=== PATIENT | female | born 1970 | race Caucasian/White ===

== ENCOUNTER → 2016-12-24 | Outpatient (CLI) | payer BC | END | disposition home or self-care (01) | LOC: LABWHC1 08:02 | PROVIDERS: ATTEND Psychiatry & Neurology Neurology | DX: G40.209 Localization-related (focal) (partial) symptomatic epilepsy and epileptic syndromes with complex partial seizures, not intractable, without status epilepticus (principal) | CPT/HCPCS: 36415; 80156 ==

== ENCOUNTER → 2017-05-25 | Outpatient (CLI) | payer BC ==
--- NOTE | 2017-05-25 15:28 | US ---
EXAMINATION TYPE: US pelvis complete transvag DATE OF EXAM: 05/25/2017 COMPARISON: CLINICAL HISTORY: R10.813 Abd Tenderness. Ablation x 5+ years ago, tubal ligation TECHNIQUE: Transvaginal (TV) and Transabdominal (TA) Date of LMP: 2011, EXAM MEASUREMENTS: Uterus: 7.7 x 5.3 x 4.4 cm Endometrial Stripe: 0.4 cm Right Ovary: 3.0 x 1.8 x 1.6 cm Left Ovary: 2.6 x 1.5 x 1.4 cm 1. Uterus: Anteverted Heterogeneous. Hypoechoic lesion in mid/left fundal region = 0.9 x 0.8 x 0. 8 cm 2. Endometrium: wnl 3. Right Ovary: hypoechoic lesion seen with peripheral vascularity - 1.6 x 1.0 x 1.2 cm 4. Left Ovary: wnl Color doppler imaging shows good vascular flow within the ovaries; 5. Bilateral Adnexa: wnl 6. Posterior cul-de-sac: free fluid cervix- multiple nabothian cysts Endometrium does not appear suspiciously thickened. Tiny amount of free fluid is seen in pelvic cul-d e-sac. Technologist diana nonspecific 8 mm hypoechoic area centrally near endometrium, differential i ncludes small subcentimeter submucosal fibroid. Both ovaries are seen and felt within normal limits in appearance. IMPRESSION: No suspicious finding is seen to account for patient's symptoms of tenderness.
== END | disposition home or self-care (01) ==
LOC: RADUSWWP 13:36
PROVIDERS: ATTEND Internal Medicine
DX: R10.813 Right lower quadrant abdominal tenderness (principal)
CPT/HCPCS: 76830; 76856

== ENCOUNTER → 2017-05-27 | Outpatient (CLI) | payer BC ==
--- NOTE | 2017-05-27 09:25 | MR ---
EXAMINATION TYPE: MR lumbar spine wo con DATE OF EXAM: 05/27/2017 8:53 AM COMPARISON: NONE HISTORY: Unspecified thoracic, thoracolumbar and lumbosacral disorder, pain Multiplanar, MultiSpin echo imaging of the lumbar spine was performed. L1-L2: Normal disc appearance without desiccation. No herniation, protrusion or disc bulging. No ca nal stenosis is present. Foramina are patent bilaterally. L2-L3: Normal disc appearance without desiccation. No herniation, protrusion or disc bulging. No ca nal stenosis is present. Foramina are patent bilaterally. L3-L4: Normal disc appearance without desiccation. No herniation, protrusion or disc bulging. No ca nal stenosis is present. Foramina are patent bilaterally. L4-L5: Severe degenerative disc disease with disc desiccation noted. Extruded right paracentral disc herniation resulting in right lateral recess stenosis and right foraminal encroachment. No evidence f or central stenosis. Mild facet joint arthropathy. L5-S1: Severe disc desiccation. Right paracentral disc herniation with a partial encapsulating spur. Right lateral recess stenosis and right foraminal encroachment. Mild edema of the exiting nerve root. Degenerative endplate marrow change and spondylosis. Facet joint arthropathy detected. Lumbar segments are intact. No paraspinal masses are identified. Conus medullaris has a normal appe arance. IMPRESSION: 1. Generative disc disease as discussed. 2. Disc herniations paracentrally and to the right at L4-5 and L5-S1 as discussed above. Right latera l recess stenosis and foraminal encroachment at each level.
== END | disposition home or self-care (01) ==
LOC: RADMRIMAIN 08:12
PROVIDERS: ATTEND Internal Medicine
DX: M51.36 Other intervertebral disc degeneration, lumbar region (principal); M51.27 Other intervertebral disc displacement, lumbosacral region
CPT/HCPCS: 72148

== ENCOUNTER → 2017-09-04 | Outpatient (CLI) | payer BC | END | disposition home or self-care (01) | LOC: LABWHC1 10:01 | PROVIDERS: ATTEND Psychiatry & Neurology Neurology | DX: G40.209 Localization-related (focal) (partial) symptomatic epilepsy and epileptic syndromes with complex partial seizures, not intractable, without status epilepticus (principal) | CPT/HCPCS: 36415; 80156 ==

== ENCOUNTER → 2017-09-08 | Outpatient (CLI) | payer BC ==
--- NOTE | 2017-09-09 09:02 | MM ---
Reason for exam: screening (asymptomatic). Last mammogram was performed 1 year and 2 months ago. History: Patient has history of other cancer at age 39. Family history of breast cancer in mother at age 71. Took hormonal contraceptives for 7 years. Physical Findings: A clinical breast exam by your physician is recommended on an annual basis and results should be correlated with mammographic findings. MG 3D Screening Mammo W/Cad Bilateral CC and MLO view(s) were taken. Prior study comparison: June 24, 2016, bilateral MG 3d screening mammo w/cad. June 05, 2015, bilateral MG 3d screening mammo w/cad. The breast tissue is heterogeneously dense. This may lower the sensitivity of mammography. Stable benign calcifications. There is no discrete abnormality. No significant changes when compared with prior studies. ASSESSMENT: Benign, BI-RAD 2 RECOMMENDATION: Routine screening mammogram of both breasts in 1 year.
== END | disposition home or self-care (01) ==
LOC: RADMAMWWP 06:49
PROVIDERS: ATTEND Obstetrics & Gynecology
DX: Z12.31 Encounter for screening mammogram for malignant neoplasm of breast (principal); Z80.3 Family history of malignant neoplasm of breast
CPT/HCPCS: 77063; 77067

== ENCOUNTER → 2018-04-12 | Outpatient (CLI) | payer BC | END | disposition home or self-care (01) | LOC: LABWHC1 16:50 | PROVIDERS: ATTEND Psychiatry & Neurology Neurology | DX: G40.209 Localization-related (focal) (partial) symptomatic epilepsy and epileptic syndromes with complex partial seizures, not intractable, without status epilepticus (principal) | CPT/HCPCS: 36415; 80156 ==

== ENCOUNTER → 2018-09-26 | Outpatient (CLI) | payer BC ==
--- NOTE | 2018-09-27 10:42 | MM ---
Reason for exam: screening (asymptomatic). Last mammogram was performed 1 year and 1 month ago. History: Patient has history of other cancer at age 39. Family history of breast cancer in mother at age 71. Took hormonal contraceptives for 7 years. Physical Findings: A clinical breast exam by your physician is recommended on an annual basis and results should be correlated with mammographic findings. MG 3D Screening Mammo W/Cad Bilateral CC and MLO view(s) were taken. Prior study comparison: September 08, 2017, bilateral MG 3d screening mammo w/cad. June 24, 2016, bilateral MG 3d screening mammo w/cad. The breast tissue is heterogeneously dense. This may lower the sensitivity of mammography. Benign appearing bilateral calcifications. Stable left upper outer quadrant focal asymmetry. No significant changes when compared with prior studies. ASSESSMENT: Benign, BI-RAD 2 RECOMMENDATION: Routine screening mammogram of both breasts in 1 year.
== END | disposition home or self-care (01) ==
LOC: RADMAMWWP 08:58
PROVIDERS: ATTEND Obstetrics & Gynecology
DX: Z12.31 Encounter for screening mammogram for malignant neoplasm of breast (principal); Z80.3 Family history of malignant neoplasm of breast
CPT/HCPCS: 77063; 77067

== ENCOUNTER → 2018-11-30 | Outpatient (CLI) | payer BC ==
[2018-11-30 19:33] LABS: Hepatitis B Surface AB- Quant 3.5 mIU/mL; Hepatitis C IgG Antibody Non-Reactive (Non-Reactive)
== END | disposition home or self-care (01) ==
LOC: LABWHC1 09:40
PROVIDERS: ATTEND Internal Medicine
DX: Z20.5 Contact with and (suspected) exposure to viral hepatitis (principal)
CPT/HCPCS: 36415; 86706; 86803; 87350

== ENCOUNTER → 2018-12-29 | Outpatient (CLI) | payer BC | END | disposition home or self-care (01) | LOC: LABWHC1 09:50 | PROVIDERS: ATTEND Psychiatry & Neurology Neurology | DX: G40.209 Localization-related (focal) (partial) symptomatic epilepsy and epileptic syndromes with complex partial seizures, not intractable, without status epilepticus (principal) | CPT/HCPCS: 36415; 80156 ==

== ENCOUNTER → 2019-03-01 | Outpatient (CLI) | payer BC ==
[2019-03-01 07:36] LABS: Basophils % (A) 0 %; Eosinophils # (A) 0.1 k/uL (0-0.7); Eosinophils % (A) 1 %; HCT 37.7 % (34.0-46.0); HGB 13.6 gm/dL (11.4-16.0); Lymphocytes # (A) 2.3 k/uL (1.0-4.8); Lymphocytes % (A) 23 %; MCHC 36.1 g/dL (31.0-37.0); MCV 85.8 fL (80.0-100.0); Monocytes # (A) 0.4 k/uL (0-1.0); Monocytes % (A) 4 %; Neutrophils % (A) 71 %; Platelet Count 291 k/uL (150-450); RBC 4.39 m/uL (3.80-5.40); RDW 14.5 % (11.5-15.5); WBC 9.9 k/uL (3.8-10.6)
== END | disposition home or self-care (01) ==
LOC: LABWHC1 07:05
PROVIDERS: ATTEND Obstetrics & Gynecology
DX: Z01.812 Encounter for preprocedural laboratory examination (principal)
CPT/HCPCS: 36415; 85025

== ENCOUNTER 2019-03-09 05:59 | Day surgery (SDC) | payer BC ==
[2019-03-02 14:38] VITALS: BMI 29.7
--- NOTE | 2019-03-08 07:31 | P.HPOB ---
History of Present Illness H&P Date: 03/08/19 Chief Complaint: High-grade endocervical dysplasia This patient is a pleasant 48-year-old 2 para 2 female who had a Pap smear which showed low-grade changes. Patient subsequently had a colposcopy which showed a negative biopsy but her ECC showed possible moderate dy splasia/high-grade. Patient now presents for LEEP excision and colposcopy this area for further evaluation and treatment. Review of Systems All systems: negative Past Medical History Past Medical History: Cancer, Diabetes Mellitus, Seizure Disorder Additional Past Medical History / Comment(s): diet controlled diabetes (has been on Rx's on the past). LAST SEIZURE approximately 2003. HYPOTENSION. "after my cardiac cath my heart stopped-possible vasovagal per old medical record. UTIs. IBS or food allergies causing problems, skin cancer basal cell History of Any Multi-Drug Resistant Organisms: None Reported Past Surgical History: Cholecystectomy, Heart Catheterization, Tubal Ligation, Uterine Ablation Additional Past Surgical History / Comment(s): labial growth removed, skin cancer removals. Past Anesthesia/Blood Transfusion Reactions: Family History of Problems w/ Anesthesia Additional Past Anesthesia/Blood Transfusion Reaction / Comment(s): PT STATED "MY HEART STOPPED AFTER MY HEARTCATH" -possible vasovagal per old record, has had a CHOLECYSTECTOMY AFTER HEARTCATH AND DIDN'T HAVE ANY PROBLEMS" Smoking Status: Never smoker - Past Family History Father Additional Family Medical History / Comment(s): Father at age 75 of heart problems. Mother Family Medical History: Cancer Additional Family Medical History / Comment(s): Severe arthritis, bowel and stage IV breast cancer. Brother(s) Family Medical History: CVA/TIA, Diabetes Mellitus Additional Family Medical History / Comment(s): Medications and Allergies Home Medications Medication Instructions Recorded Confirmed Type carBAMazepine [Carbatrol] 200 mg PO BID 02/13/14 03/02/19 History diphenhydrAMINE [Benadryl] 25 - 50 mg PO DAILY PRN 12/17/15 03/02/19 History Cholecalciferol [Vitamin D3 (25 2,000 unit PO Q48H 03/02/19 03/02/19 History Mcg = 1000 Iu)] Allergies Allergy/AdvReac Type Severity Reaction Status Date / Time amoxicillin Allergy nausea,diarrhea, Verified 08/22/19 14:26 light headedness apricot [Apricot] Allergy PER ALG Verified 03/02/19 14:26 TESTING Beef Containing Products Allergy PER ALG Verified 03/02/19 14:26 TESTING carbamazepine Allergy heart Verified 03/02/19 14:26 racing,panic attacks, skin crawling cinnamon [Cinnamon] Allergy Swelling Verified 03/02/19 14:26 codeine Allergy Hallucinati Verified 03/02/19 14:26 ons cyclobenzaprine HCl Allergy Swelling Verified 03/02/19 14:26 [From Amrix] dexamethasone Allergy Unknown Verified 03/02/19 14:26 egg Allergy PER ALG Verified 03/02/19 14:26 TESTING meloxicam [From Mobic] Allergy Swelling Verified 03/02/19 14:26 Milk Containing Products Allergy PER ALG Verified 03/02/19 14:26 [Dairy] TESTING oats Allergy PER ALG Verified 03/02/19 14:26 TESTING onion Allergy PER ALG Verified 03/02/19 14:26 TESTING saxagliptin HCl Allergy Rash/Hives Verified 03/02/19 14:26 [From Onglyza] soy Allergy PER ALG Verified 03/02/19 14:26 TESTING tree nut [Tree Nut] Allergy PER ALG Verified 03/02/19 14:26 TESTING Exam - OBG Physical Exam Abdomen: bowel sounds normal, no diffuse tenderness, no bruit present, no guarding noted, no hepatomegaly, no splenomegaly, no mass Vulva: both: normal Vagina: normal moisture, no discharge Cervix: no lesion, no discharge Results Pathology shows endocervical curettings with possible HARI-2/high-grade. Assessment and Plan Assessment: This is a pleasant 48-year-old 2 para 2 female with moderate cervical dysplasia/high-grade of the endocervix. Plan is colposcopy with LEEP excision of this area. Patient understands this surgery and risks including risks of infection, bleeding. All the patient's questions are answered written consent is obtained. (1) Moderate cervical dysplasia Status: Acute Code(s): N87.1 - MODERATE CERVICAL DYSPLASIA SNOMED Code(s): 257346796
[~2019-03-09 05:59] MED LIST: HYDROmorphone 0.5 MG/0.5 ML SYRINGE IVP PRN; LACTATED RINGERS 1,000 ML IV SCH; LIDOCAINE 1% 20 ML VIAL (10MG/ML) FOR IV START INTRADERMA PRN; ONDANSETRON 4 MG/2 ML VIAL IVP ONE; Pre Op ABX Message 1 EACH MISC MISCELLANE ONE
[2019-03-09 06:31] VITALS: TEMP 98.1
[2019-03-09] MEDS ORDERED: LACTATED RINGERS 1,000 ML IV ONE (06:33)
[2019-03-09] MEDS ORDERED: ONDANSETRON 4 MG/2 ML VIAL IVP ONE (06:33)
[2019-03-09] MEDS ORDERED: LIDOCAINE 1% 20 ML VIAL (10MG/ML) FOR IV START INTRADERMA ONE (06:33)
[2019-03-09] MEDS ORDERED: SCOPOLAMINE 1.5MG/72HR PATCH TRANSDERM ONE (06:50)
[2019-03-09] MEDS ORDERED: MIDAZOLAM 2 MG/2 ML VIAL ONE (06:57)
[2019-03-09] MEDS ORDERED: KETOROLAC 30 MG/ML 1 ML VIAL ONE (06:57)
[2019-03-09] MEDS ORDERED: fentaNYL (PF) 50 MCG/ML 2 ML AMP ONE (06:57)
[2019-03-09] MEDS ORDERED: LIDOCAINE 1% INJ 10MG/ML (20 ML MDV) ONE (06:57)
[2019-03-09] MEDS ORDERED: PROPOFOL 10 MG/ML 20 ML VIAL IV ONE (06:57)
[2019-03-09 07:01] LABS: Glucose,Whole Blood 239 mg/dL (75-99)
[2019-03-09] MEDS ORDERED: FERRIC SUBSULFATE (MONSELS) JAR TOPICAL ONE (07:18)
[2019-03-09] MEDS ORDERED: IODINE/POTASS IOD (LUGOLS) 8 ML BTL TOPICAL ONE (07:19)
--- NOTE | 2019-03-09 07:37 | P.OP ---
Date of Procedure: 03/09/19 Preoperative Diagnosis: Possible high-grade endocervical dysplasia Postoperative Diagnosis: Same Procedure(s) Performed: LEEP excision of the endometrium and endocervix Anesthesia: MAC Surgeon: Josh Mukherjee Estimated Blood Loss (ml): 10 Urine output (ml): 15 Pathology: other (Ectocervix and endocervix) Condition: stable Disposition: PACU Indications for Procedure: Please see dictated H&P for intimate details of this patient's admission. Brief summary she is pleasant 48-year-old female who had a low-grade Pap smear however colposcopy showed possible high-grade endocervical dysplasia. Patient now presents for further evaluation by LEEP excision of this area. I did discuss this in detail with the patient including risks of infection and bleeding. All the patient's questions are answered and a written consent is obtained. Operative Findings: Patient had normal appearing ectocervix. Description of Procedure: This patient is taken to the operating room where she is laid in the supine posi tion. She subsequently undergoes general mask anesthesia without incident. With an adequate level of anesthesia placed in dorsal lithotomy position. She has a vaginal perineal prep and drape. Laser speculum was placed into the vagina and the cervix is visualized. Lugol's is applied to the cervix and no ectocervical lesions are noted. Large LEEP loop was then used to excise the entire dose cervix. Using the small LEEP loop I then make several passes of the endocervix for complete removal of this area and adequate sampling. Bovie tip was then used to cauterize the ectocervix endocervical bed. Excellent hemostasis is noted. Added hemostasis is assured with Monsel solution. After prolonged observation good hemostasis is assured the procedure is ended. I did drain her bladder for 15 mL of urine. The speculum is removed and all counts are correct 3. There are no complications. Patient awakened from anesthesia and taken recovery room in satisfactory condition.
[2019-03-09 08:13] VITALS: RESP 17
[2019-03-09 08:21] VITALS: BP 127/82; PULSE 77
== END 2019-03-09 09:03 | disposition home or self-care (01) ==
LOC: OR 05:59
PROVIDERS: ATTEND Obstetrics & Gynecology
DX: N87.0 Mild cervical dysplasia (principal); B97.7 Papillomavirus as the cause of diseases classified elsewhere; E11.9 Type 2 diabetes mellitus without complications; G40.909 Epilepsy, unspecified, not intractable, without status epilepticus; K21.9 Gastro-esophageal reflux disease without esophagitis; K58.9 Irritable bowel syndrome, unspecified; I95.9 Hypotension, unspecified; Z85.828 Personal history of other malignant neoplasm of skin; Z87.440 Personal history of urinary (tract) infections; Z79.899 Other long term (current) drug therapy; Z88.0 Allergy status to penicillin; Z88.8 Allergy status to other drugs, medicaments and biological substances; Z88.5 Allergy status to narcotic agent; Z88.6 Allergy status to analgesic agent; Z91.011 Allergy to milk products; Z91.012 Allergy to eggs; Z91.018 Allergy to other foods; Z91.09 Other allergy status, other than to drugs and biological substances; Z98.51 Tubal ligation status; Z90.49 Acquired absence of other specified parts of digestive tract; Z98.890 Other specified postprocedural states; Z82.49 Family history of ischemic heart disease and other diseases of the circulatory system; Z80.3 Family history of malignant neoplasm of breast; Z82.61 Family history of arthritis; Z83.79 Family history of other diseases of the digestive system; Z83.3 Family history of diabetes mellitus; Z82.3 Family history of stroke
CPT/HCPCS: 57522; 81025; 88307; J2250; J2405; J2001; J3010; J1885; J2704; 88305

== ENCOUNTER → 2019-12-29 | Outpatient (CLI) | payer BC ==
--- NOTE | 2020-01-02 08:03 | MM ---
Reason for exam: screening (asymptomatic). Last mammogram was performed 1 year and 3 months ago. History: Patient has history of other cancer at age 39. Family history of breast cancer in mother at age 71. Took hormonal contraceptives for 7 years. Physical Findings: A clinical breast exam by your physician is recommended on an annual basis and results should be correlated with mammographic findings. MG 3D Screening Mammo W/Cad Bilateral CC and MLO view(s) were taken. Prior study comparison: September 26, 2018, bilateral MG 3d screening mammo w/cad. September 08, 2017, bilateral MG 3d screening mammo w/cad. The breast tissue is heterogeneously dense. This may lower the sensitivity of mammography. Finding: There are typically benign round, diffuse/scattered calcifications in both breasts. Asymmetric breast tissue greaster in the left breast. There may ne a new group of calcifications in the right lower outer quadrant, 6cm from the nipple. New finding since September 26, 2018 and September 08, 2017. ASSESSMENT: Incomplete: need additional imaging evaluation, BI-RAD 0 RECOMMENDATION: Special view mammogram of the right breast. If lesion persists on supplemental views, image directed ultrasound is recommended. [facility] will attempt to contact patient to return for supplemental views and ultrasound if indicated.
== END | disposition home or self-care (01) ==
LOC: RADMAMWWP 07:08
PROVIDERS: ATTEND Obstetrics & Gynecology
DX: Z12.31 Encounter for screening mammogram for malignant neoplasm of breast (principal)
CPT/HCPCS: 77063; 77067

== ENCOUNTER → 2019-12-29 | Outpatient (CLI) | payer BC | END | disposition home or self-care (01) | LOC: LABWHC1 07:26 | PROVIDERS: ATTEND Psychiatry & Neurology Neurology | DX: G40.209 Localization-related (focal) (partial) symptomatic epilepsy and epileptic syndromes with complex partial seizures, not intractable, without status epilepticus (principal) | CPT/HCPCS: 36415; 80156 ==

== ENCOUNTER → 2020-01-11 | Outpatient (CLI) | payer BC ==
--- NOTE | 2020-01-11 11:52 | MM ---
Reason for exam: additional evaluation requested from abnormal screening. Last mammogram was performed less than 1 month ago. History: Patient has history of other cancer at age 39. Family history of breast cancer in mother at age 71. Took hormonal contraceptives for 7 years beginning at age 17. Physical Findings: Nurse did not find any significant physical abnormalities on exam. MG 3D Work Up W/Cad RT Spot compression CC, spot compression MLO, and ML view(s) were taken of the right breast. Prior study comparison: December 29, 2019, bilateral MG 3d screening mammo w/cad. September 26, 2018, bilateral MG 3d screening mammo w/cad. The breast tissue is heterogeneously dense. This may lower the sensitivity of mammography. Scattered punctate calcifications demonstrated. No suspicious cluster is seen at this time. No significant new findings when compared with previous films. These results were verbally communicated with the patient and result sheet given to the patient on 01/11/20. ASSESSMENT: Benign, BI-RAD 2 RECOMMENDATION: Return to routine screening mammogram schedule for both breasts.
== END | disposition home or self-care (01) ==
LOC: RADMAMWWP 10:13
PROVIDERS: ATTEND Obstetrics & Gynecology
DX: R92.8 Other abnormal and inconclusive findings on diagnostic imaging of breast (principal)
CPT/HCPCS: 77061; 77065

== ENCOUNTER → 2020-05-16 | Day surgery (SDC) | payer BC ==
[2020-05-14 17:37] VITALS: BMI 29.4
[~2020-05-16] MED LIST changes: -HYDROmorphone 0.5 MG/0.5 ML SYRINGE IVP PRN; +LIDOCAINE 1% (10MG/ML) FOR IV START INTRADERMA PRN; -LIDOCAINE 1% 20 ML VIAL (10MG/ML) FOR IV START INTRADERMA PRN; -ONDANSETRON 4 MG/2 ML VIAL IVP ONE; +PROPOFOL 10 MG/ML 20 ML VIAL IV ONE; -Pre Op ABX Message 1 EACH MISC MISCELLANE ONE
[2020-05-16 10:09] VITALS: RESP 16; TEMP 98.2
[2020-05-16 10:21] LABS: Glucose,Whole Blood 162 mg/dL (75-99)
--- NOTE | 2020-05-16 10:48 | P.PCN ---
Date of Procedure: 05/16/20 Procedure(s) Performed: BRIEF HISTORY: Patient is a 49-year-old pleasant female scheduled for an elective colonoscopy as a part of screening for colorectal neoplasia and family history of colon cancer diagnosed in her mother at age 60. PROCEDURE PERFORMED: Colonoscopy with snare polypectomy. PREOPERATIVE DIAGNOSIS: Screening for colon cancer/family history of colon cancer. IV sedation per Anesthesia. PROCEDURE: After informed consent was obtained, the patient, was brought into the endoscopy unit. IV sedation was administered by Anesthesia under continuous monitoring. Digital rectal examination was normal. Initially the Olympus CF-160 flexible video colonoscope was then inserted in the rectum, gradually advanced into the cecum without any difficulty. Careful examination was performed as the scope was gradually being withdrawn. Ileocecal valve and the appendiceal orifice were visualized and appeared normal. Prep was excellent. Mucosa of the cecum, ascending colon, appeared normal. In the proximal transverse colon there was a 5 mm sessile polyp that was removed by snare polypectomy. Rest of the transverse colon, descending colon, sigmoid colon, and rectum appeared normal. Retroflexion was performed in the rectum and no lesions were seen. The patient tolerated the procedure well. IMPRESSION: 5 mm transverse colon polyp status post snare polypectomy Rest of the colon appeared RECOMMENDATIONS: Findings of this examination were discussed with the patient as well as a family. She was advised to follow with the biopsy results. If the biopsy shows an adenoma she can have a repeat colonoscopy in 5 years.
[2020-05-16 10:52] VITALS: PULSE 89
[2020-05-16 11:14] VITALS: BP 124/75
== END ==
LOC: ORWHC2ENDO 09:32
PROVIDERS: ATTEND Internal Medicine Gastroenterology
DX: Z12.11 Encounter for screening for malignant neoplasm of colon (principal); D12.3 Benign neoplasm of transverse colon; Z80.0 Family history of malignant neoplasm of digestive organs; E11.9 Type 2 diabetes mellitus without complications; R56.9 Unspecified convulsions; Z90.49 Acquired absence of other specified parts of digestive tract; Z98.51 Tubal ligation status; Z98.890 Other specified postprocedural states; Z79.1 Long term (current) use of non-steroidal anti-inflammatories (NSAID); Z79.899 Other long term (current) drug therapy; Z88.6 Allergy status to analgesic agent; Z88.5 Allergy status to narcotic agent; Z88.0 Allergy status to penicillin; Z88.8 Allergy status to other drugs, medicaments and biological substances
CPT/HCPCS: 81025; 88305; 45385; J2704

== ENCOUNTER → 2020-08-19 | Outpatient (CLI) | payer BC | END | disposition home or self-care (01) | LOC: LABWHC1 08:33 | PROVIDERS: ATTEND Psychiatry & Neurology Neurology | DX: G40.209 Localization-related (focal) (partial) symptomatic epilepsy and epileptic syndromes with complex partial seizures, not intractable, without status epilepticus (principal) | CPT/HCPCS: 36415; 80156 ==

== ENCOUNTER → 2021-01-03 | Outpatient (CLI) | payer BC ==
--- NOTE | 2021-01-07 10:23 | MM ---
Reason for exam: screening (asymptomatic). Last mammogram was performed 1 year ago. History: Patient has history of other cancer at age 39. Family history of breast cancer in mother at age 71. Took hormonal contraceptives for 7 years beginning at age 17. Physical Findings: A clinical breast exam by your physician is recommended on an annual basis and results should be correlated with mammographic findings. MG 3D Screening Mammo W/Cad Bilateral CC and MLO view(s) were taken. Prior study comparison: December 29, 2019, bilateral MG 3d screening mammo w/cad. September 26, 2018, bilateral MG 3d screening mammo w/cad. The breast tissue is heterogeneously dense. This may lower the sensitivity of mammography. Diffuse and regional punctate calcifications are unchanged. Upper outer quadrant global asymmetry is unchanged. No significant changes when compared with prior studies. ASSESSMENT: Benign, BI-RAD 2 RECOMMENDATION: Routine screening mammogram of both breasts in 1 year. Patient should continue monthly self breast exams. A negative report should not preclude additional follow up of suspicious palpable abnormalities.
== END | disposition home or self-care (01) ==
LOC: RADMAMWWP 07:00
PROVIDERS: ATTEND Obstetrics & Gynecology
DX: Z12.31 Encounter for screening mammogram for malignant neoplasm of breast (principal); Z80.3 Family history of malignant neoplasm of breast
CPT/HCPCS: 77063; 77067

== ENCOUNTER → 2021-01-03 | Outpatient (CLI) | payer BC ==
--- NOTE | 2021-01-08 14:44 | BD ---
EXAMINATION TYPE: Axial Bone Density DATE OF EXAM: 01/03/2021 COMPARISON: NONE CLINICAL HISTORY: Postmenopausal Height: 66 IN Weight: 189 LBS RISK FACTORS HISTORY OF: Active: YES Postmenopausal woman: AGE 44 MEDICATIONS: Additional Medications: VIT D, CARBATROL, EXAM MEASUREMENTS: Bone mineral densitometry was performed using the [employer] System. Bone mineral density as measured about the Lumbar spine is: ----- L1-L4(G/cm2): 1.695 T Score Values are as follows: ----- L2: 4.2 ----- L3: 4.6 ----- L4: 4.2 ----- L1-L4: 4.3 Bone mineral density BASELINE Bone mineral density about the R hip (g/cm2): 1.183 Bone mineral density about the L hip (g/cm2): 1.254 T Score values are as follows: -----R Neck: 1.0 -----L Neck: 1.6 -----R Total: 1.3 -----L Total: 2.2 Bone mineral density BASELINE IMPRESSION: Normal (Values between +1 and -1 indicate normal bone mass). Consider repeating this study in 5 year s or sooner if there is some new clinical indication. NOTE: T-SCORE=SD OF THE YOUNG ADULT MEAN.
== END | disposition home or self-care (01) ==
LOC: RADBDWWP 12:42
PROVIDERS: ATTEND Obstetrics & Gynecology
DX: Z13.820 Encounter for screening for osteoporosis (principal); Z78.0 Asymptomatic menopausal state
CPT/HCPCS: 77080

== ENCOUNTER → 2021-02-19 | Outpatient (CLI) | payer BC ==
[2021-02-19 10:31] LABS: Appearance,Urine Clear (Clear); Bilirubin,Urine Negative (Negative); Blood,Urine Negative (Negative); Color,Urine Yellow; Glucose,Urine (UA) 4+ (Negative); Ketones,Urine 1+ (Negative); Leukocyte Esterase,Urine Negative (Negative); Nitrite,Urine Negative (Negative); PH, Urine 5.5 (5.0-8.0); Protein,Urine Negative (Negative); Specific Gravity,Urine 1.029 (1.001-1.035); Urobilinogen,Urine <2.0 mg/dL (<2.0)
[2021-02-19 14:54] LABS: Basophils # (A) 0.03 X 10*3/uL (0.00-0.10); Basophils % (A) 0.3 %; Eosinophils # (A) 0.06 X 10*3/uL (0.04-0.35); Eosinophils % (A) 0.6 %; HCT 39.8 % (37.2-46.3); HGB 12.9 g/dL (12.0-15.0); Lymphocytes # (A) 2.63 X 10*3/uL (0.90-5.00); Lymphocytes % (A) 27.5 %; MCH 28.4 pg (27.0-32.0); MCHC 32.4 g/dL (32.0-37.0); MCV 87.5 fL (80.0-97.0); Mean Platelet Volume 10.5 fL (9.5-12.2); Monocytes % (A) 4.2 %; Neutrophils # (A) 6.41 X 10*3/uL (1.80-7.70); Neutrophils % (A) 66.9 %; Platelet Count 280 X 10*3/uL (140-440); RBC 4.55 X 10*6/uL (4.10-5.20); RDW 12.3 % (11.5-14.5); WBC 9.58 X 10*3/uL (4.50-10.00)
[2021-02-19 18:53] LABS: Hemoglobin A1C 9.3 % (4.0-6.0)
[2021-02-19 23:06] LABS: Carbamazepine (Tegretol) 6.2 ug/mL (4.0-12.0)
[2021-02-20 05:18] LABS: African American GFR (CKD) 122.3 (60.0-200.0); Anion Gap 10.8 mmol/L (4.00-12.00); BUN/Creat Ratio 18.33 Ratio (12.00-20.00); Calcium 9.3 mg/dL (8.7-10.3); Carbon Dioxide 27.2 mmol/L (21.6-31.8); Chol/HDL Ratio 5.07; LDL Cholesterol,Calculated 110.2 mg/dL (0.0-131.0); Non-African American GFR(CKD) 105.5 (60.0-200.0); Potassium 4.5 mmol/L (3.5-5.5); VLDL Calculation 72.8 mg/dL (5.00-40.00)
[2021-02-20 15:20] LABS: Urine Creatinine 114.3 mg/dL
== END | disposition home or self-care (01) ==
LOC: LABWHC1 09:08
PROVIDERS: ATTEND Psychiatry & Neurology Neurology
DX: E78.5 Hyperlipidemia, unspecified (principal); E66.3 Overweight; G40.209 Localization-related (focal) (partial) symptomatic epilepsy and epileptic syndromes with complex partial seizures, not intractable, without status epilepticus; E11.65 Type 2 diabetes mellitus with hyperglycemia
CPT/HCPCS: 36415; 80048; 80061; 80156; 81003; 82043; 82570; 83036; 84443; 84450; 84460; 85025

== ENCOUNTER 2021-03-08 14:45 | Emergency (ER) | payer BC ==
[2021-03-08] MEDS: ACETAMINOPHEN TAB 325 MG TAB PO STA (15:33)
--- NOTE | 2021-03-08 16:09 | XR ---
EXAMINATION TYPE: XR chest 2V DATE OF EXAM: 03/08/2021 COMPARISON: 11/04/2015 HISTORY: Cough and fever TECHNIQUE: 2 views FINDINGS: There is some linear density left lung base. Heart and mediastinum are normal. There are no hilar masses. The bony thorax is intact. Is some linear density in the lingula left upper lobe. IMPRESSION: There is some subsegmental atelectasis left lung base which appears new compared to old e xam. There is some lingula linear density consistent with scarring and atelectasis without change. No rmal heart.
[2021-03-08 17:35] LABS: Appearance,Urine Clear (Clear); Bilirubin,Urine Negative (Negative); Blood,Urine Negative (Negative); Color,Urine Yellow; Glucose,Urine (UA) Negative (Negative); Ketones,Urine 4+ (Negative); Leukocyte Esterase,Urine Negative (Negative); Nitrite,Urine Negative (Negative); Protein,Urine Trace (Negative); Specific Gravity,Urine 1.022 (1.001-1.035); Urobilinogen,Urine <2.0 mg/dL (<2.0)
[2021-03-08 17:39] VITALS: BP 151/80; PULSE 99; RESP 16; TEMP 99.9
[2021-03-08 17:49] LABS: Basophils % (A) 0 %; Eosinophils # (A) 0.1 k/uL (0-0.7); Eosinophils % (A) 1 %; HCT 36.5 % (34.0-46.0); HGB 12.5 gm/dL (11.4-16.0); Lymphocytes # (A) 0.4 k/uL (1.0-4.8); Lymphocytes % (A) 6 %; MCH 29.8 pg (25.0-35.0); MCHC 34.3 g/dL (31.0-37.0); MCV 86.9 fL (80.0-100.0); Mean Platelet Volume 7.5; Monocytes # (A) 0.2 k/uL (0-1.0); Monocytes % (A) 3 %; Neutrophils # (A) 5.5 k/uL (1.3-7.7); Neutrophils % (A) 89 %; Platelet Count 204 k/uL (150-450); Poikilocytosis Slight; RDW 14.5 % (11.5-15.5); WBC 6.2 k/uL (3.8-10.6)
--- NOTE | 2021-03-08 17:55 | ED ---
Fever HPI - General Chief Complaint: Fever Stated Complaint: Fever,Headache Time Seen by Provider: 03/08/21 15:15 Source: patient, RN notes reviewed Mode of arrival: ambulatory Limitations: no limitations - History of Present Illness Initial Comments: Patient is a 50-year-old female that presents to the emergency department complaining of a fever since last night. She notes that she is fully vaccinated but wanted to come to ER to make sure she did not have Covid. She was otherwise a well-appearing 50-year-old female in no apparent distress or pain. She noted that she felt fine for fever and some body chills. She denied any chest pain shortness of breath headache nausea vomiting diarrhea constipation fatigue. - Related Data Home Medications Medication Instructions Recorded Confirmed carBAMazepine [Carbatrol] 200 mg PO BID 02/13/14 03/08/21 diphenhydrAMINE [Benadryl] 25 - 50 mg PO DAILY PRN 12/17/15 03/08/21 Cholecalciferol [Vitamin D3 (25 50 mcg PO DAILY 03/08/21 03/08/21 Mcg = 1000 Iu)] Ibuprofen [Motrin Ib] 200 - 800 mg PO Q8H PRN 03/08/21 03/08/21 Allergies Allergy/AdvReac Type Severity Reaction Status Date / Time amoxicillin Allergy nausea,diarrhea, Verified 03/08/21 16:26 light headedness apricot [Apricot] Allergy PER ALG Verified 03/08/21 16:26 TESTING Beef Containing Products Allergy PER ALG Verified 03/08/21 16:26 TESTING carbamazepine Allergy heart Verified 03/08/21 16:26 racing,panic attacks, skin crawling cinnamon [Cinnamon] Allergy Swelling Verified 03/08/21 16:26 codeine Allergy Hallucinati Verified 03/08/21 16:26 ons cyclobenzaprine HCl Allergy Swelling Verified 03/08/21 16:26 [From Amrix] dexamethasone Allergy Unknown Verified 03/08/21 16:26 egg Allergy PER ALG Verified 03/08/21 16:26 TESTING meloxicam [From Mobic] Allergy Swelling Verified 03/08/21 16:26 Milk Containing Products Allergy PER ALG Verified 03/08/21 16:26 [Dairy] TESTING oats Allergy PER ALG Verified 03/08/21 16:26 TESTING onion Allergy PER ALG Verified 03/08/21 16:26 TESTING saxagliptin HCl Allergy Rash/Hives Verified 03/08/21 16:26 [From Onglyza] soy Allergy PER ALG Verified 03/08/21 16:26 TESTING tree nut [Tree Nut] Allergy PER ALG Verified 03/08/21 16:26 TESTING Review of Systems ROS Statement: Those systems with pertinent positive or pertinent negative responses have been documented in the HPI. ROS Other: All systems not noted in ROS Statement are negative. Past Medical History Past Medical History: Cancer, Diabetes Mellitus, Seizure Disorder Additional Past Medical History / Comment(s): Currently diet controlled diabetes (has been on Rx's on the past). LAST SEIZURE approximately 2003. HYPOTENSION. "after my cardiac cath my heart stopped-possible vasovagal per old medical record. UTIs. IBS or food allergies causing problems, SKIN CANCER History of Any Multi-Drug Resistant Organisms: None Reported Past Surgical History: Cholecystectomy, Heart Catheterization, Tubal Ligation, Uterine Ablation Additional Past Surgical History / Comment(s): labrial growth removed, skin cancer removals. COLONOSCOPY Past Anesthesia/Blood Transfusion Reactions: No Reported Reaction Additional Past Anesthesia/Blood Transfusion Reaction / Comment(s): PT STATED "MY HEART STOPPED AFTER MY HEART CATH" -possible vasovagal per old record, has had a CHOLECYSTECTOMY AFTER HEARTCATH AND DIDN'T HAVE ANY PROBLEMS" Past Psychological History: No Psychological Hx Reported Smoking Status: Never smoker Past Alcohol Use History: None Reported Past Drug Use History: None Reported - Past Family History Father Additional Family Medical History / Comment(s): Father at age 75 of heart problems. Mother Family Medical History: Cancer Additional Family Medical History / Comment(s): Severe arthritis, bowel and stage IV breast cancer. Brother(s) Family Medical History: CVA/TIA, Diabetes Mellitus Additional Family Medical History / Comment(s): General Exam Limitations: no limitations General appearance: alert, in no apparent distress, obese Head exam: Present: atraumatic, normocephalic, normal inspection Eye exam: Present: normal appearance, PERRL, EOMI. Absent: scleral icterus, conjunctival injection, periorbital swelling Neck exam: Present: normal inspection Respiratory exam: Present: normal lung sounds bilaterally. Absent: respiratory distress, wheezes, rales, rhonchi, stridor Cardiovascular Exam: Present: regular rate, normal rhythm, normal heart sounds. Absent: systolic murmur, diastolic murmur, rubs, gallop, clicks GI/Abdominal exam: Present: soft, normal bowel sounds. Absent: distended, tenderness, guarding, rebound, rigid Extremities exam: Present: normal inspection, full ROM, normal capillary refill. Absent: tenderness, pedal edema, joint swelling, calf tenderness Neurological exam: Present: alert, oriented X3 Psychiatric exam: Present: normal affect, normal mood Skin exam: Present: warm, dry, intact, normal color. Absent: rash Course Vital Signs 03/08/21 03/08/21 03/08/21 15:09 16:31 17:37 Temperature 102.5 F H 102.3 F H 99.9 F H Pulse Rate 114 H 105 H 99 Respiratory 8 L 18 16 Rate Blood Pressure 151/79 132/81 151/80 O2 Sat by Pulse 98 95 96 Oximetry Medical Decision Making - Medical Decision Making 50-year-old female with fever and chills times one. Covid test, x-ray ordered. Covid test negative. X-ray negative, some mild patchy atelectasis. CBC CMP and urinalysis ordered. Labs unremarkable. 650 mg of Tylenol ordered for a fever of 102.5. Upon recheck patient's temperature is 99.9. Case discussed with Dr. Diehl, patient can discharge home. - Lab Data Result diagrams: 03/08/21 17:23 03/08/21 17:23 Lab Results 03/08/21 03/08/21 03/08/21 Range/Units 15:34 17:23 17:23 WBC 6.2 (3.8-10.6) k/uL RBC 4.20 (3.80-5.40) m/uL Hgb 12.5 (11.4-16.0) gm/dL Hct 36.5 (34.0-46.0) % MCV 86.9 (80.0-100.0) fL MCH 29.8 (25.0-35.0) pg MCHC 34.3 (31.0-37.0) g/dL RDW 14.5 (11.5-15.5) % Plt Count 204 (150-450) k/uL MPV 7.5 Neutrophils % 89 % Lymphocytes % 6 % Monocytes % 3 % Eosinophils % 1 % Basophils % 0 % Neutrophils # 5.5 (1.3-7.7) k/uL Lymphocytes # 0.4 L (1.0-4.8) k/uL Monocytes # 0.2 (0-1.0) k/uL Eosinophils # 0.1 (0-0.7) k/uL Basophils # 0.0 (0-0.2) k/uL Poikilocytosis Slight Sodium (137-145) mmol/L Potassium (3.5-5.1) mmol/L Chloride (98-107) mmol/L Carbon Dioxide (22-30) mmol/L Anion Gap mmol/L BUN (7-17) mg/dL Creatinine (0.52-1.04) mg/dL Est GFR (CKD-EPI)AfAm (>60 ml/min/1.73 sqM) Est GFR (CKD-EPI)NonAf (>60 ml/min/1.73 sqM) Glucose (74-99) mg/dL Calcium (8.4-10.2) mg/dL Total Bilirubin (0.2-1.3) mg/dL AST (14-36) U/L ALT (4-34) U/L Alkaline Phosphatase (38-126) U/L Total Protein (6.3-8.2) g/dL Albumin (3.5-5.0) g/dL Urine Color Yellow Urine Appearance Clear (Clear) Urine pH 6.0 (5.0-8.0) Ur Specific [place] 1.022 (1.001-1.035) Urine Protein Trace H (Negative) Urine Glucose (UA) Negative (Negative) Urine Ketones 4+ H (Negative) Urine Blood Negative (Negative) Urine Nitrite Negative (Negative) Urine Bilirubin Negative (Negative) Urine Urobilinogen <2.0 (<2.0) mg/dL Ur Leukocyte Esterase Negative (Negative) Coronavirus (PCR) Not Detected (Not Detectd) 03/08/21 Range/Units 17:23 WBC (3.8-10.6) k/uL RBC (3.80-5.40) m/uL Hgb (11.4-16.0) gm/dL Hct (34.0-46.0) % MCV (80.0-100.0) fL MCH (25.0-35.0) pg MCHC (31.0-37.0) g/dL RDW (11.5-15.5) % Plt Count (150-450) k/uL MPV Neutrophils % % Lymphocytes % % Monocytes % % Eosinophils % % Basophils % % Neutrophils # (1.3-7.7) k/uL Lymphocytes # (1.0-4.8) k/uL Monocytes # (0-1.0) k/uL Eosinophils # (0-0.7) k/uL Basophils # (0-0.2) k/uL Poikilocytosis Sodium 135 L (137-145) mmol/L Potassium 3.3 L (3.5-5.1) mmol/L Chloride 102 (98-107) mmol/L Carbon Dioxide 22 (22-30) mmol/L Anion Gap 11 mmol/L BUN 8 (7-17) mg/dL Creatinine 0.52 (0.52-1.04) mg/dL Est GFR (CKD-EPI)AfAm >90 (>60 ml/min/1.73 sqM) Est GFR (CKD-EPI)NonAf >90 (>60 ml/min/1.73 sqM) Glucose 128 H (74-99) mg/dL Calcium 9.6 (8.4-10.2) mg/dL Total Bilirubin 0.7 (0.2-1.3) mg/dL AST 39 H (14-36) U/L ALT 25 (4-34) U/L Alkaline Phosphatase 97 (38-126) U/L Total Protein 7.3 (6.3-8.2) g/dL Albumin 4.4 (3.5-5.0) g/dL Urine Color Urine Appearance (Clear) Urine pH (5.0-8.0) Ur Specific [place] (1.001-1.035) Urine Protein (Negative) Urine Glucose (UA) (Negative) Urine Ketones (Negative) Urine Blood (Negative) Urine Nitrite (Negative) Urine Bilirubin (Negative) Urine Urobilinogen (<2.0) mg/dL Ur Leukocyte Esterase (Negative) Coronavirus (PCR) (Not Detectd) - Radiology Data Radiology results: report reviewed, image reviewed Rest x-ray: There is some subsegmental atelectasis left lung base which appears new compared to old exam. There is some lingula linear density consistent with scarring and atelectasis without change. Normal heart. Disposition Clinical Impression: Upper respiratory tract infection Disposition: HOME SELF-CARE Condition: Stable Instructions (If sedation given, give patient instructions): Fever in Adults (ED) Additional Instructions: Please return to the Emergency Department if symptoms worsen or any other concerns. Follow-up with primary care in 1-2 days. Alternate Tylenol and Advil around the clock for fever. Increase fluids. Get plenty rest. Is patient prescribed a controlled substance at d/c from ED?: No Referrals: Deni Aguiar DO [Primary Care Provider] - 1-2 days Time of Disposition: 18:03
[2021-03-08 18:01] LABS: ALT 25 U/L (4-34); AST 39 U/L (14-36); African American GFR (CKD) >90 (>60 ml/min/1.73 sqM); Albumin 4.4 g/dL (3.5-5.0); Alkaline Phosphatase 97 U/L (38-126); Anion Gap 11 mmol/L; Blood Urea Nitrogen 8 mg/dL (7-17); Calcium 9.6 mg/dL (8.4-10.2); Carbon Dioxide 22 mmol/L (22-30); Chloride 102 mmol/L (98-107); Glucose 128 mg/dL (74-99); Non-African American GFR(CKD) >90 (>60 ml/min/1.73 sqM); Potassium 3.3 mmol/L (3.5-5.1); Sodium 135 mmol/L (137-145); Total Bilirubin 0.7 mg/dL (0.2-1.3); Total Protein 7.3 g/dL (6.3-8.2)
[2021-03-08] MEDS: POTASSIUM CHLORIDE ER 20 MEQ TAB.ER PO STA (18:23)
== END 2021-03-08 18:30 | disposition home or self-care (01) ==
LOC: EC 14:45
DX: J06.9 Acute upper respiratory infection, unspecified (principal); E11.9 Type 2 diabetes mellitus without complications; G40.909 Epilepsy, unspecified, not intractable, without status epilepticus; Z20.822 Contact with and (suspected) exposure to COVID-19; Z87.440 Personal history of urinary (tract) infections; Z85.828 Personal history of other malignant neoplasm of skin; Z79.1 Long term (current) use of non-steroidal anti-inflammatories (NSAID); Z90.49 Acquired absence of other specified parts of digestive tract
CPT/HCPCS: 36415; 71046; 80053; 81003; 85025; 87635; 99284

== ENCOUNTER 2021-03-09 18:24 | Inpatient (IN) | payer BC ==
[2021-03-09] MEDS ORDERED: SODIUM CHLORIDE 0.9% 1,000 ML IV STA ×2 (18:39→20:44)
[2021-03-09 19:16] LABS: Basophils % (A) 0 %; Eosinophils # (A) 0.2 k/uL (0-0.7); Eosinophils % (A) 2 %; HCT 35.7 % (34.0-46.0); HGB 12.3 gm/dL (11.4-16.0); Lymphocytes # (A) 0.2 k/uL (1.0-4.8); Lymphocytes % (A) 2 %; MCH 29.9 pg (25.0-35.0); MCHC 34.5 g/dL (31.0-37.0); MCV 86.9 fL (80.0-100.0); Mean Platelet Volume 7.7; Monocytes # (A) 0.2 k/uL (0-1.0); Monocytes % (A) 2 %; Neutrophils # (A) 9.7 k/uL (1.3-7.7); Neutrophils % (A) 93 %; Platelet Count 151 k/uL (150-450); Poikilocytosis Slight; RBC 4.11 m/uL (3.80-5.40); RDW 14.4 % (11.5-15.5); WBC 10.3 k/uL (3.8-10.6)
[2021-03-09] MEDS ORDERED: ACETAMINOPHEN TAB 325 MG TAB PO STA (19:23)
[2021-03-09 19:25] LABS: ALT 85 U/L (4-34); AST 141 U/L (14-36); African American GFR (CKD) >90 (>60 ml/min/1.73 sqM); Albumin 3.8 g/dL (3.5-5.0); Alkaline Phosphatase 123 U/L (38-126); Anion Gap 10 mmol/L; Blood Urea Nitrogen 10 mg/dL (7-17); Calcium 8.7 mg/dL (8.4-10.2); Carbon Dioxide 24 mmol/L (22-30); Chloride 99 mmol/L (98-107); Glucose 165 mg/dL (74-99); Magnesium 1.8 mg/dL (1.6-2.3); Non-African American GFR(CKD) >90 (>60 ml/min/1.73 sqM); Potassium 3.2 mmol/L (3.5-5.1); Sodium 133 mmol/L (137-145); Total Protein 6.5 g/dL (6.3-8.2)
[2021-03-09 19:30] LABS: INR 1.2 (<1.2)
[2021-03-09 19:31] LABS: Partial Thromboplastin Time 24.4 sec (22.0-30.0)
[2021-03-09 19:40] LABS: Appearance,Urine Cloudy (Clear); Bacteria,Urine Many /hpf; Bilirubin,Urine Negative (Negative); Blood,Urine Negative (Negative); Color,Urine Yellow; Glucose,Urine (UA) 3+ (Negative); Leukocyte Esterase,Urine Large (Negative); Mucus,Urine Rare /hpf; Nitrite,Urine Negative (Negative); Protein,Urine Trace (Negative); RBC,Urine 7 /hpf (0-5); Specific Gravity,Urine 1.013 (1.001-1.035); Squamous Epithelial Cell,Urine 5 /hpf (0-4); Urobilinogen,Urine <2.0 mg/dL (<2.0); WBC,Urine 43 /hpf (0-5)
[2021-03-09 19:55] LABS: Ketones,Urine 2+ (Negative)
--- NOTE | 2021-03-09 19:57 | CT ---
EXAMINATION TYPE: CT brain wo con DATE OF EXAM: 03/09/2021 COMPARISON: 04/09/2010 HISTORY: Headache, fever. CT DLP: 1123.4 mGycm Automated exposure control for dose reduction was used. Ventricles have normal size. There is no mass effect nor midline shift. There is no sign of intracran ial hemorrhage. Calvarium is intact. Skull base is intact. There is normal aeration of the mastoid si nuses. IMPRESSION: Negative CT scan of the brain. No change compared to old exam.
--- NOTE | 2021-03-09 19:58 | XR ---
EXAMINATION TYPE: XR chest 2V DATE OF EXAM: 03/09/2021 COMPARISON: 03/08/2021 HISTORY: Syncope TECHNIQUE: 2 views FINDINGS: There is some linear density at the left lung base. Heart size is normal. There are no pan r masses. There are chest leads. Bony thorax is intact. No heart failure seen. IMPRESSION: There is increased atelectasis left lung base compared to yesterday. No heart failure. No rmal heart.
[2021-03-09] MEDS ORDERED: POTASSIUM CHLORIDE ER 20 MEQ TAB.ER PO STA (20:05)
--- NOTE | 2021-03-09 20:13 | ED ---
Dizziness HPI - General Chief Complaint: Syncope Stated Complaint: Seizure Time Seen by Provider: 03/09/21 18:34 Source: patient, EMS, RN notes reviewed Mode of arrival: EMS Limitations: no limitations - History of Present Illness Initial Comments: Patient is a 50-year-old female that presents to the emergency department complaining of a syncopal episode at home. She no she got up from a chair felt lightheaded made her way to a recliner and then next thing she knew she was being woken up by her . notes that she might of had a seizure as she does have a history of seizures. Patient denied any postictal confusion so she thinks it's more of a syncopal episode. Patient was recently seen yesterday with normal labs normal chest x-ray and negative Covid test. Patient notes that she's been taking Tylenol for her mild fever around the clock. Patient says that she is feeling well while sitting in bed. Patient did report to the nurse that she did pop a boil in her groin that she forgot to mention yesterday which might be a possible site of infection. Patient was otherwise well-appearing while lying in bed during the exam interview. She denied any chest pain shortness of breath headache nausea vomiting diarrhea constipation fever fatigue chills. - Related Data Home Medications Medication Instructions Recorded Confirmed carBAMazepine [Carbatrol] 200 mg PO BID 02/13/14 03/09/21 diphenhydrAMINE [Benadryl] 25 - 50 mg PO DAILY PRN 12/17/15 03/09/21 Cholecalciferol [Vitamin D3 (25 50 mcg PO DAILY 03/08/21 03/09/21 Mcg = 1000 Iu)] Ibuprofen [Motrin Ib] 200 - 800 mg PO Q8H PRN 03/08/21 03/09/21 Allergies Allergy/AdvReac Type Severity Reaction Status Date / Time amoxicillin Allergy nausea,diarrhea, Verified 03/09/21 19:06 light headedness apricot [Apricot] Allergy PER ALG Verified 03/09/21 19:06 TESTING Beef Containing Products Allergy PER ALG Verified 03/09/21 19:06 TESTING carbamazepine Allergy heart Verified 03/09/21 19:06 racing,panic attacks, skin crawling cinnamon [Cinnamon] Allergy Swelling Verified 03/09/21 19:06 codeine Allergy Hallucinati Verified 03/09/21 19:06 ons cyclobenzaprine HCl Allergy Swelling Verified 03/09/21 19:06 [From Amrix] dexamethasone Allergy Unknown Verified 03/09/21 19:06 egg Allergy PER ALG Verified 03/09/21 19:06 TESTING meloxicam [From Mobic] Allergy Swelling Verified 03/09/21 19:06 Milk Containing Products Allergy PER ALG Verified 03/09/21 19:06 [Dairy] TESTING oats Allergy PER ALG Verified 03/09/21 19:06 TESTING onion Allergy PER ALG Verified 03/09/21 19:06 TESTING saxagliptin HCl Allergy Rash/Hives Verified 03/09/21 19:06 [From Onglyza] soy Allergy PER ALG Verified 03/09/21 19:06 TESTING tree nut [Tree Nut] Allergy PER ALG Verified 03/09/21 19:06 TESTING Review of Systems ROS Statement: Those systems with pertinent positive or pertinent negative responses have been documented in the HPI. ROS Other: All systems not noted in ROS Statement are negative. Past Medical History Past Medical History: Cancer, Diabetes Mellitus, Seizure Disorder Additional Past Medical History / Comment(s): Currently diet controlled diabetes (has been on Rx's on the past). LAST SEIZURE approximately 2003. HYPOTENSION. "after my cardiac cath my heart stopped-possible vasovagal per old medical record. UTIs. IBS or food allergies causing problems, SKIN CANCER History of Any Multi-Drug Resistant Organisms: None Reported Past Surgical History: Cholecystectomy, Heart Catheterization, Tubal Ligation, Uterine Ablation Additional Past Surgical History / Comment(s): labrial growth removed, skin cancer removals. COLONOSCOPY Past Anesthesia/Blood Transfusion Reactions: No Reported Reaction Additional Past Anesthesia/Blood Transfusion Reaction / Comment(s): PT STATED "MY HEART STOPPED AFTER MY HEART CATH" -possible vasovagal per old record, has had a CHOLECYSTECTOMY AFTER HEARTCATH AND DIDN'T HAVE ANY PROBLEMS" Past Psychological History: No Psychological Hx Reported Smoking Status: Never smoker Past Alcohol Use History: None Reported Past Drug Use History: None Reported - Past Family History Father Additional Family Medical History / Comment(s): Father at age 75 of heart problems. Mother Family Medical History: Cancer Additional Family Medical History / Comment(s): Severe arthritis, bowel and stage IV breast cancer. Brother(s) Family Medical History: CVA/TIA, Diabetes Mellitus Additional Family Medical History / Comment(s): General Exam Limitations: no limitations General appearance: alert, in no apparent distress Head exam: Present: atraumatic, normocephalic, normal inspection Eye exam: Present: normal appearance, PERRL, EOMI. Absent: scleral icterus, conjunctival injection, periorbital swelling Neck exam: Present: normal inspection Respiratory exam: Present: normal lung sounds bilaterally. Absent: respiratory distress, wheezes, rales, rhonchi, stridor Cardiovascular Exam: Present: regular rate, normal rhythm, normal heart sounds. Absent: systolic murmur, diastolic murmur, rubs, gallop, clicks GI/Abdominal exam: Present: soft, normal bowel sounds. Absent: distended, ten derness, guarding, rebound, rigid Extremities exam: Present: normal inspection, full ROM, normal capillary refill. Absent: tenderness, pedal edema, joint swelling, calf tenderness Neurological exam: Present: alert, oriented X3 Psychiatric exam: Present: normal affect, normal mood Skin exam: Present: warm, dry, intact, normal color. Absent: rash Course Vital Signs 03/09/21 03/09/21 03/09/21 18:25 19:17 20:27 Temperature 98.9 F 102.4 F H 102.7 F H Pulse Rate 107 H 123 H 125 H Respiratory 18 18 18 Rate Blood Pressure 120/63 136/62 136/62 O2 Sat by Pulse 99 99 99 Oximetry EKG Findings - EKG Comments: EKG Findings:: Ventricular rate of 111 bpm, [place] interval 134 ms, QRS duration 86 ms, QTC 443 ms, PRT axes 51/68/47. Sinus tachycardia otherwise normal ECG. Medical Decision Making - Medical Decision Making 50-year-old female brought in by EMS for a syncopal episode. Labs, CT of the brain, chest x-ray, EKG, medication aid, 1 L normal saline ordered. Labs: White blood cells up 4 points, today to 10.3, yesterday 6.2, neutrophils elevated at 9.7 from 5.5 liver enzymes elevated urine shows 43 white blood cells. 1 g of Rocephin given for UTI. Blood cultures ordered. Patient's fever is still 102.7 102.9 even with Tylenol. Patient reports that she is able to take Motrin, 600 mg of Motrin ordered. Case discussed with Dr. Gutierrez, patient admitted for observation. Dr. Huddleston was consulted and will accept the admit - Lab Data Result diagrams: 03/09/21 19:00 03/09/21 19:00 Lab Results 03/09/21 03/09/21 03/09/21 Range/Units 19:00 19:00 19:00 WBC 10.3 (3.8-10.6) k/uL RBC 4.11 (3.80-5.40) m/uL Hgb 12.3 (11.4-16.0) gm/dL Hct 35.7 (34.0-46.0) % MCV 86.9 (80.0-100.0) fL MCH 29.9 (25.0-35.0) pg MCHC 34.5 (31.0-37.0) g/dL RDW 14.4 (11.5-15.5) % Plt Count 151 (150-450) k/uL MPV 7.7 Neutrophils % 93 % Lymphocytes % 2 % Monocytes % 2 % Eosinophils % 2 % Basophils % 0 % Neutrophils # 9.7 H (1.3-7.7) k/uL Lymphocytes # 0.2 L (1.0-4.8) k/uL Monocytes # 0.2 (0-1.0) k/uL Eosinophils # 0.2 (0-0.7) k/uL Basophils # 0.0 (0-0.2) k/uL Poikilocytosis Slight PT 12.0 (9.0-12.0) sec INR 1.2 H (<1.2) APTT 24.4 (22.0-30.0) sec Sodium (137-145) mmol/L Potassium (3.5-5.1) mmol/L Chloride (98-107) mmol/L Carbon Dioxide (22-30) mmol/L Anion Gap mmol/L BUN (7-17) mg/dL Creatinine (0.52-1.04) mg/dL Est GFR (CKD-EPI)AfAm (>60 ml/min/1.73 sqM) Est GFR (CKD-EPI)NonAf (>60 ml/min/1.73 sqM) Glucose (74-99) mg/dL Calcium (8.4-10.2) mg/dL Magnesium (1.6-2.3) mg/dL Total Bilirubin (0.2-1.3) mg/dL AST (14-36) U/L ALT (4-34) U/L Alkaline Phosphatase (38-126) U/L Troponin I (0.000-0.034) ng/mL Total Protein (6.3-8.2) g/dL Albumin (3.5-5.0) g/dL Urine Color Yellow Urine Appearance Cloudy H (Clear) Urine pH 6.0 (5.0-8.0) Ur Specific [place] 1.013 (1.001-1.035) Urine Protein Trace H (Negative) Urine Glucose (UA) 3+ H (Negative) Urine Ketones 2+ H (Negative) Urine Blood Negative (Negative) Urine Nitrite Negative (Negative) Urine Bilirubin Negative (Negative) Urine Urobilinogen <2.0 (<2.0) mg/dL Ur Leukocyte Esterase Large H (Negative) Urine RBC 7 H (0-5) /hpf Urine WBC 43 H (0-5) /hpf Ur Squamous Epith Cells 5 H (0-4) /hpf Urine Bacteria Many H (None) /hpf Urine Mucus Rare H (None) /hpf Coronavirus (PCR) (Not Detectd) 03/09/21 03/09/21 03/09/21 Range/Units 19:00 19:00 20:55 WBC (3.8-10.6) k/uL RBC (3.80-5.40) m/uL Hgb (11.4-16.0) gm/dL Hct (34.0-46.0) % MCV (80.0-100.0) fL MCH (25.0-35.0) pg MCHC (31.0-37.0) g/dL RDW (11.5-15.5) % Plt Count (150-450) k/uL MPV Neutrophils % % Lymphocytes % % Monocytes % % Eosinophils % % Basophils % % Neutrophils # (1.3-7.7) k/uL Lymphocytes # (1.0-4.8) k/uL Monocytes # (0-1.0) k/uL Eosinophils # (0-0.7) k/uL Basophils # (0-0.2) k/uL Poikilocytosis PT (9.0-12.0) sec INR (<1.2) APTT (22.0-30.0) sec Sodium 133 L (137-145) mmol/L Potassium 3.2 L (3.5-5.1) mmol/L Chloride 99 (98-107) mmol/L Carbon Dioxide 24 (22-30) mmol/L Anion Gap 10 mmol/L BUN 10 (7-17) mg/dL Creatinine 0.65 (0.52-1.04) mg/dL Est GFR (CKD-EPI)AfAm >90 (>60 ml/min/1.73 sqM) Est GFR (CKD-EPI)NonAf >90 (>60 ml/min/1.73 sqM) Glucose 165 H (74-99) mg/dL Calcium 8.7 (8.4-10.2) mg/dL Magnesium 1.8 (1.6-2.3) mg/dL Total Bilirubin 1.0 (0.2-1.3) mg/dL AST 141 H (14-36) U/L ALT 85 H (4-34) U/L Alkaline Phosphatase 123 (38-126) U/L Troponin I <0.012 (0.000-0.034) ng/mL Total Protein 6.5 (6.3-8.2) g/dL Albumin 3.8 (3.5-5.0) g/dL Urine Color Urine Appearance (Clear) Urine pH (5.0-8.0) Ur Specific [place] (1.001-1.035) Urine Protein (Negative) Urine Glucose (UA) (Negative) Urine Ketones (Negative) Urine Blood (Negative) Urine Nitrite (Negative) Urine Bilirubin (Negative) Urine Urobilinogen (<2.0) mg/dL Ur Leukocyte Esterase (Negative) Urine RBC (0-5) /hpf Urine WBC (0-5) /hpf Ur Squamous Epith Cells (0-4) /hpf Urine Bacteria (None) /hpf Urine Mucus (None) /hpf Coronavirus (PCR) Not Detected (Not Detectd) - EKG Data EKG shows normal: sinus rhythm Rate: tachycardia EKG Comments: Ventricular rate of 111 bpm, [place] interval 134 ms, QRS duration 86 ms, QTC 443 ms, PRT axes 51/68/47. Sinus tachycardia otherwise normal ECG. - Radiology Data Radiology results: report reviewed, image reviewed Chest x-ray: There is increased atelectasis left lung base compared to yesterday. No heart failure. Normal heart CT of the brain: Negative computed tomography scan of the brain. No change compared to old exam. Disposition Clinical Impression: Fever, Tachycardia, Upper respiratory tract infection, Urinary tract infection Disposition: ADMITTED IP TO THIS HOSP Condition: Stable Is patient prescribed a controlled substance at d/c from ED?: No Referrals: Deni Aguiar DO [Primary Care Provider] - 1-2 days Time of Disposition: 22:24
[2021-03-09] MEDS ORDERED: cefTRIAXone IN SWFI 1,000 MG/10 ML SYRINGE IVP STA (20:14)
[2021-03-09] MEDS ORDERED: IBUPROFEN 600 MG TAB PO STA (21:57)
[2021-03-09] MEDS ORDERED: NALOXONE 0.4 MG/ML 1 ML VIAL IV PRN (22:24)
[2021-03-09] MEDS: ACETAMINOPHEN TAB 325 MG TAB PO PRN (22:52)
[2021-03-09] MEDS: SODIUM CHLORIDE 0.9% 1,000 ML IV SCH (23:59)
[2021-03-10] MEDS: SODIUM CHLORIDE 0.9% 1,000 ML IV SCH ×4 (04:11→17:27)
[2021-03-10 07:11] LABS: Glucose,Whole Blood 118 mg/dL (75-99)
[2021-03-10] MEDS ORDERED: HEPARIN SODIUM,PORCINE/PF 5,000 UNIT/0.5 ML SYRINGE SQ SCH (09:00)
[2021-03-10] MEDS ORDERED: ENOXAPARIN 40 MG/0.4 ML SYRINGE SQ SCH (09:45)
[2021-03-10] MEDS ORDERED: diphenhydrAMINE 25 MG CAP PO PRN (09:56)
[2021-03-10 11:44] LABS: Glucose,Whole Blood 192 mg/dL (75-99)
[2021-03-10] MEDS: ACETAMINOPHEN TAB 325 MG TAB PO PRN (12:07)
[2021-03-10] MEDS: CARBATROL 200 MG PO SCH ×2 (12:10→20:25)
[2021-03-10] MEDS: INSULIN ASPART (NovoLOG) 100 UNIT/ML VIAL SQ SCH ×3 (12:14→20:24)
[2021-03-10 15:10] VITALS: BMI 29.2
[2021-03-10] MEDS: IBUPROFEN 400 MG TAB PO PRN (16:12)
[2021-03-10 16:27] LABS: African American GFR (CKD) 122.3 (60.0-200.0); Anion Gap 11.6 mmol/L (4.00-12.00); BUN/Creat Ratio 13.33 Ratio (12.00-20.00); Calcium 8.3 mg/dL (8.7-10.3); Carbon Dioxide 19.4 mmol/L (21.6-31.8); Non-African American GFR(CKD) 105.5 (60.0-200.0); Potassium 3.5 mmol/L (3.5-5.5)
[2021-03-10 17:29] LABS: Glucose,Whole Blood 191 mg/dL (75-99)
--- NOTE | 2021-03-10 19:35 | P.HPIM ---
History of Present Illness H&P Date: 03/10/21 Chief Complaint: Fever or chills History of presenting complaint: This is a pleasant 50-year-old patient who follows with Dr. Aguiar. Chronic stable medical conditions include, diet controlled diabetes, seizure disorder, ALLERGIES for which she takes Benadryl when necessary. Patient is being tighter control her diabetes with diet for quite some time. During pandemic control and has not been easy for her. Just a few weeks ago she checked HbA1c and it came back as 9.3. Patient also got chronic lower lumbar pain. Wednesday evening patient is having a dull headache. Went to bed and was feeling freezing cold. And then became soaking wet. Again was sitting she started freezing. Took her temperature is 101.8. [place] weak. And for a short time passed out. She thinks her told her that maybe that was legs stiffening slight bubbles at the mouth. Not sure. Patient been having urinary frequency. Was found over infected appearing urine in the ER. Started IV ceftriaxone. Patient is not keen to start on oral hypoglycemic because of side effects she's had before with Januvia and metformin. This morning she did vomit once. Has been drinking quite a bit of water. Review of systems: GEN.: Febrile, tired EYES: None HEENT: None NECK: None RESPIRATORY: None CARDIOVASCULAR: None GASTROINTESTINAL: Vomited Once, no abdominal pain GENITOURINARY: Urinary frequency MUSCULOSKELETAL: Lower lumbar chronic pain LYMPHATICS: None HEMATOLOGICAL: None PSYCHIATRY: None NEUROLOGICAL: None Past medical history to include: Diet controlled diabetes, seizure disorder, lower lumbar pain, last seizure in 2003 skin cancer. Social history: . No smoking or alcohol. Family history: Father of 75 with heart problems. Cancer. Physical examination: VITAL SIGNS: 102.4, 123, 18, 1 36 x 62, 99% room air GENERAL: [BMI 29.2, sitting up in chair, tired. EYES: Pupils equal. Conjunctiva normal. HEENT: External appearance of nose and ears normal, oral cavity grossly normal. NECK: JVD not raised; masses not palpable. HEART: First and second heart sounds are normal; no edema. LUNGS: Respiratory rate normal; clear to auscultation. ABDOMEN: Soft, nontender, liver spleen not palpable, no masses palpable. PSYCH: Alert and oriented x3; mood and affect normal. NEUROLOGICAL: Cranial nerves grossly intact; no facial asymmetry, power and sensation grossly intact. LYMPHATICS: No lymph nodes palpable in the axilla and neck INVESTIGATIONS, reviewed in the clinical context: WBC 10.3 hemoglobin 12.3 platelets 151 potassium 3.2 creatinine 0.65 AST 141 ALT 85 UA positive for leukoesterase, WBC, bacteria Coronavirus [PCR] not detected Lactic acid 0.9 EKG tracing personally reviewed by me-sinus rhythm, 111 rate Chest x-ray film personally reviewed by me-possible atelectasis Assessment and plan: -Syncope likely vasovagal from a lying sepsis -Acute UTI with cystitis causing sepsis IV ceftriaxone. IV fluids -Diabetes mellitus type 2, uncontrolled with hyperglycemia Patient does not want to take oral hypoglycemic at this point and was to follow- up with her PCP Dr. Aguiar. Follow Accu-Cheks and sliding scale insulin. Dietitian consult. Diabetic diet -Epilepsy disorder but the last episode being 2003 Continue Tegretol -Chronic lumbar arthritis Tylenol when necessary Patient started on ceftriaxone 1 g every 12. Home medications resumed. IV fluids. Blood cultures pending. Care was discussed length with the patient. Questions answered. Given the complexity and severity of patient's including sepsis condition expect the patient to be in the hospital at least for 2 overnights Past Medical History Past Medical History: Cancer, Diabetes Mellitus, Seizure Disorder Additional Past Medical History / Comment(s): Currently diet controlled diabetes (has been on Rx's on the past). LAST SEIZURE approximately 2003. HYPOTENSION. "after my cardiac cath my heart stopped-possible vasovagal per old medical record. UTIs. IBS or food allergies causing problems, SKIN CANCER History of Any Multi-Drug Resistant Organisms: None Reported Past Surgical History: Cholecystectomy, Heart Catheterization, Tubal Ligation, Uterine Ablation Additional Past Surgical History / Comment(s): labrial growth removed, skin cancer removals. COLONOSCOPY Past Anesthesia/Blood Transfusion Reactions: No Reported Reaction Additional Past Anesthesia/Blood Transfusion Reaction / Comment(s): PT STATED "MY HEART STOPPED AFTER MY HEART CATH" -possible vasovagal per old record, has had a CHOLECYSTECTOMY AFTER HEARTCATH AND DIDN'T HAVE ANY PROBLEMS" Past Psychological History: No Psychological Hx Reported Additional Psychological History / Comment(s): Pt resides with her spouse. She is independent. She drives. Smoking Status: Never smoker Past Alcohol Use History: None Reported Past Drug Use History: None Reported - Past Family History Father Additional Family Medical History / Comment(s): Father at age 75 of heart problems. Mother Family Medical History: Cancer Additional Family Medical History / Comment(s): Severe arthritis, bowel and stage IV breast cancer. Brother(s) Family Medical History: CVA/TIA, Diabetes Mellitus Additional Family Medical History / Comment(s): Medications and Allergies Home Medications Medication Instructions Recorded Confirmed Type carBAMazepine [Carbatrol] 200 mg PO BID 02/13/14 03/09/21 History diphenhydrAMINE [Benadryl] 25 - 50 mg PO DAILY PRN 12/17/15 03/09/21 History Cholecalciferol [Vitamin D3 (25 50 mcg PO DAILY 03/08/21 03/09/21 History Mcg = 1000 Iu)] Ibuprofen [Motrin Ib] 200 - 800 mg PO Q8H PRN 03/08/21 03/09/21 History Allergies Allergy/AdvReac Type Severity Reaction Status Date / Time amoxicillin Allergy nausea,diarrhea, Verified 03/09/21 19:06 light headedness apricot [Apricot] Allergy PER ALG Verified 03/09/21 19:06 TESTING Beef Containing Products Allergy PER ALG Verified 03/09/21 19:06 TESTING carbamazepine Allergy heart Verified 03/09/21 19:06 racing,panic attacks, skin crawling cinnamon [Cinnamon] Allergy Swelling Verified 03/09/21 19:06 codeine Allergy Hallucinati Verified 03/09/21 19:06 ons cyclobenzaprine HCl Allergy Swelling Verified 03/09/21 19:06 [From Amrix] dexamethasone Allergy Unknown Verified 03/09/21 19:06 egg Allergy PER ALG Verified 03/09/21 19:06 TESTING meloxicam [From Mobic] Allergy Swelling Verified 03/09/21 19:06 Milk Containing Products Allergy PER ALG Verified 03/09/21 19:06 [Dairy] TESTING oats Allergy PER ALG Verified 03/09/21 19:06 TESTING onion Allergy PER ALG Verified 03/09/21 19:06 TESTING saxagliptin HCl Allergy Rash/Hives Verified 03/09/21 19:06 [From Onglyza] soy Allergy PER ALG Verified 03/09/21 19:06 TESTING tree nut [Tree Nut] Allergy PER ALG Verified 03/09/21 19:06 TESTING Physical Exam Vitals: Vital Signs Temp Pulse Pulse Resp BP BP Pulse Ox 03/10/21 07:00 99.3 F 63 18 115/72 98 03/10/21 04:01 101/64 03/10/21 01:47 98.2 F 101 H 18 89/56 93 L 03/09/21 23:30 99.8 F H 110 H 18 103/67 95 03/09/21 22:47 102.1 F H 115 H 18 109/60 95 03/09/21 21:00 120 H 03/09/21 20:27 102.7 F H 125 H 18 136/62 99 03/09/21 19:17 102.4 F H 123 H 18 136/62 99 03/09/21 18:25 98.9 F 107 H 18 120/63 99 Intake and Output 03/09/21 03/10/21 03/10/21 22:59 06:59 14:59 Output Total 100 Balance -100 Output: Emesis 100 Other: # Voids 1 Weight 82.1 kg 82.1 kg Results CBC & Chem 7: 03/09/21 19:00 03/10/21 05:11 Labs: Abnormal Lab Results - Last 24 Hours (Table) 03/09/21 03/09/21 03/09/21 Range/Units 19:00 19:00 19:00 Neutrophils # 9.7 H (1.3-7.7) k/uL Lymphocytes # 0.2 L (1.0-4.8) k/uL INR 1.2 H (<1.2) Sodium (137-145) mmol/L Potassium (3.5-5.1) mmol/L Glucose (74-99) mg/dL POC Glucose (mg/dL) (75-99) mg/dL AST (14-36) U/L ALT (4-34) U/L Urine Appearance Cloudy H (Clear) Urine Protein Trace H (Negative) Urine Glucose (UA) 3+ H (Negative) Urine Ketones 2+ H (Negative) Ur Leukocyte Esterase Large H (Negative) Urine RBC 7 H (0-5) /hpf Urine WBC 43 H (0-5) /hpf Ur Squamous Epith Cells 5 H (0-4) /hpf Urine Bacteria Many H (None) /hpf Urine Mucus Rare H (None) /hpf 03/09/21 03/10/21 Range/Units 19:00 07:10 Neutrophils # (1.3-7.7) k/uL Lymphocytes # (1.0-4.8) k/uL INR (<1.2) Sodium 133 L (137-145) mmol/L Potassium 3.2 L (3.5-5.1) mmol/L Glucose 165 H (74-99) mg/dL POC Glucose (mg/dL) 118 H (75-99) mg/dL AST 141 H (14-36) U/L ALT 85 H (4-34) U/L Urine Appearance (Clear) Urine Protein (Negative) Urine Glucose (UA) (Negative) Urine Ketones (Negative) Ur Leukocyte Esterase (Negative) Urine RBC (0-5) /hpf Urine WBC (0-5) /hpf Ur Squamous Epith Cells (0-4) /hpf Urine Bacteria (None) /hpf Urine Mucus (None) /hpf
[2021-03-10 19:36] LABS: Hepatitis A Antibody IgM Non-Reactive (Non-Reactive); Hepatitis B Core IgM Non-Reactive (Non-Reactive); Hepatitis B Surface Antigen Non-Reactive (Non-Reactive); Hepatitis C IgG Antibody Non-Reactive (Non-Reactive)
[2021-03-10] MEDS: ENOXAPARIN 40 MG/0.4 ML SYRINGE SQ SCH (20:23)
[2021-03-10 20:47] LABS: Glucose,Whole Blood 172 mg/dL (75-99)
[2021-03-10] MEDS: diphenhydrAMINE 25 MG CAP PO PRN (22:27)
[2021-03-11] MEDS: ACETAMINOPHEN TAB 325 MG TAB PO PRN ×2 (02:06→17:19)
[2021-03-11] MEDS: SODIUM CHLORIDE 0.9% 1,000 ML IV SCH ×4 (03:01→17:34)
[2021-03-11] MEDS: IBUPROFEN 400 MG TAB PO PRN ×2 (03:02→20:40)
[2021-03-11 04:02] LABS: ALT 563 U/L (4-34); African American GFR (CKD) 74 (>60 ml/min/1.73 sqM); Albumin 3.1 g/dL (3.5-5.0); Albumin/Globulin Ratio 1.2; Alkaline Phosphatase 140 U/L (38-126); Anion Gap 12 mmol/L; Blood Urea Nitrogen 17 mg/dL (7-17); Calcium 8.2 mg/dL (8.4-10.2); Carbon Dioxide 17 mmol/L (22-30); Chloride 106 mmol/L (98-107); Globulin 2.6 g/dL; Glucose 173 mg/dL (74-99); Non-African American GFR(CKD) 64 (>60 ml/min/1.73 sqM); Potassium 3.4 mmol/L (3.5-5.1); Sodium 135 mmol/L (137-145); Total Bilirubin 1.4 mg/dL (0.2-1.3); Total Protein 5.7 g/dL (6.3-8.2)
[2021-03-11 04:11] LABS: HCT 32.1 % (34.0-46.0); HGB 11.1 gm/dL (11.4-16.0); MCH 30.5 pg (25.0-35.0); MCHC 34.4 g/dL (31.0-37.0); MCV 88.5 fL (80.0-100.0); Mean Platelet Volume 9.3; RBC 3.63 m/uL (3.80-5.40); RDW 13.4 % (11.5-15.5); WBC 4.7 k/uL (3.8-10.6)
[2021-03-11 04:13] LABS: Platelet Count 63 k/uL (150-450)
[2021-03-11 04:37] LABS: Band Neutrophils % 15 %; Eosinophils # (M) 0.09 k/uL (0-0.7); Lymphocytes # (M) 0.14 k/uL (1.0-4.8); Monocytes # (M) 0.19 k/uL (0-1.0); Neutrophils % (M) 76 %; Nucleated Red Blood Cells 0 /100 WBC (0-0); Total Cells Counted 100; Toxic Vacuolation Present
[2021-03-11 04:41] LABS: AST 1381 U/L (14-36)
[2021-03-11] MEDS ORDERED: Potassium Replacement Protocol 1 EACH MISC MISCELLANE PRN (05:20)
[2021-03-11] MEDS: POTASSIUM CHLORIDE ER 20 MEQ TAB.ER PO SCH ×2 (05:28→07:44)
[2021-03-11 07:32] LABS: Glucose,Whole Blood 158 mg/dL (75-99)
[2021-03-11] MEDS ORDERED: VANCOMYCIN IV PER PHARMACY 1 EACH MISC MISCELLANE PRN (07:38)
[2021-03-11] MEDS: ENOXAPARIN 40 MG/0.4 ML SYRINGE SQ SCH (07:44)
[2021-03-11] MEDS: INSULIN ASPART (NovoLOG) 100 UNIT/ML VIAL SQ SCH ×4 (07:45→20:41)
[2021-03-11] MEDS: CARBATROL 200 MG PO SCH ×2 (07:45→20:41)
--- NOTE | 2021-03-11 08:23 | XR ---
EXAMINATION TYPE: XR chest 2V DATE OF EXAM: 03/11/2021 COMPARISON: Chest x-ray 03/09/2021 HISTORY: Difficulty breathing TECHNIQUE: Frontal and lateral views of the chest are obtained. FINDINGS: Patchy basilar density is present. Interstitium is increased. Heart is obscured partially. No evident pneumothorax. Difficult to exclude small effusions. IMPRESSION: Correlate for possible interstitial edema and congestive heart failure, pleural effusion s, pneumonia not excluded.
[2021-03-11] MEDS ORDERED: VANCOMYCIN 1,500 MG in SODIUM CHLORIDE 0.9% 250 ML IVPB ONE (08:30)
[2021-03-11] MEDS ORDERED: CEFEPIME 1 GM in SODIUM CHLORIDE 0.9% 50 ML IVPB SCH (09:00)
[2021-03-11] MEDS: CEFEPIME 2 GM in SODIUM CHLORIDE 0.9% 100 ML IVPB SCH ×2 (11:20→20:26)
[2021-03-11] MEDS: IOPAMIDOL CONTRAST (ORAL USE) VIAL PO PRN ×2 (11:31→12:23)
[2021-03-11 12:12] LABS: Glucose,Whole Blood 126 mg/dL (75-99)
--- NOTE | 2021-03-11 13:37 | CT ---
EXAMINATION TYPE: CT abdomen pelvis w con DATE OF EXAM: 03/11/2021 COMPARISON: 06/19/2010 HISTORY: abdominal pain, fever, elevated LFT CT DLP: 1572.9 mGycm CONTRAST: CT scan of the abdomen and pelvis is performed with Oral Contrast and with IV Contrast, patient injec irene with 100 mL of Isovue 300. FINDINGS: LUNG BASES-: Basilar small pleural effusions as well as atelectasis and/or infiltrates. LIVER/GB: The gallbladder surgically absent. Mild hepatic steatosis and mild hepatomegaly. No space o ccupying hepatic lesion. Biliary tree is of normal caliber. PANCREAS: No inflammation. No distinct mass. SPLEEN: No splenic enlargement. No lesion seen. ADRENALS: No nodule. No thickening. KIDNEYS/BLADDER: No hydronephrosis. No nephrolithiasis. No distinct renal mass. Urinary bladder g rossly unremarkable. BOWEL: Normal appendix. Normal bowel caliber. No inflammation. GENITAL ORGANS: Trace amount of fluid within the cul-de-sac. No uterine or ovarian mass. LYMPH NODES: No greater than 1cm abdominal or pelvic lymph nodes are appreciated. AORTA: No significant abnormality. OSSEOUS STRUCTURES: No significant abnormality is seen. OTHER: No significant additional abnormality is seen. IMPRESSION: 1. Basilar small pleural effusions as well as atelectasis and/or infiltrates. 2. Trace free fluid within the cul-de-sac. 3.Mild hepatic steatosis and mild hepatomegaly.
[2021-03-11] MEDS ORDERED: CEFEPIME 2 GM in SODIUM CHLORIDE 0.9% 50 ML IVPB SCH (16:00)
[2021-03-11 16:48] LABS: Glucose,Whole Blood 105 mg/dL (75-99)
[2021-03-11] MEDS: VANCOMYCIN 1,500 MG in SODIUM CHLORIDE 0.9% 250 ML IVPB SCH (17:32)
--- NOTE | 2021-03-11 18:02 | P.PN ---
Progress Note - Text Progress Note Date: 03/11/21 Chief Complaint: Hypoxemia History of presenting complaint: This is a pleasant 50-year-old patient who follows with Dr. Aguiar. Chronic stable medical conditions include, diet controlled diabetes, seizure disorder, ALLERGIES for which she takes Benadryl when necessary. Patient is being tighter control her diabetes with diet for quite some time. During pandemic control and has not been easy for her. Just a few weeks ago she checked HbA1c and it came back as 9.3. Patient also got chronic lower lumbar pain. Wednesday evening patient is having a dull headache. Went to bed and was feeling freezing cold. And then became soaking wet. Again was sitting she started freezing. Took her temperature is 101.8. [place] weak. And for a short time passed out. She thinks her told her that maybe that was legs stiffening slight bubbles at the mouth. Not sure. Patient been having urinary frequency. Was found over infected appearing urine in the ER. Started IV ceftriaxone. Patient is not keen to start on oral hypoglycemic because of side effects she's had before with Januvia and metformin. This morning she did vomit once. Has been drinking quite a bit of water. Critical care note: 03/11/2021: I was called earlier today. Patient has spiked fever again. Had become hypoxic. Blood pressure is running of the lower side. IV fluids was increased. Patient was a bit more short of breath. Ordered two-view chest x- ray. IV ceftriaxone was discontinued. Change to IV cefepime 1 g every 12 and IV vancomycin. Order was placed to move to patient to telemetry floor. Patient is a more of a cough today. More short of breath. Tired Review of systems: Was done for constitutional, cardiovascular, GI, pulmonary. relevant finding as above Active Medications Acetaminophen (Acetaminophen Tab 325 Mg Tab) 650 mg PO Q6HR PRN PRN Reason: Mild Pain or Fever > 100.5 Last Admin: 03/11/21 17:19 Dose: 650 mg Documented by: Diphenhydramine HCl (Diphenhydramine 25 Mg Cap) 25 mg PO DAILY PRN PRN Reason: Mild Allergy Symptoms Diphenhydramine HCl (Diphenhydramine 25 Mg Cap) 50 mg PO DAILY PRN PRN Reason: Severe Allergy Symptoms Last Admin: 03/10/21 22:27 Dose: 50 mg Documented by: Enoxaparin Sodium (Enoxaparin 40 Mg/0.4 Ml Syringe) 40 mg SQ DAILY [facility] Last Admin: 03/11/21 07:44 Dose: 40 mg Documented by: Sodium Chloride (Saline 0.9%) 1,000 mls @ 150 mls/hr IV .Q6H40M [facility] Last Admin: 03/11/21 17:34 Dose: 150 mls/hr Documented by: Vancomycin HCl 1,500 mg/ (Sodium Chloride) 250 mls @ 125 mls/hr IVPB Q12H [facility] Last Admin: 03/11/21 17:32 Dose: 125 mls/hr Documented by: Cefepime HCl 2 gm/ Sodium (Chloride) 100 mls @ 25 mls/hr IVPB Q8H [facility] Last Admin: 03/11/21 11:20 Dose: 25 mls/hr Documented by: Ibuprofen (Ibuprofen 400 Mg Tab) 400 mg PO Q6HR PRN PRN Reason: Mild Pain or Fever > 100.5 Last Admin: 03/11/21 03:02 Dose: 400 mg Documented by: Insulin Aspart (Insulin Aspart (Novolog) 100 Unit/Ml Vial) 0 unit SQ [facility]; Protocol Last Admin: 03/11/21 17:07 Dose: Not Given Documented by: Miscellaneous Information (Potassium Replacement Protocol 1 Each Misc) 1 each MISCELLANE DAILY PRN; Protocol PRN Reason: Per Protocol Naloxone HCl (Naloxone 0.4 Mg/Ml 1 Ml Vial) 0.2 mg IV Q2M PRN PRN Reason: Opioid Reversal Carbatrol Er 200 Mg 1 each PO BID [facility] Last Admin: 03/11/21 07:45 Dose: 1 each Documented by: Past medical history to include: Diet controlled diabetes, seizure disorder, lower lumbar pain, last seizure in 2003 skin cancer. Social history: . No smoking or alcohol. Family history: Father of 75 with heart problems. Cancer. Physical examination: VITAL SIGNS: T-max 103.1, 1:15, 20, 94/57, 87% on room air GENERAL: The reclining in bed, tired, short of breath, nasal cannula EYES: Pupils equal. Conjunctiva normal. HEENT: External appearance of nose and ears normal, oral cavity grossly normal. NECK: JVD not raised; masses not palpable. HEART: First and second heart sounds are normal; no edema. LUNGS: Respiratory rate increased; some basal crackles. ABDOMEN: Soft, nontender, liver spleen not palpable, no masses palpable. PSYCH: Alert and oriented x3; mood and affect tired INVESTIGATIONS, reviewed in the clinical context: March 11: WBC 4.7 hemoglobin 11.1 platelets 63 potassium 3.4 creatinine 1.02 bicarb 17 lactic acid 4.4 AST 1381 ALT 563 Hepatitis acute screen including hepatitis A, hepatitis B, hepatitis C all negative Chest x-ray film personally reviewed by me-[March 11] bibasal infiltrates WBC 10.3 hemoglobin 12.3 platelets 151 potassium 3.2 creatinine 0.65 AST 141 ALT 85 UA positive for leukoesterase, WBC, bacteria Coronavirus [PCR] not detected Lactic acid 0.9 EKG tracing personally reviewed by me-sinus rhythm, 111 rate Chest x-ray film personally reviewed by me-possible atelectasis Assessment and plan: -Acute bilateral basal pneumonia, causing sepsis and acute hypoxic respiratory failure Change antibiotics to IV cefepime 1 g every 12 and IV vancomycin -Acute hypoxic respiratory failure from pneumonia Supplemental oxygen -Severe sepsis from pneumonia, UTI Follow lactic acid and IV fluids -Acute metabolic acidosis from sepsis Sodium bicarbonate drip and check fluids to D5 0.45 -Syncope likely vasovagal from underlying sepsis, on presentation -Acute UTI with cystitis causing sepsis IV meropenem. IV fluids -Diabetes mellitus type 2, uncontrolled with hyperglycemia Patient does not want to take oral hypoglycemic at this point and was to follow- up with her PCP Dr. Aguiar. Follow Accu-Cheks and sliding scale insulin. Dietitian consult. Diabetic diet -Epilepsy disorder : last episode being 2003 Continue Tegretol -Chronic lumbar arthritis Tylenol when necessary Patient's chest x-ray did show bilateral infiltrates/pneumonia. septic. IV fluids was increased. Given IV bicarbonate. Oxygen supplemented. Patient be moved to the cardiology/telemetry floor. Care was discussed with the patient and at the bedside. Also discussed with nurse. ID consulted. Total time spent today for critical care 45 minutes
[2021-03-11] MEDS: DEXTROSE 5%-0.45% NACL 1,000 ML with SODIUM BICARB (1 MEQ/ML) 50 ML IV SCH ×2 (18:39)
[2021-03-11 20:17] LABS: Glucose,Whole Blood 127 mg/dL (75-99)
[2021-03-11] MEDS: diphenhydrAMINE 25 MG CAP PO PRN (20:42)
--- NOTE | 2021-03-11 21:39 | P.CONS ---
History of Present Illness - Reason for Consult Consult date: 03/11/21 Fever Requesting physician: Quintin Harper - Chief Complaint fever and passed out x 1 day - History of Present Illness History of present illness : Patient is a 50-year female who presented to [facility] ER 2 days ago for evaluation of a syncopal episode at home apparently the patient was running fever over the weekend in this patient who did have fever with rigors and chills and feeling weak patient was seen in the ER the day before she did have work-up done and was subsequent discharged home with advised to take Motrin and Tylenol alternatively on the day of presentation to the hospital the patient said she went to the kitchen to take her Tylenol she felt dizzy and the next thing she was on the floor with her calling her trying to wake her up there is no clear history of any seizure activity or any confusion the patient denies having any headache no significant URI symptoms but denies any chest pain she did have mild cough not bringing up any sputum patient has been nauseated and did have an episode of vomiting there is no abdominal pain and no diarrhea no burning or frequency of urine with this and that the patient has been evaluated by the ER physician on arrival to the ER the patient had fever of 102 F and did have a fever of 103 this morning patient has been tachycardic mildly hypoxic requiring supplemental oxygen patient did have a normal white count with mild left shift patient did have elevated liver enzymes as well as elevated lactic acid kidney function has been normal in the liver that has progressively got worse since admission to the hospital patient did have mildly positive UA hepatitis panel was negative singh PCR was negative patient did have a chest x-ray increased atelectasis left lung base compared to yesterday repeat chest x-ray possible residual edema and congestive heart failure CT of the brain was negative for any PE patient is currently being treated with cefepime infectious disease was consulted for further management of antibiotic therapy Review of system: CONSTITUTIONAL: Positive for weakness along with the fever. EYES: No complaint. ENT: No complaint. RESPIRATORY: As per history of present illness. CARDIOVASCULAR: No complaint. GENITOURINARY: No complaint. GASTROINTESTINAL: As per history of present illness. MUSCULOSKELETAL: No complaint. INTEGUMENTARY: No complaint. PSYCHOLOGIC: No complaint. ENDOCRINE: No complaint. NEUROLOGIC: No complaint. Past medical history : Reviewed, documented below Past surgical history : Reviewed, documented below Social history: Reviewed, documented below Medications: Reviewed, as documented below GENERAL DESCRIPTION: Middle-aged female lying in bed, no distress. No tachypnea or accessory muscle of respiration use. HEENT: Shows Pallor , no scleral icterus. Oral mucous membrane is dry. NECK: Trachea central, no thyromegaly. LUNGS: Unlabored breathing. Decrease intensity of breath sounds. No wheeze or crackle. HEART: S1, S2, regular rate and rhythm. ABDOMEN: Soft, no tenderness , guarding or rigidity EXTREMITIES: No edema of feet. SKIN: No rash, no masses palpable. NEUROLOGICAL: The patient is awake, alert, oriented x3, mood and affect normal. LABS AND RADIOLOGY: Reviewed results see below Assessment : Patient presented to hospital with fever in this patient who did have a syncopal episode patient did have mild respiratory symptoms but no significant findings on lung auscultation patient did have elevated liver enzymes and did have a history of cholecystectomy with concern for possible cholangitis versus other intra-abdominal pathology Plan: 1-we will obtain a CT abdominal pelvis with contrast in view of the fever and elevated liver enzymes 2-adjust the dose of cefepime 2 g every 8 hour has appeared to have normal kidney function 3-gentle IV fluid 4-we will check inflammatory marker and urine for Legionella antigen We will follow on clinical condition and cultures to further adjust medication if needed Thank you for this consultation we will follow the patient along with you Past Medical History Past Medical History: Cancer, Diabetes Mellitus, Seizure Disorder Additional Past Medical History / Comment(s): Currently diet controlled diabetes (has been on Rx's on the past). LAST SEIZURE approximately 2003. HYPOTENSION. "after my cardiac cath my heart stopped-possible vasovagal per old medical record. UTIs. IBS or food allergies causing problems, SKIN CANCER History of Any Multi-Drug Resistant Organisms: None Reported Past Surgical History: Cholecystectomy, Heart Catheterization, Tubal Ligation, Uterine Ablation Additional Past Surgical History / Comment(s): labrial growth removed, skin cancer removals. COLONOSCOPY Past Anesthesia/Blood Transfusion Reactions: No Reported Reaction Additional Past Anesthesia/Blood Transfusion Reaction / Comm: PT STATED "MY HEART STOPPED AFTER MY HEART CATH" -possible vasovagal per old record, has had a CHOLECYSTECTOMY AFTER HEARTCATH AND DIDN'T HAVE ANY PROBLEMS" Past Psychological History: No Psychological Hx Reported Additional Psychological History / Comment(s): Pt resides with her spouse. She is independent. She drives. Smoking Status: Never smoker Past Alcohol Use History: None Reported Past Drug Use History: None Reported - Past Family History Father Additional Family Medical History / Comment(s): Father at age 75 of heart problems. Mother Family Medical History: Cancer Additional Family Medical History / Comment(s): Severe arthritis, bowel and stage IV breast cancer. Brother(s) Family Medical History: CVA/TIA, Diabetes Mellitus Additional Family Medical History / Comment(s): Medications and Allergies Home Medications Medication Instructions Recorded Confirmed Type carBAMazepine [Carbatrol] 200 mg PO BID 02/13/14 03/09/21 History diphenhydrAMINE [Benadryl] 25 - 50 mg PO DAILY PRN 12/17/15 03/09/21 History Cholecalciferol [Vitamin D3 (25 50 mcg PO DAILY 03/08/21 03/09/21 History Mcg = 1000 Iu)] Ibuprofen [Motrin Ib] 200 - 800 mg PO Q8H PRN 03/08/21 03/09/21 History Allergies Allergy/AdvReac Type Severity Reaction Status Date / Time amoxicillin Allergy nausea,diarrhea, Verified 03/09/21 19:06 light headedness apricot [Apricot] Allergy PER ALG Verified 03/09/21 19:06 TESTING Beef Containing Products Allergy PER ALG Verified 03/09/21 19:06 TESTING carbamazepine Allergy heart Verified 03/09/21 19:06 racing,panic attacks, skin crawling cinnamon [Cinnamon] Allergy Swelling Verified 03/09/21 19:06 codeine Allergy Hallucinati Verified 03/09/21 19:06 ons cyclobenzaprine HCl Allergy Swelling Verified 03/09/21 19:06 [From Amrix] dexamethasone Allergy Unknown Verified 03/09/21 19:06 egg Allergy PER ALG Verified 03/09/21 19:06 TESTING meloxicam [From Mobic] Allergy Swelling Verified 03/09/21 19:06 Milk Containing Products Allergy PER ALG Verified 03/09/21 19:06 [Dairy] TESTING oats Allergy PER ALG Verified 03/09/21 19:06 TESTING onion Allergy PER ALG Verified 03/09/21 19:06 TESTING saxagliptin HCl Allergy Rash/Hives Verified 03/09/21 19:06 [From Onglyza] soy Allergy PER ALG Verified 03/09/21 19:06 TESTING tree nut [Tree Nut] Allergy PER ALG Verified 03/09/21 19:06 TESTING Physical Exam Vitals: Vital Signs Temp Pulse Resp BP BP Pulse Ox 03/11/21 20:00 102.7 F H 125 H 18 118/68 95 03/11/21 17:00 100.4 F H 03/11/21 16:00 99.4 F 118 H 18 132/69 93 L 03/11/21 10:21 97.8 F 116 H 17 106/67 94 L 03/11/21 07:16 14 94 L 03/11/21 07:15 98.3 F 110 H 14 94/57 87 L 03/11/21 03:52 98.7 F 119 H 03/11/21 02:00 103.1 F H 134 H 20 90/45 92 L Intake and Output 03/11/21 03/11/21 03/11/21 06:59 14:59 22:59 Intake Total 120 Balance 120 Intake: Oral 120 Other: # Voids 3 2 1 # Bowel Movements 1 Results CBC & Chem 7: 03/11/21 03:14 03/11/21 03:14 Labs: Abnormal Lab Results - Last 24 Hours (Table) 03/11/21 03/11/21 03/11/21 Range/Units 03:14 03:14 03:14 RBC 3.63 L (3.80-5.40) m/uL Hgb 11.1 L (11.4-16.0) gm/dL Hct 32.1 L (34.0-46.0) % Plt Count 63 L D (150-450) k/uL Lymphocytes # (Manual) 0.14 L (1.0-4.8) k/uL Sodium 135 L (137-145) mmol/L Potassium 3.4 L (3.5-5.1) mmol/L Carbon Dioxide 17 L (22-30) mmol/L Glucose 173 H (74-99) mg/dL POC Glucose (mg/dL) (75-99) mg/dL Plasma Lactic Acid Reginald 4.4 H* (0.7-2.0) mmol/L Calcium 8.2 L (8.4-10.2) mg/dL Total Bilirubin 1.4 H (0.2-1.3) mg/dL AST 1381 H (14-36) U/L ALT 563 H (4-34) U/L Alkaline Phosphatase 140 H (38-126) U/L Total Protein 5.7 L (6.3-8.2) g/dL Albumin 3.1 L (3.5-5.0) g/dL 03/11/21 03/11/21 03/11/21 Range/Units 06:39 07:30 09:42 RBC (3.80-5.40) m/uL Hgb (11.4-16.0) gm/dL Hct (34.0-46.0) % Plt Count (150-450) k/uL Lymphocytes # (Manual) (1.0-4.8) k/uL Sodium (137-145) mmol/L Potassium (3.5-5.1) mmol/L Carbon Dioxide (22-30) mmol/L Glucose (74-99) mg/dL POC Glucose (mg/dL) 158 H (75-99) mg/dL Plasma Lactic Acid Reginald 3.9 H* 5.6 H* (0.7-2.0) mmol/L Calcium (8.4-10.2) mg/dL Total Bilirubin (0.2-1.3) mg/dL AST (14-36) U/L ALT (4-34) U/L Alkaline Phosphatase (38-126) U/L Total Protein (6.3-8.2) g/dL Albumin (3.5-5.0) g/dL 03/11/21 03/11/21 03/11/21 Range/Units 12:10 12:31 15:17 RBC (3.80-5.40) m/uL Hgb (11.4-16.0) gm/dL Hct (34.0-46.0) % Plt Count (150-450) k/uL Lymphocytes # (Manual) (1.0-4.8) k/uL Sodium (137-145) mmol/L Potassium (3.5-5.1) mmol/L Carbon Dioxide (22-30) mmol/L Glucose (74-99) mg/dL POC Glucose (mg/dL) 126 H (75-99) mg/dL Plasma Lactic Acid Reginald 5.4 H* 4.8 H* (0.7-2.0) mmol/L Calcium (8.4-10.2) mg/dL Total Bilirubin (0.2-1.3) mg/dL AST (14-36) U/L ALT (4-34) U/L Alkaline Phosphatase (38-126) U/L Total Protein (6.3-8.2) g/dL Albumin (3.5-5.0) g/dL 03/11/21 03/11/21 03/11/21 Range/Units 16:46 18:15 20:16 RBC (3.80-5.40) m/uL Hgb (11.4-16.0) gm/dL Hct (34.0-46.0) % Plt Count (150-450) k/uL Lymphocytes # (Manual) (1.0-4.8) k/uL Sodium (137-145) mmol/L Potassium (3.5-5.1) mmol/L Carbon Dioxide (22-30) mmol/L Glucose (74-99) mg/dL POC Glucose (mg/dL) 105 H 127 H (75-99) mg/dL Plasma Lactic Acid Reginald 5.1 H* (0.7-2.0) mmol/L Calcium (8.4-10.2) mg/dL Total Bilirubin (0.2-1.3) mg/dL AST (14-36) U/L ALT (4-34) U/L Alkaline Phosphatase (38-126) U/L Total Protein (6.3-8.2) g/dL Albumin (3.5-5.0) g/dL 03/11/21 Range/Units 21:06 RBC (3.80-5.40) m/uL Hgb (11.4-16.0) gm/dL Hct (34.0-46.0) % Plt Count (150-450) k/uL Lymphocytes # (Manual) (1.0-4.8) k/uL Sodium (137-145) mmol/L Potassium (3.5-5.1) mmol/L Carbon Dioxide (22-30) mmol/L Glucose (74-99) mg/dL POC Glucose (mg/dL) (75-99) mg/dL Plasma Lactic Acid Reginald 4.5 H* (0.7-2.0) mmol/L Calcium (8.4-10.2) mg/dL Total Bilirubin (0.2-1.3) mg/dL AST (14-36) U/L ALT (4-34) U/L Alkaline Phosphatase (38-126) U/L Total Protein (6.3-8.2) g/dL Albumin (3.5-5.0) g/dL Microbiology - Last 24 Hours (Table) 03/09/21 19:00 Urine Culture - Final Urine,Voided 03/09/21 20:45 Blood Culture - Preliminary Blood No Growth after 24 hours
[2021-03-11] MEDS ORDERED: LEVOFLOXACIN 750MG-D5W PMX 750 MG in DEXTROSE/WATER 1 150ML.BAG IVPB ONE (21:45)
[2021-03-12] MEDS: DEXTROSE 5%-0.45% NACL 1,000 ML with SODIUM BICARB (1 MEQ/ML) 50 ML IV SCH ×8 (00:56→23:46)
[2021-03-12 04:41] LABS: African American GFR (CKD) >90 (>60 ml/min/1.73 sqM); Albumin 2.9 g/dL (3.5-5.0); Alkaline Phosphatase 205 U/L (38-126); Anion Gap 11 mmol/L; Blood Urea Nitrogen 23 mg/dL (7-17); Calcium 7.5 mg/dL (8.4-10.2); Carbon Dioxide 15 mmol/L (22-30); Chloride 107 mmol/L (98-107); Glucose 132 mg/dL (74-99); Non-African American GFR(CKD) 80 (>60 ml/min/1.73 sqM); Potassium 3.3 mmol/L (3.5-5.1); Sodium 133 mmol/L (137-145); Total Bilirubin 3.6 mg/dL (0.2-1.3); Total Protein 5.6 g/dL (6.3-8.2)
[2021-03-12 05:14] LABS: HCT 32.9 % (34.0-46.0); HGB 11.3 gm/dL (11.4-16.0); MCH 29.9 pg (25.0-35.0); MCHC 34.4 g/dL (31.0-37.0); MCV 87.1 fL (80.0-100.0); Mean Platelet Volume 9.8; RBC 3.78 m/uL (3.80-5.40); RDW 13.4 % (11.5-15.5); WBC 5.4 k/uL (3.8-10.6)
[2021-03-12 05:25] LABS: ALT 917 U/L (4-34); AST 1807 U/L (14-36)
[2021-03-12 05:26] LABS: C Reactive Protein 36.8 mg/dL (<1.0)
[2021-03-12 05:34] LABS: Platelet Count 34 k/uL (150-450)
[2021-03-12 06:03] LABS: Glucose,Whole Blood 100 mg/dL (75-99)
[2021-03-12] MEDS: INSULIN ASPART (NovoLOG) 100 UNIT/ML VIAL SQ SCH ×4 (06:21→20:26)
[2021-03-12 06:37] LABS: Band Neutrophils % 47 %; Lymphocytes # (M) 0.65 k/uL (1.0-4.8); Metamyelocytes # (M) 0.11 k/uL (0); Metamyelocytes % 2 %; Monocytes # (M) 0.05 k/uL (0-1.0); Neutrophils % (M) 39 %; Nucleated Red Blood Cells 0 /100 WBC (0-0); Total Cells Counted 200
[2021-03-12 06:39] LABS: Anisocytosis (M) Present; Poikilocytosis (M) Present
[2021-03-12 06:40] LABS: Crenated RBC Present
[2021-03-12 06:46] LABS: Toxic Vacuolation Present
[2021-03-12] MEDS: VANCOMYCIN 1,500 MG in SODIUM CHLORIDE 0.9% 250 ML IVPB SCH ×2 (06:51→17:17)
[2021-03-12] MEDS: CEFEPIME 2 GM in SODIUM CHLORIDE 0.9% 100 ML IVPB SCH ×3 (06:51→20:25)
[2021-03-12] MEDS: CARBATROL 200 MG PO SCH ×2 (08:33→20:26)
[2021-03-12] MEDS: ENOXAPARIN 40 MG/0.4 ML SYRINGE SQ SCH (08:33)
[2021-03-12] MEDS: POTASSIUM CHLORIDE ER 20 MEQ TAB.ER PO SCH ×2 (10:54→12:30)
[2021-03-12 11:41] LABS: Glucose,Whole Blood 134 mg/dL (75-99)
[2021-03-12] MEDS: LEVOFLOXACIN 750 MG TAB PO SCH (12:29)
[2021-03-12] MEDS: CALCIUM CARBONATE LIQUID 500 MG/5 ML CUP PO SCH ×3 (12:29→20:26)
[2021-03-12 16:27] LABS: Glucose,Whole Blood 138 mg/dL (75-99)
--- NOTE | 2021-03-12 16:53 | P.PN ---
Progress Note - Text Progress Note Date: 03/12/21 Chief Complaint: Hypoxemia History of presenting complaint: This is a pleasant 50-year-old patient who follows with Dr. Aguiar. Chronic stable medical conditions include, diet controlled diabetes, seizure disorder, ALLERGIES for which she takes Benadryl when necessary. Patient is being tighter control her diabetes with diet for quite some time. During pandemic control and has not been easy for her. Just a few weeks ago she checked HbA1c and it came back as 9.3. Patient also got chronic lower lumbar pain. Wednesday evening patient is having a dull headache. Went to bed and was feeling freezing cold. And then became soaking wet. Again was sitting she started freezing. Took her temperature is 101.8. Daggett weak. And for a short time passed out. She thinks her told her that maybe that was legs stiffening slight bubbles at the mouth. Not sure. Patient been having urinary frequency. Was found over infected appearing urine in the ER. Started IV ceftriaxone. Patient is not keen to start on oral hypoglycemic because of side effects she's had before with Januvia and metformin. This morning she did vomit once. Has been drinking quite a bit of water. Critical care note: 03/11/2021: I was called earlier today. Patient has spiked fever again. Had become hypoxic. Blood pressure is running of the lower side. IV fluids was increased. Patient was a bit more short of breath. Ordered two-view chest x- ray. IV ceftriaxone was discontinued. Change to IV cefepime 1 g every 12 and IV vancomycin. Order was placed to move to patient to telemetry floor. Patient is a more of a cough today. More short of breath. Tired 03/12/2021: Sitting up in a chair. A bit less tired. Slightly short of breath. Did eat some. Cough with green sputum. No fever since last night. On IV cefepime, IV vancomycin, Levaquin IV fluids Review of systems: Was done for constitutional, cardiovascular, GI, pulmonary. relevant finding as above Active Medications Calcium Carbonate/Glycine (Calcium Carbonate Liquid 500 Mg/5 Ml Cup) 500 mg PO ACHS YAJAIRA Last Admin: 03/12/21 12:29 Dose: 500 mg Documented by: Diphenhydramine HCl (Diphenhydramine 25 Mg Cap) 25 mg PO DAILY PRN PRN Reason: Mild Allergy Symptoms Diphenhydramine HCl (Diphenhydramine 25 Mg Cap) 50 mg PO DAILY PRN PRN Reason: Severe Allergy Symptoms Last Admin: 03/11/21 20:42 Dose: 50 mg Documented by: Vancomycin HCl 1,500 mg/ (Sodium Chloride) 250 mls @ 125 mls/hr IVPB Q12H [facility] Last Admin: 03/12/21 06:51 Dose: 125 mls/hr Documented by: Cefepime HCl 2 gm/ Sodium (Chloride) 100 mls @ 25 mls/hr IVPB Q8H [facility] Last Admin: 03/12/21 10:54 Dose: 25 mls/hr Documented by: Sodium Bicarbonate 50 ml/ (Dextrose/Sodium Chloride) 1,050 mls @ 130 mls/hr IV .Q8H5M [facility] Last Admin: 03/12/21 15:18 Dose: Not Given Documented by: Insulin Aspart (Insulin Aspart (Novolog) 100 Unit/Ml Vial) 0 unit SQ ACHS [facility]; Protocol Last Admin: 03/12/21 11:58 Dose: Not Given Documented by: Levofloxacin (Levofloxacin 750 Mg Tab) 750 mg PO Q24H [facility] Last Admin: 03/12/21 12:29 Dose: 750 mg Documented by: Miscellaneous Information (Potassium Replacement Protocol 1 Each Misc) 1 each MISCELLANE DAILY PRN; Protocol PRN Reason: Per Protocol Miscellaneous Information (Vancomycin Trough Due 1 Each Misc) 1 each MISCELLANE ONCE ONE Stop: 03/13/21 05:01 Naloxone HCl (Naloxone 0.4 Mg/Ml 1 Ml Vial) 0.2 mg IV Q2M PRN PRN Reason: Opioid Reversal Carbatrol Er 200 Mg 1 each PO BID [facility] Last Admin: 03/12/21 08:33 Dose: 1 each Documented by: Past medical history to include: Diet controlled diabetes, seizure disorder, lower lumbar pain, last seizure in 2003 skin cancer. Social history: . No smoking or alcohol. Family history: Father of 75 with heart problems. Cancer. Physical examination: VITAL SIGNS: T-max 102.7 last night, afebrile this morning, 105, 18, 97/51, 97% on 3 L GENERAL: Sitting up in a recliner tired, short of breath, nasal cannula EYES: Pupils equal. Conjunctiva normal. HEENT: External appearance of nose and ears normal, oral cavity grossly normal. NECK: JVD not raised; masses not palpable. HEART: First and second heart sounds are normal; no edema. LUNGS: Respiratory rate increased; basal crackles. ABDOMEN: Soft, nontender, liver spleen not palpable, no masses palpable. PSYCH: Alert and oriented x3; mood and affect tired INVESTIGATIONS, reviewed in the clinical context: March 12: WBC 5.4 hemoglobin 11.3 platelets 34 sodium 133 potassium 3.3 creatinine 0.85 AST 07/19/2006 ALT 917 Acetaminophen less than 10 March 11: WBC 4.7 hemoglobin 11.1 platelets 63 potassium 3.4 creatinine 1.02 bi carb 17 lactic acid 4.4 AST 1381 ALT 563 Hepatitis acute screen including hepatitis A, hepatitis B, hepatitis C all negative Chest x-ray film personally reviewed by me-[March 11] bibasal infiltrates WBC 10.3 hemoglobin 12.3 platelets 151 potassium 3.2 creatinine 0.65 AST 141 ALT 85 UA positive for leukoesterase, WBC, bacteria Coronavirus [PCR] not detected Lactic acid 0.9 EKG tracing personally reviewed by me-sinus rhythm, 111 rate Chest x-ray film personally reviewed by me-possible atelectasis Assessment and plan: -Acute bilateral basal pneumonia, causing sepsis and acute hypoxic respiratory failure: Slow to respond IV cefepime 2 g every 8 and IV vancomycin, Levaquin -Acute hypoxic respiratory failure from pneumonia: Slow to respond Supplemental oxygen, 3 L -Severe sepsis from pneumonia, UTI Follow lactic acid and IV fluids -Acute metabolic acidosis from sepsis: Slow to respond Sodium bicarbonate drip and D5 0.45 -Syncope likely vasovagal from underlying sepsis, on presentation -Acute UTI with cystitis causing sepsis IV meropenem. IV fluids -Acute ischemic hepatitis. From low blood pressure. Sepsis: Slow to respond Acute hepatitis panel was negative. IV fluids. DC Tylenol. Repeat CMP -Diabetes mellitus type 2, uncontrolled with hyperglycemia Patient does not want to take oral hypoglycemic at this point and was to follow- up with her PCP Dr. Aguiar. Follow Accu-Cheks and sliding scale insulin. Dietitian consult. Diabetic diet -Epilepsy disorder : last episode being 2003 Continue Tegretol -Chronic lumbar arthritis Tylenol when necessary -Acute thrombocytopenia Likely from sepsis. Rule out H IT. Send off H IT antibodies. DC Lovenox. Consult hematology Care was discussed with the patient. Continue with IV vancomycin, Levaquin, IV cefepime. IV fluids at 1 30 mL an hour. Care was discussed with the patient. Follow with RAVINDRA. FIDENCIO Zendejas. Check H IT antibodies. Consult hematology.
--- NOTE | 2021-03-12 17:32 | P.CONS ---
History of Present Illness - Reason for Consult Consult date: 03/12/21 low plt Requesting physician: Quintin Harper - Chief Complaint fever, syncopy - History of Present Illness Mrs. Gonzalez is a very pleasant 50-year-old female who is currently hospitalized with fever, syncopal episode. Since admit her platelet count has been significantly decreasing. Platelet count is 34,000 today, normal on admit. She's been dealing with fevers for a little over a week. She said this was of rather sudden onset, feeling just fine up until last week. She was at home and experienced sudden onset of weakness, thought was a seizure, patient khows she feels post-ictal and she did not have any of those symptoms so she feels she just passed out. She was brought to the emergency room, checked for Covid, which was negative, and was sent home with instructions to manage her temperature with Tylenol and Motrin and use supportive care measures. Patient did the same but, her fever continued to increase despite use of antipyretics. She came back to the emergency room, was checked for Covid again-neg, she had fever after administration of Tylenol. When seen She is on 3 L of O2, dry, nagging cough, she has some broken blood vessels in the eye because of the cough, she denies eye pain or vision loss, she vomited once but, relates this to his excessive secretions-as she has experienced this before, no hemoptysis, abdominal pain, cramping, dysuria, hematuria, diarrhea, constipation, hematochezia, melena, petechiae, swelling or rashes. She has not been hospitalized in the last 6 months. She received a dose of heparin but then was transitioned to Lovenox during this admission. She denies any history of low platelets or blood problems. She has had skin cancers but never required any treatment other than removal. Review of Systems 10 point review of systems is negative except as stated in HPI Past Medical History Past Medical History: Cancer, Diabetes Mellitus, Seizure Disorder Additional Past Medical History / Comment(s): Currently diet controlled diabetes (has been on Rx's on the past). LAST SEIZURE approximately 2003. HYPOTENSION. "after my cardiac cath my heart stopped-possible vasovagal per old medical record. UTIs. IBS or food allergies causing problems, SKIN CANCER History of Any Multi-Drug Resistant Organisms: None Reported Past Surgical History: Cholecystectomy, Heart Catheterization, Tubal Ligation, Uterine Ablation Additional Past Surgical History / Comment(s): labrial growth removed, skin cancer removals. COLONOSCOPY Past Anesthesia/Blood Transfusion Reactions: No Reported Reaction Additional Past Anesthesia/Blood Transfusion Reaction / Comm: PT STATED "MY HEART STOPPED AFTER MY HEART CATH" -possible vasovagal per old record, has had a CHOLECYSTECTOMY AFTER HEARTCATH AND DIDN'T HAVE ANY PROBLEMS" Past Psychological History: No Psychological Hx Reported Additional Psychological History / Comment(s): Pt resides with her spouse. She is independent. She drives. Smoking Status: Never smoker Past Alcohol Use History: None Reported Past Drug Use History: None Reported - Past Family History Father Additional Family Medical History / Comment(s): Father at age 75 of heart problems. Mother Family Medical History: Cancer Additional Family Medical History / Comment(s): Severe arthritis, bowel and stage IV breast cancer. Brother(s) Family Medical History: CVA/TIA, Diabetes Mellitus Additional Family Medical History / Comment(s): Medications and Allergies Home Medications Medication Instructions Recorded Confirmed Type carBAMazepine [Carbatrol] 200 mg PO BID 02/13/14 03/09/21 History diphenhydrAMINE [Benadryl] 25 - 50 mg PO DAILY PRN 12/17/15 03/09/21 History Cholecalciferol [Vitamin D3 (25 50 mcg PO DAILY 03/08/21 03/09/21 History Mcg = 1000 Iu)] Ibuprofen [Motrin Ib] 200 - 800 mg PO Q8H PRN 03/08/21 03/09/21 History Allergies Allergy/AdvReac Type Severity Reaction Status Date / Time amoxicillin Allergy nausea,diarrhea, Verified 03/09/21 19:06 light headedness apricot [Apricot] Allergy PER ALG Verified 03/09/21 19:06 TESTING Beef Containing Products Allergy PER ALG Verified 03/09/21 19:06 TESTING carbamazepine Allergy heart Verified 03/09/21 19:06 racing,panic attacks, skin crawling cinnamon [Cinnamon] Allergy Swelling Verified 03/09/21 19:06 codeine Allergy Hallucinati Verified 03/09/21 19:06 ons cyclobenzaprine HCl Allergy Swelling Verified 03/09/21 19:06 [From Amrix] dexamethasone Allergy Unknown Verified 03/09/21 19:06 egg Allergy PER ALG Verified 03/09/21 19:06 TESTING meloxicam [From Mobic] Allergy Swelling Verified 03/09/21 19:06 Milk Containing Products Allergy PER ALG Verified 03/09/21 19:06 [Dairy] TESTING oats Allergy PER ALG Verified 03/09/21 19:06 TESTING onion Allergy PER ALG Verified 03/09/21 19:06 TESTING saxagliptin HCl Allergy Rash/Hives Verified 03/09/21 19:06 [From Onglyza] soy Allergy PER ALG Verified 03/09/21 19:06 TESTING tree nut [Tree Nut] Allergy PER ALG Verified 03/09/21 19:06 TESTING Physical Exam Vitals: Vital Signs Temp Pulse Resp BP BP Pulse Ox 03/12/21 14:33 97.5 F L 100 16 98/64 03/12/21 11:04 105 H 18 03/12/21 11:02 97.1 F L 105 H 18 97/51 97 03/12/21 07:37 97.9 F 105 H 19 102/55 95 03/12/21 07:24 125 H 20 03/12/21 04:00 125 H 20 110/59 03/12/21 02:00 121 H 20 03/12/21 01:00 99.7 F H 121 H 20 108/57 94 L 03/11/21 23:06 102.7 F H 131 H 18 136/52 97 03/11/21 20:00 102.7 F H 125 H 18 118/68 95 03/11/21 17:00 100.4 F H Intake and Output 03/12/21 03/12/21 03/12/21 06:59 14:59 22:59 Intake Total 200 Balance 200 Intake: Oral 200 Other: # Voids 2 1 # Bowel Movements 1 Weight 89.7 kg - Constitutional General appearance: average body habitus, cooperative, no acute distress - EENT left eye has medial scleral hemorrhage, right eye has lateral scleral hemorrhage, patient states her coughing so hard. Oral mucosa is free of thrush, without wet purpura Eyes: anicteric sclerae, EOMI ENT: hearing grossly normal, normal oropharynx - Neck Neck: no lymphadenopathy - Respiratory Respirations are shallow, cough induced when asked to deep breathe Respiratory: right: diminished (Based), bilateral: other (Harsh breath sounds in the middle of the back bilaterally) - Cardiovascular Rhythm: regular Heart sounds: normal: S1, S2 Abnormal Heart Sounds: no systolic murmur, no diastolic murmur, no rub, no S3 Gallop, no S4 Gallop, no click, no other leg Peripheral Edema: bilateral: None - Gastrointestinal General gastrointestinal: no absent bowel sounds, no decreased bowel sounds, no distended, no hepatomegaly, no hyperactive bowel sounds, normal bowel sounds, no organomegaly, no rigid, no scaphoid, soft, no splenomegaly, no tenderness, no umbilical hernia, no ventral hernia - Neurologic Neurologic: CNII-XII intact - Musculoskeletal Musculoskeletal: strength equal bilaterally - Psychiatric Psychiatric: A&O x's 3, appropriate affect, intact judgment & insight Results CBC & Chem 7: 03/12/21 04:11 03/12/21 04:11 Labs: Abnormal Lab Results - Last 24 Hours (Table) 03/11/21 03/11/21 03/11/21 Range/Units 16:46 18:15 20:16 RBC (3.80-5.40) m/uL Hgb (11.4-16.0) gm/dL Hct (34.0-46.0) % Plt Count (150-450) k/uL Lymphocytes # (Manual) (1.0-4.8) k/uL Metamyelocytes # (Man) (0) k/uL Sodium (137-145) mmol/L Potassium (3.5-5.1) mmol/L Carbon Dioxide (22-30) mmol/L BUN (7-17) mg/dL Glucose (74-99) mg/dL POC Glucose (mg/dL) 105 H 127 H (75-99) mg/dL Plasma Lactic Acid Reginald 5.1 H* (0.7-2.0) mmol/L Calcium (8.4-10.2) mg/dL Total Bilirubin (0.2-1.3) mg/dL AST (14-36) U/L ALT (4-34) U/L Alkaline Phosphatase (38-126) U/L C-Reactive Protein (<1.0) mg/dL Total Protein (6.3-8.2) g/dL Albumin (3.5-5.0) g/dL 03/11/21 03/12/21 03/12/21 Range/Units 21:06 00:48 04:11 RBC 3.78 L (3.80-5.40) m/uL Hgb 11.3 L (11.4-16.0) gm/dL Hct 32.9 L (34.0-46.0) % Plt Count 34 L (150-450) k/uL Lymphocytes # (Manual) 0.65 L (1.0-4.8) k/uL Metamyelocytes # (Man) 0.11 H (0) k/uL Sodium (137-145) mmol/L Potassium (3.5-5.1) mmol/L Carbon Dioxide (22-30) mmol/L BUN (7-17) mg/dL Glucose (74-99) mg/dL POC Glucose (mg/dL) (75-99) mg/dL Plasma Lactic Acid Reginald 4.5 H* 3.8 H* (0.7-2.0) mmol/L Calcium (8.4-10.2) mg/dL Total Bilirubin (0.2-1.3) mg/dL AST (14-36) U/L ALT (4-34) U/L Alkaline Phosphatase (38-126) U/L C-Reactive Protein (<1.0) mg/dL Total Protein (6.3-8.2) g/dL Albumin (3.5-5.0) g/dL 03/12/21 03/12/21 03/12/21 Range/Units 04:11 04:11 06:01 RBC (3.80-5.40) m/uL Hgb (11.4-16.0) gm/dL Hct (34.0-46.0) % Plt Count (150-450) k/uL Lymphocytes # (Manual) (1.0-4.8) k/uL Metamyelocytes # (Man) (0) k/uL Sodium 133 L (137-145) mmol/L Potassium 3.3 L (3.5-5.1) mmol/L Carbon Dioxide 15 L (22-30) mmol/L BUN 23 H (7-17) mg/dL Glucose 132 H (74-99) mg/dL POC Glucose (mg/dL) 100 H (75-99) mg/dL Plasma Lactic Acid Reginald 3.8 H* (0.7-2.0) mmol/L Calcium 7.5 L (8.4-10.2) mg/dL Total Bilirubin 3.6 H (0.2-1.3) mg/dL AST 1807 H (14-36) U/L ALT 917 H (4-34) U/L Alkaline Phosphatase 205 H (38-126) U/L C-Reactive Protein 36.8 H (<1.0) mg/dL Total Protein 5.6 L (6.3-8.2) g/dL Albumin 2.9 L (3.5-5.0) g/dL 03/12/21 03/12/21 Range/Units 07:14 11:33 RBC (3.80-5.40) m/uL Hgb (11.4-16.0) gm/dL Hct (34.0-46.0) % Plt Count (150-450) k/uL Lymphocytes # (Manual) (1.0-4.8) k/uL Metamyelocytes # (Man) (0) k/uL Sodium (137-145) mmol/L Potassium (3.5-5.1) mmol/L Carbon Dioxide (22-30) mmol/L BUN (7-17) mg/dL Glucose (74-99) mg/dL POC Glucose (mg/dL) 134 H (75-99) mg/dL Plasma Lactic Acid Reginald 3.4 H* (0.7-2.0) mmol/L Calcium (8.4-10.2) mg/dL Total Bilirubin (0.2-1.3) mg/dL AST (14-36) U/L ALT (4-34) U/L Alkaline Phosphatase (38-126) U/L C-Reactive Protein (<1.0) mg/dL Total Protein (6.3-8.2) g/dL Albumin (3.5-5.0) g/dL Microbiology - Last 24 Hours (Table) 03/12/21 11:00 Sputum Culture - Preliminary Sputum 03/09/21 20:45 Blood Culture - Preliminary Blood No Growth after 48 hours Chest x-ray: report reviewed CT scan - abdomen: report reviewed CT Scan - head: report reviewed CT scan - pelvis: report reviewed Assessment and Plan (1) Thrombocytopenia Narrative/Plan: Labs ordered to rule out DIC. Hit antibody ordered. No aspirin, NSAIDs, anticoagulation. Immunoglobulins ordered, low lymphocyte count Labs daily. Transfuse platelets to keep platelet count greater than 20,000 when acutely ill. Transfuse if signs or symptoms of bleeding Current Visit: Yes Status: Acute Priority: High Code(s): D69.6 - THRO MBOCYTOPENIA, UNSPECIFIED SNOMED Code(s): 950465267 (2) Fever Narrative/Plan: Management Internal Medicine. Patient is on antibiotics. Wesley cultures pending. Current Visit: Yes Status: Acute Priority: High Code(s): R50.9 - FEVER, UNSPECIFIED SNOMED Code(s): 735706530
[2021-03-12 17:50] LABS: INR 1.3 (<1.2); Partial Thromboplastin Time 35.3 sec (22.0-30.0); Prothrombin Time 13.3 sec (9.0-12.0)
[2021-03-12 19:44] LABS: Glucose,Whole Blood 161 mg/dL (75-99)
--- NOTE | 2021-03-12 23:10 | PN ---
PROGRESS NOTE DATE OF SERVICE: 03/12/2021 REASON FOR FOLLOWUP: Fever, possible pneumonia. INTERVAL HISTORY: The patient is afebrile. The patient mentioned she is feeling slightly better today, breathing comfortably. Denies having any chest pain. She did have a cough with occasional sputum production. No nausea, no vomiting. No abdominal pain or diarrhea. PHYSICAL EXAMINATION: Blood pressure is 98/64 with a pulse of 100, temperature 97.5. She is 97% on 3 L nasal cannula. GENERAL DESCRIPTION: General description is a middle-aged female lying in bed in no distress. RESPIRATORY SYSTEM: Unlabored breathing. Decreased intensity of breath sounds. No wheeze. HEART: S1, S2. Regular rate and rhythm. ABDOMEN: Soft. No tenderness. EXTREMITIES: No edema of the feet. LABS: Hemoglobin is 11.3, white count of 5.4. BUN of 23, creatinine 0.85. Liver enzymes remain elevated. DIAGNOSTIC IMPRESSION AND PLAN: Patient with sepsis with initial concern for possible hepatobiliary source. Did have elevated liver enzymes. A CT of abdomen and pelvis came back negative. With predominantly respiratory symptoms, possible pneumonia, responding to the current broad- spectrum antibiotics of cefepime, vancomycin and Levaquin; to continue while waiting for the culture to finalize. Monitor clinical course closely. MMODL / IJN: [id number] /
[2021-03-12] MEDS: diphenhydrAMINE 25 MG CAP PO PRN (23:42)
[2021-03-13] MEDS: CEFEPIME 2 GM in SODIUM CHLORIDE 0.9% 100 ML IVPB SCH ×3 (04:06→19:55)
[2021-03-13 05:50] LABS: Glucose,Whole Blood 182 mg/dL (75-99)
[2021-03-13] MEDS: CALCIUM CARBONATE LIQUID 500 MG/5 ML CUP PO SCH ×4 (06:41→19:55)
[2021-03-13] MEDS: INSULIN ASPART (NovoLOG) 100 UNIT/ML VIAL SQ SCH ×4 (06:41→20:36)
[2021-03-13] MEDS ORDERED: VANCOMYCIN TROUGH DUE 1 EACH MISC MISCELLANE ONE (07:00)
[2021-03-13] MEDS ORDERED: VANCOMYCIN 1,500 MG in SODIUM CHLORIDE 0.9% 250 ML IVPB SCH (08:00)
[2021-03-13 08:01] LABS: Basophils % (A) 0 %; Eosinophils # (A) 0.1 k/uL (0-0.7); Eosinophils % (A) 1 %; HCT 32.1 % (34.0-46.0); HGB 11.4 gm/dL (11.4-16.0); Lymphocytes # (A) 0.4 k/uL (1.0-4.8); Lymphocytes % (A) 5 %; MCHC 35.5 g/dL (31.0-37.0); MCV 84.4 fL (80.0-100.0); Mean Platelet Volume 9.9; Monocytes # (A) 0.1 k/uL (0-1.0); Monocytes % (A) 2 %; Neutrophils # (A) 6.1 k/uL (1.3-7.7); Neutrophils % (A) 90 %; RDW 13.5 % (11.5-15.5); WBC 6.7 k/uL (3.8-10.6)
[2021-03-13 08:11] LABS: ALT 615 U/L (4-34); AST 672 U/L (14-36); African American GFR (CKD) >90 (>60 ml/min/1.73 sqM); Albumin 2.7 g/dL (3.5-5.0); Alkaline Phosphatase 253 U/L (38-126); Anion Gap 10 mmol/L; Blood Urea Nitrogen 18 mg/dL (7-17); Calcium 8.3 mg/dL (8.4-10.2); Carbon Dioxide 20 mmol/L (22-30); Chloride 105 mmol/L (98-107); Glucose 196 mg/dL (74-99); Non-African American GFR(CKD) >90 (>60 ml/min/1.73 sqM); Sodium 135 mmol/L (137-145); Total Protein 5.4 g/dL (6.3-8.2)
[2021-03-13 08:15] LABS: Platelet Count 33 k/uL (150-450)
--- NOTE | 2021-03-13 08:33 | XR ---
EXAMINATION TYPE: XR chest 2V DATE OF EXAM: 03/13/2021 COMPARISON: 2 view chest x-ray 03/11/2021 HISTORY: Pneumonia TECHNIQUE: Frontal and lateral views of the chest are obtained. FINDINGS: Volumes are low and the patient is rotated. Heart is likely stable but partially obscured. Bibasilar density persists. There is no evident pneumothorax. Patchy density present within the lung s. IMPRESSION: Findings are similar to prior exam. Correlate for interstitial edema, pneumonia with bas ilar effusions and associated atelectasis
[2021-03-13] MEDS: CARBATROL 200 MG PO SCH ×2 (08:49→19:56)
[2021-03-13] MEDS: DEXTROSE 5%-0.45% NACL 1,000 ML with SODIUM BICARB (1 MEQ/ML) 50 ML IV SCH ×4 (08:50→15:46)
[2021-03-13 11:48] LABS: Glucose,Whole Blood 179 mg/dL (75-99)
[2021-03-13] MEDS: LEVOFLOXACIN 750 MG TAB PO SCH (12:16)
[2021-03-13] MEDS: POTASSIUM CHLORIDE ER 20 MEQ TAB.ER PO SCH ×2 (12:47→13:24)
[2021-03-13] MEDS ORDERED: IBUPROFEN 200 MG TAB PO PRN (13:39)
--- NOTE | 2021-03-13 15:26 | P.PN ---
Subjective Progress Note Date: 03/13/21 Principal diagnosis: thrombocytopenia In f/u pt feels more tired today, nausea, had 100.9F temp this AM, she is on O2 at 3L-stable, she is not having chest pain, she is SOB on exertion. No bleeding to report, scleral hemorrhage is a little worse, no vision changes or eye pain Objective - Vital Signs Vital signs: Vital Signs Temp 101.7 F H 03/13/21 13:31 Pulse 114 H 03/13/21 13:31 Resp 26 H 03/13/21 13:31 BP 138/73 03/13/21 13:31 Pulse Ox 96 03/13/21 08:00 Intake & Output 03/12/21 03/13/21 03/13/21 18:59 06:59 18:59 Intake Total 720 Balance 720 Weight 91.3 kg Intake: Oral 720 Other: # Voids 1 2 2 # Bowel Movements 1 - Constitutional General appearance: Present: average body habitus, cooperative, no acute distress - EENT EENT Comment(s): sclera or hemorrhaged Eyes: Present: EOMI ENT: Present: hearing grossly normal, normal oropharynx - Respiratory Respiratory: bilateral: diminished, rales (few scattered) - Cardiovascular Rhythm: regular Heart sounds: normal: S1, S2 Abnormal Heart Sounds: Absent: systolic murmur, diastolic murmur, rub, S3 Gallop, S4 Gallop, click, other - Peripheral edema leg Peripheral Edema: bilateral: None - Gastrointestinal General gastrointestinal: Present: normal bowel sounds, soft - Integumentary Integumentary Comment(s): no rash, petechiae or purpura - Neurologic Neurologic: Present: CNII-XII intact - Musculoskeletal Musculoskeletal: Present: strength equal bilaterally - Psychiatric Psychiatric: Present: A&O x's 3, appropriate affect, intact judgment & insight - Labs CBC & Chem 7: 03/13/21 07:30 03/13/21 07:30 Labs: Abnormal Lab Results - Last 24 Hours (Table) 03/12/21 03/12/21 03/12/21 Range/Units 04:11 16:25 16:58 Hct (34.0-46.0) % Plt Count (150-450) k/uL Lymphocytes # (1.0-4.8) k/uL PT 13.3 H (9.0-12.0) sec INR 1.3 H (<1.2) APTT 35.3 H (22.0-30.0) sec Sodium (137-145) mmol/L Potassium (3.5-5.1) mmol/L Carbon Dioxide (22-30) mmol/L BUN (7-17) mg/dL Glucose (74-99) mg/dL POC Glucose (mg/dL) 138 H (75-99) mg/dL Calcium (8.4-10.2) mg/dL Total Bilirubin (0.2-1.3) mg/dL AST (14-36) U/L ALT (4-34) U/L Alkaline Phosphatase (38-126) U/L Total Protein (6.3-8.2) g/dL Albumin (3.5-5.0) g/dL Procalcitonin 7.14 H (0.02-0.09) ng/mL 03/12/21 03/13/21 03/13/21 Range/Units 19:42 05:48 07:30 Hct 32.1 L (34.0-46.0) % Plt Count 33 L (150-450) k/uL Lymphocytes # 0.4 L (1.0-4.8) k/uL PT (9.0-12.0) sec INR (<1.2) APTT (22.0-30.0) sec Sodium (137-145) mmol/L Potassium (3.5-5.1) mmol/L Carbon Dioxide (22-30) mmol/L BUN (7-17) mg/dL Glucose (74-99) mg/dL POC Glucose (mg/dL) 161 H 182 H (75-99) mg/dL Calcium (8.4-10.2) mg/dL Total Bilirubin (0.2-1.3) mg/dL AST (14-36) U/L ALT (4-34) U/L Alkaline Phosphatase (38-126) U/L Total Protein (6.3-8.2) g/dL Albumin (3.5-5.0) g/dL Procalcitonin (0.02-0.09) ng/mL 03/13/21 03/13/21 Range/Units 07:30 11:46 Hct (34.0-46.0) % Plt Count (150-450) k/uL Lymphocytes # (1.0-4.8) k/uL PT (9.0-12.0) sec INR (<1.2) APTT (22.0-30.0) sec Sodium 135 L (137-145) mmol/L Potassium 3.0 L (3.5-5.1) mmol/L Carbon Dioxide 20 L (22-30) mmol/L BUN 18 H (7-17) mg/dL Glucose 196 H (74-99) mg/dL POC Glucose (mg/dL) 179 H (75-99) mg/dL Calcium 8.3 L (8.4-10.2) mg/dL Total Bilirubin 7.0 H (0.2-1.3) mg/dL AST 672 H (14-36) U/L ALT 615 H (4-34) U/L Alkaline Phosphatase 253 H (38-126) U/L Total Protein 5.4 L (6.3-8.2) g/dL Albumin 2.7 L (3.5-5.0) g/dL Procalcitonin (0.02-0.09) ng/mL Microbiology - Last 24 Hours (Table) 03/12/21 11:00 Gram Stain - Preliminary Sputum Sputum Culture - Preliminary 03/09/21 20:45 Blood Culture - Preliminary Blood No Growth after 72 hours - Imaging and Cardiology Chest x-ray: report reviewed (no notable changes) Assessment and Plan (1) Thrombocytopenia Narrative/Plan: Labs ordered to rule out DIC-coags slightly increased, fibrinogen WNL, plt stable today Paraproteinemia, autoimmune work up ordered Hit antibody ordered, still pending No aspirin, NSAIDs, anticoagulation for platelets <50,000 Immunoglobulins ordered, low lymphocyte count Labs daily. Transfuse platelets to keep platelet count greater than 20,000 when acutely ill. Transfuse if signs or symptoms of bleeding Current Visit: Yes Status: Acute Priority: High Code(s): D69.6 - THROMBOCYTOPENIA, UNSPECIFIED SNOMED Code(s): 749619869 (2) Fever Narrative/Plan: Management Internal Medicine, ID consulted. Patient is on antibiotics. Wesley cultures pending, viral work up ordered. Current Visit: Yes Status: Acute Priority: High Code(s): R50.9 - FEVER, UNSPECIFIED SNOMED Code(s): 511409440 Plan: Doctor attests: I performed a history and physical examination of this patient, developed impression and plan of care. Discussed with dictator. I agree with dictators note, documented as a scribe.
[2021-03-13 16:45] LABS: Glucose,Whole Blood 173 mg/dL (75-99)
--- NOTE | 2021-03-13 16:54 | PN ---
PROGRESS NOTE DATE OF SERVICE: 03/13/2021 REASON FOR FOLLOWUP: Fever, possible CMV versus EBV. INTERVAL HISTORY: The patient did spike another fever this evening. The patient is feeling better, though, breathing comfortably. Did have a congested cough but not bringing up any sputum. No vomiting. No abdominal pain or diarrhea. PHYSICAL EXAMINATION: Her blood pressure is 132/76, pulse of 140, temperature 101.7. She is 94% on 3 L nasal cannula. GENERAL DESCRIPTION: General description is a middle-aged female up in the bed in no distress. RESPIRATORY SYSTEM: Unlabored breathing. Decreased intensity of breath sounds. No wheeze. HEART: S1, S2. Regular rate and rhythm. ABDOMEN: Soft. No tenderness. LABS: Hemoglobin is 11.2, white count 6.9. Liver enzymes elevated though trending down, except the bilirubin. Vancomycin was low at 9.6. DIAGNOSTIC IMPRESSION AND PLAN: Patient with a fever, elevated liver enzymes; initial concern for possible cholangitis. CT of abdomen and pelvis was negative. The patient has been cefepime, vancomycin and Levaquin. Still running a fever; possible viral syndrome. EBV and CMV serology has been requested and will be followed. Continue supportive treatment. MMODL / IJN: [id number] /
--- NOTE | 2021-03-13 17:27 | P.PN ---
Progress Note - Text Progress Note Date: 03/13/21 Chief Complaint: Hypoxemia History of presenting complaint: This is a pleasant 50-year-old patient who follows with Dr. Aguiar. Chronic stable medical conditions include, diet controlled diabetes, seizure disorder, ALLERGIES for which she takes Benadryl when necessary. Patient is being tighter control her diabetes with diet for quite some time. During pandemic control and has not been easy for her. Just a few weeks ago she checked HbA1c and it came back as 9.3. Patient also got chronic lower lumbar pain. Wednesday evening patient is having a dull headache. Went to bed and was feeling freezing cold. And then became soaking wet. Again was sitting she started freezing. Took her temperature is 101.8. [place] weak. And for a short time passed out. She thinks her told her that maybe that was legs stiffening slight bubbles at the mouth. Not sure. Patient been having urinary frequency. Was found over infected appearing urine in the ER. Started IV ceftriaxone. Patient is not keen to start on oral hypoglycemic because of side effects she's had before with Januvia and metformin. This morning she did vomit once. Has been drinking quite a bit of water. Critical care note: 03/11/2021: I was called earlier today. Patient has spiked fever again. Had become hypoxic. Blood pressure is running of the lower side. IV fluids was increased. Patient was a bit more short of breath. Ordered two-view chest x- ray. IV ceftriaxone was discontinued. Change to IV cefepime 1 g every 12 and IV vancomycin. Order was placed to move to patient to telemetry floor. Patient is a more of a cough today. More short of breath. Tired 03/12/2021: Sitting up in a chair. A bit less tired. Slightly short of breath. Did eat some. Cough with green sputum. No fever since last night. On IV cefepime, IV vancomycin, Levaquin IV fluids. Subconjunctival hemorrhage. 03/13/2021: Sitting up in a recliner. Some decrease in shortness of breath. Using some thick sputum. Decreased appetite but eating some. On humidified oxygen. On 3 L. Spiking fever. Discussed with Dr. Siegel from ID. Serology for EBV and CMV has been sent off. LFTs are coming down. Discussed with the patient. Pulmonary consultation. Review of systems: Was done for constitutional, cardiovascular, GI, pulmonary. relevant finding as above Active Medications Calcium Carbonate/Glycine (Calcium Carbonate Liquid 500 Mg/5 Ml Cup) 500 mg PO [facility] Last Admin: 03/13/21 17:13 Dose: 500 mg Documented by: Diphenhydramine HCl (Diphenhydramine 25 Mg Cap) 50 mg PO DAILY PRN PRN Reason: Severe Allergy Symptoms Last Admin: 03/11/21 20:42 Dose: 50 mg Documented by: Diphenhydramine HCl (Diphenhydramine 25 Mg Cap) 25 mg PO QID PRN PRN Reason: Allergy Symptoms Last Admin: 03/12/21 23:42 Dose: 25 mg Documented by: Cefepime HCl 2 gm/ Sodium (Chloride) 100 mls @ 25 mls/hr IVPB Q8H [facility] Last Admin: 03/13/21 12:13 Dose: 25 mls/hr Documented by: Sodium Bicarbonate 50 ml/ (Dextrose/Sodium Chloride) 1,050 mls @ 150 mls/hr IV .Q7H [facility] Last Admin: 03/13/21 15:46 Dose: 150 mls/hr Documented by: Vancomycin HCl 1,750 mg/ (Sodium Chloride) 500 mls @ 167 mls/hr IVPB Q12HR [facility] Insulin Aspart (Insulin Aspart (Novolog) 100 Unit/Ml Vial) 0 unit SQ [facility]; Protocol Last Admin: 03/13/21 17:13 Dose: 2 unit Documented by: Levofloxacin (Levofloxacin 750 Mg Tab) 750 mg PO Q24H [facility] Last Admin: 03/13/21 12:16 Dose: 750 mg Documented by: Miscellaneous Information (Potassium Replacement Protocol 1 Each Misc) 1 each MISCELLANE DAILY PRN; Protocol PRN Reason: Per Protocol Naloxone HCl (Naloxone 0.4 Mg/Ml 1 Ml Vial) 0.2 mg IV Q2M PRN PRN Reason: Opioid Reversal Carbatrol Er 200 Mg 1 each PO BID [facility] Last Admin: 03/13/21 08:49 Dose: 1 each Documented by: Past medical history to include: Diet controlled diabetes, seizure disorder, lower lumbar pain, last seizure in 2003 skin cancer. Social history: . No smoking or alcohol. Family history: Father of 75 with heart problems. Cancer. Physical examination: VITAL SIGNS: T-max 102.7 last night, afebrile this morning, 105, 18, 97/51, 97% on 3 L GENERAL: Sitting up in a recliner tired, short of breath, nasal cannula EYES: Pupils equal. Subconjunctival hemorrhage from yesterday. Bilateral HEENT: External appearance of nose and ears normal, oral cavity grossly normal. NECK: JVD not raised; masses not palpable. HEART: First and second heart sounds are normal; no edema. LUNGS: Respiratory rate increased; basal crackles. ABDOMEN: Soft, nontender, liver spleen not palpable, no masses palpable. PSYCH: Alert and oriented x3; mood and affect tired INVESTIGATIONS, reviewed in the clinical context: March 13: WBC 6.7 hemoglobin 11.4 platelets 33 potassium 3 creatinine 0.68. Total bilirubin 7 AST 672 ALT 615. Pro-calcitonin 2.87 Urine Legionella antigen: Negative March 12: WBC 5.4 hemoglobin 11.3 platelets 34 sodium 133 potassium 3.3 creatinine 0.85 AST 07/19/2006 ALT 917 Acetaminophen less than 10 March 11: WBC 4.7 hemoglobin 11.1 platelets 63 potassium 3.4 creatinine 1.02 bicarb 17 lactic acid 4.4 AST 1381 ALT 563 Hepatitis acute screen including hepatitis A, hepatitis B, hepatitis C all negative Chest x-ray film personally reviewed by me-[March 11] bibasal infiltrates WBC 10.3 hemoglobin 12.3 platelets 151 potassium 3.2 creatinine 0.65 AST 141 ALT 85 UA positive for leukoesterase, WBC, bacteria Coronavirus [PCR] not detected Lactic acid 0.9 EKG tracing personally reviewed by me-sinus rhythm, 111 rate Chest x-ray film personally reviewed by me-possible atelectasis Assessment and plan: -Acute bilateral basal pneumonia, causing sepsis and acute hypoxic respiratory failure: Slow to respond IV cefepime 2 g every 8 and IV vancomycin, Levaquin. Urine Legionella antigen: Negative Will check nasal MRSA. Will DC vancomycin if negative. Discussed with Dr. Siegel. Pulmonary consulted. EBV, CMV serology ordered -Acute hypoxic respiratory failure from pneumonia: Slow to respond Supplemental oxygen, FiO2 decreased to 2 L -Severe sepsis from pneumonia, UTI Follow lactic acid and IV fluids -Acute metabolic acidosis from sepsis: Improving Sodium bicarbonate drip and D5 0.45 -Syncope likely vasovagal from underlying sepsis, on presentation -Acute UTI with cystitis causing sepsis IV meropenem. IV fluids -Acute ischemic hepatitis. From low blood pressure. Sepsis: Some improvement Acute hepatitis panel was negative. IV fluids. DC Tylenol. Repeat CMP. EBV, CMV serology ordered -Diabetes mellitus type 2, uncontrolled with hyperglycemia Patient does not want to take oral hypoglycemic at this point and was to follow- up with her PCP Dr. Aguiar. Follow Accu-Cheks and sliding scale insulin. Dietitian consult. Diabetic diet -Epilepsy disorder : last episode being 2003 Continue Tegretol -Chronic lumbar arthritis Tylenol when necessary -Acute thrombocytopenia Likely from sepsis. Rule out H IT. Send off H IT antibodies. DC Lovenox. Consult hematology Follow with ID, pulmonary, hematology. Pending H IT antibodies. Continue with IV cefepime, vancomycin. Levaquin. Nasal MRSA ordered. EBV, CMV serology ordered. Decrease FiO2 to 2 L. Continue supportive care.
[2021-03-13] MEDS ORDERED: SALINE NASAL GEL 14.1 GM TUBE NASAL PRN (18:41)
[2021-03-13 19:59] LABS: EBV-EA (IgG) 0.6 AI; EBV-EBNA(IgG) >8.0 AI; EBV-VCA (IgG) >8.0 AI; EBV-VCA (IgM) 0.3 AI
[2021-03-13 20:11] LABS: Glucose,Whole Blood 176 mg/dL (75-99)
[2021-03-13] MEDS: VANCOMYCIN 1,750 MG in SODIUM CHLORIDE 0.9% 500 ML 500 ML IVPB SCH (20:35)
[2021-03-14] MEDS: DEXTROSE 5%-0.45% NACL 1,000 ML with SODIUM BICARB (1 MEQ/ML) 50 ML IV SCH ×8 (01:43→21:29)
[2021-03-14] MEDS: CEFEPIME 2 GM in SODIUM CHLORIDE 0.9% 100 ML IVPB SCH ×3 (04:42→20:09)
[2021-03-14 06:38] LABS: Glucose,Whole Blood 220 mg/dL (75-99)
[2021-03-14 06:44] LABS: Basophils % (A) 0 %; Eosinophils % (A) 0 %; HCT 36.8 % (34.0-46.0); HGB 12.3 gm/dL (11.4-16.0); Hypochromasia Slight; Lymphocytes # (A) 0.3 k/uL (1.0-4.8); Lymphocytes % (A) 3 %; MCH 29.6 pg (25.0-35.0); MCHC 33.5 g/dL (31.0-37.0); MCV 88.4 fL (80.0-100.0); Mean Platelet Volume 10.7; Monocytes # (A) 0.2 k/uL (0-1.0); Monocytes % (A) 2 %; Neutrophils # (A) 9.5 k/uL (1.3-7.7); Neutrophils % (A) 94 %; Poikilocytosis Slight; RBC 4.16 m/uL (3.80-5.40); RDW 14.2 % (11.5-15.5); WBC 10.2 k/uL (3.8-10.6)
[2021-03-14] MEDS: INSULIN ASPART (NovoLOG) 100 UNIT/ML VIAL SQ SCH ×4 (06:47→20:10)
[2021-03-14 06:48] LABS: Platelet Count 47 k/uL (150-450)
[2021-03-14 07:10] LABS: ALT 382 U/L (4-34); AST 181 U/L (14-36); African American GFR (CKD) >90 (>60 ml/min/1.73 sqM); Albumin 2.5 g/dL (3.5-5.0); Alkaline Phosphatase 241 U/L (38-126); Anion Gap 9 mmol/L; Blood Urea Nitrogen 16 mg/dL (7-17); Calcium 8.3 mg/dL (8.4-10.2); Carbon Dioxide 24 mmol/L (22-30); Chloride 102 mmol/L (98-107); Glucose 220 mg/dL (74-99); Non-African American GFR(CKD) >90 (>60 ml/min/1.73 sqM); Sodium 135 mmol/L (137-145); Total Bilirubin 6.2 mg/dL (0.2-1.3); Total Protein 5.2 g/dL (6.3-8.2)
[2021-03-14 07:16] LABS: Potassium 2.7 mmol/L (3.5-5.1)
[2021-03-14] MEDS: CALCIUM CARBONATE LIQUID 500 MG/5 ML CUP PO SCH ×4 (09:09→20:09)
[2021-03-14] MEDS: POTASSIUM CHLORIDE ER 20 MEQ TAB.ER PO SCH ×2 (09:09→10:52)
[2021-03-14] MEDS: CARBATROL 200 MG PO SCH ×2 (09:10→20:10)
[2021-03-14] MEDS: VANCOMYCIN 1,750 MG in SODIUM CHLORIDE 0.9% 500 ML 500 ML IVPB SCH (09:10)
[2021-03-14] MEDS ORDERED: RX INFO: IV CONTRAST WAS GIVEN 1 EACH MISC MISCELLANE PRN (10:02)
--- NOTE | 2021-03-14 11:09 | CT ---
EXAMINATION TYPE: CT chest w con DATE OF EXAM: 03/14/2021 COMPARISON: 12/27/2015 HISTORY: Fever, cough, hypoxemia CT DLP: 444.3 mGycm Automated exposure control for dose reduction was used. CONTRAST: CT scan of the chest is performed with IV Contrast, patient injected with 100 mL of Isovue 300. FINDINGS: LUNGS: There are groundglass infiltrates noted in the upper and midlung zones. There is more dense co nsolidation at the lung bases which may reflect atelectasis or additional infiltrate. Small bilateral pleural effusions noted measuring 2.7 cm AP dimension on the left and 1.7 cm on the right. MEDIASTINUM: There are no greater than 1 cm hilar or mediastinal lymph nodes. No pericardial effusi on is seen. Thoracic aorta is of normal caliber. The heart is not enlarged. 1 cm pericardial effusio n noted. UPPER ABDOMEN: Hepatic steatosis with hepatomegaly. The gallbladder is surgically absent. OTHER: No additional significant abnormality is seen. IMPRESSION: 1. Correlate for pneumonia. 2. Pericardial effusion measuring maximal thickness of 1 cm.
[2021-03-14 11:40] LABS: Glucose,Whole Blood 192 mg/dL (75-99)
[2021-03-14] MEDS: LEVOFLOXACIN 750 MG TAB PO SCH (11:58)
[2021-03-14] MEDS ORDERED: IPRATROPIUM-ALBUTEROL 3 ML NEB INHALATION PRN (12:27)
--- NOTE | 2021-03-14 12:27 | P.CNPUL ---
History of Present Illness Consult date: 03/14/21 Requesting physician: Quintin Harper Reason for consult: dyspnea, cough Chief complaint: Shortness of breath, fever History of present illness: 50-year-old white female patient with past medical history of diabetes mellitus, seizure disorder, chronic lower back pain, who came into the emergency department on 03/09/2021 complaining of a syncopal episode at home. Patient's thought she may have had a seizure in called EMS. At a negative COVID- 19 PCR. She also reports mild fevers [id number]. She initially was not complaining of any pulmonary symptoms, shortness of breath, no nausea vomiting, no cough or congestion. Chest x-ray initially in the emergency department on 03/09/2021 showed increased atelectasis at the left lung base. Brain CT showed no acute intracranial abnormality. Urinalysis showed a large amount of leuks, 43 WBCs, many bacteria, and this of acute urinary tract infection, patient was started on Levaquin, cefepime and vancomycin. Infectious disease service is following. Yesterday patient reported some increased shortness of breath, cough with production of green sputum. He was placed on humidified oxygen. She is spiking fevers. Follow-up chest x-ray yesterday showed interstitial edema, and pneumonia with basilar pleural effusions and associated atelectasis. CT chest with contrast was obtained showing groundglass infiltrates in the upper and midlung zones. There were more dense consolidation at the lung bases that could reflect atelectasis or additional of the chest. There were small bilateral pleural effusions. Today's labs show white blood cell count of 10.2, hemoglobin is 12.3, platelet count is down to 47, sodium is 135, potassium is 2.7, the rest of electrolytes and renal profile are within normal limits. Her pro-calcitonin level was elevated at 7.14 couple days ago, and improving yesterday. And down to 2.87. She reports cough, with phlegm production, but no hemoptysis. Her liver enzymes were significantly elevated a few days ago and there are improving on today's labs. She also developed diarrhea. Legionella urine antigen was negative. She remains on a combination of cefepime, Levaquin and vancomycin, T-max in the last 24 hours was 102F. So far her urine blood and sputum cultures have shown no growth. Review of Systems All systems: negative Constitutional: Denies chills, Denies fever Eyes: denies blurred vision, denies pain Ears, nose, mouth and throat: Denies headache, Denies sore throat Cardiovascular: Denies chest pain, Denies shortness of breath Respiratory: Reports cough with sputum, Reports dyspnea, Denies cough Gastrointestinal: Denies abdominal pain, Denies diarrhea, Denies nausea, Denies vomiting Genitourinary: Denies dysuria, Denies hematuria Musculoskeletal: Denies myalgias Integumentary: Denies pruritus, Denies rash Neurological: Denies numbness, Denies weakness Psychiatric: Denies anxiety, Denies depression Endocrine: Denies fatigue, Denies weight change Past Medical History Past Medical History: Cancer, Diabetes Mellitus, Seizure Disorder Additional Past Medical History / Comment(s): Currently diet controlled diabetes (has been on Rx's on the past). LAST SEIZURE approximately 2003. HYPOTENSION. "after my cardiac cath my heart stopped-possible vasovagal per old medical record. UTIs. IBS or food allergies causing problems, SKIN CANCER History of Any Multi-Drug Resistant Organisms: None Reported Past Surgical History: Cholecystectomy, Heart Catheterization, Tubal Ligation, Uterine Ablation Additional Past Surgical History / Comment(s): labrial growth removed, skin cancer removals. COLONOSCOPY Past Anesthesia/Blood Transfusion Reactions: No Reported Reaction Additional Past Anesthesia/Blood Transfusion Reaction / Comment(s): PT STATED "MY HEART STOPPED AFTER MY HEART CATH" -possible vasovagal per old record, has had a CHOLECYSTECTOMY AFTER HEARTCATH AND DIDN'T HAVE ANY PROBLEMS" Past Psychological History: No Psychological Hx Reported Additional Psychological History / Comment(s): Pt resides with her spouse. She is independent. She drives. Smoking Status: Never smoker Past Alcohol Use History: None Reported Past Drug Use History: None Reported - Past Family History Father Additional Family Medical History / Comment(s): Father at age 75 of heart problems. Mother Family Medical History: Cancer Additional Family Medical History / Comment(s): Severe arthritis, bowel and stage IV breast cancer. Brother(s) Family Medical History: CVA/TIA, Diabetes Mellitus Additional Family Medical History / Comment(s): Medications and Allergies Home Medications Medication Instructions Recorded Confirmed Type carBAMazepine [Carbatrol] 200 mg PO BID 02/13/14 03/09/21 History diphenhydrAMINE [Benadryl] 25 - 50 mg PO DAILY PRN 12/17/15 03/09/21 History Cholecalciferol [Vitamin D3 (25 50 mcg PO DAILY 03/08/21 03/09/21 History Mcg = 1000 Iu)] Ibuprofen [Motrin Ib] 200 - 800 mg PO Q8H PRN 03/08/21 03/09/21 History Allergies Allergy/AdvReac Type Severity Reaction Status Date / Time amoxicillin Allergy nausea,diarrhea, Verified 03/09/21 19:06 light headedness apricot [Apricot] Allergy PER ALG Verified 03/09/21 19:06 TESTING Beef Containing Products Allergy PER ALG Verified 03/09/21 19:06 TESTING carbamazepine Allergy heart Verified 03/09/21 19:06 racing,panic attacks, skin crawling cinnamon [Cinnamon] Allergy Swelling Verified 03/09/21 19:06 codeine Allergy Hallucinati Verified 03/09/21 19:06 ons cyclobenzaprine HCl Allergy Swelling Verified 03/09/21 19:06 [From Amrix] dexamethasone Allergy Unknown Verified 03/09/21 19:06 egg Allergy PER ALG Verified 03/09/21 19:06 TESTING meloxicam [From Mobic] Allergy Swelling Verified 03/09/21 19:06 Milk Containing Products Allergy PER ALG Verified 03/09/21 19:06 [Dairy] TESTING oats Allergy PER ALG Verified 03/09/21 19:06 TESTING onion Allergy PER ALG Verified 03/09/21 19:06 TESTING saxagliptin HCl Allergy Rash/Hives Verified 03/09/21 19:06 [From Onglyza] soy Allergy PER ALG Verified 03/09/21 19:06 TESTING tree nut [Tree Nut] Allergy PER ALG Verified 03/09/21 19:06 TESTING Physical Exam Vitals: Vital Signs Temp Pulse Resp BP BP Pulse Ox 03/14/21 08:00 100.5 F H 111 H 20 139/83 96 03/14/21 04:40 102 F H 107 H 19 132/66 96 03/13/21 22:50 100.9 F H 115 H 20 147/70 95 03/13/21 19:55 99.9 F H 103 H 18 127/64 96 03/13/21 15:52 102 F H 105 H 22 119/65 95 03/13/21 13:31 101.7 F H 114 H 26 H 138/73 03/13/21 12:49 112 H 30 H Intake and Output 03/13/21 03/14/21 03/14/21 22:59 06:59 14:59 Intake Total 520 520 Balance 520 520 Intake: Oral 520 520 Other: Voiding Method Toilet # Voids 1 1 1 # Bowel Movements 1 Weight 93.3 kg GENERAL EXAM: Alert, active, pleasant, 50-year-old white female, on 2 L of oxygen pulse ox is 96% comfortable in no apparent distress. HEAD: Normocephalic/atraumatic. EYES: Normal reaction of pupils, equal size. Conjunctiva pink, sclera white. NOSE: Clear with pink turbinates. THROAT: No erythema or exudates. NECK: No masses, no JVD, no thyroid enlargement, no adenopathy. CHEST: No chest wall deformity. Symmetrical expansion. LUNGS: Equal air entry with diffuse crackles CVS: Regular rate and rhythm, normal S1 and S2, no gallops, no murmurs, no rubs ABDOMEN: Soft, nontender. No hepatosplenomegaly, normal bowel sounds, no guarding or rigidity. EXTREMITIES: No clubbing, no edema, no cyanosis, 2+ pulses and upper and lower extremities. MUSCULOSKELETAL: Muscle strength and tone normal. SPINE: No scoliosis or deformity SKIN: No rashes CENTRAL NERVOUS SYSTEM: Alert and oriented -3. No focal deficits, tone is normal in all 4 extremities. PSYCHIATRIC: Alert and oriented -3. Appropriate affect. Intact judgment and insight. Results - Laboratory Findings CBC and BMP: 03/14/21 06:03 03/14/21 06:03 PT/INR, D-dimer PT 13.3 sec (9.0-12.0) H 03/12/21 16:58 INR 1.3 (<1.2) H 03/12/21 16:58 Abnormal lab findings: Abnormal Labs 03/09/21 03/09/21 03/09/21 19:00 19:00 19:00 RBC Hgb Hct Plt Count Neutrophils # 9.7 H Lymphocytes # 0.2 L Lymphocytes # (Manual) Metamyelocytes # (Man) PT INR 1.2 H APTT Sodium Potassium Chloride Carbon Dioxide BUN Glucose POC Glucose (mg/dL) Plasma Lactic Acid Reginald Calcium Total Bilirubin AST ALT Alkaline Phosphatase C-Reactive Protein Total Protein Albumin Procalcitonin Urine Appearance Cloudy H Urine Protein Trace H Urine Glucose (UA) 3+ H Urine Ketones 2+ H Ur Leukocyte Esterase Large H Urine RBC 7 H Urine WBC 43 H Ur Squamous Epith Cells 5 H Urine Bacteria Many H Urine Mucus Rare H Rheumatoid Factor EBV Capsid Ag IgG Intrp EBV Nuc Ag IgG Interp 03/09/21 03/10/21 03/10/21 19:00 05:11 07:10 RBC Hgb Hct Plt Count Neutrophils # Lymphocytes # Lymphocytes # (Manual) Metamyelocytes # (Man) PT INR APTT Sodium 133 L Potassium 3.2 L Chloride 110 H Carbon Dioxide 19.4 L BUN 8.0 L Glucose 165 H 131 H POC Glucose (mg/dL) 118 H Plasma Lactic Acid Reginald Calcium 8.3 L Total Bilirubin AST 141 H ALT 85 H Alkaline Phosphatase C-Reactive Protein Total Protein Albumin Procalcitonin Urine Appearance Urine Protein Urine Glucose (UA) Urine Ketones Ur Leukocyte Esterase Urine RBC Urine WBC Ur Squamous Epith Cells Urine Bacteria Urine Mucus Rheumatoid Factor EBV Capsid Ag IgG Intrp EBV Nuc Ag IgG Interp 03/10/21 03/10/21 03/10/21 11:41 17:27 20:46 RBC Hgb Hct Plt Count Neutrophils # Lymphocytes # Lymphocytes # (Manual) Metamyelocytes # (Man) PT INR APTT Sodium Potassium Chloride Carbon Dioxide BUN Glucose POC Glucose (mg/dL) 192 H 191 H 172 H Plasma Lactic Acid Reginald Calcium Total Bilirubin AST ALT Alkaline Phosphatase C-Reactive Protein Total Protein Albumin Procalcitonin Urine Appearance Urine Protein Urine Glucose (UA) Urine Ketones Ur Leukocyte Esterase Urine RBC Urine WBC Ur Squamous Epith Cells Urine Bacteria Urine Mucus Rheumatoid Factor EBV Capsid Ag IgG Intrp EBV Nuc Ag IgG Interp 03/11/21 03/11/21 03/11/21 03:14 03:14 03:14 RBC 3.63 L Hgb 11.1 L Hct 32.1 L Plt Count 63 L D Neutrophils # Lymphocytes # Lymphocytes # (Manual) 0.14 L Metamyelocytes # (Man) PT INR APTT Sodium 135 L Potassium 3.4 L Chloride Carbon Dioxide 17 L BUN Glucose 173 H POC Glucose (mg/dL) Plasma Lactic Acid Reginald 4.4 H* Calcium 8.2 L Total Bilirubin 1.4 H AST 1381 H ALT 563 H Alkaline Phosphatase 140 H C-Reactive Protein Total Protein 5.7 L Albumin 3.1 L Procalcitonin Urine Appearance Urine Protein Urine Glucose (UA) Urine Ketones Ur Leukocyte Esterase Urine RBC Urine WBC Ur Squamous Epith Cells Urine Bacteria Urine Mucus Rheumatoid Factor EBV Capsid Ag IgG Intrp EBV Nuc Ag IgG Interp 03/11/21 03/11/21 03/11/21 06:39 07:30 09:42 RBC Hgb Hct Plt Count Neutrophils # Lymphocytes # Lymphocytes # (Manual) Metamyelocytes # (Man) PT INR APTT Sodium Potassium Chloride Carbon Dioxide BUN Glucose POC Glucose (mg/dL) 158 H Plasma Lactic Acid Reginald 3.9 H* 5.6 H* Calcium Total Bilirubin AST ALT Alkaline Phosphatase C-Reactive Protein Total Protein Albumin Procalcitonin Urine Appearance Urine Protein Urine Glucose (UA) Urine Ketones Ur Leukocyte Esterase Urine RBC Urine WBC Ur Squamous Epith Cells Urine Bacteria Urine Mucus Rheumatoid Factor EBV Capsid Ag IgG Intrp EBV Nuc Ag IgG Interp 03/11/21 03/11/21 03/11/21 12:10 12:31 15:17 RBC Hgb Hct Plt Count Neutrophils # Lymphocytes # Lymphocytes # (Manual) Metamyelocytes # (Man) PT INR APTT Sodium Potassium Chloride Carbon Dioxide BUN Glucose POC Glucose (mg/dL) 126 H Plasma Lactic Acid Reginald 5.4 H* 4.8 H* Calcium Total Bilirubin AST ALT Alkaline Phosphatase C-Reactive Protein Total Protein Albumin Procalcitonin Urine Appearance Urine Protein Urine Glucose (UA) Urine Ketones Ur Leukocyte Esterase Urine RBC Urine WBC Ur Squamous Epith Cells Urine Bacteria Urine Mucus Rheumatoid Factor EBV Capsid Ag IgG Intrp EBV Nuc Ag IgG Interp 03/11/21 03/11/21 03/11/21 16:46 18:15 20:16 RBC Hgb Hct Plt Count Neutrophils # Lymphocytes # Lymphocytes # (Manual) Metamyelocytes # (Man) PT INR APTT Sodium Potassium Chloride Carbon Dioxide BUN Glucose POC Glucose (mg/dL) 105 H 127 H Plasma Lactic Acid Reginald 5.1 H* Calcium Total Bilirubin AST ALT Alkaline Phosphatase C-Reactive Protein Total Protein Albumin Procalcitonin Urine Appearance Urine Protein Urine Glucose (UA) Urine Ketones Ur Leukocyte Esterase Urine RBC Urine WBC Ur Squamous Epith Cells Urine Bacteria Urine Mucus Rheumatoid Factor EBV Capsid Ag IgG Intrp EBV Nuc Ag IgG Interp 03/11/21 03/12/21 03/12/21 21:06 00:48 04:11 RBC Hgb Hct Plt Count Neutrophils # Lymphocytes # Lymphocytes # (Manual) Metamyelocytes # (Man) PT INR APTT Sodium Potassium Chloride Carbon Dioxide BUN Glucose POC Glucose (mg/dL) Plasma Lactic Acid Reginald 4.5 H* 3.8 H* Calcium Total Bilirubin AST ALT Alkaline Phosphatase C-Reactive Protein Total Protein Albumin Procalcitonin 7.14 H Urine Appearance Urine Protein Urine Glucose (UA) Urine Ketones Ur Leukocyte Esterase Urine RBC Urine WBC Ur Squamous Epith Cells Urine Bacteria Urine Mucus Rheumatoid Factor EBV Capsid Ag IgG Intrp EBV Nuc Ag IgG Interp 03/12/21 03/12/21 03/12/21 04:11 04:11 04:11 RBC 3.78 L Hgb 11.3 L Hct 32.9 L Plt Count 34 L Neutrophils # Lymphocytes # Lymphocytes # (Manual) 0.65 L Metamyelocytes # (Man) 0.11 H PT INR APTT Sodium 133 L Potassium 3.3 L Chloride Carbon Dioxide 15 L BUN 23 H Glucose 132 H POC Glucose (mg/dL) Plasma Lactic Acid Reginald 3.8 H* Calcium 7.5 L Total Bilirubin 3.6 H AST 1807 H ALT 917 H Alkaline Phosphatase 205 H C-Reactive Protein 36.8 H Total Protein 5.6 L Albumin 2.9 L Procalcitonin Urine Appearance Urine Protein Urine Glucose (UA) Urine Ketones Ur Leukocyte Esterase Urine RBC Urine WBC Ur Squamous Epith Cells Urine Bacteria Urine Mucus Rheumatoid Factor EBV Capsid Ag IgG Intrp EBV Nuc Ag IgG Interp 03/12/21 03/12/21 03/12/21 04:11 06:01 07:14 RBC Hgb Hct Plt Count Neutrophils # Lymphocytes # Lymphocytes # (Manual) Metamyelocytes # (Man) PT INR APTT Sodium Potassium Chloride Carbon Dioxide BUN Glucose POC Glucose (mg/dL) 100 H Plasma Lactic Acid Reginald 3.4 H* Calcium Total Bilirubin AST ALT Alkaline Phosphatase C-Reactive Protein Total Protein Albumin Procalcitonin Urine Appearance Urine Protein Urine Glucose (UA) Urine Ketones Ur Leukocyte Esterase Urine RBC Urine WBC Ur Squamous Epith Cells Urine Bacteria Urine Mucus Rheumatoid Factor 18 H EBV Capsid Ag IgG Intrp EBV Nuc Ag IgG Interp 03/12/21 03/12/21 03/12/21 11:33 16:25 16:58 RBC Hgb Hct Plt Count Neutrophils # Lymphocytes # Lymphocytes # (Manual) Metamyelocytes # (Man) PT 13.3 H INR 1.3 H APTT 35.3 H Sodium Potassium Chloride Carbon Dioxide BUN Glucose POC Glucose (mg/dL) 134 H 138 H Plasma Lactic Acid Reginald Calcium Total Bilirubin AST ALT Alkaline Phosphatase C-Reactive Protein Total Protein Albumin Procalcitonin Urine Appearance Urine Protein Urine Glucose (UA) Urine Ketones Ur Leukocyte Esterase Urine RBC Urine WBC Ur Squamous Epith Cells Urine Bacteria Urine Mucus Rheumatoid Factor EBV Capsid Ag IgG Intrp EBV Nuc Ag IgG Interp 03/12/21 03/13/21 03/13/21 19:42 05:48 07:30 RBC Hgb Hct Plt Count Neutrophils # Lymphocytes # Lymphocytes # (Manual) Metamyelocytes # (Man) PT INR APTT Sodium Potassium Chloride Carbon Dioxide BUN Glucose POC Glucose (mg/dL) 161 H 182 H Plasma Lactic Acid Reginald Calcium Total Bilirubin AST ALT Alkaline Phosphatase C-Reactive Protein Total Protein Albumin Procalcitonin 2.87 H Urine Appearance Urine Protein Urine Glucose (UA) Urine Ketones Ur Leukocyte Esterase Urine RBC Urine WBC Ur Squamous Epith Cells Urine Bacteria Urine Mucus Rheumatoid Factor EBV Capsid Ag IgG Intrp EBV Nuc Ag IgG Interp 03/13/21 03/13/21 03/13/21 07:30 07:30 07:30 RBC Hgb Hct 32.1 L Plt Count 33 L Neutrophils # Lymphocytes # 0.4 L Lymphocytes # (Manual) Metamyelocytes # (Man) PT INR APTT Sodium 135 L Potassium 3.0 L Chloride Carbon Dioxide 20 L BUN 18 H Glucose 196 H POC Glucose (mg/dL) Plasma Lactic Acid Reginald Calcium 8.3 L Total Bilirubin 7.0 H AST 672 H ALT 615 H Alkaline Phosphatase 253 H C-Reactive Protein Total Protein 5.4 L Albumin 2.7 L Procalcitonin Urine Appearance Urine Protein Urine Glucose (UA) Urine Ketones Ur Leukocyte Esterase Urine RBC Urine WBC Ur Squamous Epith Cells Urine Bacteria Urine Mucus Rheumatoid Factor EBV Capsid Ag IgG Intrp POSITIVE A EBV Nuc Ag IgG Interp POSITIVE A 03/13/21 03/13/21 03/13/21 11:46 16:44 20:10 RBC Hgb Hct Plt Count Neutrophils # Lymphocytes # Lymphocytes # (Manual) Metamyelocytes # (Man) PT INR APTT Sodium Potassium Chloride Carbon Dioxide BUN Glucose POC Glucose (mg/dL) 179 H 173 H 176 H Plasma Lactic Acid Reginald Calcium Total Bilirubin AST ALT Alkaline Phosphatase C-Reactive Protein Total Protein Albumin Procalcitonin Urine Appearance Urine Protein Urine Glucose (UA) Urine Ketones Ur Leukocyte Esterase Urine RBC Urine WBC Ur Squamous Epith Cells Urine Bacteria Urine Mucus Rheumatoid Factor EBV Capsid Ag IgG Intrp EBV Nuc Ag IgG Interp 03/14/21 03/14/21 03/14/21 06:03 06:03 06:36 RBC Hgb Hct Plt Count 47 L Neutrophils # 9.5 H Lymphocytes # 0.3 L Lymphocytes # (Manual) Metamyelocytes # (Man) PT INR APTT Sodium 135 L Potassium 2.7 L* Chloride Carbon Dioxide BUN Glucose 220 H POC Glucose (mg/dL) 220 H Plasma Lactic Acid Reginald Calcium 8.3 L Total Bilirubin 6.2 H AST 181 H ALT 382 H Alkaline Phosphatase 241 H C-Reactive Protein Total Protein 5.2 L Albumin 2.5 L Procalcitonin Urine Appearance Urine Protein Urine Glucose (UA) Urine Ketones Ur Leukocyte Esterase Urine RBC Urine WBC Ur Squamous Epith Cells Urine Bacteria Urine Mucus Rheumatoid Factor EBV Capsid Ag IgG Intrp EBV Nuc Ag IgG Interp 03/14/21 11:38 RBC Hgb Hct Plt Count Neutrophils # Lymphocytes # Lymphocytes # (Manual) Metamyelocytes # (Man) PT INR APTT Sodium Potassium Chloride Carbon Dioxide BUN Glucose POC Glucose (mg/dL) 192 H Plasma Lactic Acid Reginald Calcium Total Bilirubin AST ALT Alkaline Phosphatase C-Reactive Protein Total Protein Albumin Procalcitonin Urine Appearance Urine Protein Urine Glucose (UA) Urine Ketones Ur Leukocyte Esterase Urine RBC Urine WBC Ur Squamous Epith Cells Urine Bacteria Urine Mucus Rheumatoid Factor EBV Capsid Ag IgG Intrp EBV Nuc Ag IgG Interp - Diagnostic Findings Chest x-ray: report reviewed, image reviewed CT scan - chest: report reviewed, image reviewed Assessment and Plan Plan: Assessment: #1. Acute hypoxic respiratory failure related to pneumonia, rule out possibility of aspiration related pneumonia or aspiration related pneumonitis. CT of the abdomen and pelvis showed basilar small pleural effusions as well as atelectasis and/or infiltrates. CT chest revealed groundglass infiltrates in the upper and midlung zones and small bilateral pleural effusions, patient is on combination cefepime, Levaquin, and vancomycin. Legionella urine antigen was negative. COVID-19 PCR was negative #2. Acute urinary tract infection #3. Diarrhea, rule out C. diff #4. Hypokalemia #5. Transaminitis, improving. Hepatitis panel was negative #6. Diabetes mellitus type 2 #7. Seizure disorder #8. Hx has skin cancer with surgical resection Plan: Continue current antibiotics Send blood cultures Sputum culture We'll add breathing treatments We'll continue to follow I performed a history & physical examination of the patient and discussed their management with my nurse practitioner, Feli Llanes. I reviewed the nurse otilio lawton's note and agree with the documented findings and plan of care. Lung sounds are positive for diminished breath sounds throughout the lung [place]. The findings and the impression was discussed with the patient. I attest to the documentation by the nurse practitioner. Time with Patient: Greater than 30
[2021-03-14] MEDS: IBUPROFEN 200 MG TAB PO PRN (13:44)
[2021-03-14] MEDS ORDERED: POTASSIUM CHLORIDE ER 20 MEQ TAB.ER PO STA ×2 (15:11→15:58)
[2021-03-14] MEDS: IPRATROPIUM-ALBUTEROL 3 ML NEB INHALATION SCH ×2 (15:20→19:38)
--- NOTE | 2021-03-14 16:06 | P.PN ---
Progress Note - Text Progress Note Date: 03/14/21 Chief Complaint: Hypoxemia History of presenting complaint: This is a pleasant 50-year-old patient who follows with Dr. Aguiar. Chronic stable medical conditions include, diet controlled diabetes, seizure disorder, ALLERGIES for which she takes Benadryl when necessary. Patient is being tighter control her diabetes with diet for quite some time. During pandemic control and has not been easy for her. Just a few weeks ago she checked HbA1c and it came back as 9.3. Patient also got chronic lower lumbar pain. Wednesday evening patient is having a dull headache. Went to bed and was feeling freezing cold. And then became soaking wet. Again was sitting she started freezing. Took her temperature is 101.8. [place] weak. And for a short time passed out. She thinks her told her that maybe that was legs stiffening slight bubbles at the mouth. Not sure. Patient been having urinary frequency. Was found over infected appearing urine in the ER. Started IV ceftriaxone. Patient is not keen to start on oral hypoglycemic because of side effects she's had before with Januvia and metformin. This morning she did vomit once. Has been drinking quite a bit of water. Critical care note: 03/11/2021: I was called earlier today. Patient has spiked fever again. Had become hypoxic. Blood pressure is running of the lower side. IV fluids was increased. Patient was a bit more short of breath. Ordered two-view chest x- ray. IV ceftriaxone was discontinued. Change to IV cefepime 1 g every 12 and IV vancomycin. Order was placed to move to patient to telemetry floor. Patient is a more of a cough today. More short of breath. Tired 03/12/2021: Sitting up in a chair. A bit less tired. Slightly short of breath. Did eat some. Cough with green sputum. No fever since last night. On IV cefepime, IV vancomycin, Levaquin IV fluids. Subconjunctival hemorrhage. 03/13/2021: Sitting up in a recliner. Some decrease in shortness of breath. Using some thick sputum. Decreased appetite but eating some. On humidified oxygen. On 3 L. Spiking fever. Discussed with Dr. Siegel from ID. Serology for EBV and CMV has been sent off. LFTs are coming down. Discussed with the patient. Pulmonary consultation. 03/14/2021: Sitting up in a recliner. Spiking fevers. On IV cefepime and Levaquin. Vancomycin discontinued. Subconjunctival hemorrhage. LFTs are coming down. EBV IgG positive. IgM negative. Patient is having some bouts of coughing. She is producing sputum. Eating about 25-50%. Discussed with Dr. Siegel from ID. Vancomycin to be discontinued. Patient seen by pulmonary Dr. Bruno today. He added bronchodilators. Review of systems: Was done for constitutional, cardiovascular, GI, pulmonary. relevant finding as above Active Medications Albuterol/Ipratropium (Ipratropium-Albuterol 3 Ml Neb) 3 ml INHALATION RT-QID REPLACED BY [facility] Last Admin: 03/14/21 15:20 Dose: 3 ml Documented by: Albuterol/Ipratropium (Ipratropium-Albuterol 3 Ml Neb) 3 ml INHALATION RT-Q2H PRN PRN Reason: Shortness Of Breath Or Wheezing Calcium Carbonate/Glycine (Calcium Carbonate Liquid 500 Mg/5 Ml Cup) 500 mg PO [facility] REPLACED BY [facility] Last Admin: 03/14/21 12:01 Dose: Not Given Documented by: Diphenhydramine HCl (Diphenhydramine 25 Mg Cap) 50 mg PO DAILY PRN PRN Reason: Severe Allergy Symptoms Last Admin: 03/11/21 20:42 Dose: 50 mg Documented by: Diphenhydramine HCl (Diphenhydramine 25 Mg Cap) 25 mg PO QID PRN PRN Reason: Allergy Symptoms Last Admin: 03/12/21 23:42 Dose: 25 mg Documented by: Cefepime HCl 2 gm/ Sodium (Chloride) 100 mls @ 25 mls/hr IVPB Q8H REPLACED BY [facility] Last Admin: 03/14/21 11:59 Dose: 25 mls/hr Documented by: Sodium Bicarbonate 50 ml/ (Dextrose/Sodium Chloride) 1,050 mls @ 150 mls/hr IV .Q7H REPLACED BY [facility] Last Admin: 03/14/21 12:02 Dose: Not Given Documented by: Ibuprofen (Ibuprofen 200 Mg Tab) 200 mg PO Q4HR PRN PRN Reason: Pain Last Admin: 03/14/21 13:44 Dose: 200 mg Documented by: Insulin Aspart (Insulin Aspart (Novolog) 100 Unit/Ml Vial) 0 unit SQ [facility]; Protocol Last Admin: 03/14/21 12:00 Dose: 3 unit Documented by: Levofloxacin (Levofloxacin 750 Mg Tab) 750 mg PO Q24H REPLACED BY [facility] Last Admin: 03/14/21 11:58 Dose: 750 mg Documented by: Miscellaneous Information (Potassium Replacement Protocol 1 Each Misc) 1 each MISCELLANE DAILY PRN; Protocol PRN Reason: Per Protocol Miscellaneous Information (Rx Info: Iv Contrast Was Given 1 Each Misc) 1 each MISCELLANE DAILY PRN PRN Reason: Per Protocol Stop: 03/16/21 10:03 Naloxone HCl (Naloxone 0.4 Mg/Ml 1 Ml Vial) 0.2 mg IV Q2M PRN PRN Reason: Opioid Reversal Carbatrol Er 200 Mg 1 each PO BID REPLACED BY [facility] Last Admin: 03/14/21 09:10 Dose: 1 each Documented by: Sodium Chloride (Saline Nasal Gel 14.1 Gm Tube) 1 applic NASAL Q4HR PRN PRN Reason: Dry Nasal Passages Past medical history to include: controlled diabetes, seizure disorder, lower lumbar pain, last seizure in 2003 skin cancer. Social history: . No smoking or alcohol. Family history: Father of 75 with heart problems. Cancer. Physical examination: VITAL SIGNS: 102.5, 112, 20, 134/78, 93% on room air GENERAL: Sitting up in a recliner tired, short of breath, nasal cannula EYES: Pupils equal. Bilateral Subconjunctival hemorrhage HEENT: External appearance of nose and ears normal, oral cavity grossly normal. NECK: JVD not raised; masses not palpable. HEART: First and second heart sounds are normal; no edema. LUNGS: Respiratory rate increased; basal crackles. ABDOMEN: Soft, nontender, liver spleen not palpable, no masses palpable. PSYCH: Alert and oriented x3; mood and affect tired INVESTIGATIONS, reviewed in the clinical context: March 14: WBC 10.2 hemoglobin 12.3 platelets 47 potassium 2.7. Total bilirubin 6.2 AST 181 ALT 382 EBV IgG positive, IgM negative Heparin induced platelet antibody: 0.15 to March 13: WBC 6.7 hemoglobin 11.4 platelets 33 potassium 3 creatinine 0.68. Total bilirubin 7 AST 672 ALT 615. Pro-calcitonin 2.87 Urine Legionella antigen: Negative March 12: WBC 5.4 hemoglobin 11.3 platelets 34 sodium 133 potassium 3.3 creatinine 0.85 AST 07/19/2006 ALT 917 Acetaminophen less than 10 March 11: WBC 4.7 hemoglobin 11.1 platelets 63 potassium 3.4 creatinine 1.02 bicarb 17 lactic acid 4.4 AST 1381 ALT 563 Hepatitis acute screen including hepatitis A, hepatitis B, hepatitis C all negative Chest x-ray film personally reviewed by me-[March 11] bibasal infiltrates WBC 10.3 hemoglobin 12.3 platelets 151 potassium 3.2 creatinine 0.65 AST 141 ALT 85 UA positive for leukoesterase, WBC, bacteria Coronavirus [PCR] not detected Lactic acid 0.9 EKG tracing personally reviewed by me-sinus rhythm, 111 rate Chest x-ray film personally reviewed by me-possible atelectasis Assessment and plan: -Acute bilateral basal pneumonia, causing sepsis and acute hypoxic respiratory failure: [Could be a viral pneumonia] Slow to respond IV cefepime 2 g every 8 and Levaquin. IV vancomycin, [discontinued]. Urine Legionella antigen: Negative Will check nasal MRSA. EBV IgG positive. IgM negative -Acute hypoxic respiratory failure from pneumonia: Slow to respond Supplemental oxygen, FiO2 decreased to 2 L -Severe sepsis from pneumonia, Follow lactic acid and IV fluids -Acute metabolic acidosis from sepsis: Improving Sodium bicarbonate drip and D5 0.45 -Syncope likely vasovagal from underlying sepsis, on presentation -Acute ischemic hepatitis. From low blood pressure. Sepsis: Some improvement Acute hepatitis panel was negative. IV fluids. DC Tylenol. Repeat CMP. -Diabetes mellitus type 2, uncontrolled with hyperglycemia Patient does not want to take oral hypoglycemic at this point and was to follow- up with her PCP Dr. Aguiar. Follow Accu-Cheks and sliding scale insulin. Dietitian consult. Diabetic diet. Start Levemir 10 units at night -Epilepsy disorder : last episode being 2003 Continue Tegretol -Chronic lumbar arthritis Tylenol when necessary -Acute thrombocytopenia Likely from sepsis. HIT unlikely given the low antibodies. Follow with hematology Continue IV cefepime and Levaquin. Vancomycin discontinued. Start Levemir 10 units at night. Care was discussed length with the patient. This could be a viral picture. Procalcitonin is elevated. Continue with antibiotic treatment. Discussed with Dr. Siegel from ID
--- NOTE | 2021-03-14 16:08 | P.PN ---
Subjective Progress Note Date: 03/14/21 Principal diagnosis: Thrombocytopenia, liver failure, fever Febrile 102.5 today. Platelets are mildlyimproved, LFTs remain high Continues with diarrhea Objective - Vital Signs Vital signs: Vital Signs Temp 102.5 F H 03/14/21 12:00 Pulse 108 H 03/14/21 15:35 Resp 20 03/14/21 14:00 BP 134/78 03/14/21 12:00 Pulse Ox 93 L 03/14/21 12:00 Intake & Output 03/13/21 03/14/21 03/14/21 18:59 06:59 18:59 Intake Total 520 700 Balance 520 700 Weight 93.3 kg Intake: Oral 520 700 Other: Voiding Method Toilet # Voids 2 1 1 # Bowel Movements 1 - Exam - Constitutional General appearance: Present: average body habitus, cooperative, no acute distress - EENT EENT Comment(s): sclera or hemorrhaged Eyes: Present: EOMI ENT: Present: hearing grossly normal, normal oropharynx - Respiratory Respiratory: bilateral: diminished, rales (few scattered) - Cardiovascular Rhythm: regular Heart sounds: normal: S1, S2 Abnormal Heart Sounds: Absent: systolic murmur, diastolic murmur, rub, S3 Gallop, S4 Gallop, click, other - Peripheral edema leg Peripheral Edema: bilateral: None - Gastrointestinal General gastrointestinal: Present: normal bowel sounds, soft - Integumentary Integumentary Comment(s): no rash, petechiae or purpura - Neurologic Neurologic: Present: CNII-XII intact - Musculoskeletal Musculoskeletal: Present: strength equal bilaterally - Psychiatric Psychiatric: Present: A&O x's 3, appropriate affect, intact judgment & insight - Labs CBC & Chem 7: 03/14/21 06:03 03/14/21 14:12 Labs: Abnormal Lab Results - Last 24 Hours (Table) 03/12/21 03/13/21 03/13/21 Range/Units 04:11 07:30 07:30 Plt Count (150-450) k/uL Neutrophils # (1.3-7.7) k/uL Lymphocytes # (1.0-4.8) k/uL Sodium (137-145) mmol/L Potassium (3.5-5.1) mmol/L Glucose (74-99) mg/dL POC Glucose (mg/dL) (75-99) mg/dL Calcium (8.4-10.2) mg/dL Total Bilirubin (0.2-1.3) mg/dL AST (14-36) U/L ALT (4-34) U/L Alkaline Phosphatase (38-126) U/L Total Protein (6.3-8.2) g/dL Albumin (3.5-5.0) g/dL Procalcitonin 2.87 H (0.02-0.09) ng/mL Rheumatoid Factor 18 H (0-15) IU/mL EBV Capsid Ag IgG Intrp POSITIVE A (NEGATIVE) EBV Nuc Ag IgG Interp POSITIVE A (NEGATIVE) 03/13/21 03/13/21 03/14/21 Range/Units 16:44 20:10 06:03 Plt Count 47 L (150-450) k/uL Neutrophils # 9.5 H (1.3-7.7) k/uL Lymphocytes # 0.3 L (1.0-4.8) k/uL Sodium (137-145) mmol/L Potassium (3.5-5.1) mmol/L Glucose (74-99) mg/dL POC Glucose (mg/dL) 173 H 176 H (75-99) mg/dL Calcium (8.4-10.2) mg/dL Total Bilirubin (0.2-1.3) mg/dL AST (14-36) U/L ALT (4-34) U/L Alkaline Phosphatase (38-126) U/L Total Protein (6.3-8.2) g/dL Albumin (3.5-5.0) g/dL Procalcitonin (0.02-0.09) ng/mL Rheumatoid Factor (0-15) IU/mL EBV Capsid Ag IgG Intrp (NEGATIVE) EBV Nuc Ag IgG Interp (NEGATIVE) 03/14/21 03/14/21 03/14/21 Range/Units 06:03 06:36 11:38 Plt Count (150-450) k/uL Neutrophils # (1.3-7.7) k/uL Lymphocytes # (1.0-4.8) k/uL Sodium 135 L (137-145) mmol/L Potassium 2.7 L* (3.5-5.1) mmol/L Glucose 220 H (74-99) mg/dL POC Glucose (mg/dL) 220 H 192 H (75-99) mg/dL Calcium 8.3 L (8.4-10.2) mg/dL Total Bilirubin 6.2 H (0.2-1.3) mg/dL AST 181 H (14-36) U/L ALT 382 H (4-34) U/L Alkaline Phosphatase 241 H (38-126) U/L Total Protein 5.2 L (6.3-8.2) g/dL Albumin 2.5 L (3.5-5.0) g/dL Procalcitonin (0.02-0.09) ng/mL Rheumatoid Factor (0-15) IU/mL EBV Capsid Ag IgG Intrp (NEGATIVE) EBV Nuc Ag IgG Interp (NEGATIVE) 03/14/21 Range/Units 14:12 Plt Count (150-450) k/uL Neutrophils # (1.3-7.7) k/uL Lymphocytes # (1.0-4.8) k/uL Sodium (137-145) mmol/L Potassium 3.0 L (3.5-5.1) mmol/L Glucose (74-99) mg/dL POC Glucose (mg/dL) (75-99) mg/dL Calcium (8.4-10.2) mg/dL Total Bilirubin (0.2-1.3) mg/dL AST (14-36) U/L ALT (4-34) U/L Alkaline Phosphatase (38-126) U/L Total Protein (6.3-8.2) g/dL Albumin (3.5-5.0) g/dL Procalcitonin (0.02-0.09) ng/mL Rheumatoid Factor (0-15) IU/mL EBV Capsid Ag IgG Intrp (NEGATIVE) EBV Nuc Ag IgG Interp (NEGATIVE) Microbiology - Last 24 Hours (Table) 03/12/21 11:00 Gram Stain - Final Sputum Sputum Culture - Final 03/09/21 20:45 Blood Culture - Preliminary Blood No Growth after 96 hours 03/13/21 14:00 Nasal Screen MRSA/MSSA - Preliminary Nasal Swab Assessment and Plan Plan: - Imaging and Cardiology Chest x-ray: report reviewed (no notable changes) Thrombocytopenia: Current Visit: Yes Status: Acute Priority: High Code(s): D69.6 - THROMB OCYTOPENIA, UNSPECIFIED SNOMED Code(s): 033951732 - Likely related to acute inflammatory reaction, liver disease, fever Acute hypoxic respiratory failure: - Likely related to pneumonia, rule out possibility of aspiration related pneumonia or aspiration related pneumonitis. - CT of the abdomen and pelvis showed basilar small pleural effusions as well as atelectasis and/or infiltrates. - CT chest revealed groundglass infiltrates in the upper and midlung zones and small bilateral pleural effusions. - Pulmonary is following and managing - CTA reviewed today Fever of unknown etiology: - Infectious Disease is following - Continue on broad spectrum antibiotics cefepime, Levaquin, and vancomycin. - Legionella urine antigen was negative. - COVID-19 PCR was negative - Urinalysis positive - Blood Cultures Pending - Sputum Cultures Diarrhea: - Obtain Stool Studies - These have been ordered, not collected Liver Transiminitis: - likely secondary to fever, diarrhea - Monitor Daily Hypokalemia: - Secondary to Diarrhea - Supp PRN - Monitor Magnesium to ensure absorption Plan: - Continue Supportive Care Hit antibody ordered, still pending No aspirin, NSAIDs, anticoagulation for platelets <50,000 Immunoglobulins ordered, low lymphocyte count (2) Fever Narrative/Plan: Management Internal Medicine, ID consulted. Patient is on antibiotics. Wesley cultures pending, viral work up ordered. Current Visit: Yes Status: Acute Priority: High Code(s): R50.9 - FEVER, UNSPECIFIED SNOMED Code(s): 595061557
[2021-03-14 16:51] LABS: Glucose,Whole Blood 178 mg/dL (75-99)
[2021-03-14 17:01] LABS: Magnesium 1.8 mg/dL (1.6-2.3); Phosphorus 2.1 mg/dL (2.5-4.5)
[2021-03-14 17:52] LABS: Basophils % (A) 0 %; Eosinophils % (A) 0 %; HCT 31.8 % (34.0-46.0); Lymphocytes # (A) 0.3 k/uL (1.0-4.8); Lymphocytes % (A) 4 %; MCH 29.9 pg (25.0-35.0); MCHC 34.7 g/dL (31.0-37.0); MCV 86.2 fL (80.0-100.0); Mean Platelet Volume 11.8; Monocytes # (A) 0.1 k/uL (0-1.0); Monocytes % (A) 1 %; Neutrophils # (A) 8.9 k/uL (1.3-7.7); Neutrophils % (A) 94 %; RBC 3.69 m/uL (3.80-5.40); RDW 13.8 % (11.5-15.5); WBC 9.5 k/uL (3.8-10.6)
--- NOTE | 2021-03-14 17:55 | PN ---
PROGRESS NOTE DATE OF SERVICE: 03/14/2021 REASON FOR FOLLOWUP: Fever. INTERVAL HISTORY: Patient is still running a fever with spike of 102 Fahrenheit today. The patient denies having any chest pain. No shortness of breath. Very minimal cough, not bringing up any sputum. Some nausea but no vomiting. No abdominal pain or diarrhea. PHYSICAL EXAMINATION: Blood pressure 134/78 with a pulse of 112, temperature 102.5, 93% on room air. General description is a middle-aged female up in the bed in no distress. Respiratory system: Unlabored breathing, decreased breath sounds in the bases. No wheeze. Heart S1, S2. Regular rate and rhythm. Abdomen soft, no tenderness. LAB: Hemoglobin is 12.1, white count 10.2, BUN of 16, creatinine 0.62. Liver enzymes are trending down. The patient did have a CT of the chest with evidence of ground-glass infiltrate concerning for pneumonia and pericardial effusion. DIAGNOSTIC IMPRESSION AND PLAN: Patient admitted to the hospital with fever in this patient who did have a normal white count. No lymphopenia. Did have extensive workup in view of the elevated liver enzymes. CT of abdomen and pelvis was negative. CT chest showing bilateral interstitial infiltrate and effusion still concerning for a viral syndrome. EBV serology was negative, virus is pending. Urine for was negative. Sputum has been negative for resistant pathogen. We will discontinue the vancomycin to decrease risk of nephrotoxicity. Obtain echocardiogram and WBC scan. Continue supportive care. MMODL / IJN: [id number] /
[2021-03-14 18:32] LABS: Platelet Count 45 k/uL (150-450)
[2021-03-14 19:46] LABS: Glucose,Whole Blood 222 mg/dL (75-99)
[2021-03-14] MEDS: INSULIN DETEMIR (LEVEMIR) 100 UNIT/ML SYR SQ SCH (20:25)
[2021-03-14] MEDS: diphenhydrAMINE 25 MG CAP PO PRN (22:45)
[2021-03-15] MEDS: DEXTROSE 5%-0.45% NACL 1,000 ML with SODIUM BICARB (1 MEQ/ML) 50 ML IV SCH ×4 (04:59→13:13)
[2021-03-15] MEDS: CEFEPIME 2 GM in SODIUM CHLORIDE 0.9% 100 ML IVPB SCH ×3 (05:00→19:53)
[2021-03-15 06:19] LABS: Glucose,Whole Blood 180 mg/dL (75-99)
[2021-03-15] MEDS: INSULIN ASPART (NovoLOG) 100 UNIT/ML VIAL SQ SCH ×4 (06:38→20:39)
[2021-03-15] MEDS: CALCIUM CARBONATE LIQUID 500 MG/5 ML CUP PO SCH ×4 (06:39→20:39)
[2021-03-15] MEDS: IPRATROPIUM-ALBUTEROL 3 ML NEB INHALATION SCH ×4 (07:56→20:06)
[2021-03-15 09:55] LABS: Basophils % (A) 0 %; Eosinophils % (A) 0 %; HCT 32.7 % (34.0-46.0); HGB 11.4 gm/dL (11.4-16.0); Lymphocytes # (A) 0.4 k/uL (1.0-4.8); Lymphocytes % (A) 3 %; MCHC 34.9 g/dL (31.0-37.0); MCV 86.1 fL (80.0-100.0); Mean Platelet Volume 12.3; Monocytes # (A) 0.1 k/uL (0-1.0); Monocytes % (A) 1 %; Neutrophils # (A) 11.2 k/uL (1.3-7.7); Neutrophils % (A) 95 %; WBC 11.8 k/uL (3.8-10.6)
[2021-03-15 10:06] LABS: Platelet Count 50 k/uL (150-450)
[2021-03-15 10:08] LABS: ALT 203 U/L (4-34); AST 55 U/L (14-36); African American GFR (CKD) >90 (>60 ml/min/1.73 sqM); Albumin 2.3 g/dL (3.5-5.0); Alkaline Phosphatase 216 U/L (38-126); Anion Gap 7 mmol/L; Blood Urea Nitrogen 17 mg/dL (7-17); Calcium 7.7 mg/dL (8.4-10.2); Carbon Dioxide 28 mmol/L (22-30); Chloride 97 mmol/L (98-107); Glucose 181 mg/dL (74-99); Magnesium 1.8 mg/dL (1.6-2.3); Non-African American GFR(CKD) >90 (>60 ml/min/1.73 sqM); Sodium 132 mmol/L (137-145); Total Bilirubin 3.7 mg/dL (0.2-1.3)
[2021-03-15] MEDS: CARBATROL 200 MG PO SCH ×2 (10:17→19:55)
[2021-03-15] MEDS: IBUPROFEN 200 MG TAB PO PRN ×2 (10:17→18:48)
[2021-03-15 10:21] LABS: INR 1.1 (<1.2); Partial Thromboplastin Time 27.9 sec (22.0-30.0); Prothrombin Time 11.7 sec (9.0-12.0)
[2021-03-15 10:48] LABS: Potassium 2.6 mmol/L (3.5-5.1)
[2021-03-15] MEDS ORDERED: Potassium Replacement Protocol 1 EACH MISC MISCELLANE PRN (10:50)
--- NOTE | 2021-03-15 10:57 | ECHOF ---
Referral Reason:fever , pericardial effusion MEASUREMENTS -------- HEIGHT: 165.1 cm WEIGHT: 95.7 kg BP: RVIDd: 2.7 cm (< 3.3) IVSd: 1.2 cm (0.6 - 1.1) LVIDd: 4.4 cm (3.9 - 5.3) LVPWd: 0.4 cm (0.6 - 1.1) IVSs: 1.4 cm LVIDs: 2.2 cm LVPWs: 0.9 cm LAESV Index (A-L): 30.65 ml/m Ao Diam: 2.5 cm (2.0 - 3.7) AV Cusp: 1.9 cm (1.5 - 2.6) LA Diam: 3.4 cm (2.7 - 3.8) MV EXCURSION: 22.213 mm (> 18.000) MV EF SLOPE: 95 mm/s (70 - 150) EPSS: 0.3 cm MV E Gael: 0.85 m/s MV DecT: 143 ms MV A Gael: 0.93 m/s MV E/A Ratio: 0.91 AV maxP.70 mmHg AV meanP.44 mmHg RAP: 5.00 mmHg RVSP: 21.42 mmHg FINDINGS -------- Resting tachycardia (HR>100bpm). This was a technically good study. The left ventricular size is normal. Left ventricular wall thickness is normal. Overall left vent ricular systolic function is low-normal with, an EF between 50 - 55 %. The right ventricle is normal in size. LA is midly dilated 29-33ml/m2. The right atrial size is normal. There is mild aortic stenosis present. Peak/mean gradient across the Aortic Valve is 18.70mmHg / 9. 44mmHg. Mild mitral regurgitation is present. Mild tricuspid regurgitation present. Right ventricular systolic pressure is normal at < 35 mmHg. There is no pulmonic regurgitation present. The aortic root size is normal. There is a small, generalized pericardial effusion present. CONCLUSIONS -------- 1. The left ventricular size is normal. 2. Left ventricular wall thickness is normal. 3. Overall left ventricular systolic function is low-normal with, an EF between 50 - 55 %. 4. The right ventricle is normal in size. 5. LA is midly dilated 29-33ml/m2. 6. The right atrial size is normal. 7. There is mild aortic stenosis present. 8. Peak/mean gradient across the Aortic Valve is 18.70mmHg / 9.44mmHg. 9. Mild mitral regurgitation is present. 10. Mild tricuspid regurgitation present. 11. The aortic root size is normal. 12. There is a small, generalized pericardial effusion present. BLACKJACK SUPERVISOR: Vivi Oliveira RDCS
[2021-03-15] MEDS: POTASSIUM CHLORIDE ER 20 MEQ TAB.ER PO SCH ×3 (11:52→15:44)
[2021-03-15] MEDS: LEVOFLOXACIN 750 MG TAB PO SCH (11:52)
[2021-03-15 12:04] LABS: Glucose,Whole Blood 206 mg/dL (75-99)
--- NOTE | 2021-03-15 13:40 | P.PN ---
Subjective Progress Note Date: 03/15/21 Principal diagnosis: Pneumonia. 50-year-old white female patient with past medical history of diabetes mellitus, seizure disorder, chronic lower back pain, who came into the emergency department on 03/09/2021 complaining of a syncopal episode at home. Patient's thought she may have had a seizure in called EMS. At a negative COVID- 19 PCR. She also reports mild fevers [id number]. She initially was not complaining of any pulmonary symptoms, shortness of breath, no nausea vomiting, no cough or congestion. Chest x-ray initially in the emergency department on 03/09/2021 showed increased atelectasis at the left lung base. Brain CT showed no acute intracranial abnormality. Urinalysis showed a large amount of leuks, 43 WBCs, many bacteria, and this of acute urinary tract infection, patient was started on Levaquin, cefepime and vancomycin. Infectious disease service is following. Yesterday patient reported some increased shortness of breath, cough with production of green sputum. He was placed on humidified oxygen. She is spiking fevers. Follow-up chest x-ray yesterday showed interstitial edema, and pneumonia with basilar pleural effusions and associated atelectasis. CT chest with contrast was obtained showing groundglass infiltrates in the upper and midlung zones. There were more dense consolidation at the lung bases that could reflect atelectasis or additional of the chest. There were small bilateral pleural effusions. Today's labs show white blood cell count of 10.2, hemoglobin is 12.3, platelet count is down to 47, sodium is 135, potassium is 2.7, the rest of electrolytes and renal profile are within normal limits. Her pro-calcitonin level was elevated at 7.14 couple days ago, and improving yesterday. And down to 2.87. She reports cough, with phlegm production, but no hemoptysis. Her liver enzymes were significantly elevated a few days ago and there are improving on today's labs. She also developed diarrhea. Legionella urine antigen was negative. She remains on a combination of cefepime, Levaquin and vancomycin, T- max in the last 24 hours was 102F. So far her urine blood and sputum cultures have shown no growth. Progress note dated 03/15/2019. 50-year-old female that we saw yesterday in consultation for pneumonia. The patient was seen twice in the emergency room, and admitted on the second time. She did test negative 2 for coronavirus infection. She was admitted with a diagnosis of fever, urinary tract infection, and probable pneumonia. Patient does have a history of chronic low back pain, seizure disorder, and diabetes mellitus. Clinically, she's feeling much better today. She is on room air. Her breathing is improved. She's afebrile today. White count 11.8, hemoglobin 11.4, hematocrit 32.7, platelet count is 50,000. D-dimer is 9.70. PT INR and PTT are all normal. Sodium 132, potassium 2.6, chlorides 97, CO2 28, anion gap 7, BUN 17, creatinine 0.74. Cortisol level was 35. Chest CT that we did yesterday was consistent with groundglass infiltrates in the upper and midlung zones. Most likely consistent with pneumonia. Per infectious diseases, she remains on cefepime and Levaquin. Objective - Vital Signs Vital signs: Vital Signs Temp 98.8 F 03/15/21 08:00 Pulse 102 H 03/15/21 11:47 Resp 19 03/15/21 08:00 BP 130/80 03/15/21 08:00 Pulse Ox 97 03/15/21 08:00 Intake & Output 03/14/21 03/15/21 03/15/21 18:59 06:59 18:59 Intake Total 3277 0 Balance 3277 0 Weight 96.1 kg Intake: Intake, IV Titration 1800 Amount Cefepime 2 gm In Sodium 100 Chloride 0.9% 100 ml @ 25 mls/hr IVPB Q8H [facility]IRA Rx#: [id number] Dextrose 5%-0.45% NaCl 1, 1200 000 ml @ 150 mls/hr IV . Q7H YAJAIRA with Sodium Bicarb (1 Meq/ml) 50 ml Rx#:[id number] Vancomycin 1,750 mg In 500 Sodium Chloride 0.9% 500 ml 500 ml @ 167 mls/hr IVPB Q12HR [facility] Rx#: [id number] Oral 1477 0 Other: Voiding Method Toilet Toilet # Voids 2 1 # Bowel Movements 1 - Exam No acute distress, oriented 3. 2 L saturation is 97%. There is no conversational dyspnea or use of accessory muscles. HEENT examination is grossly unremarkable. Bilateral subconjunctival hemorrhages noted. Neck supple. Full range of motion. No adenopathy thyromegaly or neck vein distention. Cardiovascular examination reveals regular rhythm rate. S1-S2 normal. No S3 or S4. No discernible murmur noted. Heart rate is 102 bpm. Lungs reveal coarse bilateral rhonchi and scattered bilateral crackles. There are no wheezes. Breath sounds are equal bilaterally. She does cough with deep inspiration. Abdomen soft bowel sounds are heard. No masses or tenderness. Extremities are intact. No cyanosis clubbing or edema. Skin is without rash or lesion. Neurologic examination is brief but nonfocal. - Labs CBC & Chem 7: 03/15/21 09:13 03/15/21 09:13 Labs: Abnormal Lab Results - Last 24 Hours (Table) 03/13/21 03/14/21 03/14/21 Range/Units 07:30 14:12 16:05 WBC (3.8-10.6) k/uL RBC 3.69 L (3.80-5.40) m/uL Hgb 11.0 L (11.4-16.0) gm/dL Hct 31.8 L (34.0-46.0) % Plt Count 45 L (150-450) k/uL Neutrophils # 8.9 H (1.3-7.7) k/uL Lymphocytes # 0.3 L (1.0-4.8) k/uL D-Dimer (<0.60) mg/L FEU Sodium (137-145) mmol/L Potassium 3.0 L (3.5-5.1) mmol/L Chloride (98-107) mmol/L Glucose (74-99) mg/dL POC Glucose (mg/dL) (75-99) mg/dL Calcium (8.4-10.2) mg/dL Phosphorus (2.5-4.5) mg/dL Total Bilirubin (0.2-1.3) mg/dL AST (14-36) U/L ALT (4-34) U/L Alkaline Phosphatase (38-126) U/L Total Protein (6.3-8.2) g/dL Albumin (3.5-5.0) g/dL CMV IgG Ab Reactive A (Non-Reactive) 03/14/21 03/14/21 03/14/21 Range/Units 16:05 16:49 19:41 WBC (3.8-10.6) k/uL RBC (3.80-5.40) m/uL Hgb (11.4-16.0) gm/dL Hct (34.0-46.0) % Plt Count (150-450) k/uL Neutrophils # (1.3-7.7) k/uL Lymphocytes # (1.0-4.8) k/uL D-Dimer (<0.60) mg/L FEU Sodium (137-145) mmol/L Potassium (3.5-5.1) mmol/L Chloride (98-107) mmol/L Glucose (74-99) mg/dL POC Glucose (mg/dL) 178 H 222 H (75-99) mg/dL Calcium (8.4-10.2) mg/dL Phosphorus 2.1 L (2.5-4.5) mg/dL Total Bilirubin (0.2-1.3) mg/dL AST (14-36) U/L ALT (4-34) U/L Alkaline Phosphatase (38-126) U/L Total Protein (6.3-8.2) g/dL Albumin (3.5-5.0) g/dL CMV IgG Ab (Non-Reactive) 03/15/21 03/15/21 03/15/21 Range/Units 06:10 09:13 09:13 WBC 11.8 H (3.8-10.6) k/uL RBC (3.80-5.40) m/uL Hgb (11.4-16.0) gm/dL Hct 32.7 L (34.0-46.0) % Plt Count 50 L (150-450) k/uL Neutrophils # 11.2 H (1.3-7.7) k/uL Lymphocytes # 0.4 L (1.0-4.8) k/uL D-Dimer (<0.60) mg/L FEU Sodium 132 L (137-145) mmol/L Potassium 2.6 L* (3.5-5.1) mmol/L Chloride 97 L (98-107) mmol/L Glucose 181 H (74-99) mg/dL POC Glucose (mg/dL) 180 H (75-99) mg/dL Calcium 7.7 L (8.4-10.2) mg/dL Phosphorus (2.5-4.5) mg/dL Total Bilirubin 3.7 H (0.2-1.3) mg/dL AST 55 H (14-36) U/L ALT 203 H (4-34) U/L Alkaline Phosphatase 216 H (38-126) U/L Total Protein 5.0 L (6.3-8.2) g/dL Albumin 2.3 L (3.5-5.0) g/dL CMV IgG Ab (Non-Reactive) 03/15/21 03/15/21 Range/Units 09:13 11:44 WBC (3.8-10.6) k/uL RBC (3.80-5.40) m/uL Hgb (11.4-16.0) gm/dL Hct (34.0-46.0) % Plt Count (150-450) k/uL Neutrophils # (1.3-7.7) k/uL Lymphocytes # (1.0-4.8) k/uL D-Dimer 9.70 H (<0.60) mg/L FEU Sodium (137-145) mmol/L Potassium (3.5-5.1) mmol/L Chloride (98-107) mmol/L Glucose (74-99) mg/dL POC Glucose (mg/dL) 206 H (75-99) mg/dL Calcium (8.4-10.2) mg/dL Phosphorus (2.5-4.5) mg/dL Total Bilirubin (0.2-1.3) mg/dL AST (14-36) U/L ALT (4-34) U/L Alkaline Phosphatase (38-126) U/L Total Protein (6.3-8.2) g/dL Albumin (3.5-5.0) g/dL CMV IgG Ab (Non-Reactive) Microbiology - Last 24 Hours (Table) 03/14/21 18:07 Gram Stain - Preliminary Sputum Sputum Culture - Preliminary 03/14/21 18:07 Stool Culture - Preliminary Stool 03/09/21 20:45 Blood Culture - Preliminary Blood No Growth after 120 hours 03/12/21 11:00 Gram Stain - Final Sputum Sputum Culture - Final Assessment and Plan Assessment: #1. Acute hypoxic respiratory failure related to pneumonia, rule out possibi lity of aspiration related pneumonia or aspiration related pneumonitis. CT of the abdomen and pelvis showed basilar small pleural effusions as well as atelectasis and/or infiltrates. CT chest revealed groundglass infiltrates in the upper and midlung zones and small bilateral pleural effusions, patient is on combination cefepime, Levaquin, and vancomycin. Legionella urine antigen was negative. COVID-19 PCR was negative. #2. Acute urinary tract infection. #3. Diarrhea, rule out C. diff. #4. Hypokalemia. #5. Transaminitis, improving. Hepatitis panel was negative. #6. Diabetes mellitus type 2. #7. Seizure disorder. #8. Hx has skin cancer with surgical resection. Plan: Plan dated 03/15/2021. The patient remains on Levaquin and cefepime. Vancomycin was discontinued. CAT scan of the chest consistent with upper lobe and mid lung zone pneumonia, was related to prior aspiration. The patient does feel clinically improved today. No additional recommendations are made. We will continue to follow. Prognosis is guarded. Time with Patient: Less than 30
[2021-03-15 16:54] LABS: Glucose,Whole Blood 133 mg/dL (75-99)
--- NOTE | 2021-03-15 17:03 | P.PN ---
Subjective Progress Note Date: 03/15/21 Principal diagnosis: Acute hypoxic respiratory failure secondary to pneumonia Acute urinary tract infection This is a pleasant 50-year-old patient who follows with Dr. Aguiar. Chronic stable medical conditions include, diet controlled diabetes, seizure disorder, ALLERGIES for which she takes Benadryl when necessary. Patient is being tighter control her diabetes with diet for quite some time. During pandemic control and has not been easy for her. Just a few weeks ago she checked HbA1c and it came back as 9.3. Patient also got chronic lower lumbar pain. Wednesday evening patient is having a dull headache. Went to bed and was feeling freezing cold. And then became soaking wet. Again was sitting she started freezing. Took her temperature is 101.8. [place] weak. And for a short time passed out. She thinks her told her that maybe that was legs stiffening slight bubbles at the mouth. Not sure. Patient been having urinary frequency. Was found over infected appearing urine in the ER. Started IV ceftriaxone. 03/11/2021: I was called earlier today. Patient has spiked fever again. Had become hypoxic. Blood pressure is running of the lower side. IV fluids was increased. Patient was a bit more short of breath. Ordered two-view chest x- ray. IV ceftriaxone was discontinued. Change to IV cefepime 1 g every 12 and IV vancomycin. Order was placed to move to patient to telemetry floor. Patient is a more of a cough today. More short of breath. Tired 03/12/2021: Sitting up in a chair. A bit less tired. Slightly short of breath. Did eat some. Cough with green sputum. No fever since last night. On IV cefepime, IV vancomycin, Levaquin IV fluids. Subconjunctival hemorrhage. 03/13/2021: Sitting up in a recliner. Some decrease in shortness of breath. Using some thick sputum. Decreased appetite but eating some. On humidified oxygen. On 3 L. Spiking fever. Discussed with Dr. Siegel from ID. Serology for EBV and CMV has been sent off. LFTs are coming down. Discussed with the patient. Pulmonary consultation. 03/14/2021: Sitting up in a recliner. Spiking fevers. On IV cefepime and Levaquin. Vancomycin discontinued. Subconjunctival hemorrhage. LFTs are coming down. EBV IgG positive. IgM negative. Patient is having some bouts of coughing. She is producing sputum. Eating about 25-50%. Discussed with Dr. Siegel from ID. Vancomycin to be discontinued. Patient seen by pulmonary Dr. Bruno today. He added bronchodilators. 03/15/2021 Patient is being treated for pneumonia. Possible aspiration. COVID-19 PCR ne gative 2. Patient is currently sitting on the sofa. Complains of exertional short of breath and also increased bilateral lower swelling. On oxygen at 3 L via nasal cannula. Patient has been afebrile. Currently being continued on antibiotics in the form of Levaquin and cefepime. Laboratory data showed WBC 11.8 hemoglobin 11.4 and platelets 50. Sodium 132 potassium 2.6 and chloride 97. Bicarb is 28. Bicarb drip has been discontinued and replaced potassium. D-dimer is 9.7. CT chest done on 03/14/2021 showed correlate for pneumonia. Pericardial effusion measuring maximal thickness of 1 cm. Patient had 2-D echocardiogram showed ejection fraction 55-50%. The LAD is mildly dilated. There is small generalized pericardial effusion present. Total bilirubin 3.7 AST 55 ALT 203 alk phos 216 Patient was complaining of diarrhea. C. diff is negative. Stool lactoferrin positive. Active Medications Generic Name Dose Route Start Last Admin Trade Name Freq PRN Reason Stop Dose Admin Albuterol/Ipratropium 3 ml 03/14/21 16:00 03/15/21 16:57 Ipratropium-Albuterol 3 Ml Neb INHALATION 3 ml RT-QID YAJAIRA Administration Albuterol/Ipratropium 3 ml 03/14/21 12:27 Ipratropium-Albuterol 3 Ml Neb INHALATION RT-Q2H PRN Shortness Of Breath Or Wheezing Calcium Carbonate/Glycine 500 mg 03/12/21 12:30 03/15/21 13:13 Calcium Carbonate Liquid 500 Mg/5 Ml Cup PO Not Given ACHS YAJAIRA Diphenhydramine HCl 50 mg 03/10/21 09:59 03/14/21 22:45 Diphenhydramine 25 Mg Cap PO 50 mg DAILY PRN Administration Severe Allergy Symptoms Diphenhydramine HCl 25 mg 03/12/21 17:23 03/12/21 23:42 Diphenhydramine 25 Mg Cap PO 25 mg QID PRN Administration Allergy Symptoms Cefepime HCl 2 gm/ Sodium 100 mls @ 25 mls/hr 03/11/21 12:00 03/15/21 11:52 Chloride IVPB 25 mls/hr Q8H [facility]A Administration Ibuprofen 200 mg 03/14/21 12:06 03/15/21 10:17 Ibuprofen 200 Mg Tab PO 200 mg Q4HR PRN Administration Pain Insulin Aspart 0 unit 03/10/21 12:30 03/15/21 13:19 Insulin Aspart (Novolog) 100 Unit/Ml Vial SQ 4 unit ACHS YAJAIRA Administration Protocol Insulin Detemir 10 unit 03/14/21 21:00 03/14/21 20:25 Insulin Detemir (Levemir) 100 Unit/Ml Syr SQ 10 unit HS YAJAIRA Administration Levofloxacin 750 mg 03/12/21 12:00 03/15/21 11:52 Levofloxacin 750 Mg Tab PO 750 mg Q24H Y[facility]A Administration Miscellaneous Information 1 each 03/11/21 05:20 Potassium Replacement Protocol 1 Each Misc MISCELLANE DAILY PRN Per Protocol Protocol Miscellaneous Information 1 each 03/14/21 10:02 Rx Info: Iv Contrast Was Given 1 Each Misc MISCELLANE 03/16/21 10:03 DAILY PRN Per Protocol Miscellaneous Information 1 each 03/15/21 10:50 Potassium Replacement Protocol 1 Each Misc MISCELLANE DAILY PRN Per Protocol Protocol Naloxone HCl 0.2 mg 03/09/21 22:24 Naloxone 0.4 Mg/Ml 1 Ml Vial IV Q2M PRN Opioid Reversal Carbatrol Er 200 Mg 1 each 03/10/21 12:00 03/15/21 10:17 PO 1 each BID YAJAIRA Administration Sodium Chloride 1 applic 03/13/21 18:41 Saline Nasal Gel 14.1 Gm Tube NASAL Q4HR PRN Dry Nasal Passages Objective - Vital Signs Vital signs: Vital Signs Temp 98.8 F 03/15/21 08:00 Pulse 102 H 03/15/21 11:47 Resp 19 03/15/21 08:00 BP 130/80 03/15/21 08:00 Pulse Ox 97 03/15/21 08:00 Intake & Output 03/14/21 03/15/21 03/15/21 18:59 06:59 18:59 Intake Total 3277 0 Balance 3277 0 Weight 96.1 kg Intake: Intake, IV Titration 1800 Amount Cefepime 2 gm In Sodium 100 Chloride 0.9% 100 ml @ 25 mls/hr IVPB Q8H [facility] Rx#: [id number] Dextrose 5%-0.45% NaCl 1, 1200 000 ml @ 150 mls/hr IV . Q7H [facility] with Sodium Bicarb (1 Meq/ml) 50 ml Rx#:[id number] Vancomycin 1,750 mg In 500 Sodium Chloride 0.9% 500 ml 500 ml @ 167 mls/hr IVPB Q12HR [facility] Rx#: [id number] Oral 1477 0 Other: Voiding Method Toilet Toilet # Voids 2 1 # Bowel Movements 1 - Exam PHYSICAL EXAMINATION: Patient is lying in the bed comfortably, no acute distress, awake alert and oriented.. HEENT: Normocephalic. Neck is supple. Pupils reactive. Conjunctival injection. Nostrils clear. Oral cavity is moist. Neck reveals no JVD, carotid bruits, or thyromegaly. CHEST EXAMINATION: Trachea is central. Symmetrical expansion. Bibasilar diminished sounds, minimal crackles, no wheezing. Nonlabored breathing.. CARDIAC: Normal S1, S2 with no gallops. No murmurs ABDOMEN: Soft. Bowel sounds normal. No organomegaly. No abdominal bruits. Extremities: 2+ pedal. No clubbing or cyanosis Neurologically awake, alert, oriented x3 with well-coordinated movements. No focal deficits noted Skin: No rash or skin lesions. Psychiatric: Coperative. Nonsuicidal Musculoskeletal: No joint swelling or deformity. Normal range of motion. - Labs CBC & Chem 7: 03/15/21 09:13 03/15/21 09:13 Labs: Abnormal Lab Results - Last 24 Hours (Table) 03/13/21 03/14/21 03/14/21 Range/Units 07:30 16:05 16:05 WBC (3.8-10.6) k/uL RBC 3.69 L (3.80-5.40) m/uL Hgb 11.0 L (11.4-16.0) gm/dL Hct 31.8 L (34.0-46.0) % Plt Count 45 L (150-450) k/uL Neutrophils # 8.9 H (1.3-7.7) k/uL Lymphocytes # 0.3 L (1.0-4.8) k/uL D-Dimer (<0.60) mg/L FEU Sodium (137-145) mmol/L Potassium (3.5-5.1) mmol/L Chloride (98-107) mmol/L Glucose (74-99) mg/dL POC Glucose (mg/dL) (75-99) mg/dL Calcium (8.4-10.2) mg/dL Phosphorus 2.1 L (2.5-4.5) mg/dL Total Bilirubin (0.2-1.3) mg/dL AST (14-36) U/L ALT (4-34) U/L Alkaline Phosphatase (38-126) U/L Total Protein (6.3-8.2) g/dL Albumin (3.5-5.0) g/dL Stool Lactoferrin (NEGATIVE) CMV IgG Ab Reactive A (Non-Reactive) 03/14/21 03/14/21 03/14/21 Range/Units 16:49 18:07 19:41 WBC (3.8-10.6) k/uL RBC (3.80-5.40) m/uL Hgb (11.4-16.0) gm/dL Hct (34.0-46.0) % Plt Count (150-450) k/uL Neutrophils # (1.3-7.7) k/uL Lymphocytes # (1.0-4.8) k/uL D-Dimer (<0.60) mg/L FEU Sodium (137-145) mmol/L Potassium (3.5-5.1) mmol/L Chloride (98-107) mmol/L Glucose (74-99) mg/dL POC Glucose (mg/dL) 178 H 222 H (75-99) mg/dL Calcium (8.4-10.2) mg/dL Phosphorus (2.5-4.5) mg/dL Total Bilirubin (0.2-1.3) mg/dL AST (14-36) U/L ALT (4-34) U/L Alkaline Phosphatase (38-126) U/L Total Protein (6.3-8.2) g/dL Albumin (3.5-5.0) g/dL Stool Lactoferrin POSITIVE A (NEGATIVE) CMV IgG Ab (Non-Reactive) 03/15/21 03/15/21 03/15/21 Range/Units 06:10 09:13 09:13 WBC 11.8 H (3.8-10.6) k/uL RBC (3.80-5.40) m/uL Hgb (11.4-16.0) gm/dL Hct 32.7 L (34.0-46.0) % Plt Count 50 L (150-450) k/uL Neutrophils # 11.2 H (1.3-7.7) k/uL Lymphocytes # 0.4 L (1.0-4.8) k/uL D-Dimer (<0.60) mg/L FEU Sodium 132 L (137-145) mmol/L Potassium 2.6 L* (3.5-5.1) mmol/L Chloride 97 L (98-107) mmol/L Glucose 181 H (74-99) mg/dL POC Glucose (mg/dL) 180 H (75-99) mg/dL Calcium 7.7 L (8.4-10.2) mg/dL Phosphorus (2.5-4.5) mg/dL Total Bilirubin 3.7 H (0.2-1.3) mg/dL AST 55 H (14-36) U/L ALT 203 H (4-34) U/L Alkaline Phosphatase 216 H (38-126) U/L Total Protein 5.0 L (6.3-8.2) g/dL Albumin 2.3 L (3.5-5.0) g/dL Stool Lactoferrin (NEGATIVE) CMV IgG Ab (Non-Reactive) 03/15/21 03/15/21 Range/Units 09:13 11:44 WBC (3.8-10.6) k/uL RBC (3.80-5.40) m/uL Hgb (11.4-16.0) gm/dL Hct (34.0-46.0) % Plt Count (150-450) k/uL Neutrophils # (1.3-7.7) k/uL Lymphocytes # (1.0-4.8) k/uL D-Dimer 9.70 H (<0.60) mg/L FEU Sodium (137-145) mmol/L Potassium (3.5-5.1) mmol/L Chloride (98-107) mmol/L Glucose (74-99) mg/dL POC Glucose (mg/dL) 206 H (75-99) mg/dL Calcium (8.4-10.2) mg/dL Phosphorus (2.5-4.5) mg/dL Total Bilirubin (0.2-1.3) mg/dL AST (14-36) U/L ALT (4-34) U/L Alkaline Phosphatase (38-126) U/L Total Protein (6.3-8.2) g/dL Albumin (3.5-5.0) g/dL Stool Lactoferrin (NEGATIVE) CMV IgG Ab (Non-Reactive) Microbiology - Last 24 Hours (Table) 03/14/21 12:37 Blood Culture - Preliminary Blood No Growth after 24 hours 03/14/21 18:07 Gram Stain - Preliminary Sputum Sputum Culture - Preliminary 03/14/21 18:07 Stool Culture - Preliminary Stool 03/09/21 20:45 Blood Culture - Preliminary Blood No Growth after 120 hours Assessment and Plan Assessment: -Acute bilateral basal pneumonia, possible aspiration. causing sepsis and acute hypoxic respiratory failure: [Could be a viral pneumonia] Slow to respond Procrastinator level was 2.87 on admission. COVID-19 PCR 2 negative. IV cefepime 2 g every 8 and Levaquin. IV vancomycin, [discontinued]. Urine Legionella antigen: Negative EBV IgG positive. IgM negative -Acute hypoxic respiratory failure from pneumonia: Slow to respond Supplemental oxygen, FiO2 decreased to 3 L -Severe sepsis from pneumonia. -Acute urinary tract infection. Urine culture showed normal denise. Lactic acid level improved with IV hydration. -Acute metabolic acidosis from sepsis: Improved. Bicarb 28 today. Sodium bicarbonate has been discontinued. -Syncope likely vasovagal from underlying sepsis, on presentation. -Acute ischemic hepatitis. From low blood pressure. Sepsis: Some improvement Acute hepatitis panel was negative. IV fluids. DC Tylenol. Repeat CMP. -Diabetes mellitus type 2, uncontrolled with hyperglycemia Patient does not want to take oral hypoglycemic at this point and was to follow- up with her PCP Dr. Aguiar. Follow Accu-Cheks and sliding scale insulin. Dietitian consult. Diabetic diet. Started on Levemir 10 units at night A1c level 9.3 on 02/19/2021 -Epilepsy disorder : last episode being 2003 Continue Tegretol -Chronic lumbar arthritis Tylenol when necessary -Acute thrombocytopenia Likely from sepsis. HIT unlikely given the low antibodies. Hematology is following. Plan: Continue IV cefepime and Levaquin. Vancomycin discontinued. Continue on Levemir 10 units at night. Insulin sliding scale. Care was discussed length with the patient. Continue with antibiotic treatment. Encourage oral intake and incentive spirometry. IV fluids on hold. Replace potassium. Continue to follow closely. ID, pulmonary and hematology is on board. Time with Patient: Greater than 30
[2021-03-15] MEDS ORDERED: VANCOMYCIN TROUGH DUE 1 EACH MISC MISCELLANE ONE (20:00)
--- NOTE | 2021-03-15 20:31 | PN ---
PROGRESS NOTE DATE OF SERVICE: 03/15/2021 REASON FOR FOLLOWUP: Fever, possible viral syndrome. INTERVAL HISTORY: The patient is afebrile. No fever has been recorded in the last 24 hours. She is breathing comfortably. Denies having any chest pain. Occasional cough with minimal sputum production. No nausea, vomiting. No abdominal pain, no diarrhea. PHYSICAL EXAMINATION: Blood pressure 130/80 with a pulse of 111, temperature 98.8. She is 97% on 2 L nasal cannula. General description is a middle-aged female lying in bed in no distress. Respiratory system: Unlabored breathing, clear to auscultation anteriorly. Heart S1, S2. Regular rate and rhythm. Abdomen soft, no tenderness. LAB: Hemoglobin 11.1, white count 11.8, BUN of 17, creatinine 0.74. DIAGNOSTIC IMPRESSION AND PLAN: Patient with fever and did have extensive workup with no obvious focus with concern for viral syndrome. Hepatitis serology has been negative for any acute infection. Patient is slowly clinically improving. To continue cefepime and monitor clinical course closely. Continue supportive care. MMODL / IJN: [id number] /
[2021-03-15 20:36] LABS: Glucose,Whole Blood 162 mg/dL (75-99)
[2021-03-15] MEDS: INSULIN DETEMIR (LEVEMIR) 100 UNIT/ML SYR SQ SCH (20:39)
[2021-03-16] MEDS: CEFEPIME 2 GM in SODIUM CHLORIDE 0.9% 100 ML IVPB SCH ×3 (03:49→21:18)
[2021-03-16 06:07] LABS: Glucose,Whole Blood 71 mg/dL (75-99)
[2021-03-16] MEDS: INSULIN ASPART (NovoLOG) 100 UNIT/ML VIAL SQ SCH ×4 (06:13→21:20)
[2021-03-16] MEDS: CALCIUM CARBONATE LIQUID 500 MG/5 ML CUP PO SCH ×4 (06:19→21:19)
[2021-03-16] MEDS: IBUPROFEN 200 MG TAB PO PRN (08:14)
[2021-03-16] MEDS: CARBATROL 200 MG PO SCH ×2 (08:14→21:21)
[2021-03-16] MEDS: IPRATROPIUM-ALBUTEROL 3 ML NEB INHALATION SCH ×4 (08:30→20:17)
[2021-03-16 09:00] LABS: HCT 33.9 % (34.0-46.0); HGB 11.5 gm/dL (11.4-16.0); MCH 29.3 pg (25.0-35.0); MCV 86.2 fL (80.0-100.0); Mean Platelet Volume 12.6; RBC 3.93 m/uL (3.80-5.40); WBC 24.1 k/uL (3.8-10.6)
[2021-03-16 09:10] LABS: ALT 144 U/L (4-34); AST 54 U/L (14-36); African American GFR (CKD) >90 (>60 ml/min/1.73 sqM); Albumin 2.3 g/dL (3.5-5.0); Alkaline Phosphatase 268 U/L (38-126); Anion Gap 8 mmol/L; Blood Urea Nitrogen 19 mg/dL (7-17); Calcium 8.2 mg/dL (8.4-10.2); Carbon Dioxide 29 mmol/L (22-30); Chloride 96 mmol/L (98-107); Glucose 75 mg/dL (74-99); Non-African American GFR(CKD) 86 (>60 ml/min/1.73 sqM); Potassium 3.1 mmol/L (3.5-5.1); Sodium 133 mmol/L (137-145); Total Bilirubin 4.1 mg/dL (0.2-1.3); Total Protein 5.2 g/dL (6.3-8.2)
[2021-03-16 09:21] LABS: Platelet Count 68 k/uL (150-450)
[2021-03-16] MEDS ORDERED: Potassium Replacement Protocol 1 EACH MISC MISCELLANE PRN (09:52)
[2021-03-16] MEDS ORDERED: FUROSEMIDE 10 MG/ML 4 ML VIAL IV STA (10:27)
[2021-03-16] MEDS ORDERED: POTASSIUM CHLORIDE ER 20 MEQ TAB.ER PO STA (11:26)
[2021-03-16] MEDS: PANTOPRAZOLE 40 MG/10 ML VIAL IVP SCH ×2 (11:56→21:19)
[2021-03-16 12:00] LABS: Glucose,Whole Blood 126 mg/dL (75-99)
[2021-03-16] MEDS: LEVOFLOXACIN 750 MG TAB PO SCH (12:04)
--- NOTE | 2021-03-16 12:18 | P.PN ---
Subjective Progress Note Date: 03/16/21 Principal diagnosis: Pneumonia. 50-year-old white female patient with past medical history of diabetes mellitus, seizure disorder, chronic lower back pain, who came into the emergency department on 03/09/2021 complaining of a syncopal episode at home. Patient's thought she may have had a seizure in called EMS. At a negative COVID- 19 PCR. She also reports mild fevers [id number]. She initially was not complaining of any pulmonary symptoms, shortness of breath, no nausea vomiting, no cough or congestion. Chest x-ray initially in the emergency department on 03/09/2021 showed increased atelectasis at the left lung base. Brain CT showed no acute intracranial abnormality. Urinalysis showed a large amount of leuks, 43 WBCs, many bacteria, and this of acute urinary tract infection, patient was started on Levaquin, cefepime and vancomycin. Infectious disease service is following. Yesterday patient reported some increased shortness of breath, cough with production of green sputum. He was placed on humidified oxygen. She is spiking fevers. Follow-up chest x-ray yesterday showed interstitial edema, and pneumonia with basilar pleural effusions and associated atelectasis. CT chest with contrast was obtained showing groundglass infiltrates in the upper and midlung zones. There were more dense consolidation at the lung bases that could reflect atelectasis or additional of the chest. There were small bilateral pleural effusions. Today's labs show white blood cell count of 10.2, hemoglobin is 12.3, platelet count is down to 47, sodium is 135, potassium is 2.7, the rest of electrolytes and renal profile are within normal limits. Her pro-calcitonin level was elevated at 7.14 couple days ago, and improving yesterday. And down to 2.87. She reports cough, with phlegm production, but no hemoptysis. Her liver enzymes were significantly elevated a few days ago and there are improving on today's labs. She also developed diarrhea. Legionella urine antigen was negative. She remains on a combination of cefepime, Levaquin and vancomycin, T- max in the last 24 hours was 102F. So far her urine blood and sputum cultures have shown no growth. Progress note dated 03/15/2019. 50-year-old female that we saw yesterday in consultation for pneumonia. The patient was seen twice in the emergency room, and admitted on the second time. She did test negative 2 for coronavirus infection. She was admitted with a diagnosis of fever, urinary tract infection, and probable pneumonia. Patient does have a history of chronic low back pain, seizure disorder, and diabetes mellitus. Clinically, she's feeling much better today. She is on room air. Her breathing is improved. She's afebrile today. White count 11.8, hemoglobin 11.4, hematocrit 32.7, platelet count is 50,000. D-dimer is 9.70. PT INR and PTT are all normal. Sodium 132, potassium 2.6, chlorides 97, CO2 28, anion gap 7, BUN 17, creatinine 0.74. Cortisol level was 35. Chest CT that we did yesterday was consistent with groundglass infiltrates in the upper and midlung zones. Most likely consistent with pneumonia. Per infectious diseases, she remains on cefepime and Levaquin. Progress note dated 03/16/2021. 50-year-old female who was seen in consultation at couple days ago. The patient was admitted with a diagnosis of fever. She was tested for coronavirus, but tested negative 2. She was found to have a urinary tract infection, and probable pneumonia, may be secondary to aspiration. The patient's temperature is elevated again today. She is scheduled for a tagged white blood cell study on Wednesday. She is having some issues with acid reflux disease today. She remains on good antibiotics in the form of cefepime and Levaquin. Infectious diseases is following this patient. White count was 24.1, hemoglobin 11.5, hematocrit 33.9, and platelet count 68,000. Sodium 133, potassium 3.1, chlorides 96, CO2 29, anion gap is 8, BUN 19, with a creatinine 0.8. AST is 54. ALT 144. Albumin 2.3. All her culture data thus far is negative. Chest CT from March 14 is reviewed. Objective - Vital Signs Vital signs: Vital Signs Temp 100.2 F H 03/16/21 08:56 Pulse 100 03/16/21 12:07 Resp 19 03/16/21 07:50 BP 162/77 03/16/21 07:50 Pulse Ox 93 L 03/16/21 07:50 Intake & Output 0903/16/21 03/16/21 18:59 06:59 18:59 Intake Total 758 118 Output Total 400 400 Balance 468 400 -233 Weight 96.8 kg Intake: Intake, IV Titration 400 Amount Cefepime 2 gm In Sodium 100 Chloride 0.9% 100 ml @ 25 mls/hr IVPB Q8H YAJAIRA Rx#: [id number] Dextrose 5%-0.45% NaCl 1, 300 000 ml @ 150 mls/hr IV . Q7H YAJAIRA with Sodium Bicarb (1 Meq/ml) 50 ml Rx#:[id number] Oral 358 118 Output: Urine 400 400 Other: Voiding Method Toilet Toilet # Voids 1 2 # Bowel Movements 2 - Exam No acute distress, oriented 3. 3 L saturation is 97%. There is no conversational dyspnea or use of accessory muscles. HEENT examination is grossly unremarkable. Bilateral subconjunctival hemorrhages noted. Neck supple. Full range of motion. No adenopathy thyromegaly or neck vein distention. Cardiovascular examination reveals regular rhythm rate. S1-S2 normal. No S3 or S4. No discernible murmur noted. Heart rate is 100 bpm. Lungs reveal coarse bilateral rhonchi and scattered bilateral crackles. There are no wheezes. Breath sounds are equal bilaterally. She does cough with deep inspiration. Abdomen soft bowel sounds are heard. No masses or tenderness. Extremities are intact. No cyanosis clubbing or edema. Skin is without rash or lesion. Neurologic examination is brief but nonfocal. - Labs CBC & Chem 7: 03/16/21 07:49 03/16/21 07:49 Labs: Abnormal Lab Results - Last 24 Hours (Table) 03/14/21 03/15/21 03/15/21 Range/Units 18:07 16:46 20:34 WBC (3.8-10.6) k/uL Hct (34.0-46.0) % Plt Count (150-450) k/uL Sodium (137-145) mmol/L Potassium (3.5-5.1) mmol/L Chloride (98-107) mmol/L BUN (7-17) mg/dL POC Glucose (mg/dL) 133 H 162 H (75-99) mg/dL Calcium (8.4-10.2) mg/dL Total Bilirubin (0.2-1.3) mg/dL AST (14-36) U/L ALT (4-34) U/L Alkaline Phosphatase (38-126) U/L Total Protein (6.3-8.2) g/dL Albumin (3.5-5.0) g/dL Stool Lactoferrin POSITIVE A (NEGATIVE) 03/16/21 03/16/21 03/16/21 Range/Units 06:05 07:49 07:49 WBC 24.1 H (3.8-10.6) k/uL Hct 33.9 L (34.0-46.0) % Plt Count 68 L (150-450) k/uL Sodium 133 L (137-145) mmol/L Potassium 3.1 L (3.5-5.1) mmol/L Chloride 96 L (98-107) mmol/L BUN 19 H (7-17) mg/dL POC Glucose (mg/dL) 71 L (75-99) mg/dL Calcium 8.2 L (8.4-10.2) mg/dL Total Bilirubin 4.1 H (0.2-1.3) mg/dL AST 54 H (14-36) U/L ALT 144 H (4-34) U/L Alkaline Phosphatase 268 H (38-126) U/L Total Protein 5.2 L (6.3-8.2) g/dL Albumin 2.3 L (3.5-5.0) g/dL Stool Lactoferrin (NEGATIVE) 03/16/21 Range/Units 11:46 WBC (3.8-10.6) k/uL Hct (34.0-46.0) % Plt Count (150-450) k/uL Sodium (137-145) mmol/L Potassium (3.5-5.1) mmol/L Chloride (98-107) mmol/L BUN (7-17) mg/dL POC Glucose (mg/dL) 126 H (75-99) mg/dL Calcium (8.4-10.2) mg/dL Total Bilirubin (0.2-1.3) mg/dL AST (14-36) U/L ALT (4-34) U/L Alkaline Phosphatase (38-126) U/L Total Protein (6.3-8.2) g/dL Albumin (3.5-5.0) g/dL Stool Lactoferrin (NEGATIVE) Microbiology - Last 24 Hours (Table) 03/14/21 18:07 Gram Stain - Final Sputum Sputum Culture - Final 03/13/21 14:00 Nasal Screen MRSA/MSSA - Final Nasal Swab 03/09/21 20:45 Blood Culture - Final Blood No Growth after 144 hours 03/14/21 12:37 Blood Culture - Preliminary Blood No Growth after 24 hours Assessment and Plan Assessment: #1. Acute hypoxic respiratory failure related to pneumonia, rule out possibility of aspiration related pneumonia or aspiration related pneumonitis. CT of the abdomen and pelvis showed basilar small pleural effusions as well as atelectasis and/or infiltrates. CT chest revealed groundglass infiltrates in the upper and midlung zones and small bilateral pleural effusions, patient is on combination cefepime, and Levaquin. Legionella urine antigen was negative. COVID-19 PCR was negative. #2. Acute urinary tract infection. #3. Diarrhea, rule out C. diff. #4. Hypokalemia. #5. Transaminitis, improving. Hepatitis panel was negative. #6. Diabetes mellitus type 2. #7. Seizure disorder. #8. Hx has skin cancer with surgical resection. Plan: Plan dated 03/15/2021. The patient remains on Levaquin and cefepime. Vancomycin was discontinued. CAT scan of the chest consistent with upper lobe and mid lung zone pneumonia, was related to prior aspiration. The patient does feel clinically improved today. No additional recommendations are made. We will continue to follow. Prognosis is guarded. Plan dated 03/16/2021. The patient remains on good antibiotics. All her culture data thus far is negative. She appears to have at least a urinary tract infection and a episode of pneumonia. The pneumonia may relate to aspiration as she did have a syncopal episode. In addition, I will order an VASYL, sedimentation rate, rheumatoid factor, and C-reactive protein. Additional recommendations and suggestions are forthcoming. Gnosis is guarded. A tagged white blood cell study scheduled for Wednesday. Time with Patient: Less than 30
[2021-03-16 12:35] LABS: Band Neutrophils % 4 %; Eosinophils # (M) 0.24 k/uL (0-0.7); Lymphocytes # (M) 0.48 k/uL (1.0-4.8); Metamyelocytes # (M) 0.24 k/uL (0); Metamyelocytes % 1 %; Monocytes # (M) 0.24 k/uL (0-1.0); Myelocytes # (M) 0.24 k/uL (0); Myelocytes % 1 %; Neutrophils % (M) 93 %; Nucleated Red Blood Cells 0 /100 WBC (0-0); Total Cells Counted 200
[2021-03-16 12:36] LABS: Large Platelets Present; Toxic Vacuolation Present
[2021-03-16 12:58] LABS: C Reactive Protein 24.4 mg/dL (<1.0)
[2021-03-16 17:03] LABS: Glucose,Whole Blood 177 mg/dL (75-99)
[2021-03-16] MEDS: POTASSIUM CHLORIDE ER 20 MEQ TAB.ER PO SCH ×2 (17:38→21:17)
[2021-03-16 21:09] LABS: Glucose,Whole Blood 172 mg/dL (75-99)
[2021-03-16] MEDS: INSULIN DETEMIR (LEVEMIR) 100 UNIT/ML SYR SQ SCH (21:19)
[2021-03-16] MEDS: diphenhydrAMINE 25 MG CAP PO PRN (23:30)
[2021-03-16] MEDS: metroNIDAZOLE 500 MG TAB PO SCH (23:30)
--- NOTE | 2021-03-16 23:41 | PN ---
PROGRESS NOTE DATE OF SERVICE: 03/16/2021 REASON FOR FOLLOWUP: Fever and leukocytosis. INTERVAL HISTORY: The patient is afebrile. The patient is breathing slightly comfortably. The patient denies having any chest pain. She did have a cough with occasional sputum. No nausea, no vomiting. No abdominal pain or any worsening diarrhea. PHYSICAL EXAMINATION: Her blood pressure is 125/73 with a pulse of 111, temperature 98.9. She is 97% on 3 L nasal cannula. General description is a middle-aged female lying in bed in no distress. Respiratory system: Unlabored breathing with decreased intensity of breath sounds. Heart S1, S2. Regular rate and rhythm. Abdomen soft, no tenderness. Extremities: 1+ edema of the feet. LABS: The patient did have jump in white count to 24,000. DIAGNOSTIC IMPRESSION AND PLAN: Patient with fever and this patient did have extensive workup and no clear focus. We are waiting for the WBC scan. The patient has slight jump in the white count that will be monitored closely. We will repeat inflammatory markers and adjust antibiotics to Rocephin and Flagyl and continue supportive care. MMODL / IJN: [id number] /
--- NOTE | 2021-03-17 00:04 | P.PN ---
Subjective Progress Note Date: 03/16/21 Principal diagnosis: Acute hypoxic respiratory failure secondary to pneumonia Acute urinary tract infection This is a pleasant 50-year-old patient who follows with Dr. Aguiar. Chronic stable medical conditions include, diet controlled diabetes, seizure disorder, ALLERGIES for which she takes Benadryl when necessary. Patient is being tighter control her diabetes with diet for quite some time. During pandemic control and has not been easy for her. Just a few weeks ago she checked HbA1c and it came back as 9.3. Patient also got chronic lower lumbar pain. Wednesday evening patient is having a dull headache. Went to bed and was feeling freezing cold. And then became soaking wet. Again was sitting she started freezing. Took her temperature is 101.8. [place] weak. And for a short time passed out. She thinks her told her that maybe that was legs stiffening slight bubbles at the mouth. Not sure. Patient been having urinary frequency. Was found over infected appearing urine in the ER. Started IV ceftriaxone. 03/11/2021: I was called earlier today. Patient has spiked fever again. Had become hypoxic. Blood pressure is running of the lower side. IV fluids was increased. Patient was a bit more short of breath. Ordered two-view chest x- ray. IV ceftriaxone was discontinued. Change to IV cefepime 1 g every 12 and IV vancomycin. Order was placed to move to patient to telemetry floor. Patient is a more of a cough today. More short of breath. Tired 03/12/2021: Sitting up in a chair. A bit less tired. Slightly short of breath. Did eat some. Cough with green sputum. No fever since last night. On IV cefepime, IV vancomycin, Levaquin IV fluids. Subconjunctival hemorrhage. 03/13/2021: Sitting up in a recliner. Some decrease in shortness of breath. Using some thick sputum. Decreased appetite but eating some. On humidified oxygen. On 3 L. Spiking fever. Discussed with Dr. Siegel from ID. Serology for EBV and CMV has been sent off. LFTs are coming down. Discussed with the patient. Pulmonary consultation. 03/14/2021: Sitting up in a recliner. Spiking fevers. On IV cefepime and Levaquin. Vancomycin discontinued. Subconjunctival hemorrhage. LFTs are coming down. EBV IgG positive. IgM negative. Patient is having some bouts of coughing. She is producing sputum. Eating about 25-50%. Discussed with Dr. Siegel from ID. Vancomycin to be discontinued. Patient seen by pulmonary Dr. Bruno today. He added bronchodilators. 03/15/2021 Patient is being treated for pneumonia. Possible aspiration. COVID-19 PCR ne gative 2. Patient is currently sitting on the sofa. Complains of exertional short of breath and also increased bilateral lower swelling. On oxygen at 3 L via nasal cannula. Patient has been afebrile. Currently being continued on antibiotics in the form of Levaquin and cefepime. Laboratory data showed WBC 11.8 hemoglobin 11.4 and platelets 50. Sodium 132 potassium 2.6 and chloride 97. Bicarb is 28. Bicarb drip has been discontinued and replaced potassium. D-dimer is 9.7. CT chest done on 03/14/2021 showed correlate for pneumonia. Pericardial effusion measuring maximal thickness of 1 cm. Patient had 2-D echocardiogram showed ejection fraction 55-50%. The LAD is mildly dilated. There is small generalized pericardial effusion present. Total bilirubin 3.7 AST 55 ALT 203 alk phos 216 Patient was complaining of diarrhea. C. diff is negative. Stool lactoferrin positive. 03/16/2021 Patient is currently sitting in a chair. Patient states that her breathing status starts getting better today. IV fluids/bicarb drip has been discontinued today and patient was given a dose of IV Lasix today. No complaints of chest pain. Patient did have a bowel night. Able to tolerate oral diet. No headache or dizziness or lightheadedness. Otherwise patient had temp 100.2 and tachycardia this morning. Patient was ambulated with incentive spirometry. Continued on antibiotics involve cefepime and Levaquin. Cultures have been negative so far. Pulmonary and cardiology is on board. Laboratory data showed WBC 24.1 hemoglobin 11.5 and platelets 68 Sodium 133 potassium 3.1 chloride 96 BUN 19 and creatinine 0.88 AST 34 ALT 144 alk phos 268 and CRP 24.4 Rheumatoid factor 55. Normal range 0 -15 ID and pulmonary is on board. Active Medications Generic Name Dose Route Start Last Admin Trade Name Freq PRN Reason Stop Dose Admin Albuterol/Ipratropium 3 ml 03/14/21 16:00 03/15/21 16:57 Ipratropium-Albuterol 3 Ml Neb INHALATION 3 ml RT-QID YAJAIRA Administration Albuterol/Ipratropium 3 ml 03/14/21 12:27 Ipratropium-Albuterol 3 Ml Neb INHALATION RT-Q2H PRN Shortness Of Breath Or Wheezing Calcium Carbonate/Glycine 500 mg 03/12/21 12:30 03/15/21 13:13 Calcium Carbonate Liquid 500 Mg/5 Ml Cup PO Not Given ACHS YAJAIRA Diphenhydramine HCl 50 mg 03/10/21 09:59 03/14/21 22:45 Diphenhydramine 25 Mg Cap PO 50 mg DAILY PRN Administration Severe Allergy Symptoms Diphenhydramine HCl 25 mg 03/12/21 17:23 03/12/21 23:42 Diphenhydramine 25 Mg Cap PO 25 mg QID PRN Administration Allergy Symptoms Cefepime HCl 2 gm/ Sodium 100 mls @ 25 mls/hr 03/11/21 12:00 03/15/21 11:52 Chloride IVPB 25 mls/hr Q8H YAJAIRA Administration Ibuprofen 200 mg 03/14/21 12:06 03/15/21 10:17 Ibuprofen 200 Mg Tab PO 200 mg Q4HR PRN Administration Pain Insulin Aspart 0 unit 03/10/21 12:30 03/15/21 13:19 Insulin Aspart (Novolog) 100 Unit/Ml Vial SQ 4 unit ACHS YAJAIRA Administration Protocol Insulin Detemir 10 unit 03/14/21 21:00 03/14/21 20:25 Insulin Detemir (Levemir) 100 Unit/Ml Syr SQ 10 unit HS YAJAIRA Administration Levofloxacin 750 mg 03/12/21 12:00 03/15/21 11:52 Levofloxacin 750 Mg Tab PO 750 mg Q24H YAJAIRA Administration Miscellaneous Information 1 each 03/11/21 05:20 Potassium Replacement Protocol 1 Each Misc MISCELLANE DAILY PRN Per Protocol Protocol Miscellaneous Information 1 each 03/14/21 10:02 Rx Info: Iv Contrast Was Given 1 Each Misc MISCELLANE 03/16/21 10:03 DAILY PRN Per Protocol Miscellaneous Information 1 each 03/15/21 10:50 Potassium Replacement Protocol 1 Each Misc MISCELLANE DAILY PRN Per Protocol Protocol Naloxone HCl 0.2 mg 03/09/21 22:24 Naloxone 0.4 Mg/Ml 1 Ml Vial IV Q2M PRN Opioid Reversal Carbatrol Er 200 Mg 1 each 03/10/21 12:00 03/15/21 10:17 PO 1 each BID YAJAIRA Administration Sodium Chloride 1 applic 03/13/21 18:41 Saline Nasal Gel 14.1 Gm Tube NASAL Q4HR PRN Dry Nasal Passages Objective - Vital Signs Vital signs: Vital Signs Temp 100.2 F H 03/16/21 08:56 Pulse 104 H 03/16/21 08:41 Resp 19 03/16/21 07:50 BP 162/77 03/16/21 07:50 Pulse Ox 93 L 03/16/21 07:50 Intake & Output 03/15/21 03/16/21 03/16/21 18:59 06:59 18:59 Intake Total 758 118 Output Total 400 400 Balance 758 400 -282 Weight 96.8 kg Intake: Intake, IV Titration 400 Amount Cefepime 2 gm In Sodium 100 Chloride 0.9% 100 ml @ 25 mls/hr IVPB Q8H YAJAIRA Rx#: [id number] Dextrose 5%-0.45% NaCl 1, 300 000 ml @ 150 mls/hr IV . Q7H YAJAIRA with Sodium Bicarb (1 Meq/ml) 50 ml Rx#:[id number] Oral 358 118 Output: Urine 400 400 Other: Voiding Method Toilet Toilet # Voids 1 2 # Bowel Movements 2 - Exam PHYSICAL EXAMINATION: Patient is lying in the bed comfortably, no acute distress, awake alert and oriented.. HEENT: Normocephalic. Neck is supple. Pupils reactive. Conjunctival injection. Nostrils clear. Oral cavity is moist. Neck reveals no JVD, carotid bruits, or thyromegaly. CHEST EXAMINATION: Trachea is central. Symmetrical expansion. Bibasilar diminished sounds, minimal crackles, no wheezing. Nonlabored breathing.. CARDIAC: Normal S1, S2 with no gallops. No murmurs ABDOMEN: Soft. Bowel sounds normal. No organomegaly. No abdominal bruits. Extremities: 2+ pedal. No clubbing or cyanosis Neurologically awake, alert, oriented x3 with well-coordinated movements. No focal deficits noted Skin: No rash or skin lesions. Psychiatric: Coperative. Nonsuicidal Musculoskeletal: No joint swelling or deformity. Normal range of motion. - Labs CBC & Chem 7: 03/16/21 07:49 03/16/21 07:49 Labs: Abnormal Lab Results - Last 24 Hours (Table) 03/14/21 03/15/21 03/15/21 Range/Units 18:07 11:44 16:46 WBC (3.8-10.6) k/uL Hct (34.0-46.0) % Plt Count (150-450) k/uL Sodium (137-145) mmol/L Potassium (3.5-5.1) mmol/L Chloride (98-107) mmol/L BUN (7-17) mg/dL POC Glucose (mg/dL) 206 H 133 H (75-99) mg/dL Calcium (8.4-10.2) mg/dL Total Bilirubin (0.2-1.3) mg/dL AST (14-36) U/L ALT (4-34) U/L Alkaline Phosphatase (38-126) U/L Total Protein (6.3-8.2) g/dL Albumin (3.5-5.0) g/dL Stool Lactoferrin POSITIVE A (NEGATIVE) 03/15/21 03/16/21 03/16/21 Range/Units 20:34 06:05 07:49 WBC 24.1 H (3.8-10.6) k/uL Hct 33.9 L (34.0-46.0) % Plt Count 68 L (150-450) k/uL Sodium (137-145) mmol/L Potassium (3.5-5.1) mmol/L Chloride (98-107) mmol/L BUN (7-17) mg/dL POC Glucose (mg/dL) 162 H 71 L (75-99) mg/dL Calcium (8.4-10.2) mg/dL Total Bilirubin (0.2-1.3) mg/dL AST (14-36) U/L ALT (4-34) U/L Alkaline Phosphatase (38-126) U/L Total Protein (6.3-8.2) g/dL Albumin (3.5-5.0) g/dL Stool Lactoferrin (NEGATIVE) 03/16/21 Range/Units 07:49 WBC (3.8-10.6) k/uL Hct (34.0-46.0) % Plt Count (150-450) k/uL Sodium 133 L (137-145) mmol/L Potassium 3.1 L (3.5-5.1) mmol/L Chloride 96 L (98-107) mmol/L BUN 19 H (7-17) mg/dL POC Glucose (mg/dL) (75-99) mg/dL Calcium 8.2 L (8.4-10.2) mg/dL Total Bilirubin 4.1 H (0.2-1.3) mg/dL AST 54 H (14-36) U/L ALT 144 H (4-34) U/L Alkaline Phosphatase 268 H (38-126) U/L Total Protein 5.2 L (6.3-8.2) g/dL Albumin 2.3 L (3.5-5.0) g/dL Stool Lactoferrin (NEGATIVE) Microbiology - Last 24 Hours (Table) 03/14/21 18:07 Gram Stain - Final Sputum Sputum Culture - Final 03/13/21 14:00 Nasal Screen MRSA/MSSA - Final Nasal Swab 03/09/21 20:45 Blood Culture - Final Blood No Growth after 144 hours 03/14/21 12:37 Blood Culture - Preliminary Blood No Growth after 24 hours Assessment and Plan Assessment: -Acute bilateral basal pneumonia, possible aspiration. causing sepsis and acute hypoxic respiratory failure: [Could be a viral pneumonia] Slow to respond Procrastinator level was 2.87 on admission. COVID-19 PCR 2 negative. IV cefepime 2 g every 8 and Levaquin. IV vancomycin, [discontinued]. Urine Legionella antigen: Negative EBV IgG positive. IgM negative -Acute hypoxic respiratory failure from pneumonia: Slow to respond Supplemental oxygen, FiO2 decreased to 3 L -Severe sepsis from pneumonia. -Acute urinary tract infection. Urine culture showed normal denise. Lactic acid level improved with IV hydration. -Acute metabolic acidosis from sepsis: Improved. Bicarb 28 today. Sodium bicarbonate has been discontinued. -Syncope likely vasovagal from underlying sepsis, on presentation. -Acute ischemic hepatitis. From low blood pressure. Sepsis: Some improvement Acute hepatitis panel was negative. IV fluids. DC Tylenol. Repeat CMP. -Diabetes mellitus type 2, uncontrolled with hyperglycemia Patient does not want to take oral hypoglycemic at this point and was to follow- up with her PCP Dr. Aguair. Follow Accu-Cheks and sliding scale insulin. Dietitian consult. Diabetic diet. Started on Levemir 10 units at night A1c level 9.3 on 02/19/2021 -Epilepsy disorder : last episode being 2003 Continue Tegretol -Chronic lumbar arthritis Tylenol when necessary -Acute thrombocytopenia Likely from sepsis. HIT unlikely given the low antibodies. Hematology is vasyl painter. Plan: Continue IV cefepime and Levaquin. Vancomycin discontinued. Continue on Levemir 10 units at night. Insulin sliding scale. Care was discussed length with the patient. Continue with antibiotic treatment. Encourage oral intake and incentive spirometry. IV fluids on hold. Replace potassium. Continue to follow closely. ID, pulmonary and hematology is on board. Time with Patient: Greater than 30
[2021-03-17 06:06] LABS: Glucose,Whole Blood 111 mg/dL (75-99)
[2021-03-17] MEDS: CALCIUM CARBONATE LIQUID 500 MG/5 ML CUP PO SCH ×4 (06:21→20:55)
[2021-03-17] MEDS: INSULIN ASPART (NovoLOG) 100 UNIT/ML VIAL SQ SCH ×4 (06:21→21:00)
[2021-03-17 08:01] LABS: Basophils % (A) 0 %; Eosinophils # (A) 0.2 k/uL (0-0.7); Eosinophils % (A) 1 %; HCT 30.5 % (34.0-46.0); HGB 10.3 gm/dL (11.4-16.0); Lymphocytes # (A) 0.5 k/uL (1.0-4.8); Lymphocytes % (A) 2 %; MCHC 33.6 g/dL (31.0-37.0); MCV 86.4 fL (80.0-100.0); Mean Platelet Volume 10.8; Monocytes # (A) 0.2 k/uL (0-1.0); Monocytes % (A) 1 %; Neutrophils # (A) 20.7 k/uL (1.3-7.7); Neutrophils % (A) 96 %; Platelet Count 101 k/uL (150-450); RBC 3.53 m/uL (3.80-5.40); RDW 13.9 % (11.5-15.5); WBC 21.7 k/uL (3.8-10.6)
[2021-03-17] MEDS: IPRATROPIUM-ALBUTEROL 3 ML NEB INHALATION SCH ×4 (08:03→19:39)
[2021-03-17 08:17] LABS: ALT 88 U/L (4-34); AST 40 U/L (14-36); African American GFR (CKD) >90 (>60 ml/min/1.73 sqM); Albumin 2.1 g/dL (3.5-5.0); Alkaline Phosphatase 241 U/L (38-126); Anion Gap 5 mmol/L; Blood Urea Nitrogen 22 mg/dL (7-17); Calcium 7.6 mg/dL (8.4-10.2); Carbon Dioxide 29 mmol/L (22-30); Chloride 96 mmol/L (98-107); Glucose 102 mg/dL (74-99); Non-African American GFR(CKD) >90 (>60 ml/min/1.73 sqM); Potassium 3.3 mmol/L (3.5-5.1); Sodium 130 mmol/L (137-145); Total Bilirubin 2.2 mg/dL (0.2-1.3); Total Protein 5.3 g/dL (6.3-8.2)
[2021-03-17] MEDS: PANTOPRAZOLE 40 MG/10 ML VIAL IVP SCH (09:10)
[2021-03-17] MEDS: metroNIDAZOLE 500 MG TAB PO SCH ×3 (09:10→21:01)
[2021-03-17] MEDS: CARBATROL 200 MG PO SCH ×2 (09:12→20:53)
[2021-03-17] MEDS ORDERED: FUROSEMIDE 10 MG/ML 4 ML VIAL IV STA (10:38)
[2021-03-17] MEDS ORDERED: Potassium Replacement Protocol 1 EACH MISC MISCELLANE PRN (11:20)
[2021-03-17 12:11] LABS: Glucose,Whole Blood 107 mg/dL (75-99)
[2021-03-17] MEDS: POTASSIUM CHLORIDE ER 20 MEQ TAB.ER PO SCH ×4 (12:12→21:01)
--- NOTE | 2021-03-17 13:22 | P.PN ---
Subjective Progress Note Date: 03/17/21 Principal diagnosis: Pneumonia. 50-year-old white female patient with past medical history of diabetes mellitus, seizure disorder, chronic lower back pain, who came into the emergency department on 03/09/2021 complaining of a syncopal episode at home. Patient's thought she may have had a seizure in called EMS. At a negative COVID- 19 PCR. She also reports mild fevers [id number]. She initially was not complaining of any pulmonary symptoms, shortness of breath, no nausea vomiting, no cough or congestion. Chest x-ray initially in the emergency department on 03/09/2021 showed increased atelectasis at the left lung base. Brain CT showed no acute intracranial abnormality. Urinalysis showed a large amount of leuks, 43 WBCs, many bacteria, and this of acute urinary tract infection, patient was started on Levaquin, cefepime and vancomycin. Infectious disease service is following. Yesterday patient reported some increased shortness of breath, cough with production of green sputum. He was placed on humidified oxygen. She is spiking fevers. Follow-up chest x-ray yesterday showed interstitial edema, and pneumonia with basilar pleural effusions and associated atelectasis. CT chest with contrast was obtained showing groundglass infiltrates in the upper and midlung zones. There were more dense consolidation at the lung bases that could reflect atelectasis or additional of the chest. There were small bilateral pleural effusions. Today's labs show white blood cell count of 10.2, hemoglobin is 12.3, platelet count is down to 47, sodium is 135, potassium is 2.7, the rest of electrolytes and renal profile are within normal limits. Her pro-calcitonin level was elevated at 7.14 couple days ago, and improving yesterday. And down to 2.87. She reports cough, with phlegm production, but no hemoptysis. Her liver enzymes were significantly elevated a few days ago and there are improving on today's labs. She also developed diarrhea. Legionella urine antigen was negative. She remains on a combination of cefepime, Levaquin and vancomycin, T- max in the last 24 hours was 102F. So far her urine blood and sputum cultures have shown no growth. Progress note dated 03/15/2019. 50-year-old female that we saw yesterday in consultation for pneumonia. The patient was seen twice in the emergency room, and admitted on the second time. She did test negative 2 for coronavirus infection. She was admitted with a diagnosis of fever, urinary tract infection, and probable pneumonia. Patient does have a history of chronic low back pain, seizure disorder, and diabetes mellitus. Clinically, she's feeling much better today. She is on room air. Her breathing is improved. She's afebrile today. White count 11.8, hemoglobin 11.4, hematocrit 32.7, platelet count is 50,000. D-dimer is 9.70. PT INR and PTT are all normal. Sodium 132, potassium 2.6, chlorides 97, CO2 28, anion gap 7, BUN 17, creatinine 0.74. Cortisol level was 35. Chest CT that we did yesterday was consistent with groundglass infiltrates in the upper and midlung zones. Most likely consistent with pneumonia. Per infectious diseases, she remains on cefepime and Levaquin. Progress note dated 03/16/2021. 50-year-old female who was seen in consultation at couple days ago. The patient was admitted with a diagnosis of fever. She was tested for coronavirus, but tested negative 2. She was found to have a urinary tract infection, and probable pneumonia, may be secondary to aspiration. The patient's temperature is elevated again today. She is scheduled for a tagged white blood cell study on Wednesday. She is having some issues with acid reflux disease today. She remains on good antibiotics in the form of cefepime and Levaquin. Infectious diseases is following this patient. White count was 24.1, hemoglobin 11.5, hematocrit 33.9, and platelet count 68,000. Sodium 133, potassium 3.1, chlorides 96, CO2 29, anion gap is 8, BUN 19, with a creatinine 0.8. AST is 54. ALT 144. Albumin 2.3. All her culture data thus far is negative. Chest CT from March 14 is reviewed. Progress note dated 03/17/2021. 50-year-old female seen in consultation at couple days ago. She was admitted with a diagnosis of fever. She was found to have a urinary tract infection, and also pneumonia, likely secondary to aspiration. She was tested for coronavirus 2, and both times, she was negative. The patient is following starting to feel better today. She remains on antibiotics. The patient was on cefepime and Levaquin, but the infectious disease doctor changed her to Rocephin, and Flagyl. Today's lab data shows a white count of 21.7, hemoglobin 10.3, hematocrit 30.5, and platelet count of 101,000. Sodium is 130, potassium 3.3, chlorides 96, CO2 29, anion gap 5, BUN 22, and creatinine 0.73. The patient C-reactive protein levels 22. Sedimentation rate is 43, and the rheumatoid factor was elevated at 55. Objective - Vital Signs Vital signs: Vital Signs Temp 97.8 F 03/17/21 12:00 Pulse 92 03/17/21 12:00 Resp 16 03/17/21 12:00 BP 128/61 03/17/21 12:00 Pulse Ox 97 03/17/21 12:00 Intake & Output 03/16/21 03/17/21 03/17/21 18:59 06:59 18:59 Intake Total 576 1220 10 Output Total 2800 600 1500 Balance -2224 620 -1490 Weight 96.1 kg Intake: IV 120 10 Cefepime 2 gm In Sodium 100 Chloride 0.9% 100 ml @ 25 mls/hr IVPB Q8H YAJAIRA Rx#: [id number] Invasive Line 3 20 10 Intake, IV Titration 100 Amount Cefepime 2 gm In Sodium 100 Chloride 0.9% 100 ml @ 25 mls/hr IVPB Q8H YAJAIRA Rx#: [id number] Oral 476 1100 0 Output: Urine 2800 600 1500 Other: Voiding Method Toilet Toilet # Voids 3 2 - Exam No acute distress, oriented 3. 3 L saturation is 97%. There is no conversational dyspnea or use of accessory muscles. HEENT examination is grossly unremarkable. Bilateral subconjunctival hemorrhages noted. Neck supple. Full range of motion. No adenopathy thyromegaly or neck vein distention. Cardiovascular examination reveals regular rhythm rate. S1-S2 normal. No S3 or S4. No discernible murmur noted. Heart rate is 104 bpm. Lungs reveal coarse bilateral rhonchi and scattered bilateral crackles. There are no wheezes. Breath sounds are equal bilaterally. She does cough with deep inspiration. Abdomen soft bowel sounds are heard. No masses or tenderness. Extremities are intact. No cyanosis or clubbing. She has significant lower extremity edema, and generalized anasarca. Her weight is up about 30 pounds. Skin is without rash or lesion. Neurologic examination is brief but nonfocal. - Labs CBC & Chem 7: 03/17/21 07:27 03/17/21 07:27 Labs: Abnormal Lab Results - Last 24 Hours (Table) 03/16/21 03/16/21 03/16/21 Range/Units 07:49 07:49 16:45 WBC (3.8-10.6) k/uL RBC (3.80-5.40) m/uL Hgb (11.4-16.0) gm/dL Hct (34.0-46.0) % Plt Count (150-450) k/uL Neutrophils # (1.3-7.7) k/uL Lymphocytes # (1.0-4.8) k/uL ESR 43 H (0-20) mm/hr Sodium (137-145) mmol/L Potassium (3.5-5.1) mmol/L Chloride (98-107) mmol/L BUN (7-17) mg/dL Glucose (74-99) mg/dL POC Glucose (mg/dL) 177 H (75-99) mg/dL Calcium (8.4-10.2) mg/dL Total Bilirubin (0.2-1.3) mg/dL AST (14-36) U/L ALT (4-34) U/L Alkaline Phosphatase (38-126) U/L C-Reactive Protein (<1.0) mg/dL Total Protein (6.3-8.2) g/dL Albumin (3.5-5.0) g/dL Rheumatoid Factor 55 H (0-15) IU/mL 03/16/21 03/17/21 03/17/21 Range/Units 21:07 06:05 07:27 WBC 21.7 H (3.8-10.6) k/uL RBC 3.53 L (3.80-5.40) m/uL Hgb 10.3 L (11.4-16.0) gm/dL Hct 30.5 L (34.0-46.0) % Plt Count 101 L (150-450) k/uL Neutrophils # 20.7 H (1.3-7.7) k/uL Lymphocytes # 0.5 L (1.0-4.8) k/uL ESR (0-20) mm/hr Sodium (137-145) mmol/L Potassium (3.5-5.1) mmol/L Chloride (98-107) mmol/L BUN (7-17) mg/dL Glucose (74-99) mg/dL POC Glucose (mg/dL) 172 H 111 H (75-99) mg/dL Calcium (8.4-10.2) mg/dL Total Bilirubin (0.2-1.3) mg/dL AST (14-36) U/L ALT (4-34) U/L Alkaline Phosphatase (38-126) U/L C-Reactive Protein (<1.0) mg/dL Total Protein (6.3-8.2) g/dL Albumin (3.5-5.0) g/dL Rheumatoid Factor (0-15) IU/mL 03/17/21 03/17/21 Range/Units 07:27 12:02 WBC (3.8-10.6) k/uL RBC (3.80-5.40) m/uL Hgb (11.4-16.0) gm/dL Hct (34.0-46.0) % Plt Count (150-450) k/uL Neutrophils # (1.3-7.7) k/uL Lymphocytes # (1.0-4.8) k/uL ESR (0-20) mm/hr Sodium 130 L (137-145) mmol/L Potassium 3.3 L (3.5-5.1) mmol/L Chloride 96 L (98-107) mmol/L BUN 22 H (7-17) mg/dL Glucose 102 H (74-99) mg/dL POC Glucose (mg/dL) 107 H (75-99) mg/dL Calcium 7.6 L (8.4-10.2) mg/dL Total Bilirubin 2.2 H (0.2-1.3) mg/dL AST 40 H (14-36) U/L ALT 88 H (4-34) U/L Alkaline Phosphatase 241 H (38-126) U/L C-Reactive Protein 22.0 H (<1.0) mg/dL Total Protein 5.3 L (6.3-8.2) g/dL Albumin 2.1 L (3.5-5.0) g/dL Rheumatoid Factor (0-15) IU/mL Microbiology - Last 24 Hours (Table) 03/14/21 18:07 Stool Culture - Preliminary Stool 03/14/21 12:37 Blood Culture - Preliminary Blood No Growth after 48 hours 03/14/21 18:07 Gram Stain - Final Sputum Sputum Culture - Final Assessment and Plan Assessment: Acute hypoxemic respiratory failure, secondary to aspiration pneumonia. Acute urinary tract infection. History of type 2 diabetes mellitus. History of seizure disorder. History of skin cancer. Coronavirus testing negative 2. Plan: Plan dated 03/15/2021. The patient remains on Levaquin and cefepime. Vancomycin was discontinued. CAT scan of the chest consistent with upper lobe and mid lung zone pneumonia, was related to prior aspiration. The patient does feel clinically improved today. No additional recommendations are made. We will continue to follow. Prognosis is guarded. Plan dated 03/16/2021. The patient remains on good antibiotics. All her culture data thus far is negative. She appears to have at least a urinary tract infection and a episode of pneumonia. The pneumonia may relate to aspiration as she did have a syncopal episode. In addition, I will order an VASYL, sedimentation rate, rheumatoid factor, and C-reactive protein. Additional recommendations and suggestions are forthcoming. Gnosis is guarded. A tagged white blood cell study scheduled for Wednesday. Plan dated 03/17/2021. Infectious disease doctor has changed her antibiotics. The patient is feeling a bit better today. She's getting quite a bit of weight since she's been here. We give her another dose of Lasix. She may need some additional potassium replacement. All her culture data including blood and sputum, and urine sampling is negative. Stool cultures also appear to be negative. We will co ntinue to follow. Prognosis is guarded. Clinically she feels a bit better today. She is apparently scheduled for a tagged white blood cell study tomorrow. Time with Patient: Less than 30
[2021-03-17 16:55] LABS: Glucose,Whole Blood 162 mg/dL (75-99)
[2021-03-17 20:16] LABS: Glucose,Whole Blood 157 mg/dL (75-99)
[2021-03-17] MEDS: PANTOPRAZOLE 40 MG TABLET PO SCH (20:54)
[2021-03-17] MEDS: INSULIN DETEMIR (LEVEMIR) 100 UNIT/ML SYR SQ SCH (20:55)
--- NOTE | 2021-03-17 21:14 | PN ---
PROGRESS NOTE DATE OF SERVICE: 03/17/2021 REASON FOR FOLLOWUP: Fever. INTERVAL HISTORY: Patient is currently afebrile. No fever in the 40 24 hours. The patient is breathing slightly comfortably. Still has significant swelling to lower extremity. No chest pain though. Minimal cough. No nausea, no vomiting. No abdominal pain or diarrhea. PHYSICAL EXAMINATION: Blood pressure 130/61, pulse 100. Temperature 98.2. She is 96% on 2 L nasal canula. General description is a middle-aged female up in the bed in no distress. Respiratory system: Unlabored breathing, decreased intensity of breath sounds. No wheeze. Heart S1, S2. Regular rate and rhythm. Abdomen soft, no tenderness. Lower extremities with 2+ edema of feet. LABS: Hemoglobin is 10.1, white count 1.7, BUN of 22, creatinine 0.73, culture remains to be negative. DIAGNOSTIC IMPRESSION AND PLAN: Patient with a fever and elevated white count in this patient who did have extensive workup and no obvious focus. Waiting for the WBC scan, we will also check an echocardiogram as the patient mentioned today she did have about a week before the present symptoms started. Continue Rocephin and Flagyl and monitor clinical course closely. MMODL / IJN: [id number] /
--- NOTE | 2021-03-17 23:46 | P.PN ---
Subjective Progress Note Date: 03/17/21 Principal diagnosis: Acute hypoxic respiratory failure secondary to pneumonia Acute urinary tract infection This is a pleasant 50-year-old patient who follows with Dr. Aguiar. Chronic stable medical conditions include, diet controlled diabetes, seizure disorder, ALLERGIES for which she takes Benadryl when necessary. Patient is being tighter control her diabetes with diet for quite some time. During pandemic control and has not been easy for her. Just a few weeks ago she checked HbA1c and it came back as 9.3. Patient also got chronic lower lumbar pain. Wednesday evening patient is having a dull headache. Went to bed and was feeling freezing cold. And then became soaking wet. Again was sitting she started freezing. Took her temperature is 101.8. [place] weak. And for a short time passed out. She thinks her told her that maybe that was legs stiffening slight bubbles at the mouth. Not sure. Patient been having urinary frequency. Was found over infected appearing urine in the ER. Started IV ceftriaxone. 03/11/2021: I was called earlier today. Patient has spiked fever again. Had become hypoxic. Blood pressure is running of the lower side. IV fluids was increased. Patient was a bit more short of breath. Ordered two-view chest x- ray. IV ceftriaxone was discontinued. Change to IV cefepime 1 g every 12 and IV vancomycin. Order was placed to move to patient to telemetry floor. Patient is a more of a cough today. More short of breath. Tired 03/12/2021: Sitting up in a chair. A bit less tired. Slightly short of breath. Did eat some. Cough with green sputum. No fever since last night. On IV cefepime, IV vancomycin, Levaquin IV fluids. Subconjunctival hemorrhage. 03/13/2021: Sitting up in a recliner. Some decrease in shortness of breath. Using some thick sputum. Decreased appetite but eating some. On humidified oxygen. On 3 L. Spiking fever. Discussed with Dr. Siegel from ID. Serology for EBV and CMV has been sent off. LFTs are coming down. Discussed with the patient. Pulmonary consultation. 03/14/2021: Sitting up in a recliner. Spiking fevers. On IV cefepime and Levaquin. Vancomycin discontinued. Subconjunctival hemorrhage. LFTs are coming down. EBV IgG positive. IgM negative. Patient is having some bouts of coughing. She is producing sputum. Eating about 25-50%. Discussed with Dr. Siegel from ID. Vancomycin to be discontinued. Patient seen by pulmonary Dr. Bruno today. He added bronchodilators. 03/15/2021 Patient is being treated for pneumonia. Possible aspiration. COVID-19 PCR ne gative 2. Patient is currently sitting on the sofa. Complains of exertional short of breath and also increased bilateral lower swelling. On oxygen at 3 L via nasal cannula. Patient has been afebrile. Currently being continued on antibiotics in the form of Levaquin and cefepime. Laboratory data showed WBC 11.8 hemoglobin 11.4 and platelets 50. Sodium 132 potassium 2.6 and chloride 97. Bicarb is 28. Bicarb drip has been discontinued and replaced potassium. D-dimer is 9.7. CT chest done on 03/14/2021 showed correlate for pneumonia. Pericardial effusion measuring maximal thickness of 1 cm. Patient had 2-D echocardiogram showed ejection fraction 55-50%. The LAD is mildly dilated. There is small generalized pericardial effusion present. Total bilirubin 3.7 AST 55 ALT 203 alk phos 216 Patient was complaining of diarrhea. C. diff is negative. Stool lactoferrin positive. 03/16/2021 Patient is currently sitting in a chair. Patient states that her breathing status starts getting better today. IV fluids/bicarb drip has been discontinued today and patient was given a dose of IV Lasix today. No complaints of chest pain. Patient did have a bowel night. Able to tolerate oral diet. No headache or dizziness or lightheadedness. Otherwise patient had temp 100.2 and tachycardia this morning. Patient was ambulated with incentive spirometry. Continued on antibiotics involve cefepime and Levaquin. Cultures have been negative so far. Pulmonary and cardiology is on board. Laboratory data showed WBC 24.1 hemoglobin 11.5 and platelets 68 Sodium 133 potassium 3.1 chloride 96 BUN 19 and creatinine 0.88 AST 34 ALT 144 alk phos 268 and CRP 24.4 Rheumatoid factor 55. Normal range 0 -15 ID and pulmonary is on board. 03/17/2021 Patient is currently sitting in the chair. Shortness of breath is improving. Patient was started on oral diet. Did have a bowel movement. Patient has been afebrile overnight. Continued on antibiotics in the form of Levaquin and ceftriaxone. ID is on board. Laboratory data showed improvement in WBC to 21.7, hemoglobin 10.3 and platelets improved to 101 Sodium 130 potassium 3.3 chloride 96 BUN 2020 creatinine 0.73 AST 40 ALT 88 and alk phos 241 CRP 22.0 Currently antibiotics changed to ceftriaxone and Flagyl. Whole body WBC scan was ordered. Active Medications Generic Name Dose Route Start Last Admin Trade Name Freq PRN Reason Stop Dose Admin Albuterol/Ipratropium 3 ml 03/14/21 16:00 03/17/21 19:39 Ipratropium-Albuterol 3 Ml Neb INHALATION 3 ml RT-QID YAJAIRA Administration Albuterol/Ipratropium 3 ml 03/14/21 12:27 Ipratropium-Albuterol 3 Ml Neb INHALATION RT-Q2H PRN Shortness Of Breath Or Wheezing Calcium Carbonate/Glycine 500 mg 03/12/21 12:30 03/17/21 20:55 Calcium Carbonate Liquid 500 Mg/5 Ml Cup PO 500 mg ACHS YAJAIRA Administration Diphenhydramine HCl 50 mg 03/10/21 09:59 03/14/21 22:45 Diphenhydramine 25 Mg Cap PO 50 mg DAILY PRN Administration Severe Allergy Symptoms Diphenhydramine HCl 25 mg 03/12/21 17:23 03/16/21 23:30 Diphenhydramine 25 Mg Cap PO 25 mg QID PRN Administration Allergy Symptoms Ceftriaxone Sodium 2 gm/ 50 mls @ 100 mls/hr 03/17/21 09:00 03/17/21 09:10 Sodium Chloride IVPB 100 mls/hr Q24HR YAJAIRA Administration Ibuprofen 200 mg 03/14/21 12:06 03/16/21 08:14 Ibuprofen 200 Mg Tab PO 200 mg Q4HR PRN Administration Pain Insulin Aspart 0 unit 03/10/21 12:30 03/17/21 21:00 Insulin Aspart (Novolog) 100 Unit/Ml Vial SQ Not Given [facility] Protocol Insulin Detemir 10 unit 03/14/21 21:00 03/17/21 20:55 Insulin Detemir (Levemir) 100 Unit/Ml Syr SQ 10 unit HS YAJAIRA Administration Metronidazole 500 mg 03/16/21 22:45 03/17/21 21:01 Metronidazole 500 Mg Tab PO 500 mg TID YAJAIRA Administration Miscellaneous Information 1 each 03/11/21 05:20 Potassium Replacement Protocol 1 Each [facility] [place] DAILY PRN Per Protocol Protocol Miscellaneous Information 1 each 03/15/21 10:50 Potassium Replacement Protocol 1 Each [facility] [place] MISCELLANE DAILY PRN Per Protocol Protocol Miscellaneous Information 1 each 03/16/21 09:52 Potassium Replacement Protocol 1 Each [facility] [place] MISCELLANE DAILY PRN Per Protocol Protocol Miscellaneous Information 1 each 03/17/21 11:20 Potassium Replacement Protocol 1 Each [facility] [place] MISCELLANE DAILY PRN Per Protocol Protocol Naloxone HCl 0.2 mg 03/09/21 22:24 Naloxone 0.4 Mg/Ml 1 Ml Vial IV Q2M PRN Opioid Reversal [place] Er 200 Mg 1 each 03/10/21 12:00 03/17/21 20:53 PO 1 each BID YAJAIRA Administration Pantoprazole Sodium 40 mg 03/17/21 21:00 03/17/21 20:54 Pantoprazole 40 Mg Tablet PO 40 mg BID YAJAIRA Administration Potassium Chloride 20 meq 03/18/21 09:00 Potassium Chloride Er 20 Meq Tab.Er PO 03/19/21 09:01 BID YAJAIRA Sodium Chloride 1 applic 03/13/21 18:41 Saline Nasal Gel 14.1 Gm Tube NASAL Q4HR PRN Dry Nasal Passages Objective - Vital Signs Vital signs: Vital Signs Temp 98.2 F 03/17/21 16:00 Pulse 104 H 03/17/21 19:51 Resp 16 03/17/21 16:00 BP 130/61 03/17/21 16:00 Pulse Ox 96 03/17/21 16:00 Intake & Output 03/17/21 03/17/21 03/18/21 06:59 18:59 06:59 Intake Total 1220 500 Output Total 600 2300 Balance 620 -1800 Weight 96.1 kg Intake: IV 120 20 Cefepime 2 gm In Sodium 100 Chloride 0.9% 100 ml @ 25 mls/hr IVPB Q8H YAJAIRA Rx#: [id number] Invasive Line 3 20 20 Oral 1100 480 Output: Urine 600 2300 Other: Voiding Method Toilet # Voids 2 1 - Exam PHYSICAL EXAMINATION: Patient is lying in the bed comfortably, no acute distress, awake alert and oriented.. HEENT: Normocephalic. Neck is supple. Pupils reactive. Conjunctival injection. Nostrils clear. Oral cavity is moist. Neck reveals no JVD, carotid bruits, or thyromegaly. CHEST EXAMINATION: Trachea is central. Symmetrical expansion. Bibasilar diminished sounds, minimal crackles, no wheezing. Nonlabored breathing.. CARDIAC: Normal S1, S2 with no gallops. No murmurs ABDOMEN: Soft. Bowel sounds normal. No organomegaly. No abdominal bruits. Extremities: 2+ pedal. No clubbing or cyanosis Neurologically awake, alert, oriented x3 with well-coordinated movements. No focal deficits noted Skin: No rash or skin lesions. Psychiatric: Coperative. Nonsuicidal Musculoskeletal: No joint swelling or deformity. Normal range of motion. - Labs CBC & Chem 7: 03/17/21 07:27 03/17/21 16:25 Labs: Abnormal Lab Results - Last 24 Hours (Table) 03/17/21 03/17/21 03/17/21 Range/Units 06:05 07:27 07:27 WBC 21.7 H (3.8-10.6) k/uL RBC 3.53 L (3.80-5.40) m/uL Hgb 10.3 L (11.4-16.0) gm/dL Hct 30.5 L (34.0-46.0) % Plt Count 101 L (150-450) k/uL Neutrophils # 20.7 H (1.3-7.7) k/uL Lymphocytes # 0.5 L (1.0-4.8) k/uL Sodium 130 L (137-145) mmol/L Potassium 3.3 L (3.5-5.1) mmol/L Chloride 96 L (98-107) mmol/L BUN 22 H (7-17) mg/dL Glucose 102 H (74-99) mg/dL POC Glucose (mg/dL) 111 H (75-99) mg/dL Calcium 7.6 L (8.4-10.2) mg/dL Total Bilirubin 2.2 H (0.2-1.3) mg/dL AST 40 H (14-36) U/L ALT 88 H (4-34) U/L Alkaline Phosphatase 241 H (38-126) U/L C-Reactive Protein 22.0 H (<1.0) mg/dL Total Protein 5.3 L (6.3-8.2) g/dL Albumin 2.1 L (3.5-5.0) g/dL 03/17/21 03/17/21 03/17/21 Range/Units 12:02 16:25 16:38 WBC (3.8-10.6) k/uL RBC (3.80-5.40) m/uL Hgb (11.4-16.0) gm/dL Hct (34.0-46.0) % Plt Count (150-450) k/uL Neutrophils # (1.3-7.7) k/uL Lymphocytes # (1.0-4.8) k/uL Sodium (137-145) mmol/L Potassium 3.0 L (3.5-5.1) mmol/L Chloride (98-107) mmol/L BUN (7-17) mg/dL Glucose (74-99) mg/dL POC Glucose (mg/dL) 107 H 162 H (75-99) mg/dL Calcium (8.4-10.2) mg/dL Total Bilirubin (0.2-1.3) mg/dL AST (14-36) U/L ALT (4-34) U/L Alkaline Phosphatase (38-126) U/L C-Reactive Protein (<1.0) mg/dL Total Protein (6.3-8.2) g/dL Albumin (3.5-5.0) g/dL 03/17/21 Range/Units 20:15 WBC (3.8-10.6) k/uL RBC (3.80-5.40) m/uL Hgb (11.4-16.0) gm/dL Hct (34.0-46.0) % Plt Count (150-450) k/uL Neutrophils # (1.3-7.7) k/uL Lymphocytes # (1.0-4.8) k/uL Sodium (137-145) mmol/L Potassium (3.5-5.1) mmol/L Chloride (98-107) mmol/L BUN (7-17) mg/dL Glucose (74-99) mg/dL POC Glucose (mg/dL) 157 H (75-99) mg/dL Calcium (8.4-10.2) mg/dL Total Bilirubin (0.2-1.3) mg/dL AST (14-36) U/L ALT (4-34) U/L Alkaline Phosphatase (38-126) U/L C-Reactive Protein (<1.0) mg/dL Total Protein (6.3-8.2) g/dL Albumin (3.5-5.0) g/dL Microbiology - Last 24 Hours (Table) 03/14/21 12:37 Blood Culture - Preliminary Blood No Growth after 72 hours 03/14/21 18:07 Stool Culture - Preliminary Stool Assessment and Plan Assessment: -Acute bilateral basal pneumonia, possible aspiration. causing sepsis and acute hypoxic respiratory failure Procalcitoni level was 2.87 on admission. COVID-19 PCR 2 negative. IV cefepime 2 g every 8 and Levaquin. IV vancomycin, [discontinued]. Urine Legionella antigen: Negative EBV IgG positive. IgM negative Antibiotics changed to ceftriaxone and Flagyl. Whole WBC scan was ordered. ID is on board. -Acute hypoxic respiratory failure from pneumonia: Slow to respond Supplemental oxygen, FiO2 decreased to 3 L -Severe sepsis from pneumonia. -Acute urinary tract infection. Urine culture showed normal denise. Lactic acid level improved with IV hydration. -Acute metabolic acidosis from sepsis: Improved. Bicarb 28. Sodium bicarbonate has been discontinued. -Syncope likely vasovagal from underlying sepsis, on presentation. -Acute ischemic hepatitis. From low blood pressure. Sepsis: Some improvement Acute hepatitis panel was negative. IV fluids. DC Tylenol. Repeat CMP. -Diabetes mellitus type 2, uncontrolled with hyperglycemia Patient does not want to take oral hypoglycemic at this point and was to follow- up with her PCP Dr. Aguiar. Follow Accu-Cheks and sliding scale insulin. Dietitian consult. Diabetic diet. Started on Levemir 10 units at night A1c level 9.3 on 02/19/2021 -Epilepsy disorder : last episode being 2003 Continue Tegretol -Chronic lumbar arthritis Tylenol when necessary -Acute thrombocytopenia Likely from sepsis. HIT unlikely given the low antibodies. Hematology is following. Plan: Continue IV Ceftriaxone and Flagyl.. Continue on Levemir 10 units at night. Insulin sliding scale. Care was discussed length with the patient. Continue with antibiotic treatment. Encourage oral intake and incentive spirometry. IV fluids on hold. Replace potassium. Continue to follow closely. ID, pulmonary and hematology is on board. Time with Patient: Greater than 30
[2021-03-18 06:06] LABS: Glucose,Whole Blood 113 mg/dL (75-99)
[2021-03-18] MEDS: INSULIN ASPART (NovoLOG) 100 UNIT/ML VIAL SQ SCH ×4 (06:07→20:21)
[2021-03-18] MEDS: CALCIUM CARBONATE LIQUID 500 MG/5 ML CUP PO SCH ×4 (06:18→20:21)
[2021-03-18 06:50] LABS: African American GFR (CKD) >90 (>60 ml/min/1.73 sqM); Anion Gap 4 mmol/L; Blood Urea Nitrogen 18 mg/dL (7-17); Calcium 7.2 mg/dL (8.4-10.2); Carbon Dioxide 31 mmol/L (22-30); Chloride 94 mmol/L (98-107); Glucose 118 mg/dL (74-99); Non-African American GFR(CKD) >90 (>60 ml/min/1.73 sqM); Potassium 3.1 mmol/L (3.5-5.1); Sodium 129 mmol/L (137-145)
[2021-03-18] MEDS: IPRATROPIUM-ALBUTEROL 3 ML NEB INHALATION SCH ×4 (07:37→20:21)
[2021-03-18] MEDS: PANTOPRAZOLE 40 MG TABLET PO SCH ×3 (08:06→20:22)
[2021-03-18] MEDS: POTASSIUM CHLORIDE ER 20 MEQ TAB.ER PO SCH ×5 (08:06→20:22)
[2021-03-18] MEDS: metroNIDAZOLE 500 MG TAB PO SCH ×3 (08:06→20:22)
[2021-03-18] MEDS: CARBATROL 200 MG PO SCH ×2 (08:07→20:22)
[2021-03-18 08:53] LABS: Protein, Total 6.1 g/dL (6.2-8.2)
[2021-03-18 09:15] LABS: Albumin 3.19 g/dL (3.80-4.90); Gamma Globulin 0.81 g/dL (0.70-1.50)
[2021-03-18 11:30] LABS: Glucose,Whole Blood 111 mg/dL (75-99)
--- NOTE | 2021-03-18 16:30 | XR ---
EXAMINATION TYPE: XR chest 2V DATE OF EXAM: 03/18/2021 COMPARISON: Chest CT 4 days ago and older studies. HISTORY: Pneumonia progress study. TECHNIQUE: Frontal and lateral views of the chest are obtained. FINDINGS: There is persistent small left pleural effusion and associated left basilar atelectasis an d/or infiltrate. Persistent right basilar acute infiltrate and atelectasis with tiny right pleural e ffusion. Persistent background low lung volumes. The cardiac silhouette size is stable and within nor mal limits. Bilateral multifocal groundglass opacities on CT in the upper to mid lungs are less well seen on plain films. The osseous structures are intact. Cholecystectomy clips redemonstrated. IMPRESSION: As above. No significant change from most recent x-ray. Low lung volumes with small tiny left greater than right pleural effusions. Persistent bibasilar acute infiltrate and/or atelectasis.
--- NOTE | 2021-03-18 17:02 | P.PN ---
Subjective Progress Note Date: 03/18/21 Principal diagnosis: Fever, pneumonia On 03/18/2021 patient seen in follow-up on selective care unit, she is awake and alert, sitting up in the chair, denies any acute distress, currently on 2 L of oxygen pulse ox is 93%, she still has a loose cough, at times she is bringing up some blood-tinged sputum. All cultures have been reviewed including urine, blood, and sputum cultures, and remain negative thus far. Current antibiotics include Rocephin and Flagyl. I'll chest x-ray has been obtained and reviewed showing low lung volumes with small tiny left greater than right pleural effusions. There is persistent basilar infiltrates and/or atelectasis. Today's labs have been reviewed, serum sodium is 129, potassium 3.1, chloride is 94, CO2 31, BUN is 18, creatinine 0.62. Patient received a dose of IV Lasix yesterday. -1.8 L over the last 24 hours. Objective - Vital Signs Vital signs: Vital Signs Temp 98.6 F 03/18/21 15:42 Pulse 105 H 03/18/21 15:55 Resp 16 03/18/21 15:42 BP 131/67 03/18/21 15:42 Pulse Ox 95 03/18/21 15:47 Intake & Output 03/17/21 03/18/21 03/18/21 18:59 06:59 18:59 Intake Total 500 240 Output Total 2300 Balance -1800 240 Weight 94.1 kg Intake: IV 20 Invasive Line 3 20 Oral 480 240 Output: Urine 2300 Other: Voiding Method Toilet Toilet Toilet # Voids 1 2 - Exam GENERAL EXAM: Alert, very pleasant, 50-year-old white female, currently on 2 L of oxygen pulse ox is 93%, sitting up in the chair, occasionally bringing up some blood-tinged sputum, comfortable in no apparent distress. HEAD: Normocephalic/atraumatic. EYES: Normal reaction of pupils, equal size. Conjunctiva pink, sclera white. NOSE: Clear with pink turbinates. THROAT: No erythema or exudates. NECK: No masses, no JVD, no thyroid enlargement, no adenopathy. CHEST: No chest wall deformity. Symmetrical expansion. LUNGS: Equal air entry with diminished breath sounds at the bases, with some mild crackles CVS: Regular rate and rhythm, normal S1 and S2, no gallops, no murmurs, no rubs ABDOMEN: Soft, nontender. No hepatosplenomegaly, normal bowel sounds, no guarding or rigidity. EXTREMITIES: No clubbing, no edema, no cyanosis, 2+ pulses and upper and lower extremities. MUSCULOSKELETAL: Muscle strength and tone normal. SPINE: No scoliosis or deformity SKIN: No rashes CENTRAL NERVOUS SYSTEM: Alert and oriented -3. No focal deficits, tone is normal in all 4 extremities. PSYCHIATRIC: Alert and oriented -3. Appropriate affect. Intact judgment and insight. - Labs CBC & Chem 7: 03/17/21 07:27 03/18/21 06:17 Labs: Abnormal Lab Results - Last 24 Hours (Table) 03/12/21 03/17/21 03/18/21 Range/Units 04:11 20:15 06:04 Sodium (137-145) mmol/L Potassium (3.5-5.1) mmol/L Chloride (98-107) mmol/L Carbon Dioxide (22-30) mmol/L BUN (7-17) mg/dL Glucose (74-99) mg/dL POC Glucose (mg/dL) 157 H 113 H (75-99) mg/dL Calcium (8.4-10.2) mg/dL Total Protein (PEP) 6.1 L (6.2-8.2) g/dL Albumin (PEP) 3.19 L (3.80-4.90) g/dL [id number] 0.63 H (0.10-0.40) g/dL 03/18/21 03/18/21 Range/Units 06:17 11:26 Sodium 129 L (137-145) mmol/L Potassium 3.1 L (3.5-5.1) mmol/L Chloride 94 L (98-107) mmol/L Carbon Dioxide 31 H (22-30) mmol/L BUN 18 H (7-17) mg/dL Glucose 118 H (74-99) mg/dL POC Glucose (mg/dL) 111 H (75-99) mg/dL Calcium 7.2 L (8.4-10.2) mg/dL Total Protein (PEP) (6.2-8.2) g/dL Albumin (PEP) (3.80-4.90) g/dL [id number] (0.10-0.40) g/dL Microbiology - Last 24 Hours (Table) 03/14/21 12:37 Blood Culture - Preliminary Blood No Growth after 96 hours 03/17/21 07:27 Blood Culture - Preliminary Blood No Growth after 24 hours 03/14/21 18:07 Stool Culture - Final Stool Assessment and Plan Plan: Assessment: #1. Acute hypoxic respiratory failure related to possibility of aspiration pneumonia, or aspiration-related pneumonitis. CT of the abdomen and pelvis showed basilar small pleural effusions as well as atelectasis and/or infiltrates. CT chest revealed groundglass infiltrates in the upper and midlung zones and small bilateral pleural effusions, patient is on combination cefepime, Levaquin, and vancomycin. Legionella urine antigen was negative. COVID-19 PCR was negative. Current antibiotic coverage includes Flagyl and Rocephin #2. Acute urinary tract infection, urine culture is negative #3. Diarrhea, ruled out C. diff #4. Hypokalemia #5. Transaminitis, improving. Hepatitis panel was negative #6. Diabetes mellitus type 2 #7. Seizure disorder #8. Hx has skin cancer with surgical resection #9. Hyponatremia, slightly worsened with diuretics Plan: Continue current antibiotics, patient is on correlation of Rocephin and Flagyl Today's chest x-ray has been reviewed Labs have been reviewed, is persistent leukocytosis, ID service following Increase activity as tolerated Cultures are reviewed Continue to follow I performed a history & physical examination of the patient and discussed their management with my nurse practitioner, Feli Llanes. I reviewed the nurse practitioner's note and agree with the documented findings and plan of care. Lung sounds are positive for diminished breath sounds throughout the lung huston. The findings and the impression was discussed with the patient. I attest to the documentation by the nurse practitioner. Time with Patient: Less than 30
[2021-03-18 17:08] LABS: Free Kappa Lt Chain Qnt, Serum 2.05 mg/dL (0.33-1.94)
[2021-03-18 17:47] LABS: Glucose,Whole Blood 187 mg/dL (75-99)
[2021-03-18] MEDS ORDERED: POTASSIUM CHLORIDE ER 20 MEQ TAB.ER PO STA (17:50)
--- NOTE | 2021-03-18 18:01 | P.PN ---
Progress Note - Text Progress Note Date: 03/18/21 Chief Complaint: Hypoxemia History of presenting complaint: This is a pleasant 50-year-old patient who follows with Dr. Aguiar. Chronic stable medical conditions include, diet controlled diabetes, seizure disorder, ALLERGIES for which she takes Benadryl when necessary. Patient is being tighter control her diabetes with diet for quite some time. During pandemic control and has not been easy for her. Just a few weeks ago she checked HbA1c and it came back as 9.3. Patient also got chronic lower lumbar pain. Wednesday evening patient is having a dull headache. Went to bed and was feeling freezing cold. And then became soaking wet. Again was sitting she started freezing. Took her temperature is 101.8. [place] weak. And for a short time passed out. She thinks her told her that maybe that was legs stiffening slight bubbles at the mouth. Not sure. Patient been having urinary frequency. Was found over infected appearing urine in the ER. Started IV ceftriaxone. Patient is not keen to start on oral hypoglycemic because of side effects she's had before with Januvia and metformin. This morning she did vomit once. Has been drinking quite a bit of water. 03/11/2021 [critical care note]: I was called earlier today. Patient has spiked fever again. Had become hypoxic. Blood pressure is running of the lower side. IV fluids was increased. Patient was a bit more short of breath. Ordered two- view chest x-ray. IV ceftriaxone was discontinued. Change to IV cefepime 1 g every 12 and IV vancomycin. Order was placed to move to patient to telemetry floor. Patient is a more of a cough today. More short of breath. Tired 03/12/2021: Sitting up in a chair. A bit less tired. Slightly short of breath. Did eat some. Cough with green sputum. No fever since last night. On IV cefepime, IV vancomycin, Levaquin IV fluids. Subconjunctival hemorrhage. 03/13/2021: Sitting up in a recliner. Some decrease in shortness of breath. Using some thick sputum. Decreased appetite but eating some. On humidified oxygen. On 3 L. Spiking fever. Discussed with Dr. Siegel from ID. Serology for EBV and CMV has been sent off. LFTs are coming down. Discussed with the patient. Pulmonary consultation. 03/14/2021: Sitting up in a recliner. Spiking fevers. On IV cefepime and Levaquin. Vancomycin discontinued. Subconjunctival hemorrhage. LFTs are coming down. EBV IgG positive. IgM negative. Patient is having some bouts of coughing. She is producing sputum. Eating about 25-50%. Discussed with Dr. Siegle from [place]. Vancomycin to be discontinued. Patient seen by pulmonary Dr. Bruno today. He added bronchodilators. 03/18/2021: Patient had no fever last 48 hours. 2-D echocardiogram has been unremarkable. Cultures have been negative. Oral intake improving. Has been getting food from home. Does not like hospital food. Getting a bone scan. Overall feeling better. On IV ceftriaxone and Flagyl Review of systems: Was done for constitutional, cardiovascular, GI, pulmonary. relevant finding as above Active Medications Albuterol/Ipratropium (Ipratropium-Albuterol 3 Ml Neb) 3 ml INHALATION RT-QID [facility] Last Admin: 03/18/21 15:42 Dose: 3 ml Documented by: Albuterol/Ipratropium (Ipratropium-Albuterol 3 Ml Neb) 3 ml INHALATION RT-Q2H PRN PRN Reason: Shortness Of Breath Or Wheezing Calcium Carbonate/Glycine (Calcium Carbonate Liquid 500 Mg/5 Ml Cup) 500 mg PO [facility] Last Admin: 03/18/21 11:32 Dose: Not Given Documented by: Diphenhydramine HCl (Diphenhydramine 25 Mg Cap) 50 mg PO DAILY PRN PRN Reason: Severe Allergy Symptoms Last Admin: 03/14/21 22:45 Dose: 50 mg Documented by: Diphenhydramine HCl (Diphenhydramine 25 Mg Cap) 25 mg PO QID PRN PRN Reason: Allergy Symptoms Last Admin: 03/16/21 23:30 Dose: 25 mg Documented by: Ceftriaxone Sodium 2 gm/ (Sodium Chloride) 50 mls @ 100 mls/hr IVPB Q24HR [facility] Last Admin: 03/18/21 09:17 Dose: 100 mls/hr Documented by: Ibuprofen (Ibuprofen 200 Mg Tab) 200 mg PO Q4HR PRN PRN Reason: Pain Last Admin: 03/16/21 08:14 Dose: 200 mg Documented by: Insulin Aspart (Insulin Aspart (Novolog) 100 Unit/Ml Vial) 0 unit SQ [facility]; Protocol Last Admin: 03/18/21 11:32 Dose: Not Given Documented by: Insulin Detemir (Insulin Detemir (Levemir) 100 Unit/Ml Syr) 10 unit SQ HS [facility] Last Admin: 03/17/21 20:55 Dose: 10 unit Documented by: Metronidazole (Metronidazole 500 Mg Tab) 500 mg PO TID [facility] Last Admin: 03/18/21 08:06 Dose: 500 mg Documented by: Miscellaneous Information (Potassium Replacement Protocol 1 Each Misc) 1 each MISCELLANE DAILY PRN; Protocol PRN Reason: Per Protocol Miscellaneous Information (Potassium Replacement Protocol 1 Each Misc) 1 each MISCELLANE DAILY PRN; Protocol PRN Reason: Per Protocol Miscellaneous Information (Potassium Replacement Protocol 1 Each Misc) 1 each MISCELLANE DAILY PRN; Protocol PRN Reason: Per Protocol Miscellaneous Information (Potassium Replacement Protocol 1 Each Misc) 1 each MISCELLANE DAILY PRN; Protocol PRN Reason: Per Protocol Naloxone HCl (Naloxone 0.4 Mg/Ml 1 Ml Vial) 0.2 mg IV Q2M PRN PRN Reason: Opioid Reversal Carbatrol Er 200 Mg 1 each PO BID [facility] Last Admin: 03/18/21 08:07 Dose: 1 each Documented by: Pantoprazole Sodium (Pantoprazole 40 Mg Tablet) 40 mg PO BID [facility] Last Admin: 03/18/21 08:06 Dose: 40 mg Documented by: Potassium Chloride (Potassium Chloride Er 20 Meq Tab.Er) 20 meq PO BID [facility] Stop: 03/19/21 09:01 Last Admin: 03/18/21 10:04 Dose: 20 meq Documented by: Sodium Chloride (Saline Nasal Gel 14.1 Gm Tube) 1 applic NASAL Q4HR PRN PRN Reason: Dry Nasal Passages Past medical history to include: controlled diabetes, seizure disorder, lower lumbar pain, last seizure in 2003 skin cancer. Social history: . No smoking or alcohol. Family history: Father of 75 with heart problems. Cancer. Physical examination: VITAL SIGNS: 98.6, 99, 16, 130/67, 95% on 2 L GENERAL: Sitting up in a recliner tired, improved breathing, nasal cannula EYES: Pupils equal. Bilateral Subconjunctival hemorrhage: Improved HEENT: External appearance of nose and ears normal, oral cavity grossly normal. NECK: JVD not raised; masses not palpable. HEART: First and second heart sounds are normal; no edema. LUNGS: Respiratory rate increased; decreased basal crackles. ABDOMEN: Soft, nontender, liver spleen not palpable, no masses palpable. PSYCH: Alert and oriented x3; mood and affect tired INVESTIGATIONS, reviewed in the clinical context: March 18: Sodium 129 potassium 3.1 creatinine 0.62. Total bilirubin 2.2 AST 40 ALT 88 alkaline phosphatase 241 CRP 22 2-D echocardiogram: Unremarkable EF 50-55% CT chest [March 14]: Groundglass infiltrates upper and midlung zones. March 14: WBC 10.2 hemoglobin 12.3 platelets 47 potassium 2.7. Total bilirubin 6.2 AST 181 ALT 382 EBV IgG positive, IgM negative Heparin induced platelet antibody: 0.15 to March 13: WBC 6.7 hemoglobin 11.4 platelets 33 potassium 3 creatinine 0.68. Total bilirubin 7 AST 672 ALT 615. Pro-calcitonin 2.87 Urine Legionella antigen: Negative March 12: WBC 5.4 hemoglobin 11.3 platelets 34 sodium 133 potassium 3.3 creatinine 0.85 AST 07/19/2006 ALT 917 Acetaminophen less than 10 March 11: WBC 4.7 hemoglobin 11.1 platelets 63 potassium 3.4 creatinine 1.02 bicarb 17 lactic acid 4.4 AST 1381 ALT 563 Hepatitis acute screen including hepatitis A, hepatitis B, hepatitis C all neg ative Chest x-ray film personally reviewed by me-[March 11] bibasal infiltrates WBC 10.3 hemoglobin 12.3 platelets 151 potassium 3.2 creatinine 0.65 AST 141 ALT 85 UA positive for leukoesterase, WBC, bacteria Coronavirus [PCR] not detected Lactic acid 0.9 EKG tracing personally reviewed by me-sinus rhythm, 111 rate Chest x-ray film personally reviewed by me-possible atelectasis Assessment and plan: -Acute bilateral basal pneumonia, causing sepsis and acute hypoxic respiratory failure: [Could be a viral pneumonia] patient's had no fever for last 48 hours. Feeling better IV cefepime/Levaquin/IV vancomycin : All discontinued. Urine Legionella antigen: Negative nasal MRSA: Negative. EBV IgG positive. IgM negative. 2-D echo negative. Getting a WBC bone scan. Currently on ceftriaxone and Flagyl -Acute hypoxic respiratory failure from pneumonia: Supplemental oxygen, FiO2 decreased to 2 L -Severe sepsis from pneumonia,, clinically better Follow lactic acid and IV fluids -Acute metabolic acidosis from sepsis: Improved Sodium bicarbonate drip and D5 0.45. Discontinued -Syncope likely vasovagal from underlying sepsis, on presentation -Acute ischemic hepatitis. From low blood pressure. Sepsis: Improving Acute hepatitis panel was negative. IV fluids. DC Tylenol. Repeat CMP. -Diabetes mellitus type 2, uncontrolled with hyperglycemia Patient does not want to take oral hypoglycemic at this point and was to follow- up with her PCP Dr. Aguiar. Follow Accu-Cheks and sliding scale insulin. Dietitian consult. Diabetic diet. Start Levemir 10 units at night -Epilepsy disorder : last episode being 2003 Continue Tegretol -Chronic lumbar arthritis Tylenol when necessary -Hypokalemia, from beta agonist Replace potassium. Decrease nebulizers 3 times a day -Acute thrombocytopenia, likely from sepsis. Improving slowly Likely from sepsis. HIT unlikely given the low antibodies. Follow with hematology Patient condition IV ceftriaxone, Flagyl. Getting a WBC scan. Patient clinically looking better. No fever. Oral intake improving. On empirical antibiotic.
--- NOTE | 2021-03-18 19:45 | PN ---
PROGRESS NOTE DATE OF SERVICE: 03/18/2021 REASON FOR FOLLOWUP: Fever. INTERVAL HISTORY: The patient is currently afebrile. The patient is breathing slightly comfortably. The patient denies having any chest pain. Cough has decreased in intensity. No nausea, no vomiting. No abdominal pain or diarrhea. PHYSICAL EXAMINATION: Her blood pressure is 131/67 with a pulse of 99, temperature 98.6. She is 95% on 2 L nasal cannula. GENERAL DESCRIPTION: General description is a middle-aged female up in the bed in no distress. RESPIRATORY SYSTEM: Unlabored breathing. Decreased breath sounds at the bases. No wheeze. HEART: S1, S2. Regular rate and rhythm. ABDOMEN: Soft. No tenderness. EXTREMITIES: Two plus edema of the feet. LABS: No new labs have been obtained today. WBC scan is currently pending. Echo is pending. DIAGNOSTIC IMPRESSION AND PLAN: Patient with a fever in this patient who did have extensive workup without obvious focus. We are waiting for the WBC scan and echocardiogram. Continue with Rocephin and Flagyl. Repeat CBC and inflammatory markers tomorrow. Continue supportive care. MMODL / IJN: [id number] /
[2021-03-18 19:57] LABS: Glucose,Whole Blood 221 mg/dL (75-99)
[2021-03-18] MEDS ORDERED: IPRATROPIUM-ALBUTEROL 3 ML NEB INHALATION SCH (20:00)
[2021-03-18] MEDS: IBUPROFEN 200 MG TAB PO PRN (20:21)
[2021-03-18] MEDS: INSULIN DETEMIR (LEVEMIR) 100 UNIT/ML SYR SQ SCH (20:22)
[2021-03-18] MEDS: diphenhydrAMINE 25 MG CAP PO PRN (22:13)
--- NOTE | 2021-03-18 22:13 | NM ---
EXAMINATION TYPE: NM WBC whole body DATE OF EXAM: 03/18/2021 COMPARISON: NONE HISTORY: Fever of unknown origin TECHNIQUE: Following administration of 14.8 mCi Tc99m Ceretec. Images obtained 4 hours post injecti on. FINDINGS: There is uptake in liver and spleen which appear enlarged. The CT scan of the abdomen pelvis of 2020 shows 27 cm long liver and also splenomegaly which measures 15.5 cm. There is slight increased uptake in the posterior right lower lobe. The tracer distribution in the ab domen is fairly normal. Uptake in the skeleton is within normal limits. IMPRESSION: There is evidence of hepatosplenomegaly. There is increased uptake at the right posterior lung base c onsistent with pyogenic pneumonia.
[2021-03-19 06:19] LABS: Glucose,Whole Blood 92 mg/dL (75-99)
[2021-03-19] MEDS: INSULIN ASPART (NovoLOG) 100 UNIT/ML VIAL SQ SCH ×4 (06:21→21:28)
[2021-03-19] MEDS: IPRATROPIUM-ALBUTEROL 3 ML NEB INHALATION SCH ×3 (07:38→19:15)
[2021-03-19] MEDS: PANTOPRAZOLE 40 MG TABLET PO SCH ×2 (11:01→21:27)
[2021-03-19] MEDS: POTASSIUM CHLORIDE ER 20 MEQ TAB.ER PO SCH (11:01)
[2021-03-19] MEDS: metroNIDAZOLE 500 MG TAB PO SCH ×3 (11:01→21:27)
[2021-03-19] MEDS: CARBATROL 200 MG PO SCH ×2 (11:01→21:51)
[2021-03-19] MEDS: CALCIUM CARBONATE LIQUID 500 MG/5 ML CUP PO SCH ×4 (11:02→21:27)
--- NOTE | 2021-03-19 11:07 | P.PN ---
Subjective Progress Note Date: 03/19/21 Principal diagnosis: Fever, pneumonia On 03/18/2021 patient seen in follow-up on selective care unit, she is awake and alert, sitting up in the chair, denies any acute distress, currently on 2 L of oxygen pulse ox is 93%, she still has a loose cough, at times she is bringing up some blood-tinged sputum. All cultures have been reviewed including urine, blood, and sputum cultures, and remain negative thus far. Current antibiotics include Rocephin and Flagyl. I'll chest x-ray has been obtained and reviewed showing low lung volumes with small tiny left greater than right pleural effusions. There is persistent basilar infiltrates and/or atelectasis. Today's labs have been reviewed, serum sodium is 129, potassium 3.1, chloride is 94, CO2 31, BUN is 18, creatinine 0.62. Patient received a dose of IV Lasix yesterday. -1.8 L over the last 24 hours. On today's evaluation on 03/19/2021 patient seen in follow-up on selective care unit, she is awake and alert, oriented 3, she did have a low-grade fever last night with a temp of 100.5F, lung sounds are positive for coarse rhonchi in the right lower lobe posteriorly, and patient still at times coughs up blood tinged sputum. She was able to get up in the shower today, tolerated activity fairly well, she sits up in a chair most of the day. Tolerates activity well, no chest discomfort, she continues on a combination of Rocephin and Flagyl, ID service is following, she underwent an, showing uptake in the liver and spleen that appear enlarged. There was also increased uptake in the right posterior lung base c onsistent with pneumonia. Today's blood work is still pending for today. No nausea vomiting or diarrhea. All blood cultures sputum cultures and urine cultures have been negative thus far. Objective - Vital Signs Vital signs: Vital Signs Temp 98.1 F 03/19/21 03:20 Pulse 97 03/19/21 07:50 Resp 18 03/19/21 03:20 BP 134/60 03/19/21 03:20 Pulse Ox 98 03/19/21 07:38 Intake & Output 03/18/21 03/19/21 03/19/21 18:59 06:59 18:59 Intake Total 480 240 Balance 480 240 Weight 94.6 kg Intake: Oral 480 240 Other: Voiding Method Toilet Toilet # Voids 2 1 - Exam GENERAL EXAM: Alert, very pleasant, 50-year-old white female, currently on 2 L of oxygen pulse ox is 93%, sitting up in the chair, occasionally bringing up some blood-tinged sputum, comfortable in no apparent distress. HEAD: Normocephalic/atraumatic. EYES: Normal reaction of pupils, equal size. Conjunctiva pink, sclera white. NOSE: Clear with pink turbinates. THROAT: No erythema or exudates. NECK: No masses, no JVD, no thyroid enlargement, no adenopathy. CHEST: No chest wall deformity. Symmetrical expansion. LUNGS: Equal air entry with diminished breath sounds at the bases, with some mild crackles CVS: Regular rate and rhythm, normal S1 and S2, no gallops, no murmurs, no rubs ABDOMEN: Soft, nontender. No hepatosplenomegaly, normal bowel sounds, no guarding or rigidity. EXTREMITIES: No clubbing, 1+ nonpitting edema in kelle. lower extremities, ankles and pedal areas, no cyanosis, 2+ pulses and upper and lower extremities. MUSCULOSKELETAL: Muscle strength and tone normal. SPINE: No scoliosis or deformity SKIN: No rashes. has area of deep tissue injury noted on her coccyx today. CENTRAL NERVOUS SYSTEM: Alert and oriented -3. No focal deficits, tone is normal in all 4 extremities. PSYCHIATRIC: Alert and oriented -3. Appropriate affect. Intact judgment and insight. - Labs CBC & Chem 7: 03/17/21 07:27 03/18/21 06:17 Labs: Abnormal Lab Results - Last 24 Hours (Table) 03/12/21 03/18/21 03/18/21 Range/Units 04:11 11:26 17:46 POC Glucose (mg/dL) 111 H 187 H (75-99) mg/dL Free [place] LC, Quant 2.05 H (0.33-1.94) mg/dL 03/18/21 Range/Units 19:54 POC Glucose (mg/dL) 221 H (75-99) mg/dL Free [place] LC, Quant (0.33-1.94) mg/dL Microbiology - Last 24 Hours (Table) 03/17/21 07:27 Blood Culture - Preliminary Blood No Growth after 48 hours 03/14/21 12:37 Blood Culture - Preliminary Blood No Growth after 96 hours Assessment and Plan Plan: Assessment: #1. Acute hypoxic respiratory failure related to possibility of aspiration pneumonia, or aspiration-related pneumonitis. CT of the abdomen and pelvis showed basilar small pleural effusions as well as atelectasis and/or infiltrates. CT chest revealed groundglass infiltrates in the upper and midlung zones and small bilateral pleural effusions, patient is on combination cefepime, Levaquin, and vancomycin. Legionella urine antigen was negative. COVID-19 PCR was negative. Current antibiotic coverage includes Flagyl and Rocephin #2. Acute urinary tract infection, urine culture is negative #3. Diarrhea, ruled out C. diff #4. Hypokalemia #5. Transaminitis, improving. Hepatitis panel was negative #6. Diabetes mellitus type 2 #7. Seizure disorder #8. Hx has skin cancer with surgical resection #9. Hyponatremia, slightly worsened with diuretics Plan: Continue current antibiotics, patient is on correlation of Rocephin and Flagyl today's labs are pending Follow-up chest x-ray today all cultures have shown no growth 1 low-grade fever last night Still has some blood-tinged sputum WBC scan results have been reviewed Otherwise clinically seems to be improving Wean FiO2, encouraged to breathe and cough We'll consider another dose of Lasix once we review the labs and chest x-ray Continue to follow I performed a history & physical examination of the patient and discussed their management with my nurse practitioner, Feli Llanes. I reviewed the nurse practitioner's note and agree with the documented findings and plan of care. Lung sounds are positive for diminished breath sounds throughout the lung [place]on. The findings and the impression was discussed with the patient. I attest to the documentation by the nurse practitioner. Time with Patient: Less than 30
[2021-03-19 11:56] LABS: Glucose,Whole Blood 190 mg/dL (75-99)
--- NOTE | 2021-03-19 11:57 | XR ---
EXAMINATION TYPE: XR chest 1V portable DATE OF EXAM: 03/19/2021 COMPARISON: 03/18/2021 HISTORY: Cough TECHNIQUE: Single frontal view of the chest is obtained. FINDINGS: Bilateral small pleural effusion and basilar infiltrate stable. Coarsened interstitium can be associated with interstitial pneumonitis. Calcific tendinosis of bilateral shoulder. No pneumotho rax. Heart size within normal limits. Surgical clips upper abdomen and hypertrophic changes of the sp ine. IMPRESSION: 1. Bilateral pneumonia with small pleural effusion correlate for superimposed interstitial pneumoniti s. No significant interval change.
[2021-03-19 12:54] LABS: Basophils % (A) 0 %; Eosinophils # (A) 0.2 k/uL (0-0.7); Eosinophils % (A) 2 %; HCT 31.2 % (34.0-46.0); HGB 10.1 gm/dL (11.4-16.0); Lymphocytes # (A) 0.5 k/uL (1.0-4.8); Lymphocytes % (A) 5 %; MCH 29.3 pg (25.0-35.0); MCHC 32.3 g/dL (31.0-37.0); MCV 90.7 fL (80.0-100.0); Mean Platelet Volume 10.2; Monocytes # (A) 0.2 k/uL (0-1.0); Monocytes % (A) 2 %; Neutrophils # (A) 9.3 k/uL (1.3-7.7); Neutrophils % (A) 91 %; Platelet Count 106 k/uL (150-450); RBC 3.44 m/uL (3.80-5.40); RDW 13.6 % (11.5-15.5); WBC 10.2 k/uL (3.8-10.6)
[2021-03-19 13:06] LABS: ALT 50 U/L (4-34); AST 45 U/L (14-36); African American GFR (CKD) >90 (>60 ml/min/1.73 sqM); Albumin 2.3 g/dL (3.5-5.0); Alkaline Phosphatase 342 U/L (38-126); Anion Gap 6 mmol/L; Blood Urea Nitrogen 13 mg/dL (7-17); Calcium 7.4 mg/dL (8.4-10.2); Carbon Dioxide 31 mmol/L (22-30); Chloride 95 mmol/L (98-107); Glucose 200 mg/dL (74-99); Non-African American GFR(CKD) >90 (>60 ml/min/1.73 sqM); Potassium 3.7 mmol/L (3.5-5.1); Sodium 132 mmol/L (137-145); Total Bilirubin 1.9 mg/dL (0.2-1.3); Total Protein 5.6 g/dL (6.3-8.2)
[2021-03-19 16:38] LABS: Glucose,Whole Blood 124 mg/dL (75-99)
[2021-03-19] MEDS: IBUPROFEN 200 MG TAB PO PRN (18:21)
--- NOTE | 2021-03-19 18:22 | PN ---
PROGRESS NOTE DATE OF SERVICE: 03/19/2021 REASON FOR FOLLOWUP: Fever, likely pneumonia. INTERVAL HISTORY: Patient is afebrile. He did have a low-grade fever of 100.4 last night. The patient is feeling better. She is breathing comfortably. Did have a cough, not bringing up any sputum. No nausea, vomiting. No abdominal pain. No diarrhea. PHYSICAL EXAMINATION: Blood pressure 155/71 with a pulse of 94, temperature 98.8. She is 98% on 2 L nasal cannula. General description is a middle-aged female up in the chair in no distress. Respiratory system: Unlabored breathing. A few crackles at bases. No wheeze. Heart S1, S2. Regular rate and rhythm. Abdomen soft, no tenderness. Extremities: No edema of the feet. Examination of the left gluteal area did have a stage I pressure ulcer. No cellulitis. LABS: Hemoglobin is 10.8, white count 10.2, BUN of 13, creatinine 0.54. Liver enzymes have improved. DIAGNOSTIC IMPRESSION AND PLAN: Patient admitted to the hospital with fever, in this patient who did have extensive workup done, was possible pneumonia, left lower lobe for which the patient is currently covered with Rocephin. White count did respond to the Flagyl. Hence recommend Ceftin and Flagyl for about a week or 10 days and close outpatient followup. at the bedside. Questions and concerns were answered. MMODL / IJN: [id number] /
[2021-03-19 20:30] LABS: Glucose,Whole Blood 228 mg/dL (75-99)
--- NOTE | 2021-03-19 20:30 | P.PN ---
Progress Note - Text Progress Note Date: 03/19/21 Chief Complaint: Hypoxemia History of presenting complaint: This is a pleasant 50-year-old patient who follows with Dr. Aguiar. Chronic stable medical conditions include, diet controlled diabetes, seizure disorder, ALLERGIES for which she takes Benadryl when necessary. Patient is being tighter control her diabetes with diet for quite some time. During pandemic control and has not been easy for her. Just a few weeks ago she checked HbA1c and it came back as 9.3. Patient also got chronic lower lumbar pain. Wednesday evening patient is having a dull headache. Went to bed and was feeling freezing cold. And then became soaking wet. Again was sitting she started freezing. Took her temperature is 101.8. [place] weak. And for a short time passed out. She thinks her told her that maybe that was legs stiffening slight bubbles at the mouth. Not sure. Patient been having urinary frequency. Was found over infected appearing urine in the ER. Started IV ceftriaxone. Patient is not keen to start on oral hypoglycemic because of side effects she's had before with Januvia and metformin. This morning she did vomit once. Has been drinking quite a bit of water. 03/11/2021 [critical care note]: I was called earlier today. Patient has spiked fever again. Had become hypoxic. Blood pressure is running of the lower side. IV fluids was increased. Patient was a bit more short of breath. Ordered two- view chest x-ray. IV ceftriaxone was discontinued. Change to IV cefepime 1 g every 12 and IV vancomycin. Order was placed to move to patient to telemetry floor. Patient is a more of a cough today. More short of breath. Tired 03/12/2021: Sitting up in a chair. A bit less tired. Slightly short of breath. Did eat some. Cough with green sputum. No fever since last night. On IV cefepime, IV vancomycin, Levaquin IV fluids. Subconjunctival hemorrhage. 03/13/2021: Sitting up in a recliner. Some decrease in shortness of breath. Using some thick sputum. Decreased appetite but eating some. On humidified oxygen. On 3 L. Spiking fever. Discussed with Dr. Siegel from ID. Serology for EBV and CMV has been sent off. LFTs are coming down. Discussed with the patient. Pulmonary consultation. 03/14/2021: Sitting up in a recliner. Spiking fevers. On IV cefepime and Levaquin. Vancomycin discontinued. Subconjunctival hemorrhage. LFTs are coming down. EBV IgG positive. IgM negative. Patient is having some bouts of coughing. She is producing sputum. Eating about 25-50%. Discussed with Dr. Siegel from ID. Vancomycin to be discontinued. Patient seen by pulmonary Dr. Bruno today. He added bronchodilators. 03/18/2021: Patient had no fever last 48 hours. 2-D echocardiogram has been unremarkable. Cultures have been negative. Oral intake improving. Has been getting food from home. Does not like hospital food. Getting a bone scan. Overall feeling better. On IV ceftriaxone and Flagyl 03/19/2021: Remains afebrile. Oral intake good. WBC scan showing right lung infiltrate. Discussed with Dr. Ryan from ID. Saray to discharge on Ceftin tomorrow. We do feel this is basically a viral presentation. Also communicated with Dr. Lagunas. Saray to discharge tomorrow. Care was discussed at length with the patient . Questions answered. Review of systems: Was done for constitutional, cardiovascular, GI, pulmonary. relevant finding as above Active Medications Albuterol/Ipratropium (Ipratropium-Albuterol 3 Ml Neb) 3 ml INHALATION RT-Q2H PRN PRN Reason: Shortness Of Breath Or Wheezing Albuterol/Ipratropium (Ipratropium-Albuterol 3 Ml Neb) 3 ml INHALATION RT-TID YAJAIRA Last Admin: 03/19/21 19:15 Dose: 3 ml Documented by: Calcium Carbonate/Glycine (Calcium Carbonate Liquid 500 Mg/5 Ml Cup) 500 mg PO ACHS YAJAIRA Last Admin: 03/19/21 18:21 Dose: 500 mg Documented by: Diphenhydramine HCl (Diphenhydramine 25 Mg Cap) 50 mg PO DAILY PRN PRN Reason: Severe Allergy Symptoms Last Admin: 03/18/21 22:13 Dose: 50 mg Documented by: Diphenhydramine HCl (Diphenhydramine 25 Mg Cap) 25 mg PO QID PRN PRN Reason: Allergy Symptoms Last Admin: 03/16/21 23:30 Dose: 25 mg Documented by: Ceftriaxone Sodium 2 gm/ (Sodium Chloride) 50 mls @ 100 mls/hr IVPB Q24HR [facility] Last Admin: 03/19/21 12:06 Dose: 100 mls/hr Documented by: Ibuprofen (Ibuprofen 200 Mg Tab) 200 mg PO Q4HR PRN PRN Reason: Pain Last Admin: 03/19/21 18:21 Dose: 200 mg Documented by: Insulin Aspart (Insulin Aspart (Novolog) 100 Unit/Ml Vial) 0 unit SQ ACHS [facility]; Protocol Last Admin: 03/19/21 17:38 Dose: Not Given Documented by: Insulin Detemir (Insulin Detemir (Levemir) 100 Unit/Ml Syr) 10 unit SQ HS [facility] Last Admin: 03/18/21 20:22 Dose: 10 unit Documented by: Metronidazole (Metronidazole 500 Mg Tab) 500 mg PO TID [facility] Last Admin: 03/19/21 16:35 Dose: 500 mg Documented by: Miscellaneous Information (Potassium Replacement Protocol 1 Each Misc) 1 each MISCELLANE DAILY PRN; Protocol PRN Reason: Per Protocol Naloxone HCl (Naloxone 0.4 Mg/Ml 1 Ml Vial) 0.2 mg IV Q2M PRN PRN Reason: Opioid Reversal Carbatrol Er 200 Mg 1 each PO BID [facility] Last Admin: 03/19/21 11:01 Dose: 1 each Documented by: Pantoprazole Sodium (Pantoprazole 40 Mg Tablet) 40 mg PO BID [facility] Last Admin: 03/19/21 11:01 Dose: 40 mg Documented by: Sodium Chloride (Saline Nasal Gel 14.1 Gm Tube) 1 applic NASAL Q4HR PRN PRN Reason: Dry Nasal Passages Past medical history to include: controlled diabetes, seizure disorder, lower lumbar pain, last seizure in 2003 skin cancer. Social history: . No smoking or alcohol. Family history: Father of 75 with heart problems. Cancer. Physical examination: VITAL SIGNS: 98.8, 94, 24, 1 55 x 71, 98% on 2 L GENERAL: Sitting up in a recliner tired, improved breathing, nasal cannula EYES: Pupils equal. Bilateral Subconjunctival hemorrhage: Improved HEENT: External appearance of nose and ears normal, oral cavity grossly normal. NECK: JVD not raised; masses not palpable. HEART: First and second heart sounds are normal; no edema. LUNGS: Respiratory rate increased; decreased basal crackles. ABDOMEN: Soft, nontender, liver spleen not palpable, no masses palpable. PSYCH: Alert and oriented x3; mood and affect tired BUTTOCKS: Small area of localized redness on the left buttock cheek on the contiguos part. No skin breakdown INVESTIGATIONS, reviewed in the clinical context: March 19: WBC 10.2 hemoglobin 10.1 platelets 106 potassium 3.7 creatinine 0.5 for bilirubin 1.9 AST 45 ALT 50 March 18: Sodium 129 potassium 3.1 creatinine 0.62. Total bilirubin 2.2 AST 40 ALT 88 alkaline phosphatase 241 CRP 22 2-D echocardiogram: Unremarkable EF 50-55% CT chest [March 14]: Groundglass infiltrates upper and midlung zones. March 14: WBC 10.2 hemoglobin 12.3 platelets 47 potassium 2.7. Total bilirubin 6.2 AST 181 ALT 382 EBV IgG positive, IgM negative Heparin induced platelet antibody: 0.15 to March 13: WBC 6.7 hemoglobin 11.4 platelets 33 potassium 3 creatinine 0.68. Total bilirubin 7 AST 672 ALT 615. Pro-calcitonin 2.87 Urine Legionella antigen: Negative March 12: WBC 5.4 hemoglobin 11.3 platelets 34 sodium 133 potassium 3.3 creatinine 0.85 AST 07/19/2006 ALT 917 Acetaminophen less than 10 March 11: WBC 4.7 hemoglobin 11.1 platelets 63 potassium 3.4 creatinine 1.02 bicarb 17 lactic acid 4.4 AST 1381 ALT 563 Hepatitis acute screen including hepatitis A, hepatitis B, hepatitis C all negative Chest x-ray film personally reviewed by me-[March 11] bibasal infiltrates WBC 10.3 hemoglobin 12.3 platelets 151 potassium 3.2 creatinine 0.65 AST 141 ALT 85 UA positive for leukoesterase, WBC, bacteria Coronavirus [PCR] not detected Lactic acid 0.9 EKG tracing personally reviewed by me-sinus rhythm, 111 rate Chest x-ray film personally reviewed by me-possible atelectasis Assessment and plan: -Acute bilateral basal pneumonia, causing sepsis and acute hypoxic respiratory failure: [Probably viral pneumonia] patient's had no fever for last 72 hours.: Improving IV cefepime/Levaquin/IV vancomycin : All discontinued. Urine Legionella antigen: Negative nasal MRSA: Negative. EBV IgG positive. IgM negative. 2-D echo negative. WBC scan showing right lung infiltrate. Currently on ceftriaxone and Flagyl -Acute hypoxic respiratory failure from pneumonia: Supplemental oxygen, FiO2 decreased to 2 L -Severe sepsis from pneumonia,, clinically better Follow lactic acid and IV fluids -Acute metabolic acidosis from sepsis: Improved Sodium bicarbonate drip and D5 0.45. Discontinued -Syncope likely vasovagal from underlying sepsis, on presentation -Acute ischemic hepatitis. From low blood pressure. Sepsis: Improving Acute hepatitis panel was negative. IV fluids. DC Tylenol. Repeat CMP. -Diabetes mellitus type 2, uncontrolled with hyperglycemia Patient does not want to take oral hypoglycemic at this point and was to follow- up with her PCP Dr. Aguiar. Follow Accu-Cheks and sliding scale insulin. Dietitian consult. Diabetic diet. Start Levemir 10 units at night -Epilepsy disorder : last episode being 2003 Continue Tegretol -Chronic lumbar arthritis Tylenol when necessary -Hypokalemia, from beta agonist Replace potassium. Decrease nebulizers 3 times a day -Acute thrombocytopenia, likely from sepsis. Improving slowly Likely from sepsis. HIT unlikely given the low antibodies. Follow with hematology Discussed with Dr. lin from [place], patient has been. Hopefully discharged tomorrow on Ceftin. We'll check for home oxygen tomorrow. The likely area of redness on the right buttock cheek, is from pressure in the setting of thromb ocytopenia. No breakdown of skin. Total time spent today about 45 minutes with over 25 minutes of discussion
[2021-03-19] MEDS: INSULIN DETEMIR (LEVEMIR) 100 UNIT/ML SYR SQ SCH (21:29)
[2021-03-20] MEDS: INSULIN ASPART (NovoLOG) 100 UNIT/ML VIAL SQ SCH ×4 (06:22→20:47)
[2021-03-20 06:23] LABS: Glucose,Whole Blood 106 mg/dL (75-99)
[2021-03-20] MEDS: CALCIUM CARBONATE LIQUID 500 MG/5 ML CUP PO SCH ×4 (09:15→20:47)
[2021-03-20] MEDS: CARBATROL 200 MG PO SCH ×2 (09:16→20:48)
[2021-03-20] MEDS: PANTOPRAZOLE 40 MG TABLET PO SCH ×2 (09:16→20:47)
[2021-03-20] MEDS: metroNIDAZOLE 500 MG TAB PO SCH ×3 (09:16→20:48)
[2021-03-20] MEDS: IPRATROPIUM-ALBUTEROL 3 ML NEB INHALATION SCH ×3 (09:48→21:33)
[2021-03-20 11:35] LABS: Glucose,Whole Blood 189 mg/dL (75-99)
[2021-03-20] MEDS ORDERED: FUROSEMIDE 10 MG/ML 2 ML VIAL IV ONE (11:37)
[2021-03-20 12:14] LABS: African American GFR (CKD) >90 (>60 ml/min/1.73 sqM); Anion Gap 5 mmol/L; Blood Urea Nitrogen 9 mg/dL (7-17); Calcium 7.3 mg/dL (8.4-10.2); Carbon Dioxide 30 mmol/L (22-30); Chloride 96 mmol/L (98-107); Glucose 212 mg/dL (74-99); Non-African American GFR(CKD) >90 (>60 ml/min/1.73 sqM); Potassium 3.3 mmol/L (3.5-5.1); Sodium 131 mmol/L (137-145)
--- NOTE | 2021-03-20 14:15 | PN ---
PROGRESS NOTE DATE OF SERVICE: 03/20/2021 REASON FOR FOLLOWUP: Fever, possible pneumonia. INTERVAL HISTORY: The patient had a low-grade fever last night of 100.4. The patient has been afebrile since then. She is still complaining of feeling weak and swelling in her lower extremities. No chest pain, though she did have a cough, not bringing up any sputum. No vomiting. No abdominal pain or diarrhea. PHYSICAL EXAMINATION: Blood pressure 158/67, pulse 100, temperature 98.8. She is 96% on 2 L nasal cannula. GENERAL DESCRIPTION: General description is a middle-aged female up in the bed in no distress. RESPIRATORY SYSTEM: Unlabored breathing. Decreased breath sounds at the bases. No wheeze. HEART: S1, S2. Regular rate and rhythm. ABDOMEN: Soft. No tenderness. LABS: BUN of 9, creatinine 0.48. DIAGNOSTIC IMPRESSION AND PLAN: Patient with a fever in this patient who did have extensive workup without any clear focus except left lower lobe pneumonia. Patient is covered with Rocephin and Flagyl; to continue, transitioning to oral Ceftin and Flagyl on discharge and close outpatient followup. MMODL / IJN: [id number] /
[2021-03-20] MEDS: POTASSIUM CHLORIDE ER 20 MEQ TAB.ER PO SCH (15:20)
[2021-03-20 16:48] LABS: Glucose,Whole Blood 92 mg/dL (75-99)
--- NOTE | 2021-03-20 17:13 | P.PN ---
Subjective Progress Note Date: 03/20/21 Principal diagnosis: Fever, pneumonia On 03/18/2021 patient seen in follow-up on selective care unit, she is awake and alert, sitting up in the chair, denies any acute distress, currently on 2 L of oxygen pulse ox is 93%, she still has a loose cough, at times she is bringing up some blood-tinged sputum. All cultures have been reviewed including urine, blood, and sputum cultures, and remain negative thus far. Current antibiotics include Rocephin and Flagyl. I'll chest x-ray has been obtained and reviewed showing low lung volumes with small tiny left greater than right pleural effusions. There is persistent basilar infiltrates and/or atelectasis. Today's labs have been reviewed, serum sodium is 129, potassium 3.1, chloride is 94, CO2 31, BUN is 18, creatinine 0.62. Patient received a dose of IV Lasix yesterday. -1.8 L over the last 24 hours. On today's evaluation on 03/19/2021 patient seen in follow-up on selective care unit, she is awake and alert, oriented 3, she did have a low-grade fever last night with a temp of 100.5F, lung sounds are positive for coarse rhonchi in the right lower lobe posteriorly, and patient still at times coughs up blood tinged sputum. She was able to get up in the shower today, tolerated activity fairly well, she sits up in a chair most of the day. Tolerates activity well, no chest discomfort, she continues on a combination of Rocephin and Flagyl, ID service is following, she underwent an, showing uptake in the liver and spleen that appear enlarged. There was also increased uptake in the right posterior lung base c onsistent with pneumonia. Today's blood work is still pending for today. No nausea vomiting or diarrhea. All blood cultures sputum cultures and urine cultures have been negative thus far. On March 20, 2021 patient was seen in follow-up on selective care unit. She is awake, in no acute distress, she states the hemoptysis has significantly improved, now she is chest bring up some small amount of brownish colored sputum. No fever or chills. Her white cell count is 10.2, hemoglobin is 10.1, sodium is 131, potassium is 3.3, chloride is 96, BUN is 9, creatinine 0.48. Today's chest x-ray is showing bilateral pneumonia with small pleural effusion. No nausea vomiting or diarrhea. Abdomen is soft. Patient is tolerating ambulation, she is complaining of generalized swelling, and she did receive a dose of Lasix today. Her follow-up pro-calcitonin is down to 0.76 on today's labs. All her cultures remain negative to date. Objective - Vital Signs Vital signs: Vital Signs Temp 98.4 F 03/20/21 15:30 Pulse 96 03/20/21 15:30 Resp 18 03/20/21 15:30 BP 125/67 03/20/21 15:30 Pulse Ox 98 03/20/21 15:30 Intake & Output 03/19/21 03/20/21 03/20/21 18:59 06:59 18:59 Intake Total 240 480 Output Total 200 Balance 40 480 Weight 93.3 kg Intake: Oral 240 480 Output: Urine 200 Other: Voiding Method Toilet Toilet # Voids 1 - Exam GENERAL EXAM: Alert, very pleasant, 50-year-old white female, currently on room air with pulse ox of 98%, sitting up in the chair, occasionally bringing up some blood-tinged sputum, comfortable in no apparent distress. HEAD: Normocephalic/atraumatic. EYES: Normal reaction of pupils, equal size. Conjunctiva pink, sclera white. NOSE: Clear with pink turbinates. THROAT: No erythema or exudates. NECK: No masses, no JVD, no thyroid enlargement, no adenopathy. CHEST: No chest wall deformity. Symmetrical expansion. LUNGS: Equal air entry with diminished breath sounds at the bases, with some mild crackles CVS: Regular rate and rhythm, normal S1 and S2, no gallops, no murmurs, no rubs ABDOMEN: Soft, nontender. No hepatosplenomegaly, normal bowel sounds, no guarding or rigidity. EXTREMITIES: No clubbing, 1+ nonpitting edema in kelle. lower extremities, ankles and pedal areas, no cyanosis, 2+ pulses and upper and lower extremities. MUSCULOSKELETAL: Muscle strength and tone normal. SPINE: No scoliosis or deformity SKIN: No rashes. has area of deep tissue injury noted on her coccyx today. CENTRAL NERVOUS SYSTEM: Alert and oriented -3. No focal deficits, tone is normal in all 4 extremities. PSYCHIATRIC: Alert and oriented -3. Appropriate affect. Intact judgment and insight. - Labs CBC & Chem 7: 03/19/21 12:16 03/20/21 11:23 Labs: Abnormal Lab Results - Last 24 Hours (Table) 03/19/21 03/19/21 03/20/21 Range/Units 12:16 20:29 06:20 Sodium (137-145) mmol/L Potassium (3.5-5.1) mmol/L Chloride (98-107) mmol/L Creatinine (0.52-1.04) mg/dL Glucose (74-99) mg/dL POC Glucose (mg/dL) 228 H 106 H (75-99) mg/dL Calcium (8.4-10.2) mg/dL Procalcitonin 0.76 H (0.02-0.09) ng/mL 03/20/21 03/20/21 Range/Units 11:23 11:33 Sodium 131 L (137-145) mmol/L Potassium 3.3 L (3.5-5.1) mmol/L Chloride 96 L (98-107) mmol/L Creatinine 0.48 L (0.52-1.04) mg/dL Glucose 212 H (74-99) mg/dL POC Glucose (mg/dL) 189 H (75-99) mg/dL Calcium 7.3 L (8.4-10.2) mg/dL Procalcitonin (0.02-0.09) ng/mL Microbiology - Last 24 Hours (Table) 03/14/21 12:37 Blood Culture - Final Blood No Growth after 144 hours 03/17/21 07:27 Blood Culture - Preliminary Blood No Growth after 72 hours Assessment and Plan Plan: Assessment: #1. Acute hypoxic respiratory failure related to possibility of aspiration pneumonia, or aspiration-related pneumonitis. CT of the abdomen and pelvis showed basilar small pleural effusions as well as atelectasis and/or infiltrates. CT chest revealed groundglass infiltrates in the upper and midlung zones and small bilateral pleural effusions, patient is on combination cefepime, Levaquin, and vancomycin. Legionella urine antigen was negative. COVID-19 PCR was negative. Current antibiotic coverage includes Flagyl and Rocephin #2. Acute urinary tract infection, urine culture is negative #3. Diarrhea, ruled out C. diff #4. Hypokalemia #5. Transaminitis, improving. Hepatitis panel was negative #6. Diabetes mellitus type 2 #7. Seizure disorder #8. Hx has skin cancer with surgical resection #9. Hyponatremia, slightly worsened with diuretics Plan: Vital signs are stable Afebrile Leukocytosis has resolved CULTURES remain negative Patient is on room air Received 1 dose of Lasix for generalized edema Follow-up chest x-ray tomorrow Pro-calcitonin is improved Clinically improving as well Possible discharge home in the next 24 hours he remains stable I performed a history & physical examination of the patient and discussed their management with my nurse practitioner, Feli Llanes. I reviewed the nurse practitioner's note and agree with the documented findings and plan of care. Lung sounds are positive for diminished breath sounds throughout the lung fie lds. The findings and the impression was discussed with the patient. I attest to the documentation by the nurse practitioner. Time with Patient: Less than 30
[2021-03-20 20:18] LABS: Glucose,Whole Blood 208 mg/dL (75-99)
[2021-03-20] MEDS: INSULIN DETEMIR (LEVEMIR) 100 UNIT/ML SYR SQ SCH (20:48)
[2021-03-20] MEDS: diphenhydrAMINE 25 MG CAP PO PRN (22:04)
--- NOTE | 2021-03-20 23:19 | P.PN ---
Progress Note - Text Progress Note Date: 03/20/21 Chief Complaint: Hypoxemia History of presenting complaint: This is a pleasant 50-year-old patient who follows with Dr. Aguiar. Chronic stable medical conditions include, diet controlled diabetes, seizure disorder, ALLERGIES for which she takes Benadryl when necessary. Patient is being tighter control her diabetes with diet for quite some time. During pandemic control and has not been easy for her. Just a few weeks ago she checked HbA1c and it came back as 9.3. Patient also got chronic lower lumbar pain. Wednesday evening patient is having a dull headache. Went to bed and was feeling freezing cold. And then became soaking wet. Again was sitting she started freezing. Took her temperature is 101.8. Wilmer weak. And for a short time passed out. She thinks her told her that maybe that was legs stiffening slight bubbles at the mouth. Not sure. Patient been having urinary frequency. Was found over infected appearing urine in the ER. Started IV ceftriaxone. Patient is not keen to start on oral hypoglycemic because of side effects she's had before with Januvia and metformin. This morning she did vomit once. Has been drinking quite a bit of water. 03/11/2021 [critical care note]: I was called earlier today. Patient has spiked fever again. Had become hypoxic. Blood pressure is running of the lower side. IV fluids was increased. Patient was a bit more short of breath. Ordered two- view chest x-ray. IV ceftriaxone was discontinued. Change to IV cefepime 1 g every 12 and IV vancomycin. Order was placed to move to patient to telemetry floor. Patient is a more of a cough today. More short of breath. Tired 03/12/2021: Sitting up in a chair. A bit less tired. Slightly short of breath. Did eat some. Cough with green sputum. No fever since last night. On IV cefepime, IV vancomycin, Levaquin IV fluids. Subconjunctival hemorrhage. 03/13/2021: Sitting up in a recliner. Some decrease in shortness of breath. Using some thick sputum. Decreased appetite but eating some. On humidified oxygen. On 3 L. Spiking fever. Discussed with Dr. Siegel from ID. Serology for EBV and CMV has been sent off. LFTs are coming down. Discussed with the patient. Pulmonary consultation. 03/14/2021: Sitting up in a recliner. Spiking fevers. On IV cefepime and Levaquin. Vancomycin discontinued. Subconjunctival hemorrhage. LFTs are coming down. EBV IgG positive. IgM negative. Patient is having some bouts of coughing. She is producing sputum. Eating about 25-50%. Discussed with Dr. Siegel from ID. Vancomycin to be discontinued. Patient seen by pulmonary Dr. Bruno today. He added bronchodilators. 03/18/2021: Patient had no fever last 48 hours. 2-D echocardiogram has been unremarkable. Cultures have been negative. Oral intake improving. Has been getting food from home. Does not like hospital food. Getting a bone scan. Overall feeling better. On IV ceftriaxone and Flagyl 03/19/2021: Remains afebrile. Oral intake good. WBC scan showing right lung infiltrate. Discussed with Dr. Ryan from ID. Okay to discharge on Ceftin tomorrow. We do feel this is basically a viral presentation. Also communicated with Dr. Lagunas. Saray to discharge tomorrow. Care was discussed at length with the patient . Questions answered. 03/20/2021: No fever. Oral intake improving. A bit tired. Edema present. Requesting to be kept in the hospital for 1 more day. I did put her surgeon resection. 1 dose of IV Lasix ordered. Increase activity. Questions answered. Review of systems: Was done for constitutional, cardiovascular, GI, pulmonary. relevant finding as above Active Medications Albuterol/Ipratropium (Ipratropium-Albuterol 3 Ml Neb) 3 ml INHALATION RT-Q2H PRN PRN Reason: Shortness Of Breath Or Wheezing Albuterol/Ipratropium (Ipratropium-Albuterol 3 Ml Neb) 3 ml INHALATION RT-TID YAJAIRA Last Admin: 03/20/21 21:33 Dose: Not Given Documented by: Calcium Carbonate/Glycine (Calcium Carbonate Liquid 500 Mg/5 Ml Cup) 500 mg PO ACHS YAJAIRA Last Admin: 03/20/21 20:47 Dose: 500 mg Documented by: Diphenhydramine HCl (Diphenhydramine 25 Mg Cap) 50 mg PO DAILY PRN PRN Reason: Severe Allergy Symptoms Last Admin: 03/20/21 22:04 Dose: 50 mg Documented by: Diphenhydramine HCl (Diphenhydramine 25 Mg Cap) 25 mg PO QID PRN PRN Reason: Allergy Symptoms Last Admin: 03/16/21 23:30 Dose: 25 mg Documented by: Ceftriaxone Sodium 2 gm/ (Sodium Chloride) 50 mls @ 100 mls/hr IVPB Q24HR [facility] Last Admin: 03/20/21 09:18 Dose: 100 mls/hr Documented by: Ibuprofen (Ibuprofen 200 Mg Tab) 200 mg PO Q4HR PRN PRN Reason: Pain Last Admin: 03/19/21 18:21 Dose: 200 mg Documented by: Insulin Aspart (Insulin Aspart (Novolog) 100 Unit/Ml Vial) 0 unit SQ [facility]; Protocol Last Admin: 03/20/21 20:47 Dose: 4 unit Documented by: Insulin Detemir (Insulin Detemir (Levemir) 100 Unit/Ml Syr) 10 unit SQ [facility] Last Admin: 03/20/21 20:48 Dose: 10 unit Documented by: Metronidazole (Metronidazole 500 Mg Tab) 500 mg PO TID [facility] Last Admin: 03/20/21 20:48 Dose: 500 mg Documented by: Miscellaneous Information (Potassium Replacement Protocol 1 Each Misc) 1 each MISCELLANE DAILY PRN; Protocol PRN Reason: Per Protocol Naloxone HCl (Naloxone 0.4 Mg/Ml 1 Ml Vial) 0.2 mg IV Q2M PRN PRN Reason: Opioid Reversal Carbatrol Er 200 Mg 1 each PO BID [facility] Last Admin: 03/20/21 20:48 Dose: 1 each Documented by: Pantoprazole Sodium (Pantoprazole 40 Mg Tablet) 40 mg PO BID [facility] Last Admin: 03/20/21 20:47 Dose: 40 mg Documented by: Sodium Chloride (Saline Nasal Gel 14.1 Gm Tube) 1 applic NASAL Q4HR PRN PRN Reason: Dry Nasal Passages Past medical history to include: controlled diabetes, seizure disorder, lower lumbar pain, last seizure in 2003 skin cancer. Social history: . No smoking or alcohol. Family history: Father of 75 with heart problems. Cancer. Physical examination: VITAL SIGNS: 98.4, 96, 18, 125-67, 98% on room air GENERAL: Sitting up in a recliner, improved breathing, nasal cannula EYES: Pupils equal. Bilateral Subconjunctival hemorrhage: Improved HEENT: External appearance of nose and ears normal, oral cavity grossly normal. NECK: JVD not raised; masses not palpable. HEART: First and second heart sounds are normal; some edema LUNGS: Respiratory rate increased; decreased basal crackles. ABDOMEN: Soft, nontender, liver spleen not palpable, no masses palpable. PSYCH: Alert and oriented x3; mood and affect tired BUTTOCKS: Small area of localized redness on the left buttock cheek on the contiguos part. No skin breakdown INVESTIGATIONS, reviewed in the clinical context: March 20: Potassium 3.3 creatinine 0.48 pro-calcitonin 0.65 March 19: WBC 10.2 hemoglobin 10.1 platelets 106 potassium 3.7 creatinine 0.5 for bilirubin 1.9 AST 45 ALT 50 March 18: Sodium 129 potassium 3.1 creatinine 0.62. Total bilirubin 2.2 AST 40 ALT 88 alkaline phosphatase 241 CRP 22 2-D echocardiogram: Unremarkable EF 50-55% CT chest [March 14]: Groundglass infiltrates upper and midlung zones. March 14: WBC 10.2 hemoglobin 12.3 platelets 47 potassium 2.7. Total bilirubin 6.2 AST 181 ALT 382 EBV IgG positive, IgM negative Heparin induced platelet antibody: 0.15 to March 13: WBC 6.7 hemoglobin 11.4 platelets 33 potassium 3 creatinine 0.68. Total bilirubin 7 AST 672 ALT 615. Pro-calcitonin 2.87 Urine Legionella antigen: Negative March 12: WBC 5.4 hemoglobin 11.3 platelets 34 sodium 133 potassium 3.3 creatinine 0.85 AST 07/19/2006 ALT 917 Acetaminophen less than 10 March 11: WBC 4.7 hemoglobin 11.1 platelets 63 potassium 3.4 creatinine 1.02 bicarb 17 lactic acid 4.4 AST 1381 ALT 563 Hepatitis acute screen including hepatitis A, hepatitis B, hepatitis C all negative Chest x-ray film personally reviewed by me-[March 11] bibasal infiltrates WBC 10.3 hemoglobin 12.3 platelets 151 potassium 3.2 creatinine 0.65 AST 141 ALT 85 UA positive for leukoesterase, WBC, bacteria Coronavirus [PCR] not detected Lactic acid 0.9 EKG tracing personally reviewed by me-sinus rhythm, 111 rate Chest x-ray film personally reviewed by me-possible atelectasis Assessment and plan: -Acute bilateral basal pneumonia, causing sepsis and acute hypoxic respiratory failure: [Probably viral pneumonia] patient's had no fever for last 72 hours.: Improving IV cefepime/Levaquin/IV vancomycin : All discontinued. Urine Legionella antigen: Negative nasal MRSA: Negative. EBV IgG positive. IgM negative. 2-D echo negative. WBC scan showing right lung infiltrate. Currently on ceftriaxone and Flagyl -Acute hypoxic respiratory failure from pneumonia: Improving Supplemental oxygen, FiO2 decreased to 2 L -Fluid overload Restrict fluid intake. 1 dose of IV Lasix 20 mg -Severe sepsis from pneumonia,, clinically better Follow lactic acid and IV fluids -Acute metabolic acidosis from sepsis: Improved Sodium bicarbonate drip and D5 0.45. Discontinued -Syncope likely vasovagal from underlying sepsis, on presentation -Acute ischemic hepatitis. From low blood pressure. Sepsis: Improving Acute hepatitis panel was negative. IV fluids. DC Tylenol. Repeat CMP. -Diabetes mellitus type 2, uncontrolled with hyperglycemia Patient does not want to take oral hypoglycemic at this point and was to follow- up with her PCP Dr. Aguiar. Follow Accu-Cheks and sliding scale insulin. Dietitian consult. Diabetic diet. Start Levemir 10 units at night -Epilepsy disorder : last episode being 2003 Continue Tegretol -Chronic lumbar arthritis Tylenol when necessary -Hypokalemia, from beta agonist Replace potassium. Decrease nebulizers 3 times a day -Acute thrombocytopenia, likely from sepsis. Improving slowly Likely from sepsis. HIT unlikely given the low antibodies. Follow with hematology Continue current medication. 1 dose of IV Lasix 20 mg. Some restriction. Increase activity. Discussed at length with the patient. Hopefully discharge tomorrow.
[2021-03-21 06:14] LABS: Glucose,Whole Blood 103 mg/dL (75-99)
[2021-03-21] MEDS: INSULIN ASPART (NovoLOG) 100 UNIT/ML VIAL SQ SCH ×2 (06:45→12:12)
[2021-03-21] MEDS: CALCIUM CARBONATE LIQUID 500 MG/5 ML CUP PO SCH ×2 (07:00→12:12)
[2021-03-21] MEDS: IPRATROPIUM-ALBUTEROL 3 ML NEB INHALATION SCH ×2 (07:23→11:28)
--- NOTE | 2021-03-21 08:26 | XR ---
EXAMINATION TYPE: XR chest 1V portable DATE OF EXAM: 03/21/2021 COMPARISON: 03/19/2021 HISTORY: Cough TECHNIQUE: Single frontal view of the chest is obtained. FINDINGS: Bilateral areas of consolidation are noted with small effusions greater on the left. Inter stitial pattern stable. No pneumothorax. Heart size stable. Surgical clips upper abdomen. Correlate f or calcific tendinosis shoulders. IMPRESSION: Stable bilateral infiltrates correlate clinically for pneumonia.
[2021-03-21] MEDS: CARBATROL 200 MG PO SCH (08:29)
[2021-03-21] MEDS: metroNIDAZOLE 500 MG TAB PO SCH ×2 (08:29→15:32)
[2021-03-21] MEDS: PANTOPRAZOLE 40 MG TABLET PO SCH (08:29)
[2021-03-21 08:35] LABS: African American GFR (CKD) >90 (>60 ml/min/1.73 sqM); Anion Gap 5 mmol/L; Blood Urea Nitrogen 7 mg/dL (7-17); Calcium 7.6 mg/dL (8.4-10.2); Carbon Dioxide 32 mmol/L (22-30); Chloride 96 mmol/L (98-107); Glucose 148 mg/dL (74-99); Non-African American GFR(CKD) >90 (>60 ml/min/1.73 sqM); Potassium 3.4 mmol/L (3.5-5.1); Sodium 133 mmol/L (137-145)
[2021-03-21] MEDS: POTASSIUM CHLORIDE ER 20 MEQ TAB.ER PO SCH ×2 (09:25→10:26)
[2021-03-21 11:42] LABS: Glucose,Whole Blood 228 mg/dL (75-99)
[2021-03-21 13:44] VITALS: BP 163/72; RESP 17; TEMP 99.2
--- NOTE | 2021-03-21 13:56 | PN ---
PROGRESS NOTE DATE OF SERVICE: 03/21/2021 REASON FOR FOLLOWUP: Fever, possible pneumonia. INTERVAL HISTORY: The patient is afebrile. The patient is feeling much better. She is currently on room air. Saturating 96%. Denies having any chest pain. Cough has decreased in intensity. No vomiting. No abdominal pain or diarrhea. PHYSICAL EXAMINATION: Blood pressure 115/67, pulse of 93, temperature 97.6. She is 96% on room air. GENERAL DESCRIPTION: General description is a middle-aged female up in the bed in no distress. RESPIRATORY SYSTEM: Unlabored breathing. Decreased breath sounds at the bases. No wheeze. HEART: S1, S2. Regular rate and rhythm. ABDOMEN: Soft. No tenderness. LABS: BUN of 7, creatinine 0.59. Cultures remain negative. DIAGNOSTIC IMPRESSION AND PLAN: Patient admitted to hospital with a fever in this patient who did have an extensive workup without any clear focus; possible pneumonia in the left lower lobe. Overall improvement on Rocephin and Flagyl. Finish therapy with Ceftin and Flagyl for a week and close outpatient followup. MMODL / IJN: [id number] /
[2021-03-21 15:44] VITALS: PULSE 98
--- NOTE | 2021-03-21 16:36 | P.PN ---
Subjective Progress Note Date: 03/21/21 Principal diagnosis: Acute hypoxic respiratory failure secondary to aspiration pneumonia On 03/18/2021 patient seen in follow-up on selective care unit, she is awake and alert, sitting up in the chair, denies any acute distress, currently on 2 L of oxygen pulse ox is 93%, she still has a loose cough, at times she is bringing up some blood-tinged sputum. All cultures have been reviewed including urine, blood, and sputum cultures, and remain negative thus far. Current antibiotics include Rocephin and Flagyl. I'll chest x-ray has been obtained and reviewed showing low lung volumes with small tiny left greater than right pleural effusions. There is persistent basilar infiltrates and/or atelectasis. Today's labs have been reviewed, serum sodium is 129, potassium 3.1, chloride is 94, CO2 31, BUN is 18, creatinine 0.62. Patient received a dose of IV Lasix yesterday. -1.8 L over the last 24 hours. On today's evaluation on 03/19/2021 patient seen in follow-up on selective care unit, she is awake and alert, oriented 3, she did have a low-grade fever last night with a temp of 100.5F, lung sounds are positive for coarse rhonchi in the right lower lobe posteriorly, and patient still at times coughs up blood tinged sputum. She was able to get up in the shower today, tolerated activity fairly well, she sits up in a chair most of the day. Tolerates activity well, no chest discomfort, she continues on a combination of Rocephin and Flagyl, ID service is following, she underwent an, showing uptake in the liver and spleen that appear enlarged. There was also increased uptake in the right posterior lung base consistent with pneumonia. Today's blood work is still pending for today. No nausea vomiting or diarrhea. All blood cultures sputum cultures and urine cultures have been negative thus far. On March 20, 2021 patient was seen in follow-up on selective care unit. She is awake, in no acute distress, she states the hemoptysis has significantly i mproved, now she is chest bring up some small amount of brownish colored sputum. No fever or chills. Her white cell count is 10.2, hemoglobin is 10.1, sodium is 131, potassium is 3.3, chloride is 96, BUN is 9, creatinine 0.48. Today's chest x-ray is showing bilateral pneumonia with small pleural effusion. No nausea vomiting or diarrhea. Abdomen is soft. Patient is tolerating ambulation, she is complaining of generalized swelling, and she did receive a dose of Lasix today. Her follow-up pro-calcitonin is down to 0.76 on today's labs. All her cultures remain negative to date. Reevaluated today on 03/21/2021, patient is doing well, relatively asymptomatic, hardly any cough no wheezing no shortness of breath, patient is on room air. Continue to have some crackles at the right base. However the patient I believe is related to be discharged home on outpatient oral antibiotics. No CBC was done today, however her electrolytes are relatively normal renal profile is normal. Objective - Vital Signs Vital signs: Vital Signs Temp 99.2 F 03/21/21 12:00 Pulse 99 03/21/21 12:00 Resp 17 03/21/21 12:00 BP 163/72 03/21/21 12:00 Pulse Ox 99 03/21/21 12:00 Intake & Output 03/20/21 03/21/21 03/21/21 18:59 06:59 18:59 Intake Total 480 Balance 480 Weight 90.6 kg Intake: Oral 480 Other: Voiding Method Toilet Toilet # Voids 1 3 - Exam Physical Exam: Revealed a 50-year-old female in no distress. Head: Atraumatic, normocephalic. HEENT:[Neck is supple.] [No neck masses.] [No thyromegaly.] [No JVD.] Chest: [Symmetrical chest expansion, crackles at the right base. Cardiac Exam: [Normal S1 and S2, no S3 gallop, no murmur.] Abdomen: [Soft, nontender, no megaly, no rebound, no guarding, normal bowel sounds.] Extremities: [No clubbing, no edema, no cyanosis.] Neurological Exam: [No focal neurologic deficit.] Alert oriented 3 Psychiatric: Normal mood affect and normal mental status examination - Labs CBC & Chem 7: 03/19/21 12:16 03/21/21 07:27 Labs: Abnormal Lab Results - Last 24 Hours (Table) 09/09/21 09/09/21 09/10/21 Range/Units 08:29 20:17 06:13 Sodium (137-145) mmol/L Potassium (3.5-5.1) mmol/L Chloride (98-107) mmol/L Carbon Dioxide (22-30) mmol/L Glucose (74-99) mg/dL POC Glucose (mg/dL) 208 H 103 H (75-99) mg/dL Calcium (8.4-10.2) mg/dL Procalcitonin 0.65 H (0.02-0.09) ng/mL 03/21/21 03/21/21 Range/Units 07:27 11:40 Sodium 133 L (137-145) mmol/L Potassium 3.4 L (3.5-5.1) mmol/L Chloride 96 L (98-107) mmol/L Carbon Dioxide 32 H (22-30) mmol/L Glucose 148 H (74-99) mg/dL POC Glucose (mg/dL) 228 H (75-99) mg/dL Calcium 7.6 L (8.4-10.2) mg/dL Procalcitonin (0.02-0.09) ng/mL Microbiology - Last 24 Hours (Table) 03/17/21 07:27 Blood Culture - Preliminary Blood No Growth after 96 hours 03/14/21 12:37 Blood Culture - Final Blood No Growth after 144 hours Assessment and Plan Assessment: Impression: Acute hypoxic respiratory failure secondary to aspiration pneumonia Hypokalemia Type 2 diabetes Seizure disorder Recommendation: Agree with discharge planning. Agree with antibiotics on discharge. Cleared for discharge and the patient is to follow-up with Dr. Lagunas in the next 2 weeks Time with Patient: Less than 30
--- NOTE | 2021-03-21 18:11 | P.DS ---
Providers Date of admission: 03/10/21 19:35 Expected date of discharge: 03/21/21 Attending physician: Quintin Harper Consults: 03/11/21 07:37 Consult Physician Routine Consulting Provider: Latricia Siegel Consult Reason/Comments: fever unknown, elevated lactic acid Do you want consulting provider notified?: Yes 03/12/21 11:24 Consult Physician Routine Consulting Provider: Jose Alejandro Farrell Consult Reason/Comments: low platelets/acute Do you want consulting provider notified?: Yes 03/13/21 13:43 Consult Physician Routine Consulting Provider: Jose Bruno Consult Reason/Comments: pneumonia Do you want consulting provider notified?: Yes Primary care physician: [facility] Course: Chief Complaint: Hypoxemia History of presenting complaint: This is a pleasant 50-year-old patient who follows with Dr. Aguiar. Chronic stable medical conditions include, diet controlled diabetes, seizure disorder, ALLERGIES for which she takes Benadryl when necessary. Patient is being tighter control her diabetes with diet for quite some time. During pandemic control and has not been easy for her. Just a few weeks ago she checked HbA1c and it came back as 9.3. Patient also got chronic lower lumbar pain. Wednesday evening patient is having a dull headache. Went to bed and was feeling freezing cold. And then became soaking wet. Again was sitting she started freezing. Took her temperature is 101.8. [place] weak. And for a short time passed out. She thinks her told her that maybe that was legs stiffening slight bubbles at the mouth. Not sure. Patient been having urinary frequency. Was found over infected appearing urine in the ER. Started IV ceftriaxone. Patient is not keen to start on oral hypoglycemic because of side effects she's had before with Januvia and metformin. This morning she did vomit once. Has been drinking quite a bit of water. 03/11/2021 [critical care note]: I was called earlier today. Patient has spiked fever again. Had become hypoxic. Blood pressure is running of the lower side. IV fluids was increased. Patient was a bit more short of breath. Ordered two- view chest x-ray. IV ceftriaxone was discontinued. Change to IV cefepime 1 g every 12 and IV vancomycin. Order was placed to move to patient to telemetry floor. Patient is a more of a cough today. More short of breath. Tired 03/12/2021: Sitting up in a chair. A bit less tired. Slightly short of breath. Did eat some. Cough with green sputum. No fever since last night. On IV cefepime, IV vancomycin, Levaquin IV fluids. Subconjunctival hemorrhage. 03/13/2021: Sitting up in a recliner. Some decrease in shortness of breath. Using some thick sputum. Decreased appetite but eating some. On humidified oxygen. On 3 L. Spiking fever. Discussed with Dr. Siegel from ID. Serology for EBV and CMV has been sent off. LFTs are coming down. Discussed with the patient. Pulmonary consultation. 03/14/2021: Sitting up in a recliner. Spiking fevers. On IV cefepime and Levaquin. Vancomycin discontinued. Subconjunctival hemorrhage. LFTs are coming down. EBV IgG positive. IgM negative. Patient is having some bouts of coughing. She is producing sputum. Eating about 25-50%. Discussed with Dr. Siegel from ID. Vancomycin to be discontinued. Patient seen by pulmonary Dr. Bruno today. He added bronchodilators. 03/18/2021: Patient had no fever last 48 hours. 2-D echocardiogram has been unremarkable. Cultures have been negative. Oral intake improving. Has been getting food from home. Does not like hospital food. Getting a bone scan. Overall feeling better. On IV ceftriaxone and Flagyl 03/19/2021: Remains afebrile. Oral intake good. WBC scan showing right lung infiltrate. Discussed with Dr. Ryan from ID. Okay to discharge on Ceftin tomorrow. We do feel this is basically a viral presentation. Also communicated with Dr. Lagunas. Okay to discharge tomorrow. Care was discussed at length w ith the patient . Questions answered. 03/20/2021: No fever. Oral intake improving. A bit tired. Edema present. Requesting to be kept in the hospital for 1 more day. I did put her surgeon resection. 1 dose of IV Lasix ordered. Increase activity. Questions answered. 03/21/2021: Feeling much better. I'm getting better. Breathing better. Edema has gone down. Received Lasix yesterday. Spoke with ID. Patient to call. Course with Ceftin and Flagyl. Also discussed patient diabetes. We'll have the patient follow with custodial officer. Started on Januvia. Patient to follow her Accu-Cheks. Discussion and discharge planning more than 35 minutes Consultation: Dr. Siegel from ID Dr. Lagunas partners from pulmonary Past medical history to include: controlled diabetes, seizure disorder, lower lumbar pain, last seizure in 2003 skin cancer. Social history: . No smoking or alcohol. Family history: Father of 75 with heart problems. Cancer. Physical examination: VITAL SIGNS: 99.2, 99, 17, 150/74, 99% room air GENERAL: Sitting up in a recliner, breathing comfortably EYES: Pupils equal. Bilateral Subconjunctival hemorrhage: Improved HEENT: External appearance of nose and ears normal, oral cavity grossly normal. NECK: JVD not raised; masses not palpable. HEART: First and second heart sounds are normal; no edema LUNGS: Respiratory rate normal; lungs clear. ABDOMEN: Soft, nontender, liver spleen not palpable, no masses palpable. PSYCH: Alert and oriented x3; mood and affect tired BUTTOCKS: Small area of localized redness on the left buttock cheek on the contiguos part. No skin breakdown INVESTIGATIONS, reviewed in the clinical context: March 20: Potassium 3.3 creatinine 0.48 pro-calcitonin 0.65 March 19: WBC 10.2 hemoglobin 10.1 platelets 106 potassium 3.7 creatinine 0.5 for bilirubin 1.9 AST 45 ALT 50 March 18: Sodium 129 potassium 3.1 creatinine 0.62. Total bilirubin 2.2 AST 40 ALT 88 alkaline phosphatase 241 CRP 22 2-D echocardiogram: Unremarkable EF 50-55% CT chest [March 14]: Groundglass infiltrates upper and midlung zones. March 14: WBC 10.2 hemoglobin 12.3 platelets 47 potassium 2.7. Total bilirubin 6.2 AST 181 ALT 382 EBV IgG positive, IgM negative Heparin induced platelet antibody: 0.15 to March 13: WBC 6.7 hemoglobin 11.4 platelets 33 potassium 3 creatinine 0.68. Total bilirubin 7 AST 672 ALT 615. Pro-calcitonin 2.87 Urine Legionella antigen: Negative March 12: WBC 5.4 hemoglobin 11.3 platelets 34 sodium 133 potassium 3.3 creatinine 0.85 AST 07/19/2006 ALT 917 Acetaminophen less than 10 March 11: WBC 4.7 hemoglobin 11.1 platelets 63 potassium 3.4 creatinine 1.02 bicarb 17 lactic acid 4.4 AST 1381 ALT 563 Hepatitis acute screen including hepatitis A, hepatitis B, hepatitis C all negative Chest x-ray film personally reviewed by me-[March 11] bibasal infiltrates WBC 10.3 hemoglobin 12.3 platelets 151 potassium 3.2 creatinine 0.65 AST 141 ALT 85 UA positive for leukoesterase, WBC, bacteria Coronavirus [PCR] not detected Lactic acid 0.9 EKG tracing personally reviewed by me-sinus rhythm, 111 rate Chest x-ray film personally reviewed by me-possible atelectasis Assessment and plan: -Acute bilateral basal pneumonia, causing sepsis and acute hypoxic respiratory failure: [Probably viral pneumonia with secondary bacterial infection] much improved IV cefepime/Levaquin/IV vancomycin : All discontinued. Urine Legionella antigen: Negative nasal MRSA: Negative. EBV IgG positive. IgM negative. 2-D echo negative. WBC scan showing right lung infiltrate. Currently on ceftriaxone and Flagyl Complete course with Ceftin and Flagyl -Acute hypoxic respiratory failure from pneumonia: Improved 99% on room air -Fluid overload Restrict fluid intake. 1 dose of IV Lasix 20 mg -Severe sepsis from pneumonia,, clinically better Follow lactic acid and IV fluids -Acute metabolic acidosis from sepsis: Improved Sodium bicarbonate drip and D5 0.45. Discontinued -Syncope likely vasovagal from underlying sepsis, on presentation -Acute ischemic hepatitis. From low blood pressure. Sepsis: Improving Acute hepatitis panel was negative. IV fluids. DC Tylenol. Repeat CMP. -Diabetes mellitus type 2, uncontrolled with hyperglycemia Patient is agreed to take Januvia. We'll follow with custodial officer. -Epilepsy disorder : last episode being 2003 Continue Tegretol -Chronic lumbar arthritis Tylenol when necessary -Hypokalemia, from beta agonist Replace potassium. Decrease nebulizers 3 times a day -Acute thrombocytopenia, likely from sepsis. Improving slowly Likely from sepsis. HIT unlikely given the low antibodies. Follow with hematology Disposition: Home Patient Condition at Discharge: Stable Plan - Discharge Summary New Discharge Prescriptions: New Cefuroxime Axetil [Ceftin] 500 mg PO BID 1 Days #14 tab sitaGLIPtin [Januvia] 100 mg PO DAILY #30 tab metroNIDAZOLE [Flagyl] 500 mg PO TID #21 tab Famotidine [Pepcid] 20 mg PO BID #60 tablet Continue carBAMazepine [Carbatrol] 200 mg PO BID Ibuprofen [Motrin Ib] 200 - 800 mg PO Q8H PRN PRN Reason: Pain Cholecalciferol [Vitamin D3 (25 Mcg = 1000 Iu)] 50 mcg PO DAILY Discontinued diphenhydrAMINE [Benadryl] 25 - 50 mg PO DAILY PRN PRN Reason: Allergy Symptoms Discharge Medication List carBAMazepine [Carbatrol] 200 mg PO BID 02/13/14 [History] Cholecalciferol [Vitamin D3 (25 Mcg = 1000 Iu)] 50 mcg PO DAILY 03/08/21 [History] Ibuprofen [Motrin Ib] 200 - 800 mg PO Q8H PRN 03/08/21 [History] Cefuroxime Axetil [Ceftin] 500 mg PO BID 1 Days #14 tab 03/21/21 [Rx] Famotidine [Pepcid] 20 mg PO BID #60 tablet 03/21/21 [Rx] metroNIDAZOLE [Flagyl] 500 mg PO TID #21 tab 03/21/21 [Rx] sitaGLIPtin [Januvia] 100 mg PO DAILY #30 tab 03/21/21 [Rx] Follow up Appointment(s)/Referral(s): Deni Aguiar DO [Primary Care Provider] - 03/26/21 9:20 am (monday 03/26 at 09:20am..) Jose Bruno DO [Doctor of Osteopathic Medicine] - 04/07/21 10:00 am Nati Ly MD [STAFF PHYSICIAN] - 1 Week (left message with office to follow up with patient due to office being closed for weekend. left patients name and phone number. patient to follow up with office next week if does not hear from office. ) Patient Instructions/Handouts: Viral Pneumonia (DC), Urinary Tract Infection in Women (DC), Hypoglycemia in a Person with Diabetes (DC), Upper Respiratory Infection (DC), Basic Carbohydrate Counting (DC), Managing Diabetes During Sick Days (DC), Thrombocytopenia (DC), Type 2 Diabetes Management for Adults (DC) Activity/Diet/Wound Care/Special Instructions: diabetic diet daily aC - keep log Discharge Disposition: HOME SELF-CARE
== END 2021-03-21 15:50 | disposition home or self-care (01) | DRG 871 ==
LOC: EC 18:24 → 6NMEDSUR 22:34 → OBSVTOIN 03-10 19:35 → 3SCARD 03-11 14:06
PROVIDERS: ADMIT Hospitalist; ATTEND Hospitalist
DX: A41.9 Sepsis, unspecified organism (principal); J12.9 Viral pneumonia, unspecified; J69.0 Pneumonitis due to inhalation of food and vomit; J96.01 Acute respiratory failure with hypoxia; E87.1 Hypo-osmolality and hyponatremia; E87.2 Acidosis; I31.3 Pericardial effusion (noninflammatory); J90 Pleural effusion, not elsewhere classified; J98.11 Atelectasis; R04.2 Hemoptysis; Z20.822 Contact with and (suspected) exposure to COVID-19; D69.59 Other secondary thrombocytopenia; E11.65 Type 2 diabetes mellitus with hyperglycemia; E87.6 Hypokalemia; E87.70 Fluid overload, unspecified; G40.909 Epilepsy, unspecified, not intractable, without status epilepticus; H11.30 Conjunctival hemorrhage, unspecified eye; K58.0 Irritable bowel syndrome with diarrhea; G89.29 Other chronic pain; K72.90 Hepatic failure, unspecified without coma; R65.20 Severe sepsis without septic shock; K75.89 Other specified inflammatory liver diseases; L02.92 Furuncle, unspecified; M47.816 Spondylosis without myelopathy or radiculopathy, lumbar region; N30.90 Cystitis, unspecified without hematuria; Z85.828 Personal history of other malignant neoplasm of skin; K21.9 Gastro-esophageal reflux disease without esophagitis; Z79.4 Long term (current) use of insulin; Z80.3 Family history of malignant neoplasm of breast; Z83.3 Family history of diabetes mellitus; Z90.49 Acquired absence of other specified parts of digestive tract; Z82.61 Family history of arthritis; Z80.0 Family history of malignant neoplasm of digestive organs; Z82.3 Family history of stroke; T44.5X5A Adverse effect of predominantly beta-adrenoreceptor agonists, initial encounter; Z98.890 Other specified postprocedural states; Z98.51 Tubal ligation status; Z87.440 Personal history of urinary (tract) infections; Z88.6 Allergy status to analgesic agent; Z91.012 Allergy to eggs; Z91.011 Allergy to milk products; Z88.5 Allergy status to narcotic agent; Z88.8 Allergy status to other drugs, medicaments and biological substances; Z91.018 Allergy to other foods
CPT/HCPCS: 36415; 70450; 71045; 71046; 71260; 74177; 78306; 80048; 80053; 80074; 80143; 80202; 81001; 82533; 82784; 83605; 83630; 83735; 83883; 84100; 84132; 84145; 84165; 84484; 85025; 85379; 85384; 85610; 85652; 85730; 86022; 86038; 86140; 86334; 86431; 86644; 86645; 86663; 86664; 86665; 86709; 87040; 87045; 87046; 87070; 87086; 87205; 87324; 87338; 87449; 87635; 93005; 93306; 94640; 94760; 96361; 96374; 99285

== ENCOUNTER → 2021-05-02 | Outpatient (CLI) | payer BC | END | disposition home or self-care (01) | LOC: LABWHC1 08:41 | PROVIDERS: ATTEND Psychiatry & Neurology Neurology | DX: G40.209 Localization-related (focal) (partial) symptomatic epilepsy and epileptic syndromes with complex partial seizures, not intractable, without status epilepticus (principal) | CPT/HCPCS: 36415; 80156 ==

== ENCOUNTER → 2022-01-08 | Outpatient (CLI) | payer BC ==
--- NOTE | 2022-01-11 22:10 | MM ---
Reason for Exam: Screening (asymptomatic). Last screening mammogram was performed 12 month(s) ago. Patient History: Menarche at age 11. First Full-Term at age 16. Hormonal Contraceptives for 7 years from age 17 until age 24. Mother had breast cancer, age 71. Risk Values: Heather 5 year model risk: 2.0%. NCI Lifetime model risk: 15.5%. Prior Study Comparison: 12/29/2019 Bilateral Screening Mammogram, [facility]. 01/11/2020 Right Diagnostic Mammogram, [facility]. 01/03/2021 Bilateral Screening Mammogram, [facility]. Tissue Density: The breast tissue is heterogeneously dense. This may lower the sensitivity of mammography. Findings: Analyzed By CAD. Scattered and regional punctate calcifications especially posterior lateral left breast are unchanged. Areas of asymmetric density do not persist on 3-D images. No significant change from prior exams. Overall Assessment: Benign, BI-RAD 2 Management: Screening Mammogram of both breasts in 1 year. 1. The patient to continue monthly breast exams. 2. A clinical breast exam by your physician is recommended on an annual basis. 3. This exam should not preclude additional follow-up of suspicious palpable abnormalities. Electronically signed and approved by: Misty Soto M.D. Radiologist
== END | disposition home or self-care (01) ==
LOC: RADMAMWWP 07:00
PROVIDERS: ATTEND Obstetrics & Gynecology
DX: Z12.31 Encounter for screening mammogram for malignant neoplasm of breast (principal); Z80.3 Family history of malignant neoplasm of breast
CPT/HCPCS: 77063; 77067

== ENCOUNTER → 2022-04-02 | Outpatient (CLI) | payer BC | END | disposition home or self-care (01) | LOC: LABWHC1 09:02 | PROVIDERS: ATTEND Psychiatry & Neurology Neurology | DX: G40.209 Localization-related (focal) (partial) symptomatic epilepsy and epileptic syndromes with complex partial seizures, not intractable, without status epilepticus (principal) | CPT/HCPCS: 36415; 80156 ==

== ENCOUNTER → 2022-12-26 | Outpatient (CLI) | payer BC ==
--- NOTE | 2022-12-26 09:25 | XR ---
EXAMINATION TYPE: XR shoulder complete LT DATE OF EXAM: 12/26/2022 8:32 AM INDICATION: Patient age:Female; 52 years old; Reason for study: [id number]; COMPARISON: None TECHNIQUE: The left shoulder was examined in AP, internally rotated and scapular Y projections. FINDINGS: No evidence of acute osseous pathology, joint dislocation, or soft tissue swelling. The remaining por tions of the visualized chest are unremarkable. Opacification near the insertion of the supraspinous tendon. Mild degeneration changes of the acromial clavicular joint. IMPRESSION: No acute osseous pathology. Calcification near the insertion suspicious for calcific tendinosis.
== END | disposition home or self-care (01) ==
LOC: LABWHC1 08:00
PROVIDERS: ATTEND Psychiatry & Neurology Neurology
DX: G40.802 Other epilepsy, not intractable, without status epilepticus (principal); M25.512 Pain in left shoulder
CPT/HCPCS: 36415; 80156

== ENCOUNTER → 2023-01-09 | Outpatient (CLI) | payer BC ==
--- NOTE | 2023-01-09 14:45 | MR ---
EXAMINATION TYPE: MR cervical spine wo con DATE OF EXAM: 01/09/2023 COMPARISON: None HISTORY: Neck and left shoulder pain. TECHNIQUE: Multiplanar, multisequence images of the cervical spine were acquired without contrast. The craniovertebral junction relationships and prevertebral soft tissues are normal. The cervical vertebral segments are normal in height and alignment and there is no fracture or sublux ation. The disc spaces are well-maintained in height and there is no significant degenerative disc disease. There are no cervical disc herniations. The cervical cord is normal in size and signal intensity and there is no cervical stenosis. The neuro foramina are widely patent. The paraspinal soft tissues are unremarkable. IMPRESSION: No significant abnormality seen.
== END | disposition home or self-care (01) ==
LOC: RADMRIMAIN 12:14
PROVIDERS: ATTEND Psychiatry & Neurology Neurology
DX: M54.2 Cervicalgia (principal); M25.512 Pain in left shoulder
CPT/HCPCS: 72141

== ENCOUNTER → 2023-01-27 | Outpatient (CLI) | payer BC ==
--- NOTE | 2023-01-28 08:29 | MM ---
Reason for Exam: Screening (asymptomatic). Last mammogram was performed 1 year(s) and 1 month(s) ago. Patient History: Menarche at age 11. First Full-Term at age 16. Patient has history of breast feeding. Hormonal Contraceptives for 7 years from age 17 until age 24. Mother had breast cancer, age 71. Risk Values: Heather 5 year model risk: 2.0%. NCI Lifetime model risk: 15.3%. Prior Study Comparison: 06/24/2016 Bilateral Screening Mammogram, [facility]. 09/08/2017 Bilateral Screening Mammogram, [facility]. 09/26/2018 Bilateral Screening Mammogram, [facility]. 12/29/2019 Bilateral Screening Mammogram, [facility]. 01/11/2020 Right Diagnostic Mammogram, [facility]. 01/03/2021 Bilateral Screening Mammogram, [facility]. 01/08/2022 Bilateral MG 3D screening mammo w/cad, [facility]. Tissue Density: The breast tissue is heterogeneously dense. This may lower the sensitivity of mammography. Findings: Analyzed By CAD. There is no suspicious group of microcalcifications or new suspicious mass in either breast. Overall Assessment: Benign, BI-RAD 2 Management: Screening Mammogram of both breasts in 1 year. . Patient should continue monthly self-breast exams. A clinical breast exam by your physician is recommended on an annual basis. This exam should not preclude additional follow-up of suspicious palpable abnormalities. Note on Heather scores and lifetime risk: 1. A Heather score greater than 3% is considered moderate risk. If this is the case, consider specialist referral to assess eligibility for a risk reducing agent. 2. If overall lifetime risk for the development of breast cancer is 20% or higher, the patient may qualify for future screening with alternating mammogram and breast MRI. Electronically signed and approved by: Del Erickson M.D. Radiologis
== END | disposition home or self-care (01) ==
LOC: RADMAMWWP 07:34
PROVIDERS: ATTEND Obstetrics & Gynecology
DX: Z12.31 Encounter for screening mammogram for malignant neoplasm of breast (principal); Z80.3 Family history of malignant neoplasm of breast
CPT/HCPCS: 77063; 77067

== ENCOUNTER → 2023-02-11 | Outpatient (CLI) | payer BC ==
[2023-02-11 16:57] LABS: Basophils # (A) 0.02 X 10*3/uL (0.00-0.10); Basophils % (A) 0.3 %; Eosinophils # (A) 0.06 X 10*3/uL (0.04-0.35); Eosinophils % (A) 0.8 %; HCT 39.1 % (37.2-46.3); HGB 13.2 d/dL (12.0-15.0); Lymphocytes # (A) 2.18 X 10*3/uL (0.90-5.00); Lymphocytes % (A) 28.3 %; MCH 28.8 pg (27.0-32.0); MCHC 33.8 d/dL (32.0-37.0); MCV 85.2 FL (80.0-97.0); Monocytes # (A) 0.29 X 10*3/uL (0.20-1.00); Monocytes % (A) 3.8 %; NRBC Per 100 WBC 0 X 10*3/uL (0.00-0.01); Neutrophils # (A) 5.12 X 10*3/uL (1.80-7.70); Neutrophils % (A) 66.4 %; Platelet Count 242 X 10*3/uL (140-440); RBC 4.59 X 10*6/uL (4.10-5.20); RDW 12.6 % (11.5-14.5)
[2023-02-11 17:13] LABS: C Reactive Protein 3.4 mg/dL (0.00-0.80); Uric Acid 3.8 mg/dL (2.9-7.7)
[2023-02-11 17:14] LABS: Erythrocyte Sedimentation Rate 14 mm/Hr (0-30)
[2023-02-11 21:02] LABS: Anti-DNA, DS unit <1.0 IU/mL; DNA Double-Stranded Negative (Negative)
[2023-02-12 10:11] LABS: HLA B27 NEGATIVE
== END | disposition home or self-care (01) ==
LOC: LABWHC1 09:24
PROVIDERS: ATTEND Orthopaedic Surgery
DX: M25.50 Pain in unspecified joint (principal)
CPT/HCPCS: 36415; 84550; 85025; 85652; 86038; 86140; 86225; 86431; 86812

== ENCOUNTER 2023-07-30 20:47 | Observation (INO) | payer BC ==
--- NOTE | 2023-07-30 20:55 | ED ---
Chest Pain HPI - General Source: patient Mode of arrival: ambulatory Limitations: no limitations <Vanesa Huffman - Last Filed: 07/30/23 20:54> <Kali Briseno - Last Filed: 07/30/23 23:55> - General Stated Complaint: Chest pain Time Seen by Provider: 07/30/23 20:54 - History of Present Illness Initial Comments: 52-year-old female with history of diabetes presenting with chief complaint of chest pain. Pain is been ongoing for the last week feels like a pressure sensation in the center of the chest with burning epigastric pain. Pain was worse with shoveling snow last Wednesday (Vanesa Huffman) Dictation was produced using [employer] dictation software. please excuse any grammatical, word or spelling errors. Chief Complaint: 52-year-old female presents emergency department for chest pain History of Present Illness: Patient is a 52-year-old female presents to emergency room for chest pain. She's been having chest pain for approximately one week started initially while they were shoveling snow. Patient states that it's in the left anterior chest described as an ache. Sometimes it radiates to her back. Does not radiate down the arm. No associated diaphoresis. She has been having some bulging episodes. She had a catheterization done several years ago and had normal coronary arteries at that time. Patient does have some family history. She does have history of diabetes. The ROS documented in this emergency department record has been reviewed and confirmed by me. Those systems with pertinent positive or negative responses have been documented in the HPI. All other systems are other negative and/or noncontributory. (Kali Briseno) - Related Data Home Medications Medication Instructions Recorded Confirmed carBAMazepine [Carbatrol] 200 mg PO BID 02/13/14 03/09/21 Cholecalciferol [Vitamin D3 (25 50 mcg PO DAILY 03/08/21 03/09/21 Mcg = 1000 Iu)] Ibuprofen [Motrin Ib] 200 - 800 mg PO Q8H PRN 03/08/21 03/09/21 Previous Rx's Medication Instructions Recorded Famotidine [Pepcid] 20 mg PO BID #60 tablet 03/21/21 cefUROXime axetiL [Ceftin] 500 mg PO BID 1 Days #14 tab 03/21/21 metroNIDAZOLE [Flagyl] 500 mg PO TID #21 tab 03/21/21 sitaGLIPtin [Januvia] 100 mg PO DAILY #30 tab 03/21/21 Allergies Allergy/AdvReac Type Severity Reaction Status Date / Time amoxicillin Allergy nausea,diarrhea, Verified 07/30/23 20:55 light headedness apricot [Apricot] Allergy PER ALG Verified 07/30/23 20:55 TESTING Beef Containing Products Allergy PER ALG Verified 07/30/23 20:55 TESTING carbamazepine Allergy heart Verified 07/30/23 20:55 racing,panic attacks, skin crawling cinnamon [Cinnamon] Allergy Swelling Verified 07/30/23 20:55 codeine Allergy Hallucinati Verified 07/30/23 20:55 ons cyclobenzaprine HCl Allergy Swelling Verified 07/30/23 20:55 [From Amrix] dexamethasone Allergy Unknown Verified 07/30/23 20:55 egg Allergy PER ALG Verified 07/30/23 20:55 TESTING meloxicam [From Mobic] Allergy Swelling Verified 07/30/23 20:55 Milk Containing Products Allergy PER ALG Verified 07/30/23 20:55 (Dairy) TESTING [Dairy] oats Allergy PER ALG Verified 07/30/23 20:55 TESTING onion Allergy PER ALG Verified 07/30/23 20:55 TESTING saxagliptin HCl Allergy Rash/Hives Verified 07/30/23 20:55 [From Onglyza] soy Allergy PER ALG Verified 07/30/23 20:55 TESTING tree nut [Tree Nut] Allergy PER ALG Verified 07/30/23 20:55 TESTING Review of Systems ROS Other: All systems not noted in ROS Statement are negative. <Vanesa Huffman - Last Filed: 07/30/23 20:54> ROS Other: All systems not noted in ROS Statement are negative. <Kali Briseno - Last Filed: 07/30/23 23:55> ROS Statement: Those systems with pertinent positive or pertinent negative responses have been documented in the HPI. Past Medical History Past Medical History: Cancer, Diabetes Mellitus, Seizure Disorder Additional Past Medical History / Comment(s): Currently diet controlled diabetes (has been on Rx's on the past). LAST SEIZURE approximately 2003. HYPOTENSION. "after my cardiac cath my heart stopped-possible vasovagal per old medical record. UTIs. IBS or food allergies causing problems, SKIN CANCER History of Any Multi-Drug Resistant Organisms: None Reported Past Surgical History: Cholecystectomy, Heart Catheterization, Tubal Ligation, Uterine Ablation Additional Past Surgical History / Comment(s): labrial growth removed, skin cancer removals. COLONOSCOPY Past Anesthesia/Blood Transfusion Reactions: No Reported Reaction Additional Past Anesthesia/Blood Transfusion Reaction / Comment(s): PT STATED "MY HEART STOPPED AFTER MY HEART CATH" -possible vasovagal per old record, has had a CHOLECYSTECTOMY AFTER HEARTCATH AND DIDN'T HAVE ANY PROBLEMS" Past Psychological History: No Psychological Hx Reported Additional Psychological History / Comment(s): Pt resides with her spouse. She is independent. She drives. Smoking Status: Never smoker Past Alcohol Use History: None Reported Past Drug Use History: None Reported - Past Family History Father Additional Family Medical History / Comment(s): Father at age 75 of heart problems. Mother Family Medical History: Cancer Additional Family Medical History / Comment(s): Severe arthritis, bowel and stage IV breast cancer. Brother(s) Family Medical History: CVA/TIA, Diabetes Mellitus Additional Family Medical History / Comment(s): <Vanesa Huffman - Last Filed: 07/30/23 20:54> General Exam <Vanesa Huffman - Last Filed: 07/30/23 20:54> <Kali Briseno - Last Filed: 07/30/23 23:55> - General Exam Comments Initial Comments: Visual Physical Exam Vital signs reviewed General: Well-appearing, nontoxic, no acute distress. Head: Normocephalic, atraumatic Eyes: PERRLA, EOMI ENT: Airway patent Chest: Nonlabored breathing Skin: No visual rash, normal skin tone Neuro: Alert and oriented 3 Musculoskeletal: No gross abnormalities (Vanesa Huffman) PHYSICAL EXAM: General Impression: Alert and oriented x3, not in acute distress HEENT: Normocephalic atraumatic, extra-ocular movements intact, pupils equal and reactive to light bilaterally, mucous membranes moist. Cardiovascular: Heart regular rate and rhythm Chest: Able to complete full sentences, no retractions, no tachypnea Abdomen: abdomen soft, non-tender, non-distended, no organomegaly Musculoskeletal: Pulses present and equal in all extremities, no peripheral edema Motor: no focal deficits noted Neurological: CN II-XII grossly intact, no focal motor or sensory deficits noted Skin: Intact with no visualized rashes Psych: Normal affect and mood (Kali Briseno) Course Vital Signs 07/30/23 20:51 Temperature 98.1 F Pulse Rate 103 H Respiratory 20 Rate Blood Pressure 195/83 O2 Sat by Pulse 99 Oximetry Chest Pain MDM <Kali Briseno - Last Filed: 07/30/23 23:55> - MDM Was pt. sent in by a medical professional or institution (, PA, PET CREMATORY WORKER, urgent care, hospital, or group home...) When possible be specific @ -No Did you speak to anyone other than the patient for history (EMS, parent, family, police, friend...)? What history was obtained from this source @ -No Did you review nursing and triage notes (agree or disagree)? Why? @ -I reviewed and agree with nursing and triage notes Were old charts reviewed (outside hosp., previous admission, EMS record, old EKG, old radiological studies, urgent care reports/EKG's, group home records)? Report findings @ -No old charts were reviewed Differential Diagnosis (chest pain, altered mental status, abdominal pain women, abdominal pain men, vaginal bleeding, musculoskeletal, weakness, fever, dyspnea, syncope, headache, dizziness, GI bleed, back pain, seizure, CVA, palpatations, mental health)? @ -Differential Chest Pain: Stable Angina, Unstable Angina, STEMI, NSTEMI Aortic Dissection, Pneumothorax, Musculoskeletal, Esophageal Spasm GERD, Cholecystitis, Pancreatitis, Zoster, this is not meant to be an all-inclusive list. EKG interpreted by me (3pts min.). @ -My EKG interpretation: Ventricular rate 80, sinus rhythm,. 161, QRS 149, QTC 34. No VA prolongation, no QTC prolongation, no ST or T-wave changes noted. \\ Overall, this EKG is unremarkable X-rays interpreted by me (1pt min.). @ -Chest x-ray shows no acute processes CT interpreted by me (1pt min.). @ -None done U/S interpreted by me (1pt. min.). @ -None done What testing was considered but not performed or refused? (CT, X-rays, U/S, labs)? Why? @ -None What meds were considered but not given or refused? Why? @ -None Did you discuss the management of the patient with other professionals (professionals i.e. DrKell, PA, PET CREMATORY WORKER, lab, RT, psych nurse, social service agency director, feed mill manager, teacher, promotions officer, casework specialist)? Give summary @ -Case discussed with hospitalist for admission Was smoking cessation discussed for >3mins.? @ -No Was critical care preformed (if so, how long)? @ -No Were there social determinants of health that impacted care today? How? (Homelessness, low income, unemployed, alcoholism, drug addiction, transportation, low edu. Level, literacy, decrease access to med. care, intermediate, rehab)? @ -No Was there de-escalation of care discussed even if they declined (Discuss DNR or withdrawal of care, Hospice)? DNR status @ -No What co-morbidities impacted this encounter? (DM, HTN, Smoking, COPD, CAD, Cancer, CVA, ARF, Chemo, Hep., AIDS, mental health diagnosis, sleep apnea, mo rbid obesity)? @ -None Was patient admitted / discharged? Hospital course, mention meds given and route, prescriptions, significant lab abnormalities, going to OR and other pertinent info. @ -52-year-old female presents emergency department for atypical chest pain typical features. Vital signs upon arrival are within acceptable limits. EKG is unremarkable. Laboratory evaluation obtained. Troponin is negative. Rest vital acceptable limits. Disposition options were discussed she is agreeable for observation admission with consultation to cardiology. Patient given dose of aspirin. Patient stable well-appearing at the bedside. Undiagnosed new problem with uncertain prognosis? @ -No Drug Therapy requiring intensive monitoring for toxicity (Heparin, Nitro, Insulin, Cardizem)? @ -No Were any procedures done? @ -No Diagnosis/symptom? Acute, or Chronic, or Acute on Chronic? Uncomplicated (without systemic symptoms) or Complicated (systemic symptoms)? @ -Chest pain Side effects of treatment? @ -No Exacerbation, Progression, or Severe Exacerbation? @ -No Poses a threat to life or bodily function? How? (Chest pain, [place], [place], pneumonia, PE, COPD, DKA, ARF, appy, cholecystitis, CVA, Diverticulitis, Homicidal, Suicidal, threat to staff... and all critical care pts) @ -yes (Bayudan,Kali D) Disposition <Vanesa Huffman - Last Filed: 07/30/23 20:54> Decision Time: 23:55 <Kali Briseno - Last Filed: 07/30/23 23:55> Clinical Impression: Chest pain Disposition: ADMITTED IP TO THIS HOSP Condition: Fair Referrals: Deni Aguiar DO [Primary Care Provider] - 1-2 days
[2023-07-30 21:12] LABS: Basophils % (A) 0 %; Eosinophils # (A) 0.1 k/uL (0-0.7); Eosinophils % (A) 1 %; HCT 40.2 % (34.0-46.0); HGB 13.9 gm/dL (11.4-16.0); Lymphocytes # (A) 2.6 k/uL (1.0-4.8); Lymphocytes % (A) 30 %; MCH 28.9 pg (25.0-35.0); MCHC 34.5 g/dL (31.0-37.0); MCV 83.9 fL (80.0-100.0); Mean Platelet Volume 7.2; Monocytes # (A) 0.4 k/uL (0-1.0); Monocytes % (A) 4 %; Neutrophils # (A) 5.5 k/uL (1.3-7.7); Neutrophils % (A) 63 %; Platelet Count 271 k/uL (150-450); RBC 4.79 m/uL (3.80-5.40); RDW 12.7 % (11.5-15.5); WBC 8.7 k/uL (3.8-10.6)
[2023-07-30 21:26] LABS: INR 0.9 (<1.2); Prothrombin Time 10.5 sec (10.0-12.5)
[2023-07-30 21:27] LABS: Partial Thromboplastin Time 26.1 sec (22.0-30.0)
--- NOTE | 2023-07-30 21:29 | XR ---
EXAMINATION TYPE: XR chest 2V DATE OF EXAM: 07/30/2023 COMPARISON: 03/21/2021 HISTORY: Shortness of breath TECHNIQUE: Frontal and lateral views of the chest are obtained. FINDINGS: Scattered senescent parenchymal changes noted. Hyperinflation compatible with COPD. No evidence for infiltrate. No evidence for atelectasis. Heart size is stable. Mediastinal structures are stable and grossly unremarkable. No evidence for hilar prominence. Degenerative changes dorsal spine. IMPRESSION: 1. No evidence for acute pulmonary disease.
[2023-07-30 21:32] LABS: ALT 28 U/L (4-34); AST 31 U/L (14-36); African American GFR (CKD) >90 (>60 ml/min/1.73 sqM); Albumin 4.8 g/dL (3.5-5.0); Alkaline Phosphatase 104 U/L (38-126); Amylase 86 U/L (30-110); Anion Gap 6 mmol/L; Blood Urea Nitrogen 15 mg/dL (7-17); Calcium 9.7 mg/dL (8.4-10.2); Carbon Dioxide 32 mmol/L (22-30); Chloride 101 mmol/L (98-107); Glucose 196 mg/dL (74-99); Lipase 120 U/L (23-300); Magnesium 1.9 mg/dL (1.6-2.3); Non-African American GFR(CKD) >90 (>60 ml/min/1.73 sqM); Potassium 3.7 mmol/L (3.5-5.1); Sodium 139 mmol/L (137-145); Total Bilirubin 0.4 mg/dL (0.2-1.3); Total Protein 8.1 g/dL (6.3-8.2)
[2023-07-30] MEDS ORDERED: ASPIRIN 81 MG PO STA (23:34)
[2023-07-30] MEDS ORDERED: NITROGLYCERIN SL TABS 0.4 MG TAB SUBLINGUAL PRN (23:35)
[2023-07-31] MEDS ORDERED: ASPIRIN 325 MG TAB PO SCH (09:00)
[2023-07-31] MEDS ORDERED: DEXTROSE 50% SYRINGE 50 ML IVP PRN ×2 (10:37)
[2023-07-31] MEDS: METOPROLOL SUCCINATE (ER) 25 MG TAB.ER.24H PO SCH (11:48)
[2023-07-31] MEDS: FAMOTIDINE 20 MG TAB PO SCH ×2 (11:48→21:20)
[2023-07-31] MEDS: ATORVASTATIN 40 MG TAB PO SCH (11:49)
[2023-07-31 11:56] LABS: Glucose,Whole Blood 141 mg/dL (70-110)
[2023-07-31] MEDS: INSULIN ASPART (NovoLOG) 100 UNIT/ML VIAL SQ SCH ×2 (12:07→17:30)
[2023-07-31 12:35] LABS: Chol/HDL Ratio 5.91 Ratio; LDL Cholesterol,Calculated 134.8 mg/dL (0.0-131.0)
[2023-07-31 17:23] LABS: Glucose,Whole Blood 145 mg/dL (70-110)
--- NOTE | 2023-07-31 17:55 | P.CRDCN ---
History of Present Illness Consult date: 07/31/23 History of present illness: HISTORY OF PRESENTING ILLNESS 51-year-old female with past medical history of type 2 diabetes presented to the hospital because of substernal pressure-like sensation and epigastric pain. Along with this pain she also describes left shoulder pain which gets worse whenever she moves her shoulder. On admission her troponins are negative, ECG was sinus rhythm with no significant ST-T wave changes at rest. Her other labs are essentially within normal limits. LDL was 134, HDL 39, triglyceride 300, hyperglycemia REVIEW OF SYSTEMS 14 point review of system is negative except what is mentioned above in HPI. PHYSICAL EXAMINATION Vital signs reviewed. Head: Normocephalic. Eyes: Sclerae nonicteric. Neck: Brisk carotid upstroke, no jugular venous distention. Lungs: Clear to auscultation. Heart: Regular rate and rhythm, S1-S2, no S3, no murmur or rub. Abdomen: Soft nontender, positive bowel sounds no organomegaly. Extremities: No edema, intact distal pulses. Neuro: Alert, oritented, no focal deficits ASSESSMENT Atypical chest pain Type II Diabetes Dyslipidemia Obesity PLAN Patient is cleared to be discharged from cardiac vessel standpoint. Outpatient follow-up recommended. We will obtain an outpatient echocardiogram and a treadmill echo stress test Start aspirin, atorvastatin, metoprolol XL 25 mg daily at discharge. Past Medical History Past Medical History: Cancer, Diabetes Mellitus, Seizure Disorder Additional Past Medical History / Comment(s): LAST SEIZURE approximately 2003. HYPOTENSION. "after my cardiac cath my heart stopped-possible vasovagal per old medical record. UTIs. IBS or food allergies causing problems, SKIN CANCER History of Any Multi-Drug Resistant Organisms: None Reported Past Surgical History: Cholecystectomy, Heart Catheterization, Tubal Ligation, Uterine Ablation Additional Past Surgical History / Comment(s): labrial growth removed, skin cancer removals. COLONOSCOPY Past Anesthesia/Blood Transfusion Reactions: No Reported Reaction Additional Past Anesthesia/Blood Transfusion Reaction / Comment(s): PT STATED "MY HEART STOPPED AFTER MY HEART CATH" -possible vasovagal per old record, has had a CHOLECYSTECTOMY AFTER HEARTCATH AND DIDN'T HAVE ANY PROBLEMS" Past Psychological History: No Psychological Hx Reported Additional Psychological History / Comment(s): Pt resides with her spouse. She is independent. She drives. Smoking Status: Never smoker Past Alcohol Use History: None Reported Past Drug Use History: None Reported - Past Family History Father Additional Family Medical History / Comment(s): Father at age 75 of heart problems. Mother Family Medical History: Cancer Additional Family Medical History / Comment(s): Severe arthritis, bowel and stage IV breast cancer. Brother(s) Family Medical History: CVA/TIA, Diabetes Mellitus Additional Family Medical History / Comment(s): Medications and Allergies Home Medications Medication Instructions Recorded Confirmed Type carBAMazepine [Carbatrol] 200 mg PO BID 02/13/14 07/31/23 History Cholecalciferol [Vitamin D3 (25 50 mcg PO DAILY 03/08/21 07/31/23 History Mcg = 1000 Iu)] Ibuprofen [Motrin Ib] 200 - 800 mg PO Q8H PRN 03/08/21 07/31/23 History sitaGLIPtin [Januvia] 100 mg PO DAILY #30 tab 03/21/21 07/31/23 Rx EPINEPHrine (Auto Inject) [Epipen] 0.3 mg IM ONCE PRN 07/31/23 07/31/23 History Multivitamins, Thera [Multivitamin 1 tab PO DAILY 07/31/23 07/31/23 History (formulary)] diphenhydrAMINE HCL [Benadryl] 25 mg PO HS PRN 07/31/23 07/31/23 History Allergies Allergy/AdvReac Type Severity Reaction Status Date / Time amoxicillin Allergy nausea,diarrhea, Verified 07/31/23 11:15 light headedness apricot [Apricot] Allergy PER ALG Verified 07/31/23 11:15 TESTING banana Allergy Nausea & Verified 07/31/23 11:15 Vomiting carbamazepine Allergy heart Verified 07/31/23 11:15 racing,panic attacks, skin crawling cinnamon [Cinnamon] Allergy Swelling Verified 07/31/23 11:15 codeine Allergy Hallucinati Verified 07/31/23 11:15 ons cyclobenzaprine HCl Allergy Swelling Verified 07/31/23 11:15 [From Amrix] dexamethasone Allergy Unknown Verified 07/31/23 11:15 meloxicam [From Mobic] Allergy Swelling Verified 07/31/23 11:15 saxagliptin HCl Allergy Rash/Hives Verified 07/31/23 11:15 [From Onglyza] tree nut [Tree Nut] Allergy PER ALG Verified 07/31/23 11:15 TESTING Physical Exam Vitals: Vital Signs Temp Pulse Pulse Resp BP BP Pulse Ox 07/31/23 14:28 97.7 F 80 16 144/76 99 07/31/23 07:00 97.9 F 78 16 129/60 99 07/31/23 02:00 74 07/31/23 01:24 97.7 F 74 16 152/76 100 07/31/23 01:11 85 18 134/70 96 07/30/23 23:50 80 22 135/81 97 07/30/23 20:51 98.1 F 103 H 20 195/83 99 Intake and Output 07/31/23 07/31/23 07/31/23 06:59 14:59 22:59 Intake Total 260 Balance 260 Intake: Oral 260 Other: Voiding Method Toilet # Voids 2 1 Weight 80.739 kg Results 07/30/23 21:01 07/30/23 21:01 Cardiac Enzymes 07/30/23 07/30/23 07/31/23 Range/Units 21:01 21:01 00:55 AST 31 (14-36) U/L Troponin I <0.012 <0.012 (0.000-0.034) ng/mL 07/31/23 Range/Units 05:29 AST (14-36) U/L Troponin I <0.012 (0.000-0.034) ng/mL Coagulation 07/30/23 Range/Units 21:01 PT 10.5 (10.0-12.5) sec APTT 26.1 (22.0-30.0) sec Lipids 07/31/23 Range/Units 05:29 Triglycerides 298.00 H (0.00-149.00) mg/dL Cholesterol 234.00 H (0.00-200.00) mg/dL HDL Cholesterol 39.60 L (40.00-60.00) mg/dL Cholesterol/HDL Ratio 5.91 Ratio CBC 07/30/23 Range/Units 21:01 WBC 8.7 (3.8-10.6) k/uL RBC 4.79 (3.80-5.40) m/uL Hgb 13.9 (11.4-16.0) gm/dL Hct 40.2 (34.0-46.0) % Plt Count 271 (150-450) k/uL Comprehensive Metabolic Panel 07/30/23 Range/Units 21:01 Sodium 139 (137-145) mmol/L Potassium 3.7 (3.5-5.1) mmol/L Chloride 101 (98-107) mmol/L Carbon Dioxide 32 H (22-30) mmol/L BUN 15 (7-17) mg/dL Creatinine 0.64 (0.52-1.04) mg/dL Glucose 196 H (74-99) mg/dL Calcium 9.7 (8.4-10.2) mg/dL AST 31 (14-36) U/L ALT 28 (4-34) U/L Alkaline Phosphatase 104 (38-126) U/L Total Protein 8.1 (6.3-8.2) g/dL Albumin 4.8 (3.5-5.0) g/dL Current Medications Generic Name Dose Route Start Last Admin Trade Name Freq PRN Reason Stop Dose Admin Aspirin 81 mg 08/01/23 09:00 Aspirin 81 Mg PO DAILY [facility] Atorvastatin Calcium 40 mg 07/31/23 11:30 07/31/23 11:49 Atorvastatin 40 Mg Tab PO Not Given DAILY YAJAIRA Carbamazepine 200 mg 07/31/23 10:45 07/31/23 11:03 Carbamazepine 200 Mg Tab.Er.12h PO 200 mg BID YAJAIRA Administration Cholecalciferol 50 mcg 08/01/23 09:00 Cholecalciferol 25 Mcg (1000 Iu) Tablet PO DAILY [facility] Dextrose/Water 25 ml 07/31/23 10:37 Dextrose 50% Syringe 50 Ml IVP PER PROTOCOL PRN Hypoglycemia Protocol Dextrose/Water 50 ml 07/31/23 10:37 Dextrose 50% Syringe 50 Ml IVP PER PROTOCOL PRN Hypoglycemia Protocol Famotidine 20 mg 07/31/23 10:45 07/31/23 11:48 Famotidine 20 Mg Tab PO 20 mg BID YAJAIRA Administration Insulin Aspart 0 unit 07/31/23 12:30 07/31/23 17:30 Insulin Aspart (Novolog) 100 Unit/Ml Vial SQ Not Given AC-TID YAJAIRA Protocol Metoprolol Succinate 25 mg 07/31/23 11:30 07/31/23 11:48 Metoprolol Succinate (Er) 25 Mg Tab.Er.24h PO 25 mg DAILY YAJAIRA Administration Nitroglycerin 0.4 mg 07/30/23 23:35 Nitroglycerin Sl Tabs 0.4 Mg Tab SUBLINGUAL Q5M PRN Chest Pain Sitagliptin 100 Mg 100 mg 07/31/23 10:45 07/31/23 11:03 Tab PO 100 mg DAILY YAJAIRA Administration Intake and Output 07/31/23 07/31/23 07/31/23 06:59 14:59 22:59 Intake Total 260 Balance 260 Intake: Oral 260 Other: Voiding Method Toilet # Voids 2 1 Weight 80.739 kg 07/30/23 21:01 07/30/23 21:01
--- NOTE | 2023-07-31 19:23 | P.HPIM ---
History of Present Illness H&P Date: 07/31/23 Chief Complaint: Chest pain This is a pleasant 52-year-old patient who follows with Dr. Aguiar. Chronic stable medical conditions include, 2 diabetes, seizure disorder, ALLERGIES for which she takes Benadryl when necessary. chronic lower lumbar pain. Patient is at chronic left arm pain. For which in March of last year she finished physical therapy. She been told she has some calcifications. Always has some dull ache. 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 A [employer] will patient was shoveling snow and noticed some more pain in the left arm. Also some left-sided chest discomfort. This does not radiate. Was last 1 week of being feeling somewhat a bit lightheaded. Also episodes when she gets totally flushed. Denies any shortness of breath. No leg swelling. Patient somewhat reluctant to take medications. at the bedside. Review of systems: GEN.: Tired EYES: None HEENT: None NECK: None RESPIRATORY: None CARDIOVASCULAR: As above GASTROINTESTINAL: None GENITOURINARY: None MUSCULOSKELETAL: Neck left upper arm pain LYMPHATICS: None HEMATOLOGICAL: None PSYCHIATRY: None NEUROLOGICAL: None Social history: . No smoking or alcohol. Works at [employer]. Physical examination: VITAL SIGNS: 97.9, 78, 16, 1 29 x 60, 99% room air GENERAL: [BMI 28.7, declining but slightly anxious. EYES: Pupils equal. Conjunctiva normal. HEENT: External appearance of nose and ears normal, oral cavity grossly normal. NECK: JVD not raised; masses not palpable. HEART: First and second heart sounds are normal; no edema. LUNGS: Respiratory rate normal; clear to auscultation. ABDOMEN: Soft, nontender, liver spleen not palpable, no masses palpable. PSYCH: Alert and oriented x3; mood and affect normal. MUSCULOSKELETAL:No Clubbing/cyanosis;muscles-grossly intact NEUROLOGICAL: Cranial nerves grossly intact; no facial asymmetry, power and sensation grossly intact. LYMPHATICS: No lymph nodes palpable in the axilla and neck INVESTIGATIONS, reviewed in the clinical context: 07/30/2023: White count 8.7 hemoglobin 13.9 platelets 271 sodium 139 potassium 3.7 BUN 15 creatinine 0.64 Troponin I less than 0.0123 Triglycerides 298 LDL 134 line EKG tracing personally reviewed by me-normal sinus rhythm Chest x-ray film personally reviewed by me-unremarkable Assessment and plan: -Left arm and left chest pain. Possibly muscular skeletal. Given her cardiac risk factors, patient will probably need a stress test. -Hyperlipidemia Patient somewhat reluctant to take medications because of muscle cramp she is concerned about the same. She might try the same and then decide accordingly. -Essential hypertension. Patient's blood pressure sees to be fluctuating. Patient may need outpatient continues blood pressure monitoring. Was discussed to check her blood pressure and keep a log of the same. -Diabetes mellitus type 2, oral hypoglycemic Januvia Follow Accu-Cheks. -Epilepsy disorder : last episode being 2003 Carbamazepine -Chronic lumbar arthritis Tylenol when necessary -Chronic multiple ALLERGIES Blood pressure medications discussed at length with the patient. 2-D echo stress test likely outpatient. Weak and not available. Cardiology consulted. Past Medical History Past Medical History: Cancer, Diabetes Mellitus, Seizure Disorder Additional Past Medical History / Comment(s): LAST SEIZURE approximately 2003. HYPOTENSION. "after my cardiac cath my heart stopped-possible vasovagal per old medical record. UTIs. IBS or food allergies causing problems, SKIN CANCER History of Any Multi-Drug Resistant Organisms: None Reported Past Surgical History: Cholecystectomy, Heart Catheterization, Tubal Ligation, Uterine Ablation Additional Past Surgical History / Comment(s): labrial growth removed, skin cancer removals. COLONOSCOPY Past Anesthesia/Blood Transfusion Reactions: No Reported Reaction Additional Past Anesthesia/Blood Transfusion Reaction / Comment(s): PT STATED "MY HEART STOPPED AFTER MY HEART CATH" -possible vasovagal per old record, has had a CHOLECYSTECTOMY AFTER HEARTCATH AND DIDN'T HAVE ANY PROBLEMS" Past Psychological History: No Psychological Hx Reported Additional Psychological History / Comment(s): Pt resides with her spouse. She is independent. She drives. Smoking Status: Never smoker Past Alcohol Use History: None Reported Past Drug Use History: None Reported - Past Family History Father Additional Family Medical History / Comment(s): Father at age 75 of heart problems. Mother Family Medical History: Cancer Additional Family Medical History / Comment(s): Severe arthritis, bowel and stage IV breast cancer. Brother(s) Family Medical History: CVA/TIA, Diabetes Mellitus Additional Family Medical History / Comment(s): Medications and Allergies Home Medications Medication Instructions Recorded Confirmed Type carBAMazepine [Carbatrol] 200 mg PO BID 02/13/14 07/31/23 History Cholecalciferol [Vitamin D3 (25 50 mcg PO DAILY 03/08/21 07/31/23 History Mcg = 1000 Iu)] Ibuprofen [Motrin Ib] 200 - 800 mg PO Q8H PRN 03/08/21 07/31/23 History sitaGLIPtin [Januvia] 100 mg PO DAILY #30 tab 03/21/21 07/31/23 Rx EPINEPHrine (Auto Inject) [Epipen] 0.3 mg IM ONCE PRN 07/31/23 07/31/23 History Multivitamins, Thera [Multivitamin 1 tab PO DAILY 07/31/23 07/31/23 History (formulary)] diphenhydrAMINE HCL [Benadryl] 25 mg PO HS PRN 07/31/23 07/31/23 History Allergies Allergy/AdvReac Type Severity Reaction Status Date / Time amoxicillin Allergy nausea,diarrhea, Verified 07/31/23 11:15 light headedness apricot [Apricot] Allergy PER ALG Verified 07/31/23 11:15 TESTING banana Allergy Nausea & Verified 07/31/23 11:15 Vomiting carbamazepine Allergy heart Verified 07/31/23 11:15 racing,panic attacks, skin crawling cinnamon [Cinnamon] Allergy Swelling Verified 07/31/23 11:15 codeine Allergy Hallucinati Verified 07/31/23 11:15 ons cyclobenzaprine HCl Allergy Swelling Verified 07/31/23 11:15 [From Amrix] dexamethasone Allergy Unknown Verified 07/31/23 11:15 meloxicam [From Mobic] Allergy Swelling Verified 07/31/23 11:15 saxagliptin HCl Allergy Rash/Hives Verified 07/31/23 11:15 [From Onglyza] tree nut [Tree Nut] Allergy PER ALG Verified 07/31/23 11:15 TESTING Physical Exam Vitals: Vital Signs Temp Pulse Pulse Resp BP BP Pulse Ox 07/31/23 07:00 97.9 F 78 16 129/60 99 07/31/23 02:00 74 07/31/23 01:24 97.7 F 74 16 152/76 100 07/31/23 01:11 85 18 134/70 96 07/30/23 23:50 80 22 135/81 97 07/30/23 20:51 98.1 F 103 H 20 195/83 99 Intake and Output 01/19/24 01/20/24 01/20/24 22:59 06:59 14:59 Other: Voiding Method Toilet # Voids 2 Weight 80.739 kg 80.739 kg Results CBC & Chem 7: 07/30/23 21:01 07/30/23 21:01 Labs: Abnormal Lab Results - Last 24 Hours (Table) 07/30/23 Range/Units 21:01 Carbon Dioxide 32 H (22-30) mmol/L Glucose 196 H (74-99) mg/dL Thrombosis Risk Factor Assmnt - Choose All That Apply Any of the Below Risk Factors Present?: Yes Each Factor Represents 1 point: Age 41-60 years, Obesity (BMI >25) Thrombosis Risk Factor Assessment Total Risk Factor Score: 2 Thrombosis Risk Factor Assessment Level: Low Risk
[2023-07-31] MEDS: ENOXAPARIN 40 MG/0.4 ML SYRINGE SQ SCH (21:20)
[2023-08-01 05:24] LABS: Glucose,Whole Blood 121 mg/dL (70-110)
[2023-08-01] MEDS: INSULIN ASPART (NovoLOG) 100 UNIT/ML VIAL SQ SCH ×2 (05:44→12:43)
[2023-08-01 08:00] VITALS: BP 132/75; PULSE 66; RESP 14; TEMP 97.7
[2023-08-01 08:29] LABS: Glucose,Whole Blood 140 mg/dL (70-110)
[2023-08-01] MEDS ORDERED: CHOLECALCIFEROL 25 MCG (1000 IU) TABLET PO SCH (09:00)
[2023-08-01] MEDS ORDERED: ASPIRIN 81 MG PO SCH (09:00)
[2023-08-01] MEDS: METOPROLOL SUCCINATE (ER) 25 MG TAB.ER.24H PO SCH (09:04)
[2023-08-01] MEDS: FAMOTIDINE 20 MG TAB PO SCH (09:05)
[2023-08-01] MEDS: ATORVASTATIN 40 MG TAB PO SCH (09:05)
[2023-08-01] MEDS: ENOXAPARIN 40 MG/0.4 ML SYRINGE SQ SCH (09:05)
--- NOTE | 2023-08-01 11:00 | CA ---
Transthoracic Echo Report Name: Andres Gonzalez Age: 52 Gender: F : 1970 Exam Date: 07/31/2023 17:09 Exam Location: [facility] Ht (in): 66 Wt (lb): 178 Ordering Physician: Ajay Noel MD ([email or web address]) Attending/Referring Phys: Juice Standardizer Nickolas Joshi RD Procedure CPT: Indications: Chest Pain Cardiac Hx: Technical Quality: Fair Contrast 1: Total Dose (mL): Contrast 2: Total Dose (mL): MEASUREMENTS (Male / Female) Normal Values 2D ECHO LV Diastolic Diameter PLAX 4.4 cm 4.2 - 5.9 / 3.9 - 5.3 cm LV Systolic Diameter PLAX 2.6 cm IVS Diastolic Thickness 1.2 cm 0.6 - 1.0 / 0.6 - 0.9 cm LVPW Diastolic Thickness 1.2 cm 0.6 - 1.0 / 0.6 - 0.9 cm LV Relative Wall Thickness 0.5 RV Internal Dim ED PLAX 2.6 cm LVOT Diameter 2.1 cm Aortic Root Diameter 2.5 cm LA Systolic Diameter LX 2.1 cm 3.0 - 4.0 / 2.7 - 3.8 cm LV Diastolic Volume MOD BP 49.6 cm??? 67 - 155 / 56 - 104 cm??? LV Systolic Volume MOD BP 16.2 cm??? - / 19 - 49 cm??? LV Ejection Fraction MOD BP 67.4 % >= 55 % LV Cardiac Index MOD BP 1244.2 cm???/min???m??? LV Diastolic Volume MOD 4C 49.6 cm??? LV Systolic Volume MOD 4C 16.8 cm??? LV Ejection Fraction MOD 4C 66.1 % LV Cardiac Index MOD 4C 1219.7 cm???/min???m??? LV Diastolic Length 4C 6.7 cm LV Systolic Length 4C 5.8 cm LV Diastolic Volume MOD 2C 45.5 cm??? LV Systolic Volume MOD 2C 15.4 cm??? LV Ejection Fraction MOD 2C 66.2 % LV Cardiac Index MOD 2C 1120.5 cm???/min???m??? LV Diastolic Length 2C 7.4 cm LV Systolic Length 2C 5.7 cm LA Volume 32.2 cm??? 18 - 58 / 22 - 52 cm??? LA Volume Index 16.4 cm???/m??? 16 - 28 cm???/m??? DOPPLER AV Peak Velocity 155.2 cm/s AV Peak Gradient 9.6 mmHg AV Mean Velocity 104.9 cm/s AV Mean Gradient 5.0 mmHg AV Velocity Time Integral 31.6 cm LVOT Peak Velocity 99.0 cm/s LVOT Peak Gradient 3.9 mmHg LVOT Velocity Time Integral 21.3 cm LVOT Stroke Volume 70.7 cm??? LVOT Stroke Volume Index 37.2 ml/m??? LVOT Cardiac Index 2633.9 cm???/min???m??? AV Area Cont Eq vti 2.2 cm??? AV Area Cont Eq pk 2.1 cm??? MV Peak Velocity 106.1 cm/s MV Peak Gradient 4.5 mmHg MV Mean Velocity 67.6 cm/s MV Mean Gradient 2.1 mmHg MV Velocity Time Integral 31.6 cm Mitral E Point Velocity 101.2 cm/s Mitral A Point Velocity 100.7 cm/s Mitral E to A Ratio 1.0 MV Deceleration Time 173.3 ms MV E' Velocity 6.5 cm/s Mitral E to MV E' Ratio 15.5 TR Peak Velocity 122.2 cm/s TR Peak Gradient 6.0 mmHg Right Ventricular Systolic Press 11.0 mmHg PV Peak Velocity 99.1 cm/s PV Peak Gradient 3.9 mmHg FINDINGS Left Ventricle Normal LV size. Mild concentric LVH. Left ventricular ejection fraction is estimated at 60-65 %. Right Ventricle Normal right ventricular size and function. Right Atrium Normal right atrial size. Left Atrium Normal left atrial size. Mitral Valve Mild to moderate posterior mitral annulus calcification. No mitral regurgitation. No mitral stenosis. Aortic Valve Trileaflet aortic valve. No aortic valve stenosis or regurgitation. Tricuspid Valve Structurally normal tricuspid valve. Trace TR. Pulmonic Valve Structurally normal pulmonic valve. No pulmonic regurgitation. Pericardium Normal pericardium. Aorta Normal size aortic root. CONCLUSIONS Normal LV size and systolic function. Mild concentric LVH LVEF 60% No obvious regional wall motion abnormality No significant valvular dysfunction No pericardial effusion Previewed by: Dr Ajay Noel (Electronically Signed) Final Date: 01 August 2023 10:59
[2023-08-01 11:57] LABS: Glucose,Whole Blood 136 mg/dL (70-110)
--- NOTE | 2023-08-02 18:14 | P.DS ---
Providers Date of admission: 07/30/23 23:36 Expected date of discharge: 08/01/23 Attending physician: Quintin Harper Consults: 07/30/23 23:35 Consult Physician Urgent Consulting Provider: Jayson Vasquez Consult Reason/Comments: chest pain Do you want consulting provider notified?: Yes Primary care physician: [facility] Course: Chief Complaint: Chest pain This is a pleasant 52-year-old patient who follows with Dr. Aguiar. Chronic stable medical conditions include, 2 diabetes, seizure disorder, ALLERGIES for which she takes Benadryl when necessary. chronic lower lumbar pain. Patient is at chronic left arm pain. For which in March of last year she finished physical therapy. She been told she has some calcifications. Always has some dull ache. 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 A [employer] will patient was shoveling snow and noticed some more pain in the left arm. Also some left-sided chest discomfort. This does not radiate. Was last 1 week of being feeling somewhat a bit lightheaded. Also episodes when she gets totally flushed. Denies any shortness of breath. No leg swelling. Patient somewhat reluctant to take medications. at the bedside. 08/01/2023: Patient to call Lopressor last night. Blood pressure in the 1:30 systolic. Today. Patient not keen to take her lipid-lowering medications. The rationale for the same in diabetics was discussed with her. She'll follow-up with Dr. Alize Vasquez her proof load mechanic. Her chest pain is - reproducible and it felt to be muscular skeletal. Questions answered. Discussion and discharge planning more than 35 minutes Social history: . No smoking or alcohol. Works at [employer]. Physical examination: VITAL SIGNS: 97.7, 66, 14, 1 32 x 75, 100% room air GENERAL: No weight chair, comfortable EYES: Pupils equal. Conjunctiva normal. HEENT: External appearance of nose and ears normal, oral cavity grossly normal. NECK: JVD not raised; masses not palpable. HEART: First and second heart sounds are normal; no edema. LUNGS: Respiratory rate normal; clear to auscultation. ABDOMEN: Soft, nontender, liver spleen not palpable, no masses palpable. PSYCH: Alert and oriented x3; mood and affect normal. MUSCULOSKELETAL:No Clubbing/cyanosis;muscles-grossly intact. Left anterior chest wall pain reproducible INVESTIGATIONS, reviewed in the clinical context: 07/30/2023: White count 8.7 hemoglobin 13.9 platelets 271 sodium 139 potassium 3.7 BUN 15 creatinine 0.64 Troponin I less than 0.0123 Triglycerides 298 LDL 134 line EKG tracing personally reviewed by me-normal sinus rhythm Chest x-ray film personally reviewed by me-unremarkable Assessment and plan: -Left arm and left chest pain. Possibly muscular skeletal. Patient follow-up with her proof load mechanic Dr. Alize Vasquez outpatient -Hyperlipidemia Patient at this point is declined statins. Importance in the presence of diabetics emphasized. She'll follow-up and discuss with her proof load mechanic. -Essential hypertension. Toprol XL 25 mg a day. Patient to keep a log of the same.. -Diabetes mellitus type 2, oral hypoglycemic Januvia Follow Accu-Cheks. -Epilepsy disorder : last episode being 2003 Carbamazepine -Chronic lumbar arthritis Tylenol when necessary -Chronic multiple ALLERGIES Disposition: Home Past Medical History Past Medical History: Cancer, Diabetes Mellitus, Seizure Disorder Additional Past Medical History / Comment(s): LAST SEIZURE approximately 2003. HYPOTENSION. "after my cardiac cath my heart stopped-possible vasovagal per old medical record. UTIs. IBS or food allergies causing problems, SKIN CANCER History of Any Multi-Drug Resistant Organisms: None Reported Past Surgical History: Cholecystectomy, Heart Catheterization, Tubal Ligation, Uterine Ablation Additional Past Surgical History / Comment(s): labrial growth removed, skin cancer removals. COLONOSCOPY Past Anesthesia/Blood Transfusion Reactions: No Reported Reaction Additional Past Anesthesia/Blood Transfusion Reaction / Comment(s): PT STATED "MY HEART STOPPED AFTER MY HEART CATH" -possible vasovagal per old record, has had a CHOLECYSTECTOMY AFTER HEARTCATH AND DIDN'T HAVE ANY PROBLEMS" Past Psychological History: No Psychological Hx Reported Additional Psychological History / Comment(s): Pt resides with her spouse. She is independent. She drives. Smoking Status: Never smoker Past Alcohol Use History: None Reported Past Drug Use History: None Reported Plan - Discharge Summary New Discharge Prescriptions: New Aspirin 81 mg PO DAILY tab Metoprolol Succinate (ER) [Toprol XL] 25 mg PO DAILY #30 tab Rosuvastatin [Crestor] 10 mg PO DAILY #30 tablet Nitroglycerin Sl Tabs [Nitrostat] 0.4 mg SUBLINGUAL Q5M PRN #30 tab PRN Reason: Chest Pain Famotidine [Pepcid] 20 mg PO BID #60 tab Continue carBAMazepine [Carbatrol] 200 mg PO BID sitaGLIPtin [Januvia] 100 mg PO DAILY #30 tab Multivitamins, Thera [Multivitamin (formulary)] 1 tab PO DAILY Ibuprofen [Motrin Ib] 200 - 800 mg PO Q8H PRN PRN Reason: Pain Cholecalciferol [Vitamin D3 (25 Mcg = 1000 Iu)] 50 mcg PO DAILY diphenhydrAMINE HCL [Benadryl] 25 mg PO HS PRN PRN Reason: Allergy Symptoms EPINEPHrine (Auto Inject) [Epipen] 0.3 mg IM ONCE PRN PRN Reason: Anaphylaxis Discharge Medication List carBAMazepine [Carbatrol] 200 mg PO BID 02/13/14 [History] Cholecalciferol [Vitamin D3 (25 Mcg = 1000 Iu)] 50 mcg PO DAILY 03/08/21 [History] Ibuprofen [Motrin Ib] 200 - 800 mg PO Q8H PRN 03/08/21 [History] sitaGLIPtin [Januvia] 100 mg PO DAILY #30 tab 03/21/21 [Rx] EPINEPHrine (Auto Inject) [Epipen] 0.3 mg IM ONCE PRN 07/31/23 [History] Multivitamins, Thera [Multivitamin (formulary)] 1 tab PO DAILY 07/31/23 [History] diphenhydrAMINE HCL [Benadryl] 25 mg PO HS PRN 07/31/23 [History] Aspirin 81 mg PO DAILY tab 08/01/23 [Rx] Famotidine [Pepcid] 20 mg PO BID #60 tab 08/01/23 [Rx] Metoprolol Succinate (ER) [Toprol XL] 25 mg PO DAILY #30 tab 08/01/23 [Rx] Nitroglycerin Sl Tabs [Nitrostat] 0.4 mg SUBLINGUAL Q5M PRN #30 tab 08/01/23 [Rx] Rosuvastatin [Crestor] 10 mg PO DAILY #30 tablet 08/01/23 [Rx] Follow up Appointment(s)/Referral(s): Deni Aguiar DO [Primary Care Provider] - 1-2 days Jayson Vasquez MD [STAFF PHYSICIAN] - 1 Week Patient Instructions/Handouts: Chest Pain (DC) Discharge Disposition: HOME SELF-CARE
== END 2023-08-01 12:57 | disposition home or self-care (01) ==
LOC: EC 20:47 → 6NMEDSUR 23:36
PROVIDERS: ADMIT Hospitalist; ATTEND Hospitalist
DX: R07.89 Other chest pain (principal); E11.65 Type 2 diabetes mellitus with hyperglycemia; I10 Essential (primary) hypertension; E78.5 Hyperlipidemia, unspecified; E66.9 Obesity, unspecified; G40.909 Epilepsy, unspecified, not intractable, without status epilepticus; M47.816 Spondylosis without myelopathy or radiculopathy, lumbar region; Z79.899 Other long term (current) drug therapy; Z79.84 Long term (current) use of oral hypoglycemic drugs; Z88.0 Allergy status to penicillin; Z88.8 Allergy status to other drugs, medicaments and biological substances; Z88.5 Allergy status to narcotic agent; Z85.9 Personal history of malignant neoplasm, unspecified; Z98.61 Coronary angioplasty status; Z68.28 Body mass index [BMI] 28.0-28.9, adult
CPT/HCPCS: 96372; 99285; 36415; 93005; 93306; 80061; 80053; 82150; 83690; 83735; 84484 ×2; 85025; 85610; 85730; 71046; G0378 ×2; J1650 ×2

== ENCOUNTER 2023-08-05 19:57 | Emergency (ER) | payer BC ==
--- NOTE | 2023-08-05 20:12 | ED ---
Head Injury HPI - General Chief complaint: Head Injury Stated complaint: Headache dizziness Time Seen by Provider: 08/05/23 20:01 Source: patient, RN notes reviewed Mode of arrival: ambulatory Limitations: no limitations - History of Present Illness Initial comments: This is a 52-year-old female who presents to the emergency department for a head injury. Patient was discharged from this facility on 08/01 for chest pain and prior to discharge, she hit her head on the countertop in her room. She is concerned because when she was in the hospital she was on Lovenox and aspirin. She was not discharged on any blood thinners. She continues to have headaches and dizziness, and just doesn't feel right and is concerned about a more severe injury. She did not have any loss of consciousness when this occurred. States that she was also started on Metoprolol when she was discharged, and wonders if that may also be contributing to her symptoms. MD Complaint: head injury - Related Data Home Medications Medication Instructions Recorded Confirmed carBAMazepine [Carbatrol] 200 mg PO BID 02/13/14 07/31/23 Cholecalciferol [Vitamin D3 (25 50 mcg PO DAILY 03/08/21 07/31/23 Mcg = 1000 Iu)] Ibuprofen [Motrin Ib] 200 - 800 mg PO Q8H PRN 03/08/21 07/31/23 EPINEPHrine (Auto Inject) [Epipen] 0.3 mg IM ONCE PRN 07/31/23 07/31/23 Multivitamins, Thera [Multivitamin 1 tab PO DAILY 07/31/23 07/31/23 (formulary)] diphenhydrAMINE HCL [Benadryl] 25 mg PO HS PRN 07/31/23 07/31/23 Previous Rx's Medication Instructions Recorded sitaGLIPtin [Januvia] 100 mg PO DAILY #30 tab 03/21/21 Aspirin 81 mg PO DAILY tab 08/01/23 Famotidine [Pepcid] 20 mg PO BID #60 tab 08/01/23 Metoprolol Succinate (ER) [Toprol 25 mg PO DAILY #30 tab 08/01/23 XL] Nitroglycerin Sl Tabs [Nitrostat] 0.4 mg SUBLINGUAL Q5M PRN #30 tab 08/01/23 Rosuvastatin [Crestor] 10 mg PO DAILY #30 tablet 08/01/23 Allergies/Adverse reactions: Allergies Allergy/AdvReac Type Severity Reaction Status Date / Time amoxicillin Allergy nausea,diarrhea, Verified 07/31/23 11:15 light headedness apricot [Apricot] Allergy PER ALG Verified 07/31/23 11:15 TESTING banana Allergy Nausea & Verified 07/31/23 11:15 Vomiting carbamazepine Allergy heart Verified 07/31/23 11:15 racing,panic attacks, skin crawling cinnamon [Cinnamon] Allergy Swelling Verified 07/31/23 11:15 codeine Allergy Hallucinati Verified 07/31/23 11:15 ons cyclobenzaprine HCl Allergy Swelling Verified 07/31/23 11:15 [From Amrix] dexamethasone Allergy Unknown Verified 07/31/23 11:15 meloxicam [From Mobic] Allergy Swelling Verified 07/31/23 11:15 saxagliptin HCl Allergy Rash/Hives Verified 07/31/23 11:15 [From Onglyza] tree nut [Tree Nut] Allergy PER ALG Verified 07/31/23 11:15 TESTING Review of Systems ROS Statement: Those systems with pertinent positive or pertinent negative responses have been documented in the HPI. ROS Other: All systems not noted in ROS Statement are negative. Past Medical History Past Medical History: Cancer, Diabetes Mellitus, Seizure Disorder Additional Past Medical History / Comment(s): LAST SEIZURE approximately 2003. HYPOTENSION. "after my cardiac cath my heart stopped-possible vasovagal per old medical record. UTIs. IBS or food allergies causing problems, SKIN CANCER History of Any Multi-Drug Resistant Organisms: None Reported Past Surgical History: Cholecystectomy, Heart Catheterization, Tubal Ligation, Uterine Ablation Additional Past Surgical History / Comment(s): labrial growth removed, skin cancer removals. COLONOSCOPY Past Anesthesia/Blood Transfusion Reactions: No Reported Reaction Additional Past Anesthesia/Blood Transfusion Reaction / Comment(s): PT STATED " MY HEART STOPPED AFTER MY HEART CATH" -possible vasovagal per old record, has had a CHOLECYSTECTOMY AFTER HEARTCATH AND DIDN'T HAVE ANY PROBLEMS" Past Psychological History: No Psychological Hx Reported Smoking Status: Never smoker Past Alcohol Use History: None Reported Past Drug Use History: None Reported - Past Family History Father Additional Family Medical History / Comment(s): Father at age 75 of heart problems. Mother Family Medical History: Cancer Additional Family Medical History / Comment(s): Severe arthritis, bowel and stage IV breast cancer. Brother(s) Family Medical History: CVA/TIA, Diabetes Mellitus Additional Family Medical History / Comment(s): General Exam - General Exam Comments Initial Comments: Visual Physical Exam Vital signs reviewed General: Well-appearing, nontoxic, no acute distress. Head: Normocephalic, atraumatic Eyes: PERRLA, EOMI ENT: Airway patent Chest: Nonlabored breathing Skin: No visual rash, normal skin tone Neuro: Alert and oriented 3 Musculoskeletal: No gross abnormalities Limitations: no limitations General appearance: alert, in no apparent distress Head exam: Present: atraumatic, normocephalic, normal inspection Eye exam: Present: normal appearance, PERRL, EOMI. Absent: scleral icterus, conjunctival injection, periorbital swelling Respiratory exam: Present: normal lung sounds bilaterally. Absent: respiratory distress, wheezes, rales, rhonchi, stridor Cardiovascular Exam: Present: regular rate, normal rhythm, normal heart sounds. Absent: systolic murmur, diastolic murmur, rubs, gallop, clicks Neurological exam: Present: alert, oriented X3, CN II-XII intact Psychiatric exam: Present: normal affect, normal mood Skin exam: Present: warm, dry, intact, normal color. Absent: rash Course Vital Signs 08/05/23 08/05/23 08/05/23 20:02 21:45 22:49 Temperature 98.2 F Pulse Rate 94 79 88 Respiratory 16 16 16 Rate Blood Pressure 208/94 148/83 133/76 O2 Sat by Pulse 99 98 99 Oximetry Medical Decision Making - Medical Decision Making This is a 52 year old female who presents to the emergency department for a head injury. Was pt. sent in by a medical professional or institution? @ -No Did you speak to anyone other than the patient for history? @ -No Did you review nursing and triage notes? @ -Yes, and I agree, it is accurate with regards to the patient's symptoms. Were old charts reviewed? @ -Discharge summary from 08/01/23 advising that the chest pain was likely musculoskeletal and the cardiac workup was negative. Differential Diagnosis? @ -Differential Diagnosis Head Injury: Contusion, hematoma, intracranial hemorrhage, skull fracture, whiplash, concussion, this is not meant to be an all-inclusive list. EKG interpreted by me (3pts min.)? @ -EKG interpreted by me demonstrating the following: Sinus rhythm. Ventricular rate 85 beats per minute, [place] interval 176 ms, QRS duration 94 ms, QTC 386 ms. X-rays interpreted by me (1pt min.)? @ -Not obtained CT interpreted by me (1pt min.)? @ -Computed tomography scan of the brain and c-spine obtained. My interpretation identifies no evidence of an acute intracranial hemorrhage, skull fracture, or cervical spine fracture. U/S interpreted by me (1pt. min.)? @ -Not obtained What testing was considered but not performed? (CT, X-rays, U/S, labs)? Why? @ -None What meds were considered but not given? Why? @ -None Did you discuss the management of the patient with other professionals? @ -No Did you reconcile home meds? @ -No Was smoking cessation discussed for >3mins.? @ -No Was critical care preformed (if so, how long)? @ -No Were there social determinants of health that impacted care today? How? (Homelessness, low income, unemployed, alcoholism, drug addiction, transportation, low edu. Level, literacy, decrease access to med. care, skilled nursing, rehab)? @ -No Was there de-escalation of care discussed even if they declined? (Discuss DNR or withdrawal of care, Hospice)? @ -No What co-morbidities impacted this encounter? (DM, HTN, Smoking, COPD, CAD, Cancer, CVA, Hep., AIDS, mental health diagnosis, sleep apnea, morbid obesity)? @ -DM Was patient admitted / discharged? @ -Discharged. Lab work obtained revealing mild leukocytosis and was otherwise unremarkable. Computed tomography scan of the brain and C-spine obtained revealing no acute process. Patient remained asymptomatic while in the emergency department. She has a follow-up appointment with her precision grinder external in 4 days. Advised she discuss her concerns with them, especially with regards to the metoprolol in the event any changes need to be made. Patient discharged home in stable condition. Undiagnosed new problem with uncertain prognosis? @ -None Drug Therapy requiring intensive monitoring for toxicity (Heparin, Nitro, Insulin, Cardizem)? @ -None Were any procedures done? @ -None Diagnosis/symptom? @ -Head injury, dizziness Acute, or Chronic, or Acute on Chronic? @ -Acute Uncomplicated (without systemic symptoms) or Complicated (systemic symptoms)? @ -Uncomplicated Side effects of treatment? @ -None Exacerbation, Progression, or Severe Exacerbation] @ -Not applicable Poses a threat to life or bodily function? @ -No Return precautions reviewed in depth, the patient is instructed to return to the emergency department with any new, worsening, or concerning symptoms. Patient verbalized understanding. This case was discussed in detail with the attending ED physician, Dr. Tracy. Presentation, findings, and treatment plan discussed in detail as well. - Lab Data Result diagrams: 08/05/23 21:46 08/05/23 21:46 Lab Results 08/05/23 08/05/23 08/05/23 Range/Units 21:46 21:46 21:46 WBC 11.8 H (3.8-10.6) k/uL RBC 4.70 (3.80-5.40) m/uL Hgb 13.6 (11.4-16.0) gm/dL Hct 39.2 (34.0-46.0) % MCV 83.4 (80.0-100.0) fL MCH 29.0 (25.0-35.0) pg MCHC 34.8 (31.0-37.0) g/dL RDW 12.5 (11.5-15.5) % Plt Count 264 (150-450) k/uL MPV 7.5 Neutrophils % 70 % Lymphocytes % 25 % Monocytes % 4 % Eosinophils % 1 % Basophils % 0 % Neutrophils # 8.2 H (1.3-7.7) k/uL Lymphocytes # 2.9 (1.0-4.8) k/uL Monocytes # 0.4 (0-1.0) k/uL Eosinophils # 0.2 (0-0.7) k/uL Basophils # 0.0 (0-0.2) k/uL Sodium 139 (137-145) mmol/L Potassium 3.6 (3.5-5.1) mmol/L Chloride 100 (98-107) mmol/L Carbon Dioxide 31 H (22-30) mmol/L Anion Gap 8 mmol/L BUN 16 (7-17) mg/dL Creatinine 0.58 (0.52-1.04) mg/dL Est GFR (CKD-EPI)AfAm >90 (>60 ml/min/1.73 sqM) Est GFR (CKD-EPI)NonAf >90 (>60 ml/min/1.73 sqM) Glucose 191 H (74-99) mg/dL Calcium 10.1 (8.4-10.2) mg/dL Total Bilirubin 0.4 (0.2-1.3) mg/dL AST 32 (14-36) U/L ALT 29 (4-34) U/L Alkaline Phosphatase 99 (38-126) U/L Troponin I <0.012 (0.000-0.034) ng/mL Total Protein 8.6 H (6.3-8.2) g/dL Albumin 5.0 (3.5-5.0) g/dL - Radiology Data Radiology results: report reviewed, image reviewed Disposition Clinical Impression: Closed head injury, Dizziness Disposition: HOME SELF-CARE Instructions (If sedation given, give patient instructions): Dizziness (ED) Additional Instructions: Return to the emergency department with any new, worsening, or concerning symptoms. Alternate with Ibuprofen and Tylenol as needed for any additional headaches. Follow up with Dr. Vasquez as scheduled. Is patient prescribed a controlled substance at d/c from ED?: No Referrals: Deni Aguiar DO [Primary Care Provider] - 1-2 days Time of Disposition: 22:30
[2023-08-05 20:14] VITALS: RESP 16; TEMP 98.2
--- NOTE | 2023-08-05 21:35 | CT ---
EXAMINATION TYPE: CT brain cassandra lyn DATE OF EXAM: 08/05/2023 COMPARISON: 03/09/2021 HISTORY: Patient states that she hit her head last week on the sink and has had increased blood press ure since. Patient on blood thinners. CT DLP: 1441.5 mGycm, Automated exposure control for dose reduction was used. CONTRAST: Patient injected with 0 mL of Isovue 300. CT of the brain is performed utilizing 3 mm thick sections through the posterior fossa and 3 mm thick sections through the remaining calvarium. Study is performed within 24 hours of arrival to the hospital. No abnormal hyperdensity is present to suggest an acute intracranial hemorrhage. No mass lesion is evident. No acute infarcts are evident. Ventricles and sulci are appropriate for the patient age. Paranasal sinuses and mastoid air cells within the [id number] are clear. IMPRESSIONS: 1. No acute intracranial process. Follow-up MRI can be performed as clinically indicated CT cervical spine. COMPARISON: None CT of the cervical spine is performed in the axial plane at 2 mm thick sections. Reconstructed image s in the coronal, and sagittal plane are reviewed on the computer. No acute fractures are evident. Vertebral body alignment is normal. Disc heights are preserved. Vertebral body heights are preserved. No spinal canal stenosis is evident. No neural foraminal stenosis is evident. IMPRESSION: 1. No acute osseous abnormality cervical spine
[2023-08-05 21:54] LABS: Basophils % (A) 0 %; Eosinophils # (A) 0.2 k/uL (0-0.7); Eosinophils % (A) 1 %; HCT 39.2 % (34.0-46.0); HGB 13.6 gm/dL (11.4-16.0); Lymphocytes # (A) 2.9 k/uL (1.0-4.8); Lymphocytes % (A) 25 %; MCHC 34.8 g/dL (31.0-37.0); MCV 83.4 fL (80.0-100.0); Mean Platelet Volume 7.5; Monocytes # (A) 0.4 k/uL (0-1.0); Monocytes % (A) 4 %; Neutrophils # (A) 8.2 k/uL (1.3-7.7); Neutrophils % (A) 70 %; Platelet Count 264 k/uL (150-450); RDW 12.5 % (11.5-15.5); WBC 11.8 k/uL (3.8-10.6)
[2023-08-05 22:05] LABS: ALT 29 U/L (4-34); AST 32 U/L (14-36); African American GFR (CKD) >90 (>60 ml/min/1.73 sqM); Alkaline Phosphatase 99 U/L (38-126); Anion Gap 8 mmol/L; Blood Urea Nitrogen 16 mg/dL (7-17); Calcium 10.1 mg/dL (8.4-10.2); Carbon Dioxide 31 mmol/L (22-30); Chloride 100 mmol/L (98-107); Glucose 191 mg/dL (74-99); Non-African American GFR(CKD) >90 (>60 ml/min/1.73 sqM); Potassium 3.6 mmol/L (3.5-5.1); Sodium 139 mmol/L (137-145); Total Bilirubin 0.4 mg/dL (0.2-1.3); Total Protein 8.6 g/dL (6.3-8.2)
[2023-08-05 22:56] VITALS: BP 133/76; PULSE 88
== END 2023-08-05 22:51 | disposition home or self-care (01) ==
LOC: EC 19:57
DX: S09.90XA Unspecified injury of head, initial encounter (principal); E11.9 Type 2 diabetes mellitus without complications; Z88.0 Allergy status to penicillin; Z91.018 Allergy to other foods; Z88.5 Allergy status to narcotic agent; Z88.8 Allergy status to other drugs, medicaments and biological substances; Z88.1 Allergy status to other antibiotic agents; W22.8XXA Striking against or struck by other objects, initial encounter
CPT/HCPCS: 36415; 70450; 72125; 80053; 84484; 85025; 93005; 99284

== ENCOUNTER → 2024-03-15 | Outpatient (CLI) | payer BC ==
--- NOTE | 2024-03-19 11:41 | MM ---
Reason for Exam: Screening (asymptomatic). Last mammogram was performed 1 year(s) and 2 month(s) ago. Patient History: Menarche at age 11. First Full-Term at age 16. Patient has history of breast feeding. Hormonal Contraceptives for 7 years from age 17 until age 24. Mother had breast cancer, age 71. Risk Values: Heather 5 year model risk: 2.1%. NCI Lifetime model risk: 15.0%. Prior Study Comparison: 01/03/2021 Bilateral Screening Mammogram, [facility]. 01/08/2022 Bilateral MG 3D screening mammo w/cad, [facility]. 01/27/2023 Bilateral MG 3D screening mammo w/cad, [facility]. Tissue Density: The breasts are heterogeneously dense, which may obscure small masses. Findings: Analyzed By CAD. Right breast: There is no suspicious group of microcalcifications or new suspicious mass. Left breast: There is no suspicious group of microcalcifications or new suspicious mass. Overall Assessment: Negative, BI-RAD 1 Management: Screening Mammogram of both breasts in [address] [facility] will attempt to contact patient to return for supplemental views and ultrasound if indicated. Patient should continue monthly self-breast exams. A clinical breast exam by your physician is recommended on an annual basis. This exam should not preclude additional follow-up of suspicious palpable abnormalities. Note on Heather scores and lifetime risk: 1. A Heather score greater than 3% is considered moderate risk. If this is the case, consider specialist referral to assess eligibility for a risk reducing agent. 2. If overall lifetime risk for the development of breast cancer is 20% or higher, the patient may qualify for future screening with alternating mammogram and breast MRI. Electronically signed and approved by: Jose Mohan DO
== END | disposition home or self-care (01) ==
LOC: RADMAMWWP 06:54
PROVIDERS: ATTEND Obstetrics & Gynecology
DX: Z12.31 Encounter for screening mammogram for malignant neoplasm of breast
CPT/HCPCS: 77063; 77067

== ENCOUNTER 2024-12-15 06:51 | Day surgery (SDC) | payer BC ==
--- NOTE | 2024-12-14 08:29 | P.HPOR ---
History of Present Illness H&P Date: 12/14/24 Chief Complaint: Left shoulder pain and stiffness The patient is a 54-year-old female who presents with progressive left shoulder pain and stiffness for the past 2 weeks. She denies any specific injury. She notes significant limitation in terms of her motion. She is having night symptoms. She has difficult time raising her arm at all. She denies previous problems. Review of Systems Per HPI Past Medical History Past Medical History: Cancer, Diabetes Mellitus, Pneumonia, Seizure Disorder Additional Past Medical History / Comment(s): LAST SEIZURE approximately 2003. HYPOTENSION. "after my cardiac cath my heart stopped-possible vasovagal per old medical record. UTIs. IBS or food allergies causing problems, SKIN CANCER , went septic with pneumonia in past History of Any Multi-Drug Resistant Organisms: None Reported Past Surgical History: Cholecystectomy, Heart Catheterization, Tubal Ligation, Uterine Ablation Additional Past Surgical History / Comment(s): labrial growth removed, skin cancer removals. COLONOSCOPY Past Anesthesia/Blood Transfusion Reactions: No Reported Reaction Additional Past Anesthesia/Blood Transfusion Reaction / Comment(s): PT STATED "MY HEART STOPPED AFTER MY HEART CATH" -possible vasovagal per old record, has had a CHOLECYSTECTOMY AFTER HEARTCATH AND DIDN'T HAVE ANY PROBLEMS" Smoking Status: Never smoker - Past Family History Father Additional Family Medical History / Comment(s): Father at age 75 of heart problems. Mother Family Medical History: Cancer Additional Family Medical History / Comment(s): Severe arthritis, bowel and stage IV breast cancer. Brother(s) Family Medical History: CVA/TIA, Diabetes Mellitus Additional Family Medical History / Comment(s): Medications and Allergies Home Medications Medication Instructions Recorded Confirmed Type carBAMazepine [Carbatrol] 200 mg PO BID 02/13/14 12/13/24 History Cholecalciferol [Vitamin D3 (25 50 mcg PO DAILY 03/08/21 12/13/24 History Mcg = 1000 Iu)] Ibuprofen [Motrin Ib] 200 - 800 mg PO Q8H PRN 03/08/21 12/13/24 History sitaGLIPtin [Januvia] 100 mg PO DAILY #30 tab 03/21/21 12/13/24 Rx EPINEPHrine (Auto Inject) [Epipen] 0.3 mg IM ONCE PRN 07/31/23 12/13/24 History Multivitamins, Thera [Multivitamin 1 tab PO DAILY 07/31/23 12/13/24 History (formulary)] diphenhydrAMINE HCL [Benadryl] 25 mg PO DAILY PRN 07/31/23 12/13/24 History Calcium Carbonate [Tums] 1 tab PO DIRECTED PRN 12/13/24 12/13/24 History Allergies Allergy/AdvReac Type Severity Reaction Status Date / Time amoxicillin Allergy nausea,diarrhea, Verified 12/13/24 10:15 light headedness apricot [Apricot] Allergy PER ALG Verified 12/13/24 10:15 TESTING aspirin Allergy Chest Pain Verified 12/13/24 10:15 banana Allergy Nausea & Verified 12/13/24 10:15 Vomiting carbamazepine Allergy heart Verified 12/13/24 10:15 racing,panic attacks, skin crawling cinnamon [Cinnamon] Allergy Swelling Verified 12/13/24 10:15 codeine Allergy Hallucinati Verified 12/13/24 10:15 ons cyclobenzaprine HCl Allergy Swelling Verified 12/13/24 10:15 [From Amrix] dexamethasone Allergy Unknown Verified 12/13/24 10:15 doxycycline Allergy Chest Pain Verified 12/13/24 10:15 meloxicam [From Mobic] Allergy Swelling Verified 12/13/24 10:15 saxagliptin HCl Allergy Rash/Hives Verified 12/13/24 10:15 [From Onglyza] sulfamethoxazole Allergy Rash/Hives Verified 12/13/24 10:15 [From Bactrim] tree nut [Tree Nut] Allergy PER ALG Verified 12/13/24 10:15 TESTING trimethoprim [From Bactrim] Allergy Rash/Hives Verified 12/13/24 10:15 Physical Examination - Shoulder left Tenderness with palpation: anterior, bicipital groove Pain: with forward flexion, with internal rotation, with external rotation ROM: forward flexion: 40 degrees (Active and passively) ROM: internal rotation: 0 ROM: external rotation: 0 degrees Crepitus with motion: Yes Strength: abduction: 4/5 Strength: external rotation: 4/5 Tests: internal impingement tests: positive, external impingment tests: positive Results The patient is a well-developed well-nourished female approximately 5 foot 6, 180 pounds. HEENT exam is nonfocal, neck is supple. She is tender about the anterior glenohumeral joint on the left. She has moderate crepitus. She has significant limitation of motion. Impingement test, Neer test, and Speed test are positive. Her distal neurovascular otherwise appears intact in the left upper extremity. - Diagnostic results Shoulder x-ray: image reviewed (X-rays of the left shoulder obtained the office show calcification in the subacromial space.) Assessment and Plan Assessment: Left shoulder adhesive capsulitis Left calcific rotator cuff tendinitis [id number] diabetes Plan: I talked to the patient at length regarding her condition along with treatment options. At this point she is quite symptomatic having stiffness and pain despite conservative measures. After a thorough discussion she opts to proceed with manipulation under anesthesia of the left shoulder. We will likely perform that as an outpatient procedure utilizing IV sedation. Risks and benefits were discussed at length in layman's terms.
[~2024-12-15 06:51] MED LIST changes: -LACTATED RINGERS 1,000 ML IV SCH; -LIDOCAINE 1% (10MG/ML) FOR IV START INTRADERMA PRN; -PROPOFOL 10 MG/ML 20 ML VIAL IV ONE; +ceFAZolin 2 GM in DEXTROSE 5% IN WATER 50 ML IVPB PRN
[2024-12-15] MEDS: IV FLUID CONTINUATION 1,000 ML IV ONE (07:20)
[2024-12-15] MEDS ORDERED: MIDAZOLAM 2 MG/2 ML VIAL IV PRN (07:26)
[2024-12-15] MEDS ORDERED: fentaNYL (PF) 50 MCG/ML 2 ML AMP IV PRN (07:26)
[2024-12-15 07:42] VITALS: RESP 16
[2024-12-15] MEDS: ONDANSETRON 4 MG/2 ML VIAL IVP ONE (07:43)
[2024-12-15] MEDS: LACTATED RINGERS 1,000 ML IV SCH (07:44)
[2024-12-15] MEDS: SCOPOLAMINE 1 MG/72 HR PATCH TRANSDERM ONE (07:44)
[2024-12-15 07:58] LABS: Glucose,Whole Blood 211 mg/dL (70-110)
[2024-12-15] MEDS: KETOROLAC 15 MG/ML 1 ML VIAL IVP STA (08:24)
[2024-12-15] MEDS ORDERED: KETOROLAC 15 MG/ML 1 ML VIAL ONE (08:26)
[2024-12-15] MEDS ORDERED: HYDROmorphone (PF) 1 MG/ML ONE (08:26)
[2024-12-15] MEDS ORDERED: PROPOFOL 10 MG/ML 20 ML VIAL IV ONE (08:26)
--- NOTE | 2024-12-15 08:34 | P.OP ---
Date of Procedure: 12/15/24 Preoperative Diagnosis: Left shoulder adhesive capsulitis Postoperative Diagnosis: Same Procedure(s) Performed: Manipulation under anesthesia left shoulder Anesthesia: MAC Surgeon: Tin Christopher Estimated Blood Loss (ml): 0 Pathology: none sent Condition: stable Disposition: PACU Indications for Procedure: The patient is a 54-year-old female who presents with progressive left shoulder pain and stiffness despite conservative measures. Clinically she does not have evidence of both adhesive capsulitis along with calcific rotator cuff tendinitis. A discussion of the risks and benefits of manipulation under anesthesia was made with the patient. She opted to proceed. Risks of the procedure to include fracture, tendon rupture, possible recurrence of stiffness and need for subsequent procedures was discussed. Informed consent was obtained. Operative Findings: As below Description of Procedure: The patient was brought to the recovery room, and after induction of IV sedation the left shoulder was then gently manipulated. First with the arm at the side I obtained full external rotation. Moderate adhesions were encountered. I then obtain full forward elevation. Again moderate adhesions were encountered. I felt I had adequate release at this point. She was then monitored until fully awake. There was no blood loss. No complications were incurred.
[2024-12-15 08:43] VITALS: TEMP 98.1
[2024-12-15 09:47] VITALS: BP 132/60
[2024-12-15 09:55] VITALS: PULSE 85
== END 2024-12-15 10:34 | disposition home or self-care (01) ==
LOC: OR 06:51
PROVIDERS: ATTEND Orthopaedic Surgery
DX: M75.02 Adhesive capsulitis of left shoulder (principal); M75.32 Calcific tendinitis of left shoulder; E11.9 Type 2 diabetes mellitus without complications; G40.909 Epilepsy, unspecified, not intractable, without status epilepticus; Z79.84 Long term (current) use of oral hypoglycemic drugs; Z79.899 Other long term (current) drug therapy; Z85.828 Personal history of other malignant neoplasm of skin; Z87.440 Personal history of urinary (tract) infections; Z88.0 Allergy status to penicillin; Z88.6 Allergy status to analgesic agent; Z88.1 Allergy status to other antibiotic agents; Z88.5 Allergy status to narcotic agent; Z91.018 Allergy to other foods; Z88.2 Allergy status to sulfonamides; Z88.8 Allergy status to other drugs, medicaments and biological substances
CPT/HCPCS: 23700; J2405; J1171; J1885; J2704

== ENCOUNTER → 2025-01-02 | Outpatient (CLI) | payer BC ==
[2025-01-02 15:04] LABS: Basophils # (A) 0.03 X 10*3/uL (0.00-0.10); Basophils % (A) 0.3 %; Eosinophils # (A) 0.09 X 10*3/uL (0.04-0.35); HCT 40.1 % (37.2-46.3); HGB 13.1 g/dL (12.0-15.0); Lymphocytes # (A) 2.34 X 10*3/uL (0.90-5.00); MCHC 32.7 g/dL (32.0-37.0); MCV 85.7 FL (80.0-97.0); Mean Platelet Volume 10.4 FL (9.5-12.2); Monocytes % (A) 4.4 %; NRBC Per 100 WBC 0 X 10*3/uL (0.00-0.01); Neutrophils # (A) 6.12 X 10*3/uL (1.80-7.70); Platelet Count 263 X 10*3/uL (140-440); RBC 4.68 X 10*6/uL (4.10-5.20); RDW 12.9 % (11.5-14.5); WBC 9.01 X 10*3/uL (4.50-10.00)
[2025-01-02 15:38] LABS: BUN/Creat Ratio 22.29 Ratio (12.00-20.00); Blood Urea Nitrogen 15.6 mg/dL (9.0-27.0); Chloride 101 mmol/L (96-109); Chol/HDL Ratio 4.84 Ratio; Glucose 207 mg/dL (70-110); LDL Cholesterol,Calculated 142.5 mg/dL (0.0-131.0); Potassium 4.4 mmol/L (3.5-5.5); Sodium 140 mmol/L (135-145)
[2025-01-02 15:39] LABS: ALT 34 U/L (8-44); AST 29 U/L (13-35); Albumin 4.4 g/dL (3.8-4.9); Albumin/Globulin Ratio 1.57 Ratio (1.60-3.17); Alkaline Phosphatase 113 U/L (41-126); Calcium 9.8 mg/dL (8.7-10.3); Carbon Dioxide 26.4 mmol/L (21.6-31.8); Globulin 2.8 g/dL (1.6-3.3); T4, Free (Free Thyroxine) 0.76 ng/dL (0.80-1.80); Total Bilirubin 0.3 mg/dL (0.3-1.2); Total Protein 7.2 g/dL (6.2-8.2)
[2025-01-02 16:17] LABS: Appearance,Urine Clear (Clear); Bilirubin,Urine Negative (Negative); Blood,Urine Negative (Negative); Color,Urine Yellow (Yellow); Ketones,Urine Negative (Negative); Nitrite,Urine Negative (Negative); Specific Gravity,Urine 1.021 (1.001-1.030); Urobilinogen,Urine 0.2 E.U./DL
[2025-01-02 17:39] LABS: Thyroid Peroxidase Antibodies 17.3 U/mL (0.0-33.0)
[2025-01-02 19:00] LABS: Microalbumin Creatinine Ratio <9 mg/g Cr (0-30)
== END | disposition home or self-care (01) ==
LOC: LABWHC1 08:59
PROVIDERS: ATTEND Family Medicine
DX: Z00.00 Encounter for general adult medical examination without abnormal findings (principal); E01.0 Iodine-deficiency related diffuse (endemic) goiter; E11.65 Type 2 diabetes mellitus with hyperglycemia
CPT/HCPCS: 36415; 80053; 80061; 81003; 82043; 82306; 82570; 83036; 84439; 84443; 85025; 86376; 86800

== ENCOUNTER → 2025-01-23 | Outpatient (CLI) | payer BC ==
[2025-01-24 02:25] LABS: Gliadin AB IgA, Deaminated Positive (Negative); Gliadin AB IgA, Unit 25.7 U/mL; Gliadin AB IgG, Deaminated Negative (Negative); Gliadin AB IgG, Unit <0.4 U/mL
== END | disposition home or self-care (01) ==
LOC: LABWHC1 15:50
PROVIDERS: ATTEND Family Medicine
DX: Z91.018 Allergy to other foods (principal)
CPT/HCPCS: 36415; 83516

== ENCOUNTER → 2025-01-25 | Outpatient (CLI) | payer BC ==
--- NOTE | 2025-01-25 15:53 | US ---
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 TECHNIQUE: Grayscale and color Doppler imaging of the thyroid gland. FINDINGS: GLAND SIZE: Right Lobe: 5.1 x 1.7 x 1.9 cm Overall Parenchyma: homogeneous Left Lobe: 4.5 x 1.8 x 1.2 cm Overall Parenchyma: homogeneous Isthmus Thickness: 0.3 cm NODULES RIGHT: # of nodules measured on right: 0 LEFT: # of nodules measured on left: 0 ISTHMUS: # of nodules measured in the isthmus: 0 Bilateral neck scanned, no evidence of lymphadenopathy. IMPRESSION: No thyroid nodules. Normal sonographic appearance of the thyroid gland. TI-RADS assessment score and recommendation for follow-up based on appropriate scoring and treatment protocols. TR1 Benign No FNA TR2 Not suspicious No FNA TR3: If nodule size is ? 2.5 cm, FNA is recommended. If nodule size is ? 1.5 cm, follow-up imaging at 1, 3, and 5 years is recommended. TR4: If nodule size is ? 1.5 cm, FNA is recommended. If nodule size is ? 1.0 cm, follow-up imaging at 1, 2, 3, and 5 years is recommended. TR5: If nodule size is ? 1.0 cm, FNA is recommended. If nodule size is ? 0.5 cm, annual follow-up for up to 5 years is recommended. TR 1 thyroid nodules have a 0.3 % risk of malignancy. TR 2 thyroid nodules have a 1.5 % risk of malignancy. TR 3 thyroid nodules have a 4.8 % risk of malignancy. TR 4 thyroid nodules have a 9.1 % risk of malignancy. TR 5 thyroid nodules have a 35 % risk of malignancy. [email or web address] [facility], , 01/25/2025 3:51 PM
== END | disposition home or self-care (01) ==
LOC: RADUSWWP 15:18
PROVIDERS: ATTEND Family Medicine
DX: E01.0 Iodine-deficiency related diffuse (endemic) goiter (principal)
CPT/HCPCS: 76536

== ENCOUNTER → 2025-02-08 | Outpatient (CLI) | payer BC ==
[2025-02-08 19:44] LABS: T4, Free (Free Thyroxine) 0.74 ng/dL (0.80-1.80)
== END | disposition home or self-care (01) ==
LOC: LABWHC1 15:57
PROVIDERS: ATTEND Family Medicine
DX: E01.0 Iodine-deficiency related diffuse (endemic) goiter (principal)
CPT/HCPCS: 36415; 84439; 84443